=== PATIENT | male | born 1950 | race African-American/Black ===

== ENCOUNTER 2017-02-04 13:02 | Observation (INO) | payer BC, OTHER ==
[~2017-02-04] VITALS: Ht 175.3 cm; Wt 97.1 kg
[~2017-02-04 13:02] MED LIST: AMLO10TA80 PO; ATOR10TA PO; CLOP75TA2 PO; COR12 PO; DOCU-150 AD; Furosemide PO; Hydralazine Hcl PO; INSU3INS6 SUBCUT; LISI10TA5 PO; NITR0.4T3 SL; [UNRECOGNIZED DRUG - CODE] PO; eliquis PO
[2017-02-04] MEDS ORDERED: NITROGLYCERIN OINT 1GM/INCH UDPKT TD ONE (13:45)
[2017-02-04] MEDS ORDERED: ASPIRIN 81MG TABLET PO ONE (13:45)
[2017-02-04 14:14] LABS: BASOPHILS % 1.1 % (0.0-2.0); EOSINOPHILS % 3.6 % (0.0-5.0); HEMOGLOBIN. 13.1 g/dL (14.0-18.0); LYMPHOCYTES % 18.4 % (20.0-50.0); MEAN CORPUSCULAR HEMOGLOBIN 31.3 pg (28.0-32.0); MEAN CORPUSCULAR HGB CONC 32.8 g/dL (31.0-37.0); MEAN CORPUSCULAR VOLUME 95.5 fL (80.0-94.0); MEAN PLATELET VOLUME 9.6 fl (7.4-10.4); MONOCYTES % 5.9 % (2.0-8.0); PLATELET 322 x1000/uL (130-400); RED BLOOD CELL COUNT 4.19 mill/uL (4.7-6.1); RED CELL DISTRIBUTION WIDTH 15.8 % (11.6-14.6)
[2017-02-04 14:25] LABS: ALANINE AMINOTRANSFERASE 27 IU/L (13-61); ALBUMIN 3.4 g/dL (3.4-5.0); ANION GAP 12; CARBON DIOXIDE 29 mEq/L (21-32); CHLORIDE 104 mEq/L (98-107); ETHANOL BLOOD < 10 mg/dL; INDEX HEMOLYSI 3 (1-3); INDEX ICTERIC 1 (1-4); INDEX LIPEMIC 1 (1-3); NT PRO B-TYPE NATRIURETIC PEP 486 pg/mL (5-125); TROPONIN I < 0.02 ng/mL (0.00-0.04); UREA NITROGEN BLOOD 15 mg/dL (7-21); eGFR > 60 mL/min (>60)
[2017-02-04 14:31] LABS: *AMPHETAMINES SCREEN URINE NEGATIVE (NEGATIVE); *BARBITURATES SCREEN URINE NEGATIVE (NEGATIVE); *BENZODIAZEPINES SCREEN URINE NEGATIVE (NEGATIVE); *COCAINE SCREEN URINE NEGATIVE (NEGATIVE); CANNABINOID URINE SCREEN NEGATIVE (NEGATIVE); ECSTASY MDMA SCREEN URINE NEGATIVE (NEGATIVE); METHADONE URINE SCREEN NEGATIVE (NEGATIVE); OPIATES URINE SCREEN NEGATIVE (NEGATIVE); PHENCYCLIDINE URINE SCREEN NEGATIVE (NEGATIVE)
[2017-02-04] MEDS ORDERED: CLONIDINE 0.1MG TABLET PO PRN (15:45)
[2017-02-04] MEDS ORDERED: ACETAMINOPHEN 325MG TABLET PO PRN (15:45)
[2017-02-04] MEDS ORDERED: DOCUSATE SODIUM 100MG CAPSULE PO PRN (15:45)
[2017-02-04] MEDS ORDERED: ONDANSETRON HCL 4MG/2ML VIAL IV PRN (15:45)
[2017-02-04 15:53] LABS: D-DIMER 5.37 mg/L FEU (<0.50); PROTHROMBIN TIME 10.3 sec
[2017-02-04] MEDS: HYDROCODONE/ACETAMINOPHEN 5/325MG TABLET PO PRN ×2 (16:07→22:35)
[2017-02-04 16:39] LABS: CHLORIDE 105 mEq/L (98-107); INDEX HEMOLYSI 1 (1-3); INDEX ICTERIC 1 (1-4); INDEX LIPEMIC 1 (1-3)
[2017-02-04 16:45] LABS: ANION GAP 11; CALCIUM 9.2 mg/dL (8.5-10.1); CARBON DIOXIDE 28 mEq/L (21-32); UREA NITROGEN BLOOD 15 mg/dL (7-21); eGFR > 60 mL/min (>60)
[2017-02-04] MEDS ORDERED: MORPHINE SULFATE 4 MG/ML CPJ (NOT FOR IM USE) IV ONE (17:00)
[2017-02-04] MEDS ORDERED: ONDANSETRON HCL 4MG/2ML VIAL IV ONE (17:00)
[2017-02-04] MEDS ORDERED: ATORVASTATIN CALCIUM 10MG TABLET PO SCH (21:00)
[2017-02-04 22:58] LABS: CREATINE KINASE 68 IU/L (39-308); INDEX HEMOLYSI 1 (1-3); TROPONIN I < 0.02 ng/mL (0.00-0.04)
[2017-02-05] VITALS (12 sets, daily range): BP systolic 128–165; BP diastolic 72–95
[2017-02-05] MEDS: NITROGLYCERIN 0.4MG TABLET SL SL PRN ×2 (01:19→07:53)
[2017-02-05] MEDS: KETOROLAC 15MG/ML VIAL IV PRN ×4 (03:14→22:00)
[2017-02-05] MEDS: HYDROCODONE/ACETAMINOPHEN 5/325MG TABLET PO PRN ×5 (05:26→23:12)
[2017-02-05 06:26] LABS: BASOPHILS % 0.8 % (0.0-2.0); EOSINOPHILS % 3.7 % (0.0-5.0); HEMATOCRIT. 36.1 % (42.0-52.0); HEMOGLOBIN. 11.9 g/dL (14.0-18.0); LYMPHOCYTES % 19.9 % (20.0-50.0); MEAN CORPUSCULAR HEMOGLOBIN 31.1 pg (28.0-32.0); MEAN CORPUSCULAR HGB CONC 32.9 g/dL (31.0-37.0); MEAN CORPUSCULAR VOLUME 94.6 fL (80.0-94.0); MEAN PLATELET VOLUME 8.5 fl (7.4-10.4); MONOCYTES % 7.2 % (2.0-8.0); NEUTROPHILS % 68.4 % (40.0-76.0); PLATELET 290 x1000/uL (130-400); RED BLOOD CELL COUNT 3.81 mill/uL (4.7-6.1); RED CELL DISTRIBUTION WIDTH 15.3 % (11.6-14.6); WHITE BLOOD COUNT 6.3 x1000/uL (4.5-11.0)
[2017-02-05] MEDS ORDERED: DEXTROSE 50% WATER 50ML SYRINGE IV PRN (07:45)
[2017-02-05] MEDS: CLOPIDOGREL 75MG TABLET PO SCH (07:51)
[2017-02-05] MEDS: ASPIRIN 81MG EC TABLET PO SCH (07:51)
[2017-02-05] MEDS: AMLODIPINE 10MG TABLET PO SCH (07:51)
[2017-02-05] MEDS: CARVEDILOL 12.5MG TABLET PO SCH (07:51)
[2017-02-05] MEDS: LISINOPRIL 10MG TABLET PO SCH (07:52)
[2017-02-05] MEDS: ENOXAPARIN 40MG/0.4ML SYR SUBCUT SCH (07:53)
[2017-02-05] MEDS: INSULIN LISPRO 100 UNITS/ML SUBCUT SCH ×4 (08:25→21:38)
[2017-02-05 10:02] LABS: CREATINE KINASE 67 IU/L (39-308); HDL CHOLESTEROL 33 mg/dL (40-59); INDEX HEMOLYSI 1 (1-3); INDEX ICTERIC 1 (1-4); INDEX LIPEMIC 1 (1-3); LDL CHOLESTEROL 111 mg/dL (5-100); T4 FREE 0.87 ng/dL (0.76-1.46); THYROID STIMULATING HORMONE 0.98 uIU/mL (0.36-3.74); TRIGLYCERIDE 297 mg/dL (0-150); TROPONIN I < 0.02 ng/mL (0.00-0.04)
[2017-02-05] MEDS ORDERED: SODIUM CHLORIDE 0.9% 10ML VIAL ONE (11:54)
[2017-02-05] MEDS ORDERED: IOHEXOL-350 100 ML BOTTLE ONE (11:54)
[2017-02-05] MEDS: BLOOD SUGAR DIAGNOSTIC STRIP TEST SCH ×3 (13:13→21:38)
[2017-02-05] MEDS ORDERED: INFLUENZA VIRUS VACCINE 0.5ML SYR IM ONE (17:00)
[2017-02-05] MEDS ORDERED: PNEUMOCOCCAL 23-VAL P-SAC VAC 0.5 ML IM ONE (17:00)
[2017-02-05] MEDS: IPRATROPIUM/ALBUTEROL 0.5-3(2.5)MG/3ML NEB INH PRN ×2 (20:07→23:43)
[2017-02-06] VITALS (13 sets, daily range): BP systolic 119–158; BP diastolic 77–89
[2017-02-06] MEDS: HYDROCODONE/ACETAMINOPHEN 5/325MG TABLET PO PRN ×4 (03:19→17:35)
[2017-02-06] MEDS: KETOROLAC 15MG/ML VIAL IV PRN ×3 (04:12→18:36)
[2017-02-06] MEDS: IPRATROPIUM/ALBUTEROL 0.5-3(2.5)MG/3ML NEB INH PRN ×3 (04:13→16:58)
[2017-02-06] MEDS: LISINOPRIL 10MG TABLET PO SCH (08:26)
[2017-02-06] MEDS: ASPIRIN 81MG EC TABLET PO SCH (08:26)
[2017-02-06] MEDS: CARVEDILOL 12.5MG TABLET PO SCH (08:27)
[2017-02-06] MEDS: ENOXAPARIN 40MG/0.4ML SYR SUBCUT SCH (08:27)
[2017-02-06] MEDS: AMLODIPINE 10MG TABLET PO SCH (08:27)
[2017-02-06] MEDS: CLOPIDOGREL 75MG TABLET PO SCH (08:27)
[2017-02-06] MEDS: BLOOD SUGAR DIAGNOSTIC STRIP TEST SCH ×3 (08:28→17:30)
[2017-02-06] MEDS: INSULIN LISPRO 100 UNITS/ML SUBCUT SCH ×3 (08:28→18:35)
== END 2017-02-06 22:15 ==
LOC: ER 13:14 → 5EST 15:33 → INTOOBSV 15:33
PROVIDERS: ADMIT Internal Medicine; ATTEND Internal Medicine
DX: I25.119 Atherosclerotic heart disease of native coronary artery with unspecified angina pectoris (principal); I50.42 Chronic combined systolic (congestive) and diastolic (congestive) heart failure; R47.02 Dysphasia; F80.81 Childhood onset fluency disorder; R41.3 Other amnesia; E11.9 Type 2 diabetes mellitus without complications; I25.2 Old myocardial infarction; J44.9 Chronic obstructive pulmonary disease, unspecified; I11.0 Hypertensive heart disease with heart failure; I73.9 Peripheral vascular disease, unspecified; I44.7 Left bundle-branch block, unspecified; J45.909 Unspecified asthma, uncomplicated; I25.5 Ischemic cardiomyopathy; E78.5 Hyperlipidemia, unspecified; F17.200 Nicotine dependence, unspecified, uncomplicated; F41.9 Anxiety disorder, unspecified; Z89.612 Acquired absence of left leg above knee; Z86.711 Personal history of pulmonary embolism; Z86.73 Personal history of transient ischemic attack (TIA), and cerebral infarction without residual deficits; Z95.810 Presence of automatic (implantable) cardiac defibrillator; Z91.19 Patient's noncompliance with other medical treatment and regimen; Z86.718 Personal history of other venous thrombosis and embolism; Z82.49 Family history of ischemic heart disease and other diseases of the circulatory system; Z79.82 Long term (current) use of aspirin; I48.0 Paroxysmal atrial fibrillation; F11.20 Opioid dependence, uncomplicated; Z23 Encounter for immunization
CPT/HCPCS: 36415; 71010; 71275; 80048; 80053; 80061; 80305; 82550; 82962; 83880; 84439; 84443; 84484; 85025; 85379; 85610; 90471; 90472; 90686; 90732; 93005; 93970; 94640; 96372; 96374; 96375; 96376; 99285; A4216; G0378; G0482; J1650; J1815; J1885; J2270; J2405; Q9967; J7620

== ENCOUNTER 2017-05-05 22:43 | Emergency (ER) | payer BC, OTHER ==
[~2017-05-05] VITALS: Ht 170.2 cm; Wt 90.0 kg
[~2017-05-05 22:43] MED LIST changes: +CLOP75TA15 PO; -CLOP75TA2 PO
[2017-05-06] MEDS ORDERED: ONDANSETRON HCL 4MG/2ML VIAL IV STA (00:25)
[2017-05-06] MEDS ORDERED: MORPHINE SULFATE 4 MG/ML CPJ (NOT FOR IM USE) IV STA (00:25)
[2017-05-06 00:41] LABS: BASOPHILS % 1.2 % (0.0-2.0); EOSINOPHILS % 3.9 % (0.0-5.0); HEMATOCRIT. 34.2 % (42.0-52.0); HEMOGLOBIN. 11.7 g/dL (14.0-18.0); LYMPHOCYTES % 17.9 % (20.0-50.0); MEAN CORPUSCULAR HEMOGLOBIN 31.8 pg (28.0-32.0); MEAN CORPUSCULAR VOLUME 92.8 fL (80.0-94.0); MONOCYTES % 6.7 % (2.0-8.0); NEUTROPHILS % 70.3 % (40.0-76.0); PLATELET 324 x1000/uL (130-400); RED BLOOD CELL COUNT 3.69 mill/uL (4.7-6.1); RED CELL DISTRIBUTION WIDTH 14.7 % (11.6-14.6)
[2017-05-06 00:58] LABS: CARBON DIOXIDE 29 mEq/L (21-32); CHLORIDE 104 mEq/L (98-107); TROPONIN I 0.03 ng/mL (0.00-0.04)
[2017-05-06 03:41] VITALS: BP 137/72
== END 2017-05-06 03:42 | disposition home or self-care (01) ==
LOC: ER 22:58
DX: M94.0 Chondrocostal junction syndrome [Tietze] (principal); I10 Essential (primary) hypertension; J45.909 Unspecified asthma, uncomplicated; E11.9 Type 2 diabetes mellitus without complications; E78.00 Pure hypercholesterolemia, unspecified; Z79.4 Long term (current) use of insulin; Z79.02 Long term (current) use of antithrombotics/antiplatelets
CPT/HCPCS: 36415; 71010; 80053; 84484; 85025; 93005; 96374; 96375; 99285; J2270; J2405; Z7610

== ENCOUNTER 2017-05-18 19:47 | Observation (INO) | payer BC, OTHER ==
[~2017-05-18] VITALS: Ht 165.1 cm; Wt 85.8 kg
[2017-05-18] MEDS ORDERED: MORPHINE SULFATE 4 MG/ML CPJ (NOT FOR IM USE) IV STA (20:04)
[2017-05-18] MEDS ORDERED: ONDANSETRON HCL 4MG/2ML VIAL IV STA (20:04)
[2017-05-18] MEDS ORDERED: ASPIRIN 81MG TABLET PO ONE (20:15)
[2017-05-18] MEDS ORDERED: NITROGLYCERIN OINT 1GM/INCH UDPKT TD ONE (20:15)
[2017-05-18 20:20] LABS: BASOPHILS % 1.2 % (0.0-2.0); EOSINOPHILS % 2.8 % (0.0-5.0); HEMATOCRIT. 34.6 % (42.0-52.0); HEMOGLOBIN. 11.7 g/dL (14.0-18.0); LYMPHOCYTES % 16.3 % (20.0-50.0); MEAN CORPUSCULAR HEMOGLOBIN 31.4 pg (28.0-32.0); MEAN CORPUSCULAR VOLUME 92.7 fL (80.0-94.0); MEAN PLATELET VOLUME 7.9 fl (7.4-10.4); MONOCYTES % 5.7 % (2.0-8.0); PLATELET 397 x1000/uL (130-400); RED BLOOD CELL COUNT 3.73 mill/uL (4.7-6.1); RED CELL DISTRIBUTION WIDTH 14.6 % (11.6-14.6)
[2017-05-18 20:26] LABS: CARBON DIOXIDE 27 mEq/L (21-32); CHLORIDE 102 mEq/L (98-107)
[2017-05-18 20:27] LABS: D-DIMER 0.29 mg/L FEU (<0.50); PROTHROMBIN TIME 10.2 sec
[2017-05-18 20:31] LABS: ETHANOL BLOOD < 10 mg/dL
[2017-05-18 20:35] LABS: TROPONIN I < 0.02 ng/mL (0.00-0.04)
[2017-05-19 03:42] VITALS: BP 141/80
[2017-05-19 04:00] VITALS: BP 141/80
[2017-05-19] MEDS ORDERED: DOCUSATE SODIUM 100MG CAPSULE PO PRN (05:00)
[2017-05-19] MEDS ORDERED: NITROGLYCERIN 0.4MG TABLET SL SL PRN (05:00)
[2017-05-19] MEDS ORDERED: PANTOPRAZOLE 40MG DR TABLET PO ONE (05:30)
[2017-05-19] MEDS ORDERED: DEXTROSE 50% WATER 50ML SYRINGE IV PRN (05:30)
[2017-05-19 05:41] LABS: *AMPHETAMINES SCREEN URINE NEGATIVE (NEGATIVE); *BARBITURATES SCREEN URINE NEGATIVE (NEGATIVE); *BENZODIAZEPINES SCREEN URINE NEGATIVE (NEGATIVE); *COCAINE SCREEN URINE NEGATIVE (NEGATIVE); CANNABINOID URINE SCREEN NEGATIVE (NEGATIVE); METHADONE URINE SCREEN NEGATIVE (NEGATIVE); OPIATES URINE SCREEN PRESUMTIVE POSITIVE (NEGATIVE); PHENCYCLIDINE URINE SCREEN NEGATIVE (NEGATIVE)
[2017-05-19] MEDS: MORPHINE SULFATE 2 MG/ML CPJ (NOT FOR IM USE) IV PRN ×3 (06:10→20:49)
[2017-05-19] MEDS: BLOOD SUGAR DIAGNOSTIC STRIP TEST SCH ×4 (06:18→20:26)
[2017-05-19] MEDS: INSULIN LISPRO 100 UNITS/ML SUBCUT SCH ×4 (06:49→20:53)
[2017-05-19 08:00] VITALS: BP 119/73
[2017-05-19 08:14] LABS: BASOPHILS % 0.7 % (0.0-2.0); HEMATOCRIT. 33.7 % (42.0-52.0); HEMOGLOBIN. 11.2 g/dL (14.0-18.0); LYMPHOCYTES % 21.3 % (20.0-50.0); MEAN CORPUSCULAR HEMOGLOBIN 31.4 pg (28.0-32.0); MEAN CORPUSCULAR VOLUME 94.1 fL (80.0-94.0); MEAN PLATELET VOLUME 8.2 fl (7.4-10.4); MONOCYTES % 6.9 % (2.0-8.0); NEUTROPHILS % 67.1 % (40.0-76.0); PLATELET 406 x1000/uL (130-400); RED BLOOD CELL COUNT 3.58 mill/uL (4.7-6.1); RED CELL DISTRIBUTION WIDTH 14.5 % (11.6-14.6)
[2017-05-19 08:43] LABS: CARBON DIOXIDE 30 mEq/L (21-32); CHLORIDE 104 mEq/L (98-107); CREATINE KINASE 36 IU/L (39-308); CREATINE KINASE MB FRACTION 1.4 ng/mL (0.5-3.6); HDL CHOLESTEROL 31 mg/dL (40-59); LDL CHOLESTEROL 64 mg/dL (5-100); TROPONIN I < 0.02 ng/mL (0.00-0.04)
[2017-05-19] MEDS: FUROSEMIDE 40MG TABLET PO SCH ×2 (09:07→16:15)
[2017-05-19] MEDS: POTASSIUM CHLORIDE 20MEQ TABLET SR PO SCH (09:07)
[2017-05-19] MEDS: HYDRALAZINE HCL 25MG TABLET PO SCH ×3 (09:09→16:15)
[2017-05-19] MEDS: AMLODIPINE 10MG TABLET PO SCH (09:09)
[2017-05-19] MEDS: LISINOPRIL 10MG TABLET PO SCH (09:09)
[2017-05-19] MEDS: APIXABAN 5 MG TABLET PO SCH ×2 (09:09→16:05)
[2017-05-19] MEDS: CARVEDILOL 12.5MG TABLET PO SCH ×2 (09:10→20:21)
[2017-05-19 12:00] VITALS: BP 124/71
[2017-05-19] MEDS: DIPHENHYDRAMINE 25MG CAPSULE PO PRN ×2 (13:03→20:56)
[2017-05-19 15:00] LABS: CREATINE KINASE 36 IU/L (39-308); TROPONIN I < 0.02 ng/mL (0.00-0.04)
[2017-05-19 16:00] VITALS: BP 126/79
[2017-05-19 20:00] VITALS: BP 113/72
[2017-05-19] MEDS ORDERED: ATORVASTATIN CALCIUM 10MG TABLET PO SCH (21:00)
[2017-05-19 23:24] LABS: CREATINE KINASE MB FRACTION 0.7 ng/mL (0.5-3.6); TROPONIN I 0.02 ng/mL (0.00-0.04)
[2017-05-20] VITALS: BP 120/75
[2017-05-20] MEDS: MORPHINE SULFATE 2 MG/ML CPJ (NOT FOR IM USE) IV PRN ×4 (01:48→23:50)
[2017-05-20 04:00] VITALS: BP 125/75
[2017-05-20] MEDS: BLOOD SUGAR DIAGNOSTIC STRIP TEST SCH ×4 (05:51→20:42)
[2017-05-20] MEDS: INSULIN LISPRO 100 UNITS/ML SUBCUT SCH ×4 (06:27→21:10)
[2017-05-20 08:00] VITALS: BP 107/55
[2017-05-20] MEDS ORDERED: FUROSEMIDE 40MG/4ML VIAL IVP NR (08:15)
[2017-05-20] MEDS: DIPHENHYDRAMINE 25MG CAPSULE PO PRN ×2 (08:24→16:35)
[2017-05-20] MEDS: APIXABAN 5 MG TABLET PO SCH ×2 (08:26→16:35)
[2017-05-20] MEDS: POTASSIUM CHLORIDE 20MEQ TABLET SR PO SCH (08:27)
[2017-05-20] MEDS: CARVEDILOL 12.5MG TABLET PO SCH ×2 (09:00→20:42)
[2017-05-20] MEDS: FUROSEMIDE 40MG TABLET PO SCH ×2 (09:00→16:36)
[2017-05-20] MEDS: LISINOPRIL 10MG TABLET PO SCH (10:39)
[2017-05-20] MEDS: HYDRALAZINE HCL 25MG TABLET PO SCH ×3 (10:39→16:25)
[2017-05-20] MEDS: AMLODIPINE 10MG TABLET PO SCH (10:40)
[2017-05-20 12:00] VITALS: BP_SYST 104; BP_SYST 90; BP_DIAS 48; BP_DIAS 97
[2017-05-20 20:00] VITALS: BP 98/58
[2017-05-20] MEDS ORDERED: ATORVASTATIN CALCIUM 40MG TABLET PO SCH (21:00)
[2017-05-21] VITALS: BP 114/66
[2017-05-21] MEDS: DIPHENHYDRAMINE 25MG CAPSULE PO PRN ×2 (01:00→08:40)
[2017-05-21 04:00] VITALS: BP 106/62
[2017-05-21] MEDS: BLOOD SUGAR DIAGNOSTIC STRIP TEST SCH ×3 (05:49→16:38)
[2017-05-21] MEDS: INSULIN LISPRO 100 UNITS/ML SUBCUT SCH ×3 (06:35→16:51)
[2017-05-21 08:00] VITALS: BP 120/63
[2017-05-21] MEDS: LISINOPRIL 10MG TABLET PO SCH (08:32)
[2017-05-21] MEDS: POTASSIUM CHLORIDE 20MEQ TABLET SR PO SCH (08:33)
[2017-05-21] MEDS: FUROSEMIDE 40MG TABLET PO SCH ×2 (08:33→16:56)
[2017-05-21] MEDS: HYDRALAZINE HCL 25MG TABLET PO SCH ×3 (08:33→16:58)
[2017-05-21] MEDS: CARVEDILOL 12.5MG TABLET PO SCH (08:33)
[2017-05-21] MEDS: APIXABAN 5 MG TABLET PO SCH ×2 (08:33→16:55)
[2017-05-21] MEDS: AMLODIPINE 10MG TABLET PO SCH (08:33)
[2017-05-21] MEDS: MORPHINE SULFATE 2 MG/ML CPJ (NOT FOR IM USE) IV PRN ×2 (08:34→13:15)
[2017-05-21 12:10] VITALS: BP 108/80
[2017-05-21 13:19] VITALS: BP 108/80
== END 2017-05-21 18:45 | disposition home or self-care (01) ==
LOC: ER 20:01 → 5WST 05-19 02:13 → INTOOBSV 05-19 02:13 → EDBEDREQTM 05-19 02:21 → EDBEDREQ 05-19 02:21 → ENRESERV 05-19 03:06
PROVIDERS: ADMIT Internal Medicine; ATTEND Internal Medicine
DX: R07.9 Chest pain, unspecified (principal); I50.21 Acute systolic (congestive) heart failure; E11.22 Type 2 diabetes mellitus with diabetic chronic kidney disease; I13.0 Hypertensive heart and chronic kidney disease with heart failure and stage 1 through stage 4 chronic kidney disease, or unspecified chronic kidney disease; N18.9 Chronic kidney disease, unspecified; E78.5 Hyperlipidemia, unspecified; I25.10 Atherosclerotic heart disease of native coronary artery without angina pectoris; I25.5 Ischemic cardiomyopathy; Z86.718 Personal history of other venous thrombosis and embolism; Z89.612 Acquired absence of left leg above knee; Z91.14 Patient's other noncompliance with medication regimen; Z95.810 Presence of automatic (implantable) cardiac defibrillator; Z82.49 Family history of ischemic heart disease and other diseases of the circulatory system
CPT/HCPCS: 36415; 71010; 80048; 80053; 80061; 80305; 82550; 82553; 82962; 83690; 83735; 83880; 84484; 85025; 85379; 85610; 93005; 93306; 96372; 96374; 96375; 96376; 99285; G0378; G0482; J1815; J1940; J2270; J2405; Q0163

== ENCOUNTER 2017-06-05 04:36 | Emergency (ER) | payer BC, OTHER ==
[~2017-06-05] VITALS: Ht 154.9 cm; Wt 81.6 kg
[~2017-06-05 04:36] MED LIST changes: -NITR0.4T3 SL; +NITR0.4T49 SL
[2017-06-05] MEDS: NITROGLYCERIN 0.4MG TABLET SL SL PRN ×3 (05:07→09:06)
[2017-06-05] MEDS ORDERED: ASPIRIN 81MG TABLET PO ONE (05:15)
[2017-06-05 05:34] LABS: BASOPHILS % 1.4 % (0.0-2.0); EOSINOPHILS % 4.4 % (0.0-5.0); HEMATOCRIT. 35.7 % (42.0-52.0); LYMPHOCYTES % 21.8 % (20.0-50.0); MEAN CORPUSCULAR VOLUME 94.8 fL (80.0-94.0); MEAN PLATELET VOLUME 7.8 fl (7.4-10.4); NEUTROPHILS % 64.4 % (40.0-76.0); PLATELET 333 x1000/uL (130-400); RED BLOOD CELL COUNT 3.77 mill/uL (4.7-6.1); RED CELL DISTRIBUTION WIDTH 14.7 % (11.6-14.6)
[2017-06-05 05:37] LABS: INR 0.9; PROTHROMBIN TIME 9.8 sec
[2017-06-05 05:48] LABS: CARBON DIOXIDE 31 mEq/L (21-32); CHLORIDE 107 mEq/L (98-107); TROPONIN I 0.03 ng/mL (0.00-0.04)
[2017-06-05] MEDS ORDERED: MORPHINE SULFATE 2 MG/ML CPJ (NOT FOR IM USE) IV ONE (06:30)
[2017-06-05] MEDS ORDERED: ONDANSETRON 4MG ODT PO ONE (06:30)
[2017-06-05] MEDS ORDERED: HYDROCODONE/ACETAMINOPHEN 10/325MG TABLET PO ONE (08:15)
[2017-06-05 11:45] VITALS: BP 110/71
[2017-10-31] MEDS ORDERED: APIX5TAB PO (02:35)
[2017-10-31] MEDS ORDERED: FURO40TA5 PO (02:35)
[2017-10-31] MEDS ORDERED: HYDR-4135 PO (02:35)
[2017-11-01] MEDS ORDERED: CLOP75TA16 PO (15:56)
== END 2017-06-05 12:03 | disposition home or self-care (01) ==
LOC: ER 04:36
DX: R07.9 Chest pain, unspecified (principal); I10 Essential (primary) hypertension; E11.9 Type 2 diabetes mellitus without complications; Z79.4 Long term (current) use of insulin
CPT/HCPCS: 36415; 71010; 80053; 82962; 83880; 84484; 85025; 85610; 93005; 96374; 99285; J2270; Q0162; Z7610

== ENCOUNTER 2017-06-13 12:27 | Emergency (ER) | payer BC, OTHER ==
[~2017-06-13] VITALS: Ht 167.6 cm; Wt 79.0 kg
[~2017-06-13 12:27] MED LIST changes: +NITR0.4T3 SL; -NITR0.4T49 SL
[2017-06-13] MEDS ORDERED: OXYCODONE HCL/ACETAMINOPHEN 5/325MG TABLET PO ONE (14:15)
[2017-06-13 14:20] VITALS: BP 135/81
== END 2017-06-13 15:36 | disposition home or self-care (01) ==
LOC: ER 12:27
DX: S09.8XXA Other specified injuries of head, initial encounter (principal); W05.0XXA Fall from non-moving wheelchair, initial encounter; Y93.89 Activity, other specified; E11.9 Type 2 diabetes mellitus without complications; Y92.89 Other specified places as the place of occurrence of the external cause; Z95.0 Presence of cardiac pacemaker; Z79.01 Long term (current) use of anticoagulants; Z79.4 Long term (current) use of insulin; I69.398 Other sequelae of cerebral infarction; G93.89 Other specified disorders of brain; I11.0 Hypertensive heart disease with heart failure; I50.9 Heart failure, unspecified; F41.9 Anxiety disorder, unspecified; R51 Headache; Z79.899 Other long term (current) drug therapy
CPT/HCPCS: 70450; 99284; Z7610

== ENCOUNTER 2017-08-04 03:40 | Emergency (ER) | payer BC, OTHER ==
[~2017-08-04] VITALS: Ht 165.1 cm; Wt 59.0 kg
[~2017-08-04 03:40] MED LIST changes: -NITR0.4T3 SL; +NITR0.4T49 SL
[2017-08-04] MEDS ORDERED: NITROGLYCERIN OINT 1GM/INCH UDPKT TD STA (04:51)
[2017-08-04 05:49] LABS: BASOPHILS % 1.1 % (0.0-2.0); EOSINOPHILS % 5.2 % (0.0-5.0); HEMATOCRIT. 33.6 % (42.0-52.0); HEMOGLOBIN. 11.5 g/dL (14.0-18.0); LYMPHOCYTES % 16.2 % (20.0-50.0); MEAN CORPUSCULAR HEMOGLOBIN 31.5 pg (28.0-32.0); MEAN CORPUSCULAR VOLUME 92.1 fL (80.0-94.0); MONOCYTES % 6.9 % (2.0-8.0); NEUTROPHILS % 70.6 % (40.0-76.0); PLATELET 345 x1000/uL (130-400); RED BLOOD CELL COUNT 3.65 mill/uL (4.7-6.1); RED CELL DISTRIBUTION WIDTH 14.4 % (11.6-14.6)
[2017-08-04 06:05] LABS: CARBON DIOXIDE 28 mEq/L (21-32); CHLORIDE 109 mEq/L (98-107); TROPONIN I 0.03 ng/mL (0.00-0.04)
[2017-08-04] MEDS ORDERED: MORPHINE SULFATE 4 MG/ML CPJ (NOT FOR IM USE) IV ONE (06:30)
[2017-08-04 09:09] VITALS: BP 133/85
== END 2017-08-04 09:14 | disposition home or self-care (01) ==
LOC: ER 03:40
DX: R07.2 Precordial pain (principal); R06.02 Shortness of breath; I11.0 Hypertensive heart disease with heart failure; I50.9 Heart failure, unspecified; E11.9 Type 2 diabetes mellitus without complications; E78.00 Pure hypercholesterolemia, unspecified; I25.2 Old myocardial infarction; Z95.1 Presence of aortocoronary bypass graft; Z79.4 Long term (current) use of insulin; Z79.01 Long term (current) use of anticoagulants; Z95.0 Presence of cardiac pacemaker
CPT/HCPCS: 36415; 71010; 80053; 83880; 84484; 85025; 93005; 96374; 99285; J2270

== ENCOUNTER 2018-01-08 05:46 | Inpatient (IN) | payer BC, OTHER ==
[~2018-01-08] VITALS: Ht 170.2 cm; Wt 93.9 kg
[~2018-01-08 05:46] MED LIST changes: -CLOP75TA15 PO; +CLOP75TA16 PO; +FURO40TA5 PO; -Furosemide PO; +HYDR-4135 PO; -Hydralazine Hcl PO; -eliquis PO
[2018-01-08] MEDS ORDERED: ONDANSETRON HCL 4MG/2ML VIAL IV STA (06:26)
[2018-01-08] MEDS ORDERED: MORPHINE SULFATE 4 MG/ML CPJ (NOT FOR IM USE) IV STA (06:26)
[2018-01-08 06:49] LABS: BASOPHILS % 1.2 % (0.0-2.0); EOSINOPHILS % 3.4 % (0.0-5.0); HEMATOCRIT. 38.6 % (42.0-52.0); HEMOGLOBIN. 12.7 g/dL (14.0-18.0); LYMPHOCYTES % 21.2 % (20.0-50.0); MEAN CORPUSCULAR HEMOGLOBIN 30.3 pg (28.0-32.0); MEAN CORPUSCULAR VOLUME 92.4 fL (80.0-94.0); MEAN PLATELET VOLUME 7.5 fl (7.4-10.4); MONOCYTES % 6.2 % (2.0-8.0); PLATELET 361 x1000/uL (130-400); RED BLOOD CELL COUNT 4.18 mill/uL (4.7-6.1); RED CELL DISTRIBUTION WIDTH 15.4 % (11.6-14.6)
[2018-01-08 07:02] LABS: D-DIMER 0.33 mg/L FEU (<0.50); PARTIAL THROMBOPLASTIN TIME 26.2 sec (23.4-31.0); PROTHROMBIN TIME 10.4 sec (9.4-11.6)
[2018-01-08 07:24] LABS: CHLORIDE 105 mEq/L (98-107); TROPONIN I < 0.02 ng/mL (0.00-0.04)
[2018-01-08] MEDS ORDERED: HYDROCODONE/ACETAMINOPHEN 10/325MG TABLET PO PRN (11:15)
[2018-01-08] MEDS ORDERED: ONDANSETRON HCL 4MG/2ML VIAL IV PRN (11:15)
[2018-01-08] MEDS ORDERED: DOCUSATE SODIUM 100MG CAPSULE PO PRN (11:15)
[2018-01-08] MEDS ORDERED: MORPHINE SULFATE 4 MG/ML CPJ (NOT FOR IM USE) IV ONE (11:15)
[2018-01-08] MEDS ORDERED: DIPHENHYDRAMINE 50MG/ML VIAL IV PRN (11:15)
[2018-01-08] MEDS ORDERED: NA PHOS,M-B/NA PHOS,DI-BA ENEMA 118ML PR PRN (11:15)
[2018-01-08] MEDS ORDERED: ONDANSETRON HCL 4MG/2ML VIAL IV ONE (11:15)
[2018-01-08] MEDS ORDERED: LORAZEPAM 2MG/ML CPJ IV PRN (11:15)
[2018-01-08] MEDS ORDERED: MAGNESIUM/ALUMINUM HYDROXIDE/SIMETHICONE 30ML UDC PO PRN (11:15)
[2018-01-08] MEDS ORDERED: IPRATROPIUM/ALBUTEROL 0.5-3(2.5)MG/3ML NEB INH PRN (11:15)
[2018-01-08] MEDS ORDERED: GUAIFENESIN 200MG/10ML SUGAR FREE UDC PO PRN (11:15)
[2018-01-08] MEDS ORDERED: ACETAMINOPHEN 325MG TABLET PO PRN (11:15)
[2018-01-08] MEDS ORDERED: CLONIDINE 0.1MG TABLET PO PRN (11:15)
[2018-01-08 12:02] LABS: CHLORIDE 106 mEq/L (98-107)
[2018-01-08] MEDS: MORPHINE SULFATE 4 MG/ML CPJ (NOT FOR IM USE) IV PRN ×2 (17:38→21:37)
[2018-01-08 20:30] VITALS: BP 130/82
[2018-01-08] MEDS ORDERED: DEXTROSE 50% WATER 50ML SYRINGE IV PRN (21:15)
[2018-01-08] MEDS: BLOOD SUGAR DIAGNOSTIC STRIP TEST SCH (21:21)
[2018-01-08] MEDS: INSULIN LISPRO 100 UNITS/ML SUBCUT SCH (21:51)
[2018-01-09] VITALS (8 sets, daily range): BP systolic 127–146; BP diastolic 63–78
[2018-01-09] MEDS: MORPHINE SULFATE 4 MG/ML CPJ (NOT FOR IM USE) IV PRN ×3 (02:18→12:16)
[2018-01-09] MEDS: BLOOD SUGAR DIAGNOSTIC STRIP TEST SCH ×3 (06:39→16:23)
[2018-01-09] MEDS: INSULIN LISPRO 100 UNITS/ML SUBCUT SCH ×4 (06:39→21:03)
[2018-01-09 06:40] LABS: BASOPHILS % 0.9 % (0.0-2.0); EOSINOPHILS % 3.5 % (0.0-5.0); HEMOGLOBIN. 12.5 g/dL (14.0-18.0); LYMPHOCYTES % 19.4 % (20.0-50.0); MEAN CORPUSCULAR HEMOGLOBIN 30.5 pg (28.0-32.0); MEAN PLATELET VOLUME 7.8 fl (7.4-10.4); MONOCYTES % 6.8 % (2.0-8.0); NEUTROPHILS % 69.4 % (40.0-76.0); PLATELET 336 x1000/uL (130-400); RED BLOOD CELL COUNT 4.09 mill/uL (4.7-6.1); RED CELL DISTRIBUTION WIDTH 15.4 % (11.6-14.6)
[2018-01-09 07:27] LABS: CHLORIDE 104 mEq/L (98-107)
[2018-01-09 07:30] LABS: HDL CHOLESTEROL 27 mg/dL (40-59); LDL CHOLESTEROL 101 mg/dL (5-100); T4 FREE 0.97 ng/dL (0.76-1.46)
[2018-01-09] MEDS ORDERED: ASPIRIN 81MG EC TABLET PO SCH (09:00)
[2018-01-09] MEDS ORDERED: ENOXAPARIN 40MG/0.4ML SYR SUBCUT SCH (09:00)
[2018-01-09] MEDS ORDERED: CARVEDILOL 12.5MG TABLET PO SCH (14:30)
[2018-01-09] MEDS ORDERED: CLOPIDOGREL 75MG TABLET PO SCH (14:30)
[2018-01-09] MEDS ORDERED: HYDRALAZINE HCL 50MG TABLET PO SCH (17:00)
[2018-01-09] MEDS ORDERED: FUROSEMIDE 40MG TABLET PO SCH (17:15)
[2018-01-09] MEDS ORDERED: ATORVASTATIN CALCIUM 10MG TABLET PO SCH (21:00)
[2018-01-10] MEDS ORDERED: AMLODIPINE 10MG TABLET PO SCH (09:00)
[2018-01-10] MEDS ORDERED: LISINOPRIL 10MG TABLET PO SCH (09:00)
== END 2018-01-09 22:51 | disposition home or self-care (01) | DRG 206 ==
LOC: ER 05:46 → 8WST 10:57 → EDBEDREQTM 10:59 → EDBEDREQ 10:59 → ENRESERV 19:26
PROVIDERS: ADMIT Internal Medicine; ATTEND Internal Medicine
DX: M94.0 Chondrocostal junction syndrome [Tietze] (principal); E11.51 Type 2 diabetes mellitus with diabetic peripheral angiopathy without gangrene; I42.9 Cardiomyopathy, unspecified; I25.10 Atherosclerotic heart disease of native coronary artery without angina pectoris; I50.9 Heart failure, unspecified; E78.5 Hyperlipidemia, unspecified; J44.9 Chronic obstructive pulmonary disease, unspecified; I11.0 Hypertensive heart disease with heart failure; F17.200 Nicotine dependence, unspecified, uncomplicated; I25.2 Old myocardial infarction; Z79.899 Other long term (current) drug therapy; Z82.49 Family history of ischemic heart disease and other diseases of the circulatory system; Z86.73 Personal history of transient ischemic attack (TIA), and cerebral infarction without residual deficits; Z95.810 Presence of automatic (implantable) cardiac defibrillator; Z79.4 Long term (current) use of insulin; Z98.61 Coronary angioplasty status; Z89.612 Acquired absence of left leg above knee
CPT/HCPCS: 36415; 71045; 80048; 80053; 80061; 82962; 83690; 83880; 84439; 84443; 84484; 85025; 85379; 85610; 85730; 93005; 96374; 96375; 96376; 99285; J1200; J1650; J1815; J2270; J2405

== ENCOUNTER 2018-02-03 12:53 | Inpatient (IN) | payer BC, OTHER ==
[~2018-02-03] VITALS: Ht 170.2 cm; Wt 90.7 kg
[2018-02-03 15:47] LABS: BASOPHILS % 0.7 % (0.0-2.0); EOSINOPHILS % 3.1 % (0.0-5.0); HEMATOCRIT. 36.1 % (42.0-52.0); HEMOGLOBIN. 11.7 g/dL (14.0-18.0); MEAN CORPUSCULAR HEMOGLOBIN 30.4 pg (28.0-32.0); MEAN CORPUSCULAR VOLUME 94.3 fL (80.0-94.0); MEAN PLATELET VOLUME 7.9 fl (7.4-10.4); MONOCYTES % 6.8 % (2.0-8.0); NEUTROPHILS % 81.4 % (40.0-76.0); PLATELET 362 x1000/uL (130-400); RED BLOOD CELL COUNT 3.83 mill/uL (4.7-6.1); RED CELL DISTRIBUTION WIDTH 14.7 % (11.6-14.6)
[2018-02-03 15:51] LABS: CHLORIDE 108 mEq/L (98-107)
[2018-02-03] MEDS ORDERED: MORPHINE SULFATE 4 MG/ML CPJ (NOT FOR IM USE) IV ONE (16:00)
[2018-02-03] MEDS ORDERED: GUAIFENESIN 200MG/10ML SUGAR FREE UDC PO PRN (18:45)
[2018-02-03] MEDS ORDERED: HYDROCODONE/ACETAMINOPHEN 10/325MG TABLET PO PRN (18:45)
[2018-02-03] MEDS ORDERED: ONDANSETRON HCL 4MG/2ML VIAL IV PRN (18:45)
[2018-02-03] MEDS ORDERED: MAGNESIUM/ALUMINUM HYDROXIDE/SIMETHICONE 30ML UDC PO PRN (18:45)
[2018-02-03] MEDS ORDERED: NA PHOS,M-B/NA PHOS,DI-BA ENEMA 118ML PR PRN (18:45)
[2018-02-03] MEDS ORDERED: CLONIDINE 0.1MG TABLET PO PRN (18:45)
[2018-02-03] MEDS ORDERED: IPRATROPIUM/ALBUTEROL 0.5-3(2.5)MG/3ML NEB INH PRN (18:45)
[2018-02-03] MEDS ORDERED: ACETAMINOPHEN 325MG TABLET PO PRN (18:45)
[2018-02-03] MEDS ORDERED: DOCUSATE SODIUM 100MG CAPSULE PO PRN ×2 (18:45→23:30)
[2018-02-03 22:00] VITALS: BP 151/75
[2018-02-03 22:06] LABS: CHLORIDE 102 mEq/L (98-107)
[2018-02-03] MEDS ORDERED: LORAZEPAM 0.5MG TABLET PO PRN (22:18)
[2018-02-03 22:23] VITALS: BP 151/75
[2018-02-03] MEDS: ENOXAPARIN 40MG/0.4ML SYR SUBCUT SCH (22:39)
[2018-02-03] MEDS: MORPHINE SULFATE 4 MG/ML CPJ (NOT FOR IM USE) IV PRN (22:40)
[2018-02-03] MEDS: BLOOD SUGAR DIAGNOSTIC STRIP TEST SCH (22:40)
[2018-02-03] MEDS: INSULIN LISPRO 100 UNITS/ML SUBCUT SCH (22:41)
[2018-02-03] MEDS ORDERED: DEXTROSE 50% WATER 50ML SYRINGE IV PRN (22:45)
[2018-02-03] MEDS ORDERED: NITROGLYCERIN 0.4MG TABLET SL SL PRN (23:30)
[2018-02-04] VITALS: BP 144/72
[2018-02-04] MEDS: MORPHINE SULFATE 4 MG/ML CPJ (NOT FOR IM USE) IV PRN ×5 (02:56→21:13)
[2018-02-04 04:00] VITALS: BP 137/76
[2018-02-04] MEDS: DIPHENHYDRAMINE 50MG/ML VIAL IV PRN ×3 (04:24→21:01)
[2018-02-04 07:33] LABS: BASOPHILS % 0.9 % (0.0-2.0); EOSINOPHILS % 3.3 % (0.0-5.0); HEMATOCRIT. 32.6 % (42.0-52.0); HEMOGLOBIN. 10.8 g/dL (14.0-18.0); LYMPHOCYTES % 14.1 % (20.0-50.0); MEAN CORPUSCULAR HEMOGLOBIN 30.2 pg (28.0-32.0); MEAN CORPUSCULAR VOLUME 91.8 fL (80.0-94.0); MEAN PLATELET VOLUME 8.3 fl (7.4-10.4); MONOCYTES % 6.1 % (2.0-8.0); NEUTROPHILS % 75.6 % (40.0-76.0); PLATELET 391 x1000/uL (130-400); RED BLOOD CELL COUNT 3.56 mill/uL (4.7-6.1); RED CELL DISTRIBUTION WIDTH 14.9 % (11.6-14.6)
[2018-02-04] MEDS: BLOOD SUGAR DIAGNOSTIC STRIP TEST SCH ×4 (07:56→21:00)
[2018-02-04] MEDS: INSULIN LISPRO 100 UNITS/ML SUBCUT SCH ×5 (07:58→21:06)
[2018-02-04 08:00] VITALS: BP 134/72
[2018-02-04 08:46] LABS: CHLORIDE 109 mEq/L (98-107)
[2018-02-04 08:52] LABS: HDL CHOLESTEROL 29 mg/dL (40-59); LDL CHOLESTEROL 95 mg/dL (5-100)
[2018-02-04] MEDS ORDERED: MEDICATION NOT ON FORMULARY EA (Insulin Glargine,Hum.rec.anlog (Lantus Solostar) 16 UNIT SUBCUT SCH (09:00)
[2018-02-04] MEDS: ASPIRIN 81MG EC TABLET PO SCH (10:02)
[2018-02-04] MEDS: HYDRALAZINE HCL 25MG TABLET PO SCH ×2 (10:02→21:00)
[2018-02-04] MEDS: CARVEDILOL 12.5MG TABLET PO SCH ×2 (10:02→20:59)
[2018-02-04] MEDS: FUROSEMIDE 40MG TABLET PO SCH ×2 (10:02→16:56)
[2018-02-04] MEDS: LISINOPRIL 10MG TABLET PO SCH (10:03)
[2018-02-04] MEDS: CLOPIDOGREL 75MG TABLET PO SCH (10:03)
[2018-02-04] MEDS: NATEGLINIDE 60MG TABLET PO SCH (10:03)
[2018-02-04] MEDS: AMLODIPINE 10MG TABLET PO SCH (10:03)
[2018-02-04 12:00] VITALS: BP 110/71
[2018-02-04 12:25] LABS: T4 FREE 0.82 ng/dL (0.76-1.46)
[2018-02-04] MEDS: INSULIN GLARGINE UD 100 UNITS/ML SYR SUBCUT SCH (12:43)
[2018-02-04 16:00] VITALS: BP 124/58
[2018-02-04 16:40] LABS: CREATINE KINASE 67 IU/L (39-308); CREATINE KINASE MB FRACTION 1.3 ng/mL (0.5-3.6)
[2018-02-04] MEDS ORDERED: INSULIN GLARGINE HUM REC ANLOG 8 UNIT SUBCUT SCH (17:00)
[2018-02-04] MEDS ORDERED: [UNRECOGNIZED DRUG - OTHER] SUBCUT SCH (17:00)
[2018-02-04 20:00] VITALS: BP 119/72
[2018-02-04] MEDS ORDERED: ATORVASTATIN CALCIUM 10MG TABLET PO SCH (21:00)
[2018-02-04] MEDS: ENOXAPARIN 40MG/0.4ML SYR SUBCUT SCH (21:00)
[2018-02-04] MEDS ORDERED: INSULIN GLARGINE UD 100 UNITS/ML SYR SUBCUT SCH (22:00)
[2018-02-05] VITALS: BP 124/82
[2018-02-05 00:20] LABS: CREATINE KINASE 67 IU/L (39-308)
[2018-02-05] MEDS: MORPHINE SULFATE 4 MG/ML CPJ (NOT FOR IM USE) IV PRN ×3 (01:07→08:17)
[2018-02-05 04:00] VITALS: BP 139/74
[2018-02-05] MEDS: DIPHENHYDRAMINE 50MG/ML VIAL IV PRN ×2 (04:08→08:16)
[2018-02-05] MEDS: BLOOD SUGAR DIAGNOSTIC STRIP TEST SCH ×2 (05:30→12:40)
[2018-02-05 08:00] VITALS: BP 111/78
[2018-02-05 08:05] LABS: CREATINE KINASE 63 IU/L (39-308); CREATINE KINASE MB FRACTION 1.2 ng/mL (0.5-3.6)
[2018-02-05] MEDS: INSULIN LISPRO 100 UNITS/ML SUBCUT SCH (08:10)
[2018-02-05] MEDS: NATEGLINIDE 60MG TABLET PO SCH (08:15)
[2018-02-05] MEDS: CLOPIDOGREL 75MG TABLET PO SCH (08:15)
[2018-02-05] MEDS: FUROSEMIDE 40MG TABLET PO SCH (09:21)
[2018-02-05] MEDS: ASPIRIN 81MG EC TABLET PO SCH (09:21)
[2018-02-05] MEDS: HYDRALAZINE HCL 25MG TABLET PO SCH (09:22)
[2018-02-05] MEDS: AMLODIPINE 10MG TABLET PO SCH (09:23)
[2018-02-05] MEDS: LISINOPRIL 10MG TABLET PO SCH (09:23)
[2018-02-05] MEDS: INSULIN GLARGINE UD 100 UNITS/ML SYR SUBCUT SCH (09:24)
[2018-02-05] MEDS: CARVEDILOL 12.5MG TABLET PO SCH (09:24)
[2018-02-05 12:00] VITALS: BP 132/66
[2018-02-05 12:15] VITALS: BP 132/66
== END 2018-02-05 12:45 | disposition home or self-care (01) | DRG 206 ==
LOC: ER 13:38 → 7WST 16:58 → EDBEDREQ 17:00 → ENRESERV 19:43
PROVIDERS: ADMIT Internal Medicine; ATTEND Internal Medicine
DX: M94.0 Chondrocostal junction syndrome [Tietze] (principal); E11.22 Type 2 diabetes mellitus with diabetic chronic kidney disease; I42.9 Cardiomyopathy, unspecified; I25.10 Atherosclerotic heart disease of native coronary artery without angina pectoris; D64.9 Anemia, unspecified; E78.5 Hyperlipidemia, unspecified; N18.9 Chronic kidney disease, unspecified; I12.9 Hypertensive chronic kidney disease with stage 1 through stage 4 chronic kidney disease, or unspecified chronic kidney disease; Z79.899 Other long term (current) drug therapy; Z82.49 Family history of ischemic heart disease and other diseases of the circulatory system; Z86.73 Personal history of transient ischemic attack (TIA), and cerebral infarction without residual deficits; Z89.511 Acquired absence of right leg below knee; I25.2 Old myocardial infarction; Z95.1 Presence of aortocoronary bypass graft; Z95.810 Presence of automatic (implantable) cardiac defibrillator; Z79.4 Long term (current) use of insulin
CPT/HCPCS: 36415; 71045; 78582; 80048; 80053; 80061; 82550; 82553; 82962; 83036; 83880; 84439; 84443; 84484; 85025; 85379; 93005; 93306; 93970; 96374; 99285; A9558; J1200; J1650; J1815; J2270

== ENCOUNTER 2018-02-22 07:53 | Emergency (ER) | payer BC, OTHER ==
[~2018-02-22] VITALS: Ht 175.3 cm; Wt 100.0 kg
[2018-02-22] MEDS ORDERED: ACETAMINOPHEN WITH CODEINE 300/30MG TABLET PO ONE ×2 (08:30→13:15)
[2018-02-22] MEDS ORDERED: METHOCARBAMOL 500MG TABLET PO ONE (08:30)
[2018-02-22] MEDS ORDERED: KETOROLAC 60MG/2ML VIAL IM ONE (08:30)
[2018-02-22] MEDS ORDERED: SODIUM CHLORIDE 0.9% 1,000 ML IV ONE ×2 (12:00)
[2018-02-22 12:28] LABS: BASOPHILS % 1.1 % (0.0-2.0); EOSINOPHILS % 5.2 % (0.0-5.0); HEMATOCRIT. 35.1 % (42.0-52.0); HEMOGLOBIN. 11.9 g/dL (14.0-18.0); LYMPHOCYTES % 24.4 % (20.0-50.0); MEAN CORPUSCULAR HEMOGLOBIN 31.7 pg (28.0-32.0); MEAN CORPUSCULAR VOLUME 93.6 fL (80.0-94.0); MEAN PLATELET VOLUME 7.7 fl (7.4-10.4); MONOCYTES % 7.5 % (2.0-8.0); NEUTROPHILS % 61.8 % (40.0-76.0); PLATELET 455 x1000/uL (130-400); RED BLOOD CELL COUNT 3.75 mill/uL (4.7-6.1); RED CELL DISTRIBUTION WIDTH 14.7 % (11.6-14.6)
[2018-02-22 12:33] LABS: CHLORIDE 108 mEq/L (98-107)
[2018-02-22 15:00] VITALS: BP 134/76
== END 2018-02-22 15:30 | disposition home or self-care (01) ==
LOC: ER 08:13
DX: S70.02XA Contusion of left hip, initial encounter (principal); S43.402A Unspecified sprain of left shoulder joint, initial encounter; S23.3XXA Sprain of ligaments of thoracic spine, initial encounter; W18.39XA Other fall on same level, initial encounter; Y93.89 Activity, other specified; Y92.89 Other specified places as the place of occurrence of the external cause; Y99.8 Other external cause status; E11.65 Type 2 diabetes mellitus with hyperglycemia; I10 Essential (primary) hypertension; Z79.4 Long term (current) use of insulin; Z89.612 Acquired absence of left leg above knee; Z95.810 Presence of automatic (implantable) cardiac defibrillator; Z98.890 Other specified postprocedural states; Z99.3 Dependence on wheelchair
CPT/HCPCS: 36415; 72040; 72070; 73030; 73502; 80053; 82962; 85025; 96360; 96361; 96372; 99285; J1885; J7030

== ENCOUNTER 2018-04-22 06:31 | Emergency (ER) | payer BC, OTHER ==
[~2018-04-22] VITALS: Ht 165.1 cm; Wt 95.5 kg
[2018-04-22] MEDS ORDERED: IBUPROFEN 600MG TABLET PO ONE (07:15)
[2018-04-22] MEDS ORDERED: HYDROCODONE/ACETAMINOPHEN 5/325MG TABLET PO ONE (07:15)
[2018-04-22 10:00] VITALS: BP 143/86
== END 2018-04-22 10:02 | disposition home or self-care (01) ==
LOC: ER 06:31
DX: S09.90XA Unspecified injury of head, initial encounter (principal); I11.0 Hypertensive heart disease with heart failure; I50.9 Heart failure, unspecified; I25.10 Atherosclerotic heart disease of native coronary artery without angina pectoris; E11.9 Type 2 diabetes mellitus without complications; Z86.73 Personal history of transient ischemic attack (TIA), and cerebral infarction without residual deficits; Z79.4 Long term (current) use of insulin; Z79.82 Long term (current) use of aspirin; Z79.01 Long term (current) use of anticoagulants; Z95.0 Presence of cardiac pacemaker; W06.XXXA Fall from bed, initial encounter; Y93.89 Activity, other specified; Y92.89 Other specified places as the place of occurrence of the external cause; Y99.8 Other external cause status
CPT/HCPCS: 70450; 82962; 99284

== ENCOUNTER 2018-05-29 01:24 | Emergency (ER) | payer BC, OTHER ==
[~2018-05-29] VITALS: Ht 177.8 cm; Wt 81.0 kg
[~2018-05-29 01:24] MED LIST changes: +APIX5TAB PO
[2018-05-29] MEDS ORDERED: KETOROLAC 30MG/ML VIAL IV STA (02:05)
[2018-05-29 02:25] LABS: BASOPHILS % 0.7 % (0.0-2.0); EOSINOPHILS % 4.5 % (0.0-5.0); HEMOGLOBIN. 12.8 g/dL (14.0-18.0); LYMPHOCYTES % 19.2 % (20.0-50.0); MEAN CORPUSCULAR HEMOGLOBIN 30.7 pg (28.0-32.0); MEAN CORPUSCULAR VOLUME 91.2 fL (80.0-94.0); MEAN PLATELET VOLUME 7.6 fl (7.4-10.4); MONOCYTES % 8.6 % (2.0-8.0); PLATELET 392 x1000/uL (130-400); RED BLOOD CELL COUNT 4.16 mill/uL (4.7-6.1); RED CELL DISTRIBUTION WIDTH 15.3 % (11.6-14.6)
[2018-05-29 02:28] LABS: CHLORIDE 108 mEq/L (98-107)
[2018-05-29] MEDS ORDERED: HYDROCODONE/ACETAMINOPHEN 10/325MG TABLET PO ONE (05:00)
[2018-05-29 09:40] VITALS: BP 122/54
[2018-06-02] MEDS ORDERED: LORA-249 PO (22:10)
== END 2018-05-29 10:01 | disposition home or self-care (01) ==
LOC: ER 02:14
DX: R07.89 Other chest pain (principal); I10 Essential (primary) hypertension; Z89.612 Acquired absence of left leg above knee; R94.31 Abnormal electrocardiogram [ECG] [EKG]; Z79.899 Other long term (current) drug therapy
CPT/HCPCS: 36415; 71045; 80053; 83880; 84484; 85025; 93005; 96374; 99285; J1885

== ENCOUNTER 2018-10-04 17:08 | Inpatient (IN) | payer BC, OTHER ==
[~2018-10-04] VITALS: Ht 170.2 cm; Wt 92.1 kg
[~2018-10-04 17:08] MED LIST changes: +LORA-249 PO
[2018-10-04] MEDS ORDERED: ONDANSETRON HCL 4MG/2ML INJ IV STA (18:16)
[2018-10-04] MEDS ORDERED: MORPHINE SULFATE 4 MG/ML CPJ (NOT FOR IM USE) IV STA (18:16)
[2018-10-04 18:27] LABS: CLARITY URINE CLEAR (CLEAR); COLOR URINE YELLOW (YELLOW); KETONES URINE NEGATIVE (NEGATIVE); LEUKOCYTE ESTERASE URINE NEGATIVE (NEGATIVE); NITRITE URINE NEGATIVE (NEGATIVE); OCCULT BLOOD URINE NEGATIVE (NEGATIVE); PH URINE 5.5 (4.5-8.0); PROTEIN URINE NEGATIVE (NEGATIVE); SPECIFIC GRAVITY URINE 1.015 (1.005-1.030); UROBILINOGEN URINE 0.2 E.U./dL (0.2-1.0)
[2018-10-04 18:36] LABS: *AMPHETAMINES SCREEN URINE NEGATIVE (NEGATIVE); *BARBITURATES SCREEN URINE NEGATIVE (NEGATIVE); CANNABINOID URINE SCREEN NEGATIVE (NEGATIVE); PHENCYCLIDINE URINE SCREEN NEGATIVE (NEGATIVE)
[2018-10-04 18:37] LABS: *BENZODIAZEPINES SCREEN URINE NEGATIVE (NEGATIVE); *COCAINE SCREEN URINE NEGATIVE (NEGATIVE); METHADONE URINE SCREEN NEGATIVE (NEGATIVE); OPIATES URINE SCREEN NEGATIVE (NEGATIVE)
[2018-10-04 18:40] LABS: BASOPHILS % 0.7 % (0.0-2.0); EOSINOPHILS % 2.2 % (0.0-5.0); HEMATOCRIT. 37.2 % (42.0-52.0); HEMOGLOBIN. 12.4 g/dL (14.0-18.0); MEAN CORPUSCULAR HEMOGLOBIN 31.6 pg (28.0-32.0); MEAN CORPUSCULAR VOLUME 94.8 fL (80.0-94.0); MONOCYTES % 4.1 % (2.0-8.0); PLATELET 322 x1000/uL (130-400); RED BLOOD CELL COUNT 3.92 mill/uL (4.7-6.1); RED CELL DISTRIBUTION WIDTH 15.2 % (11.6-14.6)
[2018-10-04 18:44] LABS: INR 0.9; PARTIAL THROMBOPLASTIN TIME 26.1 sec (23.4-31.0); PROTHROMBIN TIME 9.3 sec (9.1-11.1)
[2018-10-04 18:45] LABS: CHLORIDE 102 mEq/L (98-107); ETHANOL BLOOD < 10 mg/dL
[2018-10-04] MEDS ORDERED: DIPHENHYDRAMINE 50MG/ML VIAL IV ONE (18:45)
[2018-10-04] MEDS ORDERED: INSULIN REGULAR (HUMULIN R) 300UNITS/3ML SUBCUT ONE (19:30)
[2018-10-04] MEDS ORDERED: ONDANSETRON HCL 4MG/2ML INJ IV ONE (20:30)
[2018-10-04] MEDS ORDERED: KETOROLAC 30MG/ML VIAL IV ONE (20:30)
[2018-10-04] MEDS ORDERED: DEXTROSE 50% WATER 50ML SYRINGE IV PRN (22:15)
[2018-10-04] MEDS ORDERED: IPRATROPIUM/ALBUTEROL 0.5-3(2.5)MG/3ML NEB INH PRN (22:15)
[2018-10-04] MEDS ORDERED: CLONIDINE 0.1MG TABLET PO PRN (22:15)
[2018-10-04] MEDS ORDERED: MAGNESIUM HYDROXIDE 400MG/5ML 30ML UDC PO PRN (22:15)
[2018-10-04] MEDS ORDERED: TEMAZEPAM 15MG CAPSULE PO PRN (22:15)
[2018-10-04] MEDS ORDERED: MAGNESIUM/ALUMINUM HYDROXIDE/SIMETHICONE 30ML UDC PO PRN (22:15)
[2018-10-04] MEDS ORDERED: ACETAMINOPHEN 325MG TABLET PO PRN (22:15)
[2018-10-04] MEDS ORDERED: GUAIFENESIN 200MG/10ML SUGAR FREE UDC PO PRN (22:15)
[2018-10-04] MEDS ORDERED: ONDANSETRON HCL 4MG/2ML INJ IV PRN (22:15)
[2018-10-04] MEDS ORDERED: LORAZEPAM 0.5MG TABLET PO PRN (22:15)
[2018-10-05 01:00] VITALS: BP 129/65
[2018-10-05] MEDS: DIPHENHYDRAMINE 25MG CAPSULE PO PRN ×3 (02:31→20:55)
[2018-10-05 04:00] VITALS: BP_SYST 119; BP_SYST 128; BP_DIAS 65; BP_DIAS 72
[2018-10-05] MEDS: SODIUM CHLORIDE 0.9% INJ 3ML FLUSH IVF SCH ×2 (05:44→22:45)
[2018-10-05] MEDS: BLOOD SUGAR DIAGNOSTIC STRIP TEST SCH ×4 (06:27→20:44)
[2018-10-05] MEDS: APIXABAN 5 MG TABLET PO SCH ×2 (09:17→16:42)
[2018-10-05] MEDS: INSULIN LISPRO 100 UNITS/ML SUBCUT SCH ×4 (09:17→20:53)
[2018-10-05] MEDS: FUROSEMIDE 40MG TABLET PO SCH (09:18)
[2018-10-05] MEDS: AMLODIPINE 10MG TABLET PO SCH (09:20)
[2018-10-05] MEDS: DOCUSATE SODIUM 100MG CAPSULE PO SCH ×2 (09:20→16:42)
[2018-10-05] MEDS: CARVEDILOL 12.5MG TABLET PO SCH ×2 (09:21→20:41)
[2018-10-05] MEDS: ACETAMINOPHEN WITH CODEINE 300/30MG TABLET PO PRN ×2 (09:21→16:42)
[2018-10-05] MEDS ORDERED: INSULIN GLARGINE UD 100 UNITS/ML SYR SUBCUT SCH ×2 (10:00→22:00)
[2018-10-05] MEDS: CLOPIDOGREL 75MG TABLET PO SCH (11:03)
[2018-10-05 12:00] VITALS: BP 119/58
[2018-10-05] MEDS: NATEGLINIDE 60MG TABLET PO SCH ×3 (12:50→18:03)
[2018-10-05 16:00] VITALS: BP 117/72
[2018-10-05 20:19] VITALS: BP 129/70
[2018-10-05] MEDS ORDERED: FAMOTIDINE 20MG TABLET PO SCH (21:00)
[2018-10-06 00:07] VITALS: BP 100/49
[2018-10-06 04:00] VITALS: BP 112/51
[2018-10-06] MEDS: ACETAMINOPHEN WITH CODEINE 300/30MG TABLET PO PRN (04:01)
[2018-10-06] MEDS: BLOOD SUGAR DIAGNOSTIC STRIP TEST SCH ×2 (06:20→12:33)
[2018-10-06] MEDS: SODIUM CHLORIDE 0.9% INJ 3ML FLUSH IVF SCH (06:20)
[2018-10-06] MEDS: DOCUSATE SODIUM 100MG CAPSULE PO SCH (08:02)
[2018-10-06] MEDS: NATEGLINIDE 60MG TABLET PO SCH ×2 (08:03→13:44)
[2018-10-06] MEDS: CARVEDILOL 12.5MG TABLET PO SCH (08:03)
[2018-10-06] MEDS: CLOPIDOGREL 75MG TABLET PO SCH (08:03)
[2018-10-06] MEDS: DIPHENHYDRAMINE 25MG CAPSULE PO PRN ×2 (08:03→13:45)
[2018-10-06] MEDS: AMLODIPINE 10MG TABLET PO SCH (08:03)
[2018-10-06] MEDS: FUROSEMIDE 40MG TABLET PO SCH (08:03)
[2018-10-06] MEDS: APIXABAN 5 MG TABLET PO SCH (08:03)
[2018-10-06] MEDS: INSULIN LISPRO 100 UNITS/ML SUBCUT SCH ×2 (08:09→13:45)
[2018-10-06 12:00] VITALS: BP 138/72
[2018-10-06 12:03] LABS: T4 FREE 0.84 ng/dL (0.76-1.46)
[2018-10-06] MEDS ORDERED: INSULIN GLARGINE UD 100 UNITS/ML SYR SUBCUT SCH (14:30)
[2018-10-06 16:26] VITALS: BP 138/72
== END 2018-10-06 17:16 | disposition home or self-care (01) | DRG 74 ==
LOC: ER 17:08 → 6WST 19:49 → EDBEDREQ 19:58 → EDBEDREQTM 19:58 → ENRESERV 22:58
PROVIDERS: ADMIT Internal Medicine; ATTEND Internal Medicine
DX: G90.8 Other disorders of autonomic nervous system (principal); I82.502 Chronic embolism and thrombosis of unspecified deep veins of left lower extremity; I50.42 Chronic combined systolic (congestive) and diastolic (congestive) heart failure; I42.8 Other cardiomyopathies; E11.65 Type 2 diabetes mellitus with hyperglycemia; E78.00 Pure hypercholesterolemia, unspecified; E78.5 Hyperlipidemia, unspecified; I11.0 Hypertensive heart disease with heart failure; I25.10 Atherosclerotic heart disease of native coronary artery without angina pectoris; J44.9 Chronic obstructive pulmonary disease, unspecified; Z86.73 Personal history of transient ischemic attack (TIA), and cerebral infarction without residual deficits; Z89.612 Acquired absence of left leg above knee; Z95.810 Presence of automatic (implantable) cardiac defibrillator; Z79.84 Long term (current) use of oral hypoglycemic drugs; Z79.4 Long term (current) use of insulin; Z79.899 Other long term (current) drug therapy
CPT/HCPCS: 36415; 71045; 78582; 80061; 80305; 82962; 83036; 83880; 84439; 84443; 84484; 85379; 93005; 93306; 96374; 96375; 99285; A9558; G0482; J1200; J1815; J1885; J2270; J2405; Q0163

== ENCOUNTER 2018-12-06 22:03 | Emergency (ER) | payer BC, OTHER ==
[~2018-12-06] VITALS: Ht 167.6 cm; Wt 68.0 kg
[2018-12-06] MEDS ORDERED: HYDROCODONE/ACETAMINOPHEN 5/325MG TABLET PO ONE (22:45)
[2018-12-07 01:19] VITALS: BP 160/74
== END 2018-12-07 03:52 | disposition home or self-care (01) ==
LOC: ER 22:03
DX: M13.852 Other specified arthritis, left hip (principal); J44.9 Chronic obstructive pulmonary disease, unspecified; F41.9 Anxiety disorder, unspecified; E78.00 Pure hypercholesterolemia, unspecified; I10 Essential (primary) hypertension; E11.9 Type 2 diabetes mellitus without complications; Z98.890 Other specified postprocedural states; Z79.899 Other long term (current) drug therapy
CPT/HCPCS: 73502; 99283

== ENCOUNTER 2018-12-13 15:58 | Emergency (ER) | payer BC, OTHER ==
[~2018-12-13] VITALS: Ht 170.2 cm; Wt 73.0 kg
[2018-12-13] MEDS ORDERED: ONDANSETRON HCL 4MG/2ML INJ IV STA (19:22)
[2018-12-13] MEDS ORDERED: MORPHINE SULFATE 10 MG/ML CPJ IV ONE (19:30)
[2018-12-13 20:25] LABS: CHLORIDE 106 mEq/L (98-107)
[2018-12-13 20:27] LABS: BASOPHILS % 1.3 % (0.0-2.0); EOSINOPHILS % 3.8 % (0.0-5.0); HEMATOCRIT. 40.2 % (42.0-52.0); LYMPHOCYTES % 24.3 % (20.0-50.0); MEAN CORPUSCULAR HEMOGLOBIN 31.4 pg (28.0-32.0); MEAN PLATELET VOLUME 7.7 fl (7.4-10.4); MONOCYTES % 7.4 % (2.0-8.0); NEUTROPHILS % 63.2 % (40.0-76.0); PLATELET 380 x1000/uL (130-400); RED BLOOD CELL COUNT 4.14 mill/uL (4.7-6.1); RED CELL DISTRIBUTION WIDTH 13.8 % (11.6-14.6)
[2018-12-14 01:17] VITALS: BP 142/85
== END 2018-12-14 01:21 | disposition home or self-care (01) ==
LOC: ER 15:58
DX: M79.662 Pain in left lower leg (principal); Z89.512 Acquired absence of left leg below knee; E11.65 Type 2 diabetes mellitus with hyperglycemia; E86.0 Dehydration; I10 Essential (primary) hypertension; Z79.899 Other long term (current) drug therapy
CPT/HCPCS: 36415; 72170; 73552; 80048; 85025; 96374; 96375; 99284; J2270; J2405

== ENCOUNTER 2019-02-05 14:46 | Inpatient (IN) | payer BC, OTHER ==
[~2019-02-05] VITALS: Ht 170.2 cm; Wt 93.4 kg
[2019-02-05] MEDS ORDERED: ASPIRIN 81MG TABLET PO ONE (16:30)
[2019-02-05] MEDS ORDERED: NITROGLYCERIN 0.4MG TABLET SL SL ONE (16:45)
[2019-02-05] MEDS ORDERED: MORPHINE SULFATE 2 MG/ML CPJ (NOT FOR IM USE) IV ONE (16:45)
[2019-02-05 17:01] LABS: BASOPHILS % 1.2 % (0.0-2.0); EOSINOPHILS % 4.7 % (0.0-5.0); HEMATOCRIT. 36.8 % (42.0-52.0); HEMOGLOBIN. 11.9 g/dL (14.0-18.0); LYMPHOCYTES % 24.5 % (20.0-50.0); MEAN CORPUSCULAR HEMOGLOBIN 31.4 pg (28.0-32.0); MEAN CORPUSCULAR VOLUME 96.6 fL (80.0-94.0); MEAN PLATELET VOLUME 7.9 fl (7.4-10.4); NEUTROPHILS % 61.6 % (40.0-76.0); PLATELET 327 x1000/uL (130-400); RED BLOOD CELL COUNT 3.81 mill/uL (4.7-6.1); RED CELL DISTRIBUTION WIDTH 14.4 % (11.6-14.6)
[2019-02-05 17:07] LABS: CHLORIDE 111 mEq/L (98-107)
[2019-02-05] MEDS ORDERED: MORPHINE SULFATE 4 MG/ML CPJ (NOT FOR IM USE) IV NR (17:10)
[2019-02-05 17:14] LABS: LDL CHOLESTEROL 79 mg/dL (5-100)
[2019-02-05 17:15] LABS: CREATINE KINASE 78 IU/L (39-308); HDL CHOLESTEROL 28 mg/dL (40-59)
[2019-02-05 17:18] LABS: CREATINE KINASE MB FRACTION 1.9 ng/mL (0.5-3.6)
[2019-02-05 17:20] LABS: D-DIMER 0.33 mg/L FEU (<0.50); PARTIAL THROMBOPLASTIN TIME 27.3 sec (23.4-31.0); PROTHROMBIN TIME 9.6 sec (9.1-11.1)
[2019-02-05] MEDS ORDERED: GUAIFENESIN 200MG/10ML SUGAR FREE UDC PO PRN (18:30)
[2019-02-05] MEDS ORDERED: ONDANSETRON HCL 4MG/2ML INJ IV PRN (18:30)
[2019-02-05] MEDS ORDERED: IPRATROPIUM/ALBUTEROL 0.5-3(2.5)MG/3ML NEB INH PRN (18:30)
[2019-02-05] MEDS ORDERED: DOCUSATE SODIUM 100MG CAPSULE PO PRN (18:30)
[2019-02-05 19:29] LABS: PHOSPHORUS 2.3 mg/dL (2.5-4.9)
[2019-02-05] MEDS: HYDROCODONE/ACETAMINOPHEN 5/325MG TABLET PO PRN (20:17)
[2019-02-05] MEDS ORDERED: ATORVASTATIN CALCIUM 40MG TABLET PO SCH (21:00)
[2019-02-05 22:23] VITALS: BP 142/74
[2019-02-06] MEDS: DIPHENHYDRAMINE 50MG/ML VIAL IV PRN ×3 (01:22→16:25)
[2019-02-06] MEDS ORDERED: DEXTROSE 50% WATER 50ML SYRINGE IV PRN (05:30)
[2019-02-06] MEDS: HYDROCODONE/ACETAMINOPHEN 5/325MG TABLET PO PRN ×3 (05:39→21:35)
[2019-02-06 06:04] LABS: BASOPHILS % 0.8 % (0.0-2.0); EOSINOPHILS % 4.4 % (0.0-5.0); HEMATOCRIT. 36.9 % (42.0-52.0); HEMOGLOBIN. 12.2 g/dL (14.0-18.0); LYMPHOCYTES % 22.2 % (20.0-50.0); MEAN CORPUSCULAR HEMOGLOBIN 31.6 pg (28.0-32.0); MEAN CORPUSCULAR VOLUME 95.8 fL (80.0-94.0); MONOCYTES % 6.3 % (2.0-8.0); NEUTROPHILS % 66.3 % (40.0-76.0); PLATELET 335 x1000/uL (130-400); RED BLOOD CELL COUNT 3.85 mill/uL (4.7-6.1); RED CELL DISTRIBUTION WIDTH 14.7 % (11.6-14.6)
[2019-02-06 06:27] LABS: CHLORIDE 111 mEq/L (98-107)
[2019-02-06 06:36] LABS: LDL CHOLESTEROL 92 mg/dL (5-100)
[2019-02-06] MEDS: BLOOD SUGAR DIAGNOSTIC STRIP TEST SCH ×4 (06:37→21:36)
[2019-02-06 06:38] LABS: HDL CHOLESTEROL 30 mg/dL (40-59)
[2019-02-06 08:31] VITALS: BP 122/59
[2019-02-06] MEDS ORDERED: ENOXAPARIN 40MG/0.4ML SYR SUBCUT SCH (09:00)
[2019-02-06] MEDS: INSULIN LISPRO 100 UNITS/ML SUBCUT SCH ×4 (09:14→21:46)
[2019-02-06 12:42] VITALS: BP 128/66
[2019-02-06] MEDS: CLOPIDOGREL 75MG TABLET PO SCH (13:41)
[2019-02-06 13:59] LABS: CLARITY URINE CLEAR (CLEAR); COLOR URINE YELLOW (YELLOW); KETONES URINE NEGATIVE (NEGATIVE); LEUKOCYTE ESTERASE URINE NEGATIVE (NEGATIVE); NITRITE URINE NEGATIVE (NEGATIVE); OCCULT BLOOD URINE NEGATIVE (NEGATIVE); PROTEIN URINE NEGATIVE (NEGATIVE); SPECIFIC GRAVITY URINE 1.019 (1.005-1.030); UROBILINOGEN URINE 0.2 E.U./dL (0.2-1.0)
[2019-02-06] MEDS ORDERED: AMLODIPINE 10MG TABLET PO SCH (14:00)
[2019-02-06] MEDS ORDERED: CARVEDILOL 12.5MG TABLET PO SCH ×2 (14:00→17:00)
[2019-02-06 16:00] VITALS: BP 150/63
[2019-02-06] MEDS ORDERED: LISINOPRIL 10MG TABLET PO SCH (17:00)
[2019-02-06] MEDS: NATEGLINIDE 60MG TABLET PO SCH (18:05)
[2019-02-06] MEDS: FUROSEMIDE 40MG TABLET PO SCH (18:05)
[2019-02-06 20:00] VITALS: BP 132/60
[2019-02-06] MEDS ORDERED: ATORVASTATIN CALCIUM 10MG TABLET PO SCH (21:00)
[2019-02-06] MEDS: CARVEDILOL 25MG TABLET PO SCH (21:33)
[2019-02-06] MEDS: HYDRALAZINE HCL 25MG TABLET PO SCH (21:34)
[2019-02-06] MEDS: LISINOPRIL 10MG TABLET PO SCH (21:35)
[2019-02-06] MEDS: APIXABAN 5 MG TABLET PO SCH (21:36)
[2019-02-06] MEDS ORDERED: INSULIN GLARGINE UD 100 UNITS/ML SYR SUBCUT SCH (22:00)
[2019-02-07] VITALS: BP 122/70
[2019-02-07] MEDS: DIPHENHYDRAMINE 50MG/ML VIAL IV PRN ×3 (01:55→14:20)
[2019-02-07 04:00] VITALS: BP 117/62
[2019-02-07] MEDS: HYDROCODONE/ACETAMINOPHEN 5/325MG TABLET PO PRN ×2 (04:32→08:25)
[2019-02-07] MEDS: FUROSEMIDE 40MG TABLET PO SCH ×2 (05:26→17:21)
[2019-02-07] MEDS: NATEGLINIDE 60MG TABLET PO SCH ×3 (06:35→17:21)
[2019-02-07] MEDS: BLOOD SUGAR DIAGNOSTIC STRIP TEST SCH ×3 (06:35→17:16)
[2019-02-07 08:18] VITALS: BP 130/64
[2019-02-07] MEDS: CLOPIDOGREL 75MG TABLET PO SCH (08:24)
[2019-02-07] MEDS: APIXABAN 5 MG TABLET PO SCH (08:24)
[2019-02-07] MEDS: LISINOPRIL 10MG TABLET PO SCH (08:24)
[2019-02-07] MEDS: CARVEDILOL 25MG TABLET PO SCH (08:24)
[2019-02-07] MEDS: HYDRALAZINE HCL 25MG TABLET PO SCH (08:26)
[2019-02-07] MEDS: INSULIN LISPRO 100 UNITS/ML SUBCUT SCH ×3 (08:27→17:51)
[2019-02-07] MEDS ORDERED: LISINOPRIL 10MG TABLET PO SCH ×2 (09:00→21:00)
[2019-02-07] MEDS ORDERED: INSULIN GLARGINE UD 100 UNITS/ML SYR SUBCUT SCH (10:00)
[2019-02-07 12:30] VITALS: BP 112/54
[2019-02-07] MEDS ORDERED: HYDR-4134 PO (15:38)
[2019-02-07] MEDS ORDERED: COR25 PO (15:38)
[2019-02-07] MEDS ORDERED: LISI10TA5 PO (15:38)
[2019-02-07 15:41] VITALS: BP 111/61
[2019-02-07 18:12] VITALS: BP 110/62
[2019-02-07] MEDS ORDERED: HYDRALAZINE HCL 25MG TABLET PO SCH (21:00)
== END 2019-02-07 18:45 | disposition home or self-care (01) | DRG 205 ==
LOC: ER 14:53 → 6WST 17:59 → EDBEDREQ 18:23 → ENRESERV 20:53
PROVIDERS: ADMIT Internal Medicine; ATTEND Internal Medicine
DX: M94.0 Chondrocostal junction syndrome [Tietze] (principal); N17.0 Acute kidney failure with tubular necrosis; I24.9 Acute ischemic heart disease, unspecified; I47.2 Ventricular tachycardia; I42.9 Cardiomyopathy, unspecified; D64.9 Anemia, unspecified; E78.5 Hyperlipidemia, unspecified; I11.0 Hypertensive heart disease with heart failure; I25.10 Atherosclerotic heart disease of native coronary artery without angina pectoris; I50.9 Heart failure, unspecified; E11.51 Type 2 diabetes mellitus with diabetic peripheral angiopathy without gangrene; E78.00 Pure hypercholesterolemia, unspecified; J44.9 Chronic obstructive pulmonary disease, unspecified; Z74.01 Bed confinement status; Z79.4 Long term (current) use of insulin; Z86.73 Personal history of transient ischemic attack (TIA), and cerebral infarction without residual deficits; Z89.519 Acquired absence of unspecified leg below knee; Z89.612 Acquired absence of left leg above knee; Z95.810 Presence of automatic (implantable) cardiac defibrillator
CPT/HCPCS: 36415; 71045; 80061; 82550; 82553; 82962; 83036; 83735; 83880; 84100; 84443; 84484; 85379; 93005; 93306; 93970; 96361; 96374; 97162; 97166; 99285; C1893; J1200; J1650; J1815; J2270

== ENCOUNTER 2019-02-13 13:31 | Inpatient (IN) | payer BC, OTHER ==
[~2019-02-13] VITALS: Ht 170.2 cm; Wt 90.3 kg
[~2019-02-13 13:31] MED LIST changes: -AMLO10TA80 PO; -COR12 PO; +COR25 PO; +HYDR-4134 PO
[2019-02-13] MEDS ORDERED: MORPHINE SULFATE 4 MG/ML CPJ (NOT FOR IM USE) IV STA (15:32)
[2019-02-13] MEDS ORDERED: ONDANSETRON HCL 4MG/2ML INJ IV STA (15:32)
[2019-02-13] MEDS ORDERED: ASPIRIN 81MG TABLET PO ONE (15:45)
[2019-02-13 15:59] LABS: BASOPHILS % 1.1 % (0.0-2.0); EOSINOPHILS % 3.5 % (0.0-5.0); HEMATOCRIT. 34.3 % (42.0-52.0); HEMOGLOBIN. 11.5 g/dL (14.0-18.0); LYMPHOCYTES % 19.8 % (20.0-50.0); MEAN CORPUSCULAR HEMOGLOBIN 32.1 pg (28.0-32.0); MEAN CORPUSCULAR VOLUME 95.5 fL (80.0-94.0); MEAN PLATELET VOLUME 7.9 fl (7.4-10.4); MONOCYTES % 6.9 % (2.0-8.0); NEUTROPHILS % 68.7 % (40.0-76.0); PLATELET 293 x1000/uL (130-400); RED BLOOD CELL COUNT 3.59 mill/uL (4.7-6.1); RED CELL DISTRIBUTION WIDTH 14.7 % (11.6-14.6)
[2019-02-13 16:03] LABS: CHLORIDE 104 mEq/L (98-107)
[2019-02-13 16:06] LABS: ETHANOL BLOOD < 10 mg/dL; INR 0.9; PARTIAL THROMBOPLASTIN TIME 20.1 sec (23.4-31.0); PROTHROMBIN TIME 9.4 sec (9.1-11.1)
[2019-02-13] MEDS ORDERED: SODIUM CHLORIDE 0.9% 500 ML IV ONE (17:28)
[2019-02-13] MEDS ORDERED: CLONIDINE 0.1MG TABLET PO PRN (19:15)
[2019-02-13] MEDS ORDERED: MAGNESIUM/ALUMINUM HYDROXIDE/SIMETHICONE 30ML UDC PO PRN (19:15)
[2019-02-13] MEDS ORDERED: IPRATROPIUM/ALBUTEROL 0.5-3(2.5)MG/3ML NEB INH PRN (19:15)
[2019-02-13] MEDS ORDERED: HYDROCODONE/ACETAMINOPHEN 5/325MG TABLET PO PRN (19:15)
[2019-02-13] MEDS ORDERED: DEXTROSE 50% WATER 50ML SYRINGE IV PRN ×2 (19:15)
[2019-02-13] MEDS ORDERED: DOCUSATE SODIUM 100MG CAPSULE PO PRN (19:15)
[2019-02-13 22:18] LABS: CLARITY URINE CLEAR (CLEAR); COLOR URINE YELLOW (YELLOW); KETONES URINE NEGATIVE (NEGATIVE); LEUKOCYTE ESTERASE URINE NEGATIVE (NEGATIVE); NITRITE URINE NEGATIVE (NEGATIVE); OCCULT BLOOD URINE NEGATIVE (NEGATIVE); PH URINE 5.5 (4.5-8.0); PROTEIN URINE NEGATIVE (NEGATIVE); SPECIFIC GRAVITY URINE 1.012 (1.005-1.030)
[2019-02-13 22:32] LABS: *AMPHETAMINES SCREEN URINE NEGATIVE (NEGATIVE); *BARBITURATES SCREEN URINE NEGATIVE (NEGATIVE); *BENZODIAZEPINES SCREEN URINE NEGATIVE (NEGATIVE); *COCAINE SCREEN URINE NEGATIVE (NEGATIVE); METHADONE URINE SCREEN NEGATIVE (NEGATIVE); OPIATES URINE SCREEN PRESUMTIVE POSITIVE (NEGATIVE)
[2019-02-13 22:33] LABS: CANNABINOID URINE SCREEN NEGATIVE (NEGATIVE); PHENCYCLIDINE URINE SCREEN NEGATIVE (NEGATIVE)
[2019-02-14] MEDS ORDERED: DIPHENHYDRAMINE 25MG CAPSULE PO SCH (01:30)
[2019-02-14] MEDS ORDERED: ONDANSETRON HCL 4MG/2ML INJ IV PRN (01:30)
[2019-02-14] MEDS: MORPHINE SULFATE 4 MG/ML CPJ (NOT FOR IM USE) IV PRN ×3 (03:10→21:53)
[2019-02-14 06:24] LABS: BASOPHILS % 1.2 % (0.0-2.0); EOSINOPHILS % 4.2 % (0.0-5.0); HEMATOCRIT. 36.5 % (42.0-52.0); HEMOGLOBIN. 12.1 g/dL (14.0-18.0); LYMPHOCYTES % 20.2 % (20.0-50.0); MEAN CORPUSCULAR VOLUME 96.5 fL (80.0-94.0); MEAN PLATELET VOLUME 8.2 fl (7.4-10.4); MONOCYTES % 8.8 % (2.0-8.0); NEUTROPHILS % 65.6 % (40.0-76.0); PLATELET 306 x1000/uL (130-400); RED BLOOD CELL COUNT 3.78 mill/uL (4.7-6.1)
[2019-02-14 06:29] LABS: CHLORIDE 102 mEq/L (98-107)
[2019-02-14 06:35] LABS: LDL CHOLESTEROL 81 mg/dL (5-100); PHOSPHORUS 3.4 mg/dL (2.5-4.9)
[2019-02-14 06:37] LABS: HDL CHOLESTEROL 31 mg/dL (40-59)
[2019-02-14 06:38] LABS: T4 FREE 0.95 ng/dL (0.76-1.46)
[2019-02-14] MEDS: ENOXAPARIN 100MG/ML SYR SUBCUT SCH (06:45)
[2019-02-14] MEDS: INSULIN LISPRO 100 UNITS/ML SUBCUT SCH ×4 (08:34→21:10)
[2019-02-14 08:55] VITALS: BP 132/73
[2019-02-14] MEDS: BLOOD SUGAR DIAGNOSTIC STRIP TEST SCH ×4 (09:00→20:54)
[2019-02-14] MEDS: CLOPIDOGREL 75MG TABLET PO SCH (11:55)
[2019-02-14] MEDS: DIPHENHYDRAMINE 25MG CAPSULE PO PRN ×2 (11:55→19:23)
[2019-02-14 12:00] VITALS: BP 130/68
[2019-02-14 12:35] VITALS: BP 130/68
[2019-02-14 16:00] VITALS: BP 139/76
[2019-02-14] MEDS: HYDRALAZINE HCL 25MG TABLET PO SCH ×2 (16:06→20:43)
[2019-02-14] MEDS: CARVEDILOL 25MG TABLET PO SCH (17:08)
[2019-02-14 20:00] VITALS: BP 110/64
[2019-02-14] MEDS: LISINOPRIL 10MG TABLET PO SCH (20:43)
[2019-02-14] MEDS ORDERED: ATORVASTATIN CALCIUM 40MG TABLET PO SCH (21:00)
[2019-02-14] MEDS ORDERED: INSULIN GLARGINE UD 100 UNITS/ML SYR SUBCUT SCH (22:00)
[2019-02-15] VITALS: BP_SYST 115; BP_SYST 125; BP_DIAS 53; BP_DIAS 70
[2019-02-15] MEDS: DIPHENHYDRAMINE 25MG CAPSULE PO PRN ×2 (02:59→14:50)
[2019-02-15] MEDS: MORPHINE SULFATE 4 MG/ML CPJ (NOT FOR IM USE) IV PRN ×2 (02:59→10:38)
[2019-02-15 04:00] VITALS: BP 144/77
[2019-02-15] MEDS: BLOOD SUGAR DIAGNOSTIC STRIP TEST SCH ×3 (04:52→17:40)
[2019-02-15] MEDS: HYDRALAZINE HCL 25MG TABLET PO SCH ×2 (05:25→14:51)
[2019-02-15] MEDS: ENOXAPARIN 100MG/ML SYR SUBCUT SCH (05:26)
[2019-02-15 07:39] LABS: BASOPHILS % 0.9 % (0.0-2.0); EOSINOPHILS % 3.3 % (0.0-5.0); HEMATOCRIT. 35.5 % (42.0-52.0); HEMOGLOBIN. 11.8 g/dL (14.0-18.0); LYMPHOCYTES % 21.1 % (20.0-50.0); MEAN CORPUSCULAR HEMOGLOBIN 31.7 pg (28.0-32.0); MEAN CORPUSCULAR VOLUME 95.5 fL (80.0-94.0); MEAN PLATELET VOLUME 7.9 fl (7.4-10.4); MONOCYTES % 7.9 % (2.0-8.0); NEUTROPHILS % 66.8 % (40.0-76.0); PLATELET 322 x1000/uL (130-400); RED BLOOD CELL COUNT 3.72 mill/uL (4.7-6.1); RED CELL DISTRIBUTION WIDTH 14.5 % (11.6-14.6)
[2019-02-15 08:00] VITALS: BP 136/74
[2019-02-15 08:00] LABS: CHLORIDE 104 mEq/L (98-107)
[2019-02-15] MEDS: CLOPIDOGREL 75MG TABLET PO SCH (08:52)
[2019-02-15] MEDS: LISINOPRIL 10MG TABLET PO SCH (08:52)
[2019-02-15] MEDS: CARVEDILOL 25MG TABLET PO SCH ×2 (08:53→18:03)
[2019-02-15] MEDS: INSULIN LISPRO 100 UNITS/ML SUBCUT SCH ×3 (08:54→18:00)
[2019-02-15 12:00] VITALS: BP 122/70
[2019-02-15 13:41] VITALS: BP_SYST 121; BP_SYST 129; BP_DIAS 63; BP_DIAS 65
[2019-02-15 16:00] VITALS: BP 121/65
[2019-02-15] MEDS ORDERED: APIXABAN 5 MG TABLET PO SCH (17:00)
== END 2019-02-15 19:52 | disposition home or self-care (01) | DRG 74 ==
LOC: ER 13:31 → 7WST 17:33 → EDBEDREQTM 17:44 → EDBEDREQ 17:44 → ENRESERV 02-14 07:40
PROVIDERS: ADMIT Family Medicine Adult Medicine; ATTEND Family Medicine Adult Medicine
DX: G90.8 Other disorders of autonomic nervous system (principal); N17.9 Acute kidney failure, unspecified; I13.0 Hypertensive heart and chronic kidney disease with heart failure and stage 1 through stage 4 chronic kidney disease, or unspecified chronic kidney disease; I31.3 Pericardial effusion (noninflammatory); I69.354 Hemiplegia and hemiparesis following cerebral infarction affecting left non-dominant side; I82.502 Chronic embolism and thrombosis of unspecified deep veins of left lower extremity; D64.9 Anemia, unspecified; E11.22 Type 2 diabetes mellitus with diabetic chronic kidney disease; E11.40 Type 2 diabetes mellitus with diabetic neuropathy, unspecified; I50.9 Heart failure, unspecified; J44.9 Chronic obstructive pulmonary disease, unspecified; E11.51 Type 2 diabetes mellitus with diabetic peripheral angiopathy without gangrene; E11.65 Type 2 diabetes mellitus with hyperglycemia; E78.1 Pure hyperglyceridemia; E78.5 Hyperlipidemia, unspecified; I25.10 Atherosclerotic heart disease of native coronary artery without angina pectoris; I25.5 Ischemic cardiomyopathy; N18.9 Chronic kidney disease, unspecified; R29.6 Repeated falls; I25.2 Old myocardial infarction; Z79.01 Long term (current) use of anticoagulants; Z79.4 Long term (current) use of insulin; Z82.49 Family history of ischemic heart disease and other diseases of the circulatory system; Z86.718 Personal history of other venous thrombosis and embolism; Z89.612 Acquired absence of left leg above knee; Z95.810 Presence of automatic (implantable) cardiac defibrillator; Z83.3 Family history of diabetes mellitus; R26.9 Unspecified abnormalities of gait and mobility
CPT/HCPCS: 36415; 71045; 80048; 80061; 80305; 80320; 82962; 83735; 83880; 84100; 84439; 84443; 84481; 84484; 93005; 93880; 93970; 96374; 96375; 97162; 99285; J1650; J1815; J2270; J2405; J7040; Q0163; G0480

== ENCOUNTER 2019-03-21 23:09 | Inpatient (IN) | payer BC, OTHER ==
[~2019-03-21] VITALS: Ht 170.2 cm; Wt 65.8 kg
[2019-03-21] MEDS ORDERED: ONDANSETRON HCL 4MG/2ML INJ IV STA (23:22)
[2019-03-21] MEDS ORDERED: MORPHINE SULFATE 4 MG/ML CPJ (NOT FOR IM USE) IV STA (23:22)
[2019-03-21 23:56] LABS: BASOPHILS % 0.9 % (0.0-2.0); EOSINOPHILS % 2.3 % (0.0-5.0); HEMATOCRIT. 34.7 % (42.0-52.0); HEMOGLOBIN. 11.7 g/dL (14.0-18.0); LYMPHOCYTES % 17.1 % (20.0-50.0); MEAN CORPUSCULAR HEMOGLOBIN 32.3 pg (28.0-32.0); MEAN PLATELET VOLUME 7.2 fl (7.4-10.4); MONOCYTES % 6.4 % (2.0-8.0); NEUTROPHILS % 73.3 % (40.0-76.0); PLATELET 412 x1000/uL (130-400); RED BLOOD CELL COUNT 3.61 mill/uL (4.7-6.1); RED CELL DISTRIBUTION WIDTH 14.6 % (11.6-14.6)
[2019-03-22 00:02] LABS: CHLORIDE 112 mEq/L (98-107)
[2019-03-22 00:10] LABS: PARTIAL THROMBOPLASTIN TIME 27.1 sec (23.4-31.0); PROTHROMBIN TIME 9.8 sec (9.6-11.0)
[2019-03-22 02:55] LABS: CLARITY URINE CLEAR (CLEAR); COLOR URINE YELLOW (YELLOW); KETONES URINE TRACE (NEGATIVE); LEUKOCYTE ESTERASE URINE NEGATIVE (NEGATIVE); NITRITE URINE NEGATIVE (NEGATIVE); OCCULT BLOOD URINE NEGATIVE (NEGATIVE); PH URINE 5.5 (4.5-8.0); PROTEIN URINE TRACE (NEGATIVE)
[2019-03-22] MEDS: NITROGLYCERIN 0.4MG TABLET SL SL PRN ×2 (02:57→03:05)
[2019-03-22] MEDS ORDERED: ENOXAPARIN 80MG/0.8ML SYR SUBCUT SCH (03:00)
[2019-03-22 03:50] VITALS: BP 121/61
[2019-03-22 04:00] VITALS: BP 121/61
[2019-03-22] MEDS ORDERED: IPRATROPIUM/ALBUTEROL 0.5-3(2.5)MG/3ML NEB HHN PRN (04:45)
[2019-03-22] MEDS ORDERED: DEXTROSE 50% WATER 50ML SYRINGE IV PRN (04:45)
[2019-03-22] MEDS: MORPHINE SULFATE 4 MG/ML CPJ (NOT FOR IM USE) IV PRN ×2 (05:41→13:15)
[2019-03-22 06:54] LABS: BASOPHILS % 0.6 % (0.0-2.0); EOSINOPHILS % 2.3 % (0.0-5.0); HEMATOCRIT. 32.3 % (42.0-52.0); HEMOGLOBIN. 10.7 g/dL (14.0-18.0); MEAN CORPUSCULAR HEMOGLOBIN 31.9 pg (28.0-32.0); MEAN CORPUSCULAR VOLUME 96.5 fL (80.0-94.0); MEAN PLATELET VOLUME 7.6 fl (7.4-10.4); MONOCYTES % 6.5 % (2.0-8.0); NEUTROPHILS % 72.6 % (40.0-76.0); PLATELET 385 x1000/uL (130-400); RED BLOOD CELL COUNT 3.35 mill/uL (4.7-6.1); RED CELL DISTRIBUTION WIDTH 14.9 % (11.6-14.6)
[2019-03-22 07:11] LABS: CHLORIDE 109 mEq/L (98-107)
[2019-03-22 07:22] LABS: CREATINE KINASE 57 IU/L (39-308)
[2019-03-22 07:25] LABS: CREATINE KINASE MB FRACTION 1.3 ng/mL (0.5-3.6)
[2019-03-22] MEDS: INSULIN LISPRO 100 UNITS/ML SUBCUT SCH ×4 (07:40→20:27)
[2019-03-22] MEDS: BLOOD SUGAR DIAGNOSTIC STRIP TEST SCH ×4 (07:40→20:19)
[2019-03-22 08:00] VITALS: BP 134/71
[2019-03-22] MEDS ORDERED: PNEUMOCOCCAL 23-VAL P-SAC VAC 0.5 ML IM ONE (09:30)
[2019-03-22 10:21] LABS: *BARBITURATES SCREEN URINE NEGATIVE (NEGATIVE)
[2019-03-22 10:22] LABS: *AMPHETAMINES SCREEN URINE NEGATIVE (NEGATIVE); *BENZODIAZEPINES SCREEN URINE NEGATIVE (NEGATIVE); *COCAINE SCREEN URINE NEGATIVE (NEGATIVE)
[2019-03-22 10:23] LABS: CANNABINOID URINE SCREEN NEGATIVE (NEGATIVE); METHADONE URINE SCREEN NEGATIVE (NEGATIVE); OPIATES URINE SCREEN PRESUMTIVE POSITIVE (NEGATIVE); PHENCYCLIDINE URINE SCREEN NEGATIVE (NEGATIVE)
[2019-03-22] MEDS: DIPHENHYDRAMINE 50MG/ML VIAL IV PRN ×2 (10:31→20:18)
[2019-03-22] MEDS: APIXABAN 5 MG TABLET PO SCH ×2 (10:31→17:18)
[2019-03-22 12:00] VITALS: BP 129/71
[2019-03-22] MEDS ORDERED: HYDR-4134 MT (15:40)
[2019-03-22] MEDS ORDERED: COR25 MT (15:47)
[2019-03-22 16:00] VITALS: BP 142/79
[2019-03-22 16:06] LABS: CREATINE KINASE 58 IU/L (39-308)
[2019-03-22 16:07] LABS: CREATINE KINASE MB FRACTION 1.2 ng/mL (0.5-3.6)
[2019-03-22] MEDS ORDERED: ONDANSETRON HCL 4MG/2ML INJ IV PRN (16:45)
[2019-03-22] MEDS ORDERED: ACETAMINOPHEN 325MG TABLET PO PRN (16:45)
[2019-03-22] MEDS ORDERED: HYDROCODONE/ACETAMINOPHEN 5/325MG TABLET PO PRN (16:45)
[2019-03-22] MEDS: LISINOPRIL 10MG TABLET PO SCH (17:18)
[2019-03-22] MEDS: FUROSEMIDE 100MG/10ML VIAL IVP SCH (17:47)
[2019-03-22 20:00] VITALS: BP 141/80
[2019-03-22] MEDS: CARVEDILOL 25MG TABLET PO SCH (20:18)
[2019-03-22] MEDS: ATORVASTATIN CALCIUM 10MG TABLET PO SCH (20:18)
[2019-03-22] MEDS ORDERED: ENOXAPARIN 40MG/0.4ML SYR SUBCUT SCH (21:00)
[2019-03-23] VITALS: BP 144/81
[2019-03-23] MEDS: MORPHINE SULFATE 4 MG/ML CPJ (NOT FOR IM USE) IV PRN ×4 (00:20→22:32)
[2019-03-23 02:46] LABS: CREATINE KINASE 51 IU/L (39-308)
[2019-03-23 02:47] LABS: CREATINE KINASE MB FRACTION 1.2 ng/mL (0.5-3.6)
[2019-03-23 04:00] VITALS: BP 128/56
[2019-03-23] MEDS: DIPHENHYDRAMINE 50MG/ML VIAL IV PRN ×2 (06:24→13:50)
[2019-03-23 07:01] LABS: BASOPHILS % 0.6 % (0.0-2.0); EOSINOPHILS % 2.7 % (0.0-5.0); HEMATOCRIT. 35.1 % (42.0-52.0); HEMOGLOBIN. 11.5 g/dL (14.0-18.0); LYMPHOCYTES % 17.8 % (20.0-50.0); MEAN CORPUSCULAR HEMOGLOBIN 31.6 pg (28.0-32.0); MEAN CORPUSCULAR VOLUME 96.1 fL (80.0-94.0); MEAN PLATELET VOLUME 7.6 fl (7.4-10.4); MONOCYTES % 6.9 % (2.0-8.0); PLATELET 386 x1000/uL (130-400); RED BLOOD CELL COUNT 3.65 mill/uL (4.7-6.1)
[2019-03-23 07:29] LABS: CHLORIDE 107 mEq/L (98-107)
[2019-03-23] MEDS: BLOOD SUGAR DIAGNOSTIC STRIP TEST SCH ×4 (07:40→21:00)
[2019-03-23] MEDS: INSULIN LISPRO 100 UNITS/ML SUBCUT SCH ×4 (08:47→21:45)
[2019-03-23] MEDS: FUROSEMIDE 100MG/10ML VIAL IVP SCH (08:57)
[2019-03-23] MEDS: APIXABAN 5 MG TABLET PO SCH ×2 (08:57→18:34)
[2019-03-23] MEDS: CARVEDILOL 25MG TABLET PO SCH ×2 (09:03→21:46)
[2019-03-23] MEDS: LISINOPRIL 10MG TABLET PO SCH (09:04)
[2019-03-23 20:00] VITALS: BP 117/69
[2019-03-23] MEDS: ATORVASTATIN CALCIUM 10MG TABLET PO SCH (21:49)
[2019-03-23] MEDS ORDERED: INSULIN GLARGINE UD 100 UNITS/ML SYR SUBCUT SCH (22:00)
[2019-03-24] VITALS: BP 111/60
[2019-03-24] MEDS: DIPHENHYDRAMINE 50MG/ML VIAL IV PRN ×2 (03:24→10:47)
[2019-03-24 04:00] VITALS: BP 113/61
[2019-03-24] MEDS: BLOOD SUGAR DIAGNOSTIC STRIP TEST SCH ×2 (06:44→12:48)
[2019-03-24 08:00] VITALS: BP 114/69
[2019-03-24 08:17] LABS: BASOPHILS % 0.6 % (0.0-2.0); HEMATOCRIT. 35.2 % (42.0-52.0); HEMOGLOBIN. 11.9 g/dL (14.0-18.0); LYMPHOCYTES % 18.6 % (20.0-50.0); MEAN CORPUSCULAR HEMOGLOBIN 32.7 pg (28.0-32.0); MEAN CORPUSCULAR VOLUME 96.4 fL (80.0-94.0); MEAN PLATELET VOLUME 7.4 fl (7.4-10.4); MONOCYTES % 7.1 % (2.0-8.0); NEUTROPHILS % 70.7 % (40.0-76.0); PLATELET 392 x1000/uL (130-400); RED BLOOD CELL COUNT 3.65 mill/uL (4.7-6.1); RED CELL DISTRIBUTION WIDTH 14.8 % (11.6-14.6)
[2019-03-24] MEDS: FUROSEMIDE 100MG/10ML VIAL IVP SCH (09:43)
[2019-03-24] MEDS: CARVEDILOL 25MG TABLET PO SCH (09:43)
[2019-03-24] MEDS: LISINOPRIL 10MG TABLET PO SCH (09:44)
[2019-03-24] MEDS: INSULIN LISPRO 100 UNITS/ML SUBCUT SCH ×2 (09:45→13:10)
[2019-03-24] MEDS: MORPHINE SULFATE 4 MG/ML CPJ (NOT FOR IM USE) IV PRN (09:53)
[2019-03-24] MEDS: APIXABAN 5 MG TABLET PO SCH (09:55)
[2019-03-24 12:00] VITALS: BP 107/65
[2019-03-24 16:00] VITALS: BP 121/65
[2019-03-24 17:30] VITALS: BP 121/65
== END 2019-03-24 19:30 | disposition home or self-care (01) | DRG 205 ==
LOC: ER 23:09 → ENRESERV 03-22 03:05 → 7WST 03-22 03:52 → UNDODISIN 03-24 18:10
PROVIDERS: ADMIT Internal Medicine; ATTEND Internal Medicine
DX: M94.0 Chondrocostal junction syndrome [Tietze] (principal); I50.23 Acute on chronic systolic (congestive) heart failure; I42.9 Cardiomyopathy, unspecified; D64.9 Anemia, unspecified; E11.51 Type 2 diabetes mellitus with diabetic peripheral angiopathy without gangrene; I11.0 Hypertensive heart disease with heart failure; E78.00 Pure hypercholesterolemia, unspecified; E78.5 Hyperlipidemia, unspecified; E87.8 Other disorders of electrolyte and fluid balance, not elsewhere classified; I07.1 Rheumatic tricuspid insufficiency; I27.20 Pulmonary hypertension, unspecified; J44.9 Chronic obstructive pulmonary disease, unspecified; I25.10 Atherosclerotic heart disease of native coronary artery without angina pectoris; I25.2 Old myocardial infarction; Z82.49 Family history of ischemic heart disease and other diseases of the circulatory system; Z86.718 Personal history of other venous thrombosis and embolism; Z89.512 Acquired absence of left leg below knee; Z89.612 Acquired absence of left leg above knee; Z79.01 Long term (current) use of anticoagulants; Z79.4 Long term (current) use of insulin; Z79.899 Other long term (current) drug therapy; I69.30 Unspecified sequelae of cerebral infarction
CPT/HCPCS: 36415; 71045; 80048; 80305; 82550; 82553; 82962; 83880; 84484; 93005; 99285; J1200; J1650; J1815; J1940; J2270; J2405

== ENCOUNTER 2019-04-05 19:14 | Inpatient (IN) | payer BC, OTHER ==
[~2019-04-05] VITALS: Ht 170.2 cm; Wt 86.0 kg
[~2019-04-05 19:14] MED LIST changes: +COR25 MT; -COR25 PO; +HYDR-4134 MT; -HYDR-4134 PO; -HYDR-4135 PO
[2019-04-05 20:27] LABS: BASOPHILS % 1.3 % (0.0-2.0); EOSINOPHILS % 2.5 % (0.0-5.0); HEMATOCRIT. 38.3 % (42.0-52.0); HEMOGLOBIN. 12.6 g/dL (14.0-18.0); LYMPHOCYTES % 15.3 % (20.0-50.0); MEAN PLATELET VOLUME 8.6 fl (7.4-10.4); MONOCYTES % 5.5 % (2.0-8.0); NEUTROPHILS % 75.4 % (40.0-76.0); PLATELET 378 x1000/uL (130-400); RED BLOOD CELL COUNT 3.95 mill/uL (4.7-6.1); RED CELL DISTRIBUTION WIDTH 14.4 % (11.6-14.6)
[2019-04-05 20:33] LABS: CHLORIDE 108 mEq/L (98-107)
[2019-04-05] MEDS ORDERED: NITROGLYCERIN OINT 1GM/INCH UDPKT TD ONE (20:45)
[2019-04-05] MEDS ORDERED: MORPHINE SULFATE 2 MG/ML CPJ (NOT FOR IM USE) IV ONE (20:45)
[2019-04-05] MEDS ORDERED: MORPHINE SULFATE 4 MG/ML CPJ (NOT FOR IM USE) IV NR (21:00)
[2019-04-05] MEDS ORDERED: MAGNESIUM/ALUMINUM HYDROXIDE/SIMETHICONE 30ML UDC PO PRN (22:00)
[2019-04-05] MEDS ORDERED: CLONIDINE 0.1MG TABLET PO PRN (22:00)
[2019-04-05] MEDS ORDERED: DEXTROSE 50% WATER 50ML SYRINGE IV PRN (22:00)
[2019-04-05] MEDS ORDERED: IPRATROPIUM/ALBUTEROL 0.5-3(2.5)MG/3ML NEB INH PRN (22:00)
[2019-04-05] MEDS ORDERED: ACETAMINOPHEN 325MG TABLET PO PRN (22:00)
[2019-04-05] MEDS ORDERED: ONDANSETRON HCL 4MG/2ML INJ IV PRN (22:00)
[2019-04-05] MEDS ORDERED: LORAZEPAM 0.5MG TABLET PO PRN (22:00)
[2019-04-05] MEDS ORDERED: GUAIFENESIN 200MG/10ML SUGAR FREE UDC PO PRN (22:00)
[2019-04-05] MEDS ORDERED: NITROGLYCERIN 0.4MG TABLET SL SL PRN (22:00)
[2019-04-05] MEDS ORDERED: DOCUSATE SODIUM 100MG CAPSULE PO PRN (22:00)
[2019-04-05] MEDS ORDERED: TRAMADOL 50MG TABLET PO PRN (22:00)
[2019-04-05 22:15] VITALS: BP 133/63
[2019-04-05 22:39] VITALS: BP 133/63
[2019-04-05] MEDS ORDERED: ZOLPIDEM TARTRATE 5MG TABLET PO PRN (23:00)
[2019-04-05] MEDS: INSULIN LISPRO 100 UNITS/ML SUBCUT SCH (23:00)
[2019-04-05] MEDS: FUROSEMIDE 40MG TABLET PO SCH (23:20)
[2019-04-05] MEDS: LISINOPRIL 10MG TABLET PO SCH (23:21)
[2019-04-05] MEDS: MORPHINE SULFATE 4 MG/ML CPJ (NOT FOR IM USE) IV PRN (23:22)
[2019-04-05] MEDS: BLOOD SUGAR DIAGNOSTIC STRIP TEST SCH (23:26)
[2019-04-05 23:46] LABS: LDL CHOLESTEROL 127 mg/dL (5-100)
[2019-04-05 23:48] LABS: CREATINE KINASE 54 IU/L (39-308); HDL CHOLESTEROL 30 mg/dL (40-59)
[2019-04-05 23:50] LABS: CREATINE KINASE MB FRACTION 1.1 ng/mL (0.5-3.6)
[2019-04-06] VITALS: BP 120/73
[2019-04-06] MEDS ORDERED: INSULIN GLARGINE UD 100 UNITS/ML SYR SUBCUT NR (01:00)
[2019-04-06 03:43] LABS: *COCAINE SCREEN URINE NEGATIVE (NEGATIVE); METHADONE URINE SCREEN NEGATIVE (NEGATIVE)
[2019-04-06 03:44] LABS: *AMPHETAMINES SCREEN URINE NEGATIVE (NEGATIVE); *BARBITURATES SCREEN URINE NEGATIVE (NEGATIVE); CANNABINOID URINE SCREEN NEGATIVE (NEGATIVE); OPIATES URINE SCREEN PRESUMTIVE POSITIVE (NEGATIVE); PHENCYCLIDINE URINE SCREEN NEGATIVE (NEGATIVE)
[2019-04-06 03:45] LABS: *BENZODIAZEPINES SCREEN URINE NEGATIVE (NEGATIVE)
[2019-04-06 04:00] VITALS: BP 114/72
[2019-04-06] MEDS: MORPHINE SULFATE 4 MG/ML CPJ (NOT FOR IM USE) IV PRN (05:31)
[2019-04-06] MEDS ORDERED: CARVEDILOL 25MG TABLET PO SCH (06:00)
[2019-04-06] MEDS: BLOOD SUGAR DIAGNOSTIC STRIP TEST SCH ×2 (06:32→12:42)
[2019-04-06] MEDS: INSULIN LISPRO 100 UNITS/ML SUBCUT SCH ×2 (06:33→12:55)
[2019-04-06 06:59] LABS: CREATINE KINASE 53 IU/L (39-308)
[2019-04-06 08:00] VITALS: BP 108/76
[2019-04-06] MEDS ORDERED: CLOPIDOGREL 75MG TABLET PO SCH (09:00)
[2019-04-06] MEDS ORDERED: FAMOTIDINE 20MG TABLET PO SCH (09:00)
[2019-04-06] MEDS: LISINOPRIL 10MG TABLET PO SCH (09:00)
[2019-04-06] MEDS ORDERED: ASPIRIN 81MG EC TABLET PO SCH (09:00)
[2019-04-06] MEDS ORDERED: APIXABAN 5 MG TABLET PO SCH (09:00)
[2019-04-06] MEDS: FUROSEMIDE 40MG TABLET PO SCH (09:39)
[2019-04-06] MEDS: DIPHENHYDRAMINE 25MG CAPSULE PO PRN ×2 (09:39→15:39)
[2019-04-06 12:09] VITALS: BP 110/62
[2019-04-06 13:18] VITALS: BP 110/62
[2019-04-06 16:00] VITALS: BP 126/80
[2019-04-06] MEDS ORDERED: ATORVASTATIN CALCIUM 10MG TABLET PO SCH (21:00)
[2019-04-06] MEDS ORDERED: INSULIN GLARGINE UD 100 UNITS/ML SYR SUBCUT SCH (22:00)
== END 2019-04-06 17:04 | disposition home or self-care (01) | DRG 313 ==
LOC: ER 20:03 → 5WST 21:22 → ENRESERV 21:39
PROVIDERS: ADMIT Internal Medicine; ATTEND Internal Medicine
DX: R07.89 Other chest pain (principal); I42.9 Cardiomyopathy, unspecified; D63.8 Anemia in other chronic diseases classified elsewhere; E11.9 Type 2 diabetes mellitus without complications; E78.00 Pure hypercholesterolemia, unspecified; I11.0 Hypertensive heart disease with heart failure; I25.10 Atherosclerotic heart disease of native coronary artery without angina pectoris; I50.9 Heart failure, unspecified; J44.9 Chronic obstructive pulmonary disease, unspecified; Z82.49 Family history of ischemic heart disease and other diseases of the circulatory system; Z86.73 Personal history of transient ischemic attack (TIA), and cerebral infarction without residual deficits; I25.2 Old myocardial infarction; Z89.519 Acquired absence of unspecified leg below knee; Z99.3 Dependence on wheelchair; Z79.4 Long term (current) use of insulin; Z79.899 Other long term (current) drug therapy
CPT/HCPCS: 36415; 71045; 80061; 80305; 82550; 82553; 82962; 83036; 83880; 84484; 93005; 93970; 96374; 99285; J1815; J2270; Q0163

== ENCOUNTER 2019-08-02 01:44 | Emergency (ER) | payer BC, OTHER ==
[~2019-08-02] VITALS: Ht 182.9 cm; Wt 95.0 kg
[~2019-08-02 01:44] MED LIST changes: -CLOP75TA16 PO; +CLOP75TA4 PO; -DOCU-150 AD
[2019-08-02] MEDS ORDERED: KETOROLAC 30MG/ML VIAL IV ONE (03:00)
[2019-08-02 03:17] LABS: CHLORIDE 111 mEq/L (98-107)
[2019-08-02 03:24] LABS: HEMATOCRIT 38.1 % (42.0-52.0); HEMOGLOBIN 12.6 g/dL (14.0-18.0); MEAN CORPUSCULAR HEMOGLOBIN 31.9 pg (28.0-32.0); MEAN CORPUSCULAR VOLUME 96.6 fL (80.0-94.0); PLATELET 373 x1000/uL (130-400); RED BLOOD CELL COUNT 3.94 mill/uL (4.7-6.1); RED CELL DISTRIBUTION WIDTH 15.1 % (11.6-14.6)
[2019-08-02 10:00] VITALS: BP 139/84
== END 2019-08-02 10:20 | disposition home or self-care (01) ==
LOC: ER 01:44
DX: E11.649 Type 2 diabetes mellitus with hypoglycemia without coma (principal); D72.829 Elevated white blood cell count, unspecified; R07.89 Other chest pain; I50.9 Heart failure, unspecified; I11.0 Hypertensive heart disease with heart failure; Z79.4 Long term (current) use of insulin; Z79.899 Other long term (current) drug therapy
CPT/HCPCS: 36415; 70450; 71045; 80053; 82962; 84484; 85027; 93005; 96374; 99284; J1885

== ENCOUNTER 2019-09-20 22:40 | Emergency (ER) | payer BC, OTHER ==
[~2019-09-20] VITALS: Ht 170.2 cm; Wt 88.0 kg
[2019-09-20] MEDS: MORPHINE SULFATE 4 MG/ML CPJ (NOT FOR IM USE) IV STA (23:34)
[2019-09-20 23:47] LABS: CHLORIDE 111 mEq/L (98-107)
[2019-09-20 23:48] LABS: BASOPHILS % 1.3 % (0.0-2.0); EOSINOPHILS % 1.9 % (0.0-5.0); HEMATOCRIT. 38.6 % (42.0-52.0); HEMOGLOBIN. 12.8 g/dL (14.0-18.0); LYMPHOCYTES % 15.8 % (20.0-50.0); MEAN CORPUSCULAR HEMOGLOBIN 32.5 pg (28.0-32.0); MEAN CORPUSCULAR VOLUME 97.9 fL (80.0-94.0); MEAN PLATELET VOLUME 7.9 fl (7.4-10.4); MONOCYTES % 5.7 % (2.0-8.0); NEUTROPHILS % 75.3 % (40.0-76.0); PLATELET 385 x1000/uL (130-400); RED BLOOD CELL COUNT 3.94 mill/uL (4.7-6.1); RED CELL DISTRIBUTION WIDTH 13.7 % (11.6-14.6)
[2019-09-21] MEDS: HYDROCODONE/ACETAMINOPHEN 10/325MG TABLET PO ONE (01:45)
[2019-09-21] MEDS: LEVOFLOXACIN 750MG PREMIX 150 ML IV SCH (05:38)
[2019-09-21 07:58] VITALS: BP 15/73
== END 2019-09-21 08:10 | disposition home or self-care (01) ==
LOC: ER 22:40
DX: J18.9 Pneumonia, unspecified organism (principal); R07.89 Other chest pain; I13.2 Hypertensive heart and chronic kidney disease with heart failure and with stage 5 chronic kidney disease, or end stage renal disease; E11.22 Type 2 diabetes mellitus with diabetic chronic kidney disease; N18.6 End stage renal disease; Z99.2 Dependence on renal dialysis; I25.2 Old myocardial infarction; Z86.73 Personal history of transient ischemic attack (TIA), and cerebral infarction without residual deficits; Z79.4 Long term (current) use of insulin; Z79.899 Other long term (current) drug therapy
CPT/HCPCS: 36415; 71045; 80053; 82962; 83880; 84484; 85025; 93005; 96365; 96375; 99284; J1956; J2270

== ENCOUNTER 2019-09-26 04:20 | Emergency (ER) | payer BC, OTHER ==
[~2019-09-26] VITALS: Ht 167.6 cm; Wt 82.0 kg
[2019-09-26] MEDS ORDERED: HYDROCODONE/ACETAMINOPHEN 5/325MG TABLET PO ONE (05:15)
[2019-09-26 10:19] VITALS: BP 121/65
== END 2019-09-26 10:31 | disposition home or self-care (01) ==
LOC: ER 04:20
DX: G89.29 Other chronic pain (principal); M25.552 Pain in left hip; Z89.612 Acquired absence of left leg above knee
CPT/HCPCS: 73502; 99283

== ENCOUNTER 2019-10-05 13:57 | Inpatient (IN) | payer BC, OTHER ==
[~2019-10-05] VITALS: Ht 170.2 cm; Wt 90.9 kg
[~2019-10-05 13:57] MED LIST changes: +WARF1TAB46 PO
[2019-10-05] MEDS ORDERED: SODIUM CHLORIDE 0.9% 500 ML IV ONE ×2 (15:05→17:15)
[2019-10-05 15:26] LABS: CHLORIDE 107 mEq/L (98-107)
[2019-10-05 15:28] LABS: PROTHROMBIN TIME 10.6 sec (9.6-11.0)
[2019-10-05 15:29] LABS: BASOPHILS % 0.6 % (0.0-2.0); EOSINOPHILS % 1.2 % (0.0-5.0); HEMATOCRIT. 34.3 % (42.0-52.0); HEMOGLOBIN. 11.5 g/dL (14.0-18.0); LYMPHOCYTES % 12.4 % (20.0-50.0); MEAN CORPUSCULAR HEMOGLOBIN 32.6 pg (28.0-32.0); MEAN PLATELET VOLUME 8.5 fl (7.4-10.4); MONOCYTES % 7.8 % (2.0-8.0); PLATELET 312 x1000/uL (130-400); RED BLOOD CELL COUNT 3.54 mill/uL (4.7-6.1)
[2019-10-05 15:36] LABS: CREATINE KINASE 93 IU/L (39-308)
[2019-10-05] MEDS ORDERED: HYDROCODONE/ACETAMINOPHEN 10/325MG TABLET PO ONE (16:15)
[2019-10-05] MEDS ORDERED: INSULIN REGULAR (HUMULIN R) 300UNITS/3ML IV ONE (17:00)
[2019-10-05] MEDS ORDERED: SODIUM BICARBONATE 8.4% 1 MEQ/ML 50ML SYR IV ONE (17:00)
[2019-10-05] MEDS ORDERED: DEXTROSE 50% WATER 50ML SYRINGE IV ONE (17:00)
[2019-10-05] MEDS ORDERED: ONDANSETRON HCL 4MG/2ML INJ IV PRN (20:45)
[2019-10-05] MEDS ORDERED: MAGNESIUM/ALUMINUM HYDROXIDE/SIMETHICONE 30ML UDC PO PRN (20:45)
[2019-10-05] MEDS ORDERED: HYDROCODONE/ACETAMINOPHEN 10/325MG TABLET PO PRN (20:45)
[2019-10-05] MEDS ORDERED: DIPHENHYDRAMINE 50MG/ML VIAL IV PRN (20:45)
[2019-10-05] MEDS ORDERED: GUAIFENESIN 200MG/10ML SUGAR FREE UDC PO PRN (20:45)
[2019-10-05] MEDS ORDERED: IPRATROPIUM/ALBUTEROL 0.5-3(2.5)MG/3ML NEB HHN PRN (20:45)
[2019-10-05] MEDS ORDERED: CLONIDINE 0.1MG TABLET PO PRN (20:45)
[2019-10-05] MEDS ORDERED: ACETAMINOPHEN 325MG TABLET PO PRN (20:45)
[2019-10-05] MEDS ORDERED: DOCUSATE SODIUM 100MG CAPSULE PO PRN (20:45)
[2019-10-05] MEDS ORDERED: HYDRALAZINE 20MG/ML VIAL IV PRN (20:45)
[2019-10-05] MEDS ORDERED: LORAZEPAM 2MG/ML CPJ IV PRN (20:45)
[2019-10-05 22:00] LABS: CREATINE KINASE 83 IU/L (39-308)
[2019-10-05 22:50] LABS: CLARITY URINE CLEAR (CLEAR); COLOR URINE YELLOW (YELLOW); KETONES URINE NEGATIVE (NEGATIVE); LEUKOCYTE ESTERASE URINE TRACE (NEGATIVE); NITRITE URINE NEGATIVE (NEGATIVE); OCCULT BLOOD URINE NEGATIVE (NEGATIVE); PROTEIN URINE NEGATIVE (NEGATIVE); SPECIFIC GRAVITY URINE 1.015 (1.005-1.030); UROBILINOGEN URINE 0.2 E.U./dL (0.2-1.0)
[2019-10-05 23:00] VITALS: BP 130/60
[2019-10-06] VITALS: BP 119/67
[2019-10-06] MEDS: MORPHINE SULFATE 2 MG/ML CPJ (NOT FOR IM USE) IV PRN ×4 (01:37→18:55)
[2019-10-06 04:00] VITALS: BP 115/65
[2019-10-06] MEDS: SODIUM CHLORIDE 0.9% INJ 3ML FLUSH IVF SCH ×3 (05:21→21:04)
[2019-10-06 06:55] LABS: BASOPHILS % 0.6 % (0.0-2.0); EOSINOPHILS % 2.6 % (0.0-5.0); HEMOGLOBIN. 11.3 g/dL (14.0-18.0); MEAN CORPUSCULAR HEMOGLOBIN 32.4 pg (28.0-32.0); MEAN CORPUSCULAR VOLUME 97.2 fL (80.0-94.0); MEAN PLATELET VOLUME 8.1 fl (7.4-10.4); MONOCYTES % 8.4 % (2.0-8.0); NEUTROPHILS % 62.4 % (40.0-76.0); PLATELET 338 x1000/uL (130-400); RED CELL DISTRIBUTION WIDTH 13.8 % (11.6-14.6)
[2019-10-06 06:58] LABS: CHLORIDE 104 mEq/L (98-107)
[2019-10-06 07:07] LABS: CREATINE KINASE 78 IU/L (39-308)
[2019-10-06 07:08] LABS: CREATINE KINASE MB FRACTION < 1.0 ng/mL (0.5-3.6)
[2019-10-06 08:00] VITALS: BP 112/68
[2019-10-06] MEDS ORDERED: DEXTROSE 50% WATER 50ML SYRINGE IV PRN (10:00)
[2019-10-06 12:00] VITALS: BP 115/59
[2019-10-06] MEDS: BLOOD SUGAR DIAGNOSTIC STRIP TEST SCH ×3 (12:31→21:04)
[2019-10-06] MEDS: INSULIN LISPRO 100 UNITS/ML SUBCUT SCH ×3 (13:00→21:04)
[2019-10-06 16:00] VITALS: BP 109/61
[2019-10-06] MEDS ORDERED: ENOXAPARIN 40MG/0.4ML SYR SUBCUT SCH (17:00)
[2019-10-06 20:23] VITALS: BP 112/60
[2019-10-07] VITALS: BP 130/67
[2019-10-07] MEDS: MORPHINE SULFATE 2 MG/ML CPJ (NOT FOR IM USE) IV PRN ×2 (01:47→07:16)
[2019-10-07 04:00] VITALS: BP 117/60
[2019-10-07] MEDS: SODIUM CHLORIDE 0.9% INJ 3ML FLUSH IVF SCH (05:33)
[2019-10-07 06:53] LABS: BASOPHILS % 0.6 % (0.0-2.0); EOSINOPHILS % 2.5 % (0.0-5.0); HEMOGLOBIN. 11.8 g/dL (14.0-18.0); LYMPHOCYTES % 15.2 % (20.0-50.0); MEAN CORPUSCULAR HEMOGLOBIN 32.9 pg (28.0-32.0); MEAN PLATELET VOLUME 8.3 fl (7.4-10.4); MONOCYTES % 5.3 % (2.0-8.0); NEUTROPHILS % 76.4 % (40.0-76.0); PLATELET 339 x1000/uL (130-400); RED BLOOD CELL COUNT 3.58 mill/uL (4.7-6.1); RED CELL DISTRIBUTION WIDTH 13.7 % (11.6-14.6)
[2019-10-07] MEDS: BLOOD SUGAR DIAGNOSTIC STRIP TEST SCH (07:07)
[2019-10-07 07:19] LABS: CHLORIDE 107 mEq/L (98-107)
[2019-10-07 08:46] VITALS: BP 121/61
[2019-10-07] MEDS: INSULIN LISPRO 100 UNITS/ML SUBCUT SCH (09:37)
[2019-10-07 12:06] VITALS: BP 106/48
[2019-12-18] MEDS ORDERED: LANTUSUD SUBCUT (16:17)
== END 2019-10-07 14:43 | disposition home or self-care (01) | DRG 640 ==
LOC: ER 14:17 → 6WST 17:05 → EDBEDREQ 18:19 → ENRESERV 20:53
PROVIDERS: ADMIT Internal Medicine; ATTEND Internal Medicine
DX: E87.5 Hyperkalemia (principal); N17.0 Acute kidney failure with tubular necrosis; I13.0 Hypertensive heart and chronic kidney disease with heart failure and stage 1 through stage 4 chronic kidney disease, or unspecified chronic kidney disease; E44.0 Moderate protein-calorie malnutrition; E86.9 Volume depletion, unspecified; E11.22 Type 2 diabetes mellitus with diabetic chronic kidney disease; I50.9 Heart failure, unspecified; N18.9 Chronic kidney disease, unspecified; J44.9 Chronic obstructive pulmonary disease, unspecified; E11.51 Type 2 diabetes mellitus with diabetic peripheral angiopathy without gangrene; Z89.612 Acquired absence of left leg above knee; Z86.73 Personal history of transient ischemic attack (TIA), and cerebral infarction without residual deficits; I25.2 Old myocardial infarction; Z95.810 Presence of automatic (implantable) cardiac defibrillator; Z82.49 Family history of ischemic heart disease and other diseases of the circulatory system; Z68.31 Body mass index [BMI] 31.0-31.9, adult; Z79.899 Other long term (current) drug therapy; Z79.02 Long term (current) use of antithrombotics/antiplatelets
CPT/HCPCS: 36415; 71045; 80048; 80053; 81003; 82010; 82550; 82553; 82962; 83605; 83880; 84132; 84484; 85025; 93005; 93970; 96374; 96375; 99285; A6261; J1650; J1815; J2060; J2270; J3490; J7030; J7040

== ENCOUNTER 2019-10-21 22:10 | Inpatient (IN) | payer BC, OTHER ==
[~2019-10-21] VITALS: Ht 170.2 cm; Wt 87.3 kg
[~2019-10-21 22:10] MED LIST changes: -LISI10TA5 PO; -WARF1TAB46 PO
[2019-10-21] MEDS ORDERED: MORPHINE SULFATE 4 MG/ML CPJ (NOT FOR IM USE) IV STA (23:10)
[2019-10-21] MEDS ORDERED: SODIUM CHLORIDE 0.9% 1,000 ML IV ONE (23:10)
[2019-10-21] MEDS ORDERED: ONDANSETRON HCL 4MG/2ML INJ IV STA (23:10)
[2019-10-21] MEDS ORDERED: DIPHENHYDRAMINE 50MG/ML VIAL IV ONE (23:15)
[2019-10-21] MEDS ORDERED: NITROGLYCERIN 0.4MG TABLET SL SL PRN (23:15)
[2019-10-21] MEDS ORDERED: ASPIRIN 81MG TABLET PO ONE (23:15)
[2019-10-21 23:26] LABS: BASOPHILS % 1.2 % (0.0-2.0); HEMATOCRIT. 37.5 % (42.0-52.0); HEMOGLOBIN. 12.6 g/dL (14.0-18.0); LYMPHOCYTES % 16.6 % (20.0-50.0); MEAN CORPUSCULAR HEMOGLOBIN 32.7 pg (28.0-32.0); MEAN CORPUSCULAR VOLUME 97.2 fL (80.0-94.0); MEAN PLATELET VOLUME 8.3 fl (7.4-10.4); MONOCYTES % 6.8 % (2.0-8.0); NEUTROPHILS % 73.4 % (40.0-76.0); PLATELET 357 x1000/uL (130-400); RED BLOOD CELL COUNT 3.86 mill/uL (4.7-6.1); RED CELL DISTRIBUTION WIDTH 14.2 % (11.6-14.6)
[2019-10-21 23:31] LABS: CHLORIDE 108 mEq/L (98-107)
[2019-10-21 23:33] LABS: D-DIMER 0.53 mg/L FEU (<0.50); PARTIAL THROMBOPLASTIN TIME 27.5 sec (23.4-31.0); PROTHROMBIN TIME 9.8 sec (9.6-11.0)
[2019-10-22] MEDS ORDERED: IOHEXOL-350 100 ML BOTTLE ONE (02:47)
[2019-10-22 03:00] VITALS: BP 145/75
[2019-10-22] MEDS ORDERED: CLONIDINE 0.1MG TABLET PO PRN (05:00)
[2019-10-22] MEDS ORDERED: LORAZEPAM 2MG/ML CPJ IV PRN (05:00)
[2019-10-22] MEDS ORDERED: NA PHOS,M-B/NA PHOS,DI-BA ENEMA 118ML PR PRN (05:00)
[2019-10-22] MEDS ORDERED: GUAIFENESIN 200MG/10ML SUGAR FREE UDC PO PRN (05:00)
[2019-10-22] MEDS ORDERED: HYDROCODONE/ACETAMINOPHEN 10/325MG TABLET PO PRN (05:00)
[2019-10-22] MEDS ORDERED: DOCUSATE SODIUM 100MG CAPSULE PO PRN (05:00)
[2019-10-22] MEDS ORDERED: ONDANSETRON HCL 4MG/2ML INJ IV PRN (05:00)
[2019-10-22] MEDS ORDERED: MAGNESIUM/ALUMINUM HYDROXIDE/SIMETHICONE 30ML UDC PO PRN (05:00)
[2019-10-22] MEDS ORDERED: IPRATROPIUM/ALBUTEROL 0.5-3(2.5)MG/3ML NEB NEB PRN (05:00)
[2019-10-22] MEDS ORDERED: ACETAMINOPHEN 325MG TABLET PO PRN (05:00)
[2019-10-22] MEDS ORDERED: DEXTROSE 50% WATER 50ML SYRINGE IV PRN (05:15)
[2019-10-22] MEDS: DIPHENHYDRAMINE 50MG/ML VIAL IV PRN ×4 (05:33→23:52)
[2019-10-22] MEDS: BLOOD SUGAR DIAGNOSTIC STRIP TEST SCH ×4 (06:11→20:56)
[2019-10-22] MEDS: MORPHINE SULFATE 2 MG/ML CPJ (NOT FOR IM USE) IV PRN ×3 (06:48→20:57)
[2019-10-22 08:00] VITALS: BP 144/76
[2019-10-22] MEDS: INSULIN LISPRO 100 UNITS/ML SUBCUT SCH ×4 (09:07→20:56)
[2019-10-22 11:17] LABS: CHLORIDE 111 mEq/L (98-107)
[2019-10-22 12:00] VITALS: BP 126/73
[2019-10-22] MEDS ORDERED: NITROGLYCERIN 0.4MG TABLET SL SL PRN (13:00)
[2019-10-22] MEDS ORDERED: LORAZEPAM 0.5MG TABLET PO PRN (13:00)
[2019-10-22] MEDS ORDERED: REGADENOSON 0.4 MG/5 ML IV NR (13:30)
[2019-10-22] MEDS: CLOPIDOGREL 75MG TABLET PO SCH (13:59)
[2019-10-22 16:00] VITALS: BP 136/71
[2019-10-22] MEDS: APIXABAN 5 MG TABLET PO SCH (17:13)
[2019-10-22] MEDS: FUROSEMIDE 40MG TABLET PO SCH (17:15)
[2019-10-22] MEDS: HYDRALAZINE HCL 25MG TABLET PO SCH (17:15)
[2019-10-22 20:00] VITALS: BP 128/77
[2019-10-22] MEDS ORDERED: ATORVASTATIN CALCIUM 10MG TABLET PO SCH (21:00)
[2019-10-23] VITALS (7 sets, daily range): BP systolic 132–146; BP diastolic 65–77
[2019-10-23] MEDS: APIXABAN 5 MG TABLET PO SCH ×2 (04:54→15:14)
[2019-10-23] MEDS: MORPHINE SULFATE 2 MG/ML CPJ (NOT FOR IM USE) IV PRN ×3 (04:55→15:16)
[2019-10-23] MEDS: BLOOD SUGAR DIAGNOSTIC STRIP TEST SCH ×3 (07:03→18:01)
[2019-10-23 07:08] LABS: CHLORIDE 110 mEq/L (98-107)
[2019-10-23 07:13] LABS: BASOPHILS % 0.7 % (0.0-2.0); HEMATOCRIT. 36.6 % (42.0-52.0); HEMOGLOBIN. 12.3 g/dL (14.0-18.0); LYMPHOCYTES % 22.2 % (20.0-50.0); MEAN CORPUSCULAR HEMOGLOBIN 32.6 pg (28.0-32.0); MEAN CORPUSCULAR VOLUME 97.2 fL (80.0-94.0); MEAN PLATELET VOLUME 7.9 fl (7.4-10.4); MONOCYTES % 8.1 % (2.0-8.0); PLATELET 340 x1000/uL (130-400); RED BLOOD CELL COUNT 3.77 mill/uL (4.7-6.1); RED CELL DISTRIBUTION WIDTH 14.4 % (11.6-14.6)
[2019-10-23 07:28] LABS: LDL CHOLESTEROL 93 mg/dL (5-100)
[2019-10-23 07:40] LABS: HDL CHOLESTEROL 30 mg/dL (40-59)
[2019-10-23] MEDS: INSULIN LISPRO 100 UNITS/ML SUBCUT SCH ×4 (07:50→20:24)
[2019-10-23] MEDS: DIPHENHYDRAMINE 50MG/ML VIAL IV PRN ×3 (08:35→18:53)
[2019-10-23] MEDS ORDERED: NATEGLINIDE 60MG TABLET PO SCH (09:00)
[2019-10-23] MEDS ORDERED: REGADENOSON 0.4 MG/5 ML IV ONE (10:55)
[2019-10-23] MEDS: CLOPIDOGREL 75MG TABLET PO SCH (11:57)
[2019-10-23] MEDS: HYDRALAZINE HCL 25MG TABLET PO SCH ×2 (11:58→17:53)
[2019-10-23] MEDS: FUROSEMIDE 40MG TABLET PO SCH ×2 (11:58→17:53)
== END 2019-10-23 20:50 | disposition home or self-care (01) | DRG 311 ==
LOC: ER 22:28 → 6WST 10-22 01:05 → ENRESERV 10-22 01:21
PROVIDERS: ADMIT Internal Medicine; ATTEND Internal Medicine
DX: I24.9 Acute ischemic heart disease, unspecified (principal); I13.0 Hypertensive heart and chronic kidney disease with heart failure and stage 1 through stage 4 chronic kidney disease, or unspecified chronic kidney disease; I69.354 Hemiplegia and hemiparesis following cerebral infarction affecting left non-dominant side; I82.512 Chronic embolism and thrombosis of left femoral vein; D64.9 Anemia, unspecified; E11.22 Type 2 diabetes mellitus with diabetic chronic kidney disease; E11.51 Type 2 diabetes mellitus with diabetic peripheral angiopathy without gangrene; E78.00 Pure hypercholesterolemia, unspecified; E78.5 Hyperlipidemia, unspecified; I50.9 Heart failure, unspecified; R26.9 Unspecified abnormalities of gait and mobility; I25.10 Atherosclerotic heart disease of native coronary artery without angina pectoris; I25.5 Ischemic cardiomyopathy; J44.9 Chronic obstructive pulmonary disease, unspecified; N18.9 Chronic kidney disease, unspecified; R29.6 Repeated falls; Z79.4 Long term (current) use of insulin; Z82.49 Family history of ischemic heart disease and other diseases of the circulatory system; Z89.612 Acquired absence of left leg above knee; Z95.0 Presence of cardiac pacemaker; I25.2 Old myocardial infarction; Z79.01 Long term (current) use of anticoagulants; Z79.899 Other long term (current) drug therapy
CPT/HCPCS: 36415; 71045; 71275; 78452; 80048; 80061; 82962; 83036; 83880; 84439; 84443; 84484; 85379; 93005; 93017; 93306; 93971; 99285; A9500; J1200; J1815; J2270; J2405; J2785; J7030; Q9967

== ENCOUNTER 2019-11-28 17:16 | Emergency (ER) | payer BC, OTHER ==
[~2019-11-28] VITALS: Ht 170.2 cm; Wt 90.0 kg
[~2019-11-28 17:16] MED LIST changes: +WARF1TAB46 PO
[2019-11-28 18:43] LABS: EOSINOPHILS % 2.5 % (0.0-5.0); HEMATOCRIT. 37.2 % (42.0-52.0); HEMOGLOBIN. 12.6 g/dL (14.0-18.0); LYMPHOCYTES % 18.9 % (20.0-50.0); MEAN CORPUSCULAR HEMOGLOBIN 32.9 pg (28.0-32.0); MEAN CORPUSCULAR VOLUME 96.7 fL (80.0-94.0); MEAN PLATELET VOLUME 8.3 fl (7.4-10.4); MONOCYTES % 6.3 % (2.0-8.0); NEUTROPHILS % 71.3 % (40.0-76.0); PLATELET 339 x1000/uL (130-400); RED BLOOD CELL COUNT 3.84 mill/uL (4.7-6.1); RED CELL DISTRIBUTION WIDTH 14.1 % (11.6-14.6)
[2019-11-28 18:50] LABS: PARTIAL THROMBOPLASTIN TIME 28.7 sec (23.4-31.0); PROTHROMBIN TIME 9.9 sec (9.6-11.0)
[2019-11-28 18:52] LABS: CHLORIDE 105 mEq/L (98-107)
[2019-11-28 18:57] LABS: BETA HYDROXYBUTYRATE 0.4 mMol/L (0.0-0.3)
[2019-11-28 19:56] LABS: CLARITY URINE CLEAR (CLEAR); COLOR URINE YELLOW (YELLOW); KETONES URINE NEGATIVE (NEGATIVE); LEUKOCYTE ESTERASE URINE NEGATIVE (NEGATIVE); NITRITE URINE NEGATIVE (NEGATIVE); OCCULT BLOOD URINE NEGATIVE (NEGATIVE); PROTEIN URINE NEGATIVE (NEGATIVE); SPECIFIC GRAVITY URINE 1.025 (1.005-1.030)
[2019-11-28] MEDS ORDERED: ACETAMINOPHEN 325MG TABLET PO PRN (20:45)
[2019-11-28] MEDS ORDERED: IPRATROPIUM/ALBUTEROL 0.5-3(2.5)MG/3ML NEB NEB PRN (20:45)
[2019-11-28] MEDS ORDERED: ENOXAPARIN 40MG/0.4ML SYR SUBCUT SCH (20:45)
[2019-11-28] MEDS ORDERED: DOCUSATE SODIUM 100MG CAPSULE PO PRN (20:45)
[2019-11-28] MEDS ORDERED: ONDANSETRON HCL 4MG/2ML INJ IV PRN (20:45)
[2019-11-28] MEDS ORDERED: MAGNESIUM/ALUMINUM HYDROXIDE/SIMETHICONE 30ML UDC PO PRN (20:45)
[2019-11-28] MEDS ORDERED: CLONIDINE 0.1MG TABLET PO PRN (20:45)
[2019-11-28] MEDS: SODIUM CHLORIDE 0.9% 1,000 ML IV SCH (20:45)
[2019-11-28 23:21] LABS: CHLORIDE 105 mEq/L (98-107)
[2019-11-28 23:29] LABS: CREATINE KINASE 50 IU/L (39-308)
[2019-11-28 23:31] LABS: CREATINE KINASE MB FRACTION 1.2 ng/mL (0.5-3.6)
[2019-11-29] MEDS ORDERED: DEXTROSE 50% WATER 50ML SYRINGE IV PRN (01:00)
[2019-11-29] MEDS: INSULIN LISPRO (HIGH DOSE) 100 UNITS/ML SUBCUT SCH ×3 (01:23→13:14)
[2019-11-29] MEDS ORDERED: HYDROCODONE/ACETAMINOPHEN 5/325MG TABLET PO PRN (08:00)
[2019-11-29] MEDS: BLOOD SUGAR DIAGNOSTIC STRIP TEST SCH ×2 (08:14→13:09)
[2019-11-29 08:35] LABS: EOSINOPHILS % 3.2 % (0.0-5.0); HEMATOCRIT. 38.7 % (42.0-52.0); HEMOGLOBIN. 12.7 g/dL (14.0-18.0); LYMPHOCYTES % 21.2 % (20.0-50.0); MEAN CORPUSCULAR VOLUME 97.6 fL (80.0-94.0); MEAN PLATELET VOLUME 8.2 fl (7.4-10.4); MONOCYTES % 6.4 % (2.0-8.0); NEUTROPHILS % 68.2 % (40.0-76.0); PLATELET 330 x1000/uL (130-400); RED BLOOD CELL COUNT 3.97 mill/uL (4.7-6.1); RED CELL DISTRIBUTION WIDTH 13.6 % (11.6-14.6)
[2019-11-29] MEDS ORDERED: DIPHENHYDRAMINE 25MG CAPSULE PO NR (09:00)
[2019-11-29 09:07] LABS: CREATINE KINASE 49 IU/L (39-308); CREATINE KINASE MB FRACTION 1.3 ng/mL (0.5-3.6)
[2019-11-29] MEDS: SODIUM CHLORIDE 0.9% 1,000 ML IV SCH (13:20)
[2019-11-29 16:10] VITALS: BP 126/74
[2019-12-18] MEDS ORDERED: LANTUSUD SUBCUT (16:17)
== END 2019-11-29 17:30 | disposition short-term general hospital (02) ==
LOC: ER 17:29 → EDBEDREQTM 19:43 → EDBEDREQ 19:43 → ER 11-29 17:30 → CANBEDREQ 11-29 19:06
DX: R55 Syncope and collapse (principal); E11.65 Type 2 diabetes mellitus with hyperglycemia; D64.9 Anemia, unspecified; Z91.81 History of falling; Z79.4 Long term (current) use of insulin
CPT/HCPCS: 36415; 70450; 71045; 80048; 80053; 80061; 81003; 82010; 82550; 82553; 82962; 83036; 83880; 84443; 84484; 85025; 85610; 85730; 93005; 93880; 93970; 96372; 99285; J1815; Q0163

== ENCOUNTER 2020-01-12 14:43 | Emergency (ER) | payer BC, OTHER ==
[~2020-01-12] VITALS: Ht 170.2 cm; Wt 78.0 kg
[~2020-01-12 14:43] MED LIST changes: -CLOP75TA4 PO; -INSU3INS6 SUBCUT; +LANTUSUD SUBCUT; -WARF1TAB46 PO
[2020-01-12] MEDS ORDERED: HYDROCODONE/APAP 7.5/325MG 1 TAB TABLET PO ONE (23:30)
[2020-01-12 23:50] VITALS: BP 130/67
== END 2020-01-13 00:49 | disposition home or self-care (01) ==
LOC: ER 15:10
DX: R10.9 Unspecified abdominal pain (principal); M79.662 Pain in left lower leg; I11.0 Hypertensive heart disease with heart failure; I50.9 Heart failure, unspecified; E11.9 Type 2 diabetes mellitus without complications; Z98.890 Other specified postprocedural states; Z79.4 Long term (current) use of insulin; Z79.899 Other long term (current) drug therapy
CPT/HCPCS: 99285

== ENCOUNTER 2020-01-14 11:13 | Inpatient (IN) | payer BC, OTHER ==
[~2020-01-14] VITALS: Ht 170.2 cm; Wt 85.3 kg
[2020-01-14] MEDS ORDERED: HYDROCODONE/ACETAMINOPHEN 10/325MG TABLET PO ONE (11:45)
[2020-01-14 12:16] LABS: HEMOGLOBIN. 13.9 g/dL (14.0-18.0); MEAN CORPUSCULAR HEMOGLOBIN 31.5 pg (28.0-32.0); MEAN PLATELET VOLUME 8.3 fl (7.4-10.4); PLATELET 319 x1000/uL (130-400); RED BLOOD CELL COUNT 4.42 mill/uL (4.7-6.1); RED CELL DISTRIBUTION WIDTH 14.2 % (11.6-14.6)
[2020-01-14 12:21] LABS: CHLORIDE 101 mEq/L (98-107)
[2020-01-14 12:53] LABS: PLATELET ESTIMATE NORMAL
[2020-01-14] MEDS ORDERED: INSULIN REGULAR (HUMULIN R) 300UNITS/3ML SUBCUT NR (13:30)
[2020-01-14] MEDS ORDERED: NITROGLYCERIN 0.4MG TABLET SL SL ONE (14:15)
[2020-01-14] MEDS ORDERED: LORAZEPAM 0.5MG TABLET PO PRN (16:30)
[2020-01-14] MEDS ORDERED: IPRATROPIUM/ALBUTEROL 0.5-3(2.5)MG/3ML NEB NEB PRN (16:30)
[2020-01-14] MEDS ORDERED: DEXTROSE 50% WATER 50ML SYRINGE IV PRN (16:30)
[2020-01-14] MEDS ORDERED: ACETAMINOPHEN 325MG TABLET PO PRN (16:30)
[2020-01-14] MEDS ORDERED: ONDANSETRON HCL 4MG/2ML INJ IV PRN (16:30)
[2020-01-14] MEDS ORDERED: NITROGLYCERIN 0.4MG TABLET SL SL PRN (16:30)
[2020-01-14] MEDS ORDERED: DOCUSATE SODIUM 100MG CAPSULE PO PRN (16:30)
[2020-01-14] MEDS ORDERED: ZOLPIDEM TARTRATE 5MG TABLET PO PRN (16:30)
[2020-01-14] MEDS ORDERED: TRAMADOL 50MG TABLET PO PRN (16:30)
[2020-01-14] MEDS ORDERED: MAGNESIUM/ALUMINUM HYDROXIDE/SIMETHICONE 30ML UDC PO PRN (16:30)
[2020-01-14] MEDS ORDERED: GUAIFENESIN 200MG/10ML SUGAR FREE UDC PO PRN (16:30)
[2020-01-14] MEDS: BLOOD SUGAR DIAGNOSTIC STRIP TEST SCH ×2 (17:58→21:00)
[2020-01-14] MEDS: KETOROLAC 15MG/ML VIAL IV PRN (17:58)
[2020-01-14] MEDS ORDERED: APIXABAN 5 MG TABLET PO NR (18:15)
[2020-01-14] MEDS: INSULIN LISPRO 100 UNITS/ML SUBCUT SCH ×2 (18:58→21:00)
[2020-01-15 00:43] VITALS: BP 126/60
[2020-01-15] MEDS: KETOROLAC 15MG/ML VIAL IV PRN ×3 (01:29→17:37)
[2020-01-15 04:00] VITALS: BP 130/68
[2020-01-15] MEDS: BLOOD SUGAR DIAGNOSTIC STRIP TEST SCH ×4 (06:47→21:35)
[2020-01-15] MEDS: APIXABAN 5 MG TABLET PO SCH ×2 (06:47→17:36)
[2020-01-15] MEDS: INSULIN LISPRO 100 UNITS/ML SUBCUT SCH ×3 (06:48→17:39)
[2020-01-15 07:47] LABS: CREATINE KINASE 34 IU/L (39-308)
[2020-01-15 07:48] LABS: CREATINE KINASE MB FRACTION < 1.0 ng/mL (0.5-3.6)
[2020-01-15 08:00] VITALS: BP 134/68
[2020-01-15] MEDS ORDERED: FAMOTIDINE 20MG TABLET PO SCH (09:00)
[2020-01-15] MEDS ORDERED: ASPIRIN 325MG EC TABLET PO SCH (09:00)
[2020-01-15 09:02] LABS: *AMPHETAMINES SCREEN URINE NEGATIVE (NEGATIVE); *BARBITURATES SCREEN URINE NEGATIVE (NEGATIVE); *BENZODIAZEPINES SCREEN URINE NEGATIVE (NEGATIVE); *COCAINE SCREEN URINE NEGATIVE (NEGATIVE); CANNABINOID URINE SCREEN NEGATIVE (NEGATIVE); METHADONE URINE SCREEN NEGATIVE (NEGATIVE)
[2020-01-15 09:03] LABS: OPIATES URINE SCREEN PRESUMTIVE POSITIVE (NEGATIVE); PHENCYCLIDINE URINE SCREEN NEGATIVE (NEGATIVE)
[2020-01-15 12:00] VITALS: BP 126/84
[2020-01-15] MEDS ORDERED: INSULIN GLARGINE UD 100 UNITS/ML SYR SUBCUT NR (12:30)
[2020-01-15] MEDS ORDERED: HYDR-4005 PO (14:49)
[2020-01-15] MEDS ORDERED: AMLO10TA4 PO (14:49)
[2020-01-15] MEDS ORDERED: IPRA4AER INH (14:49)
[2020-01-15] MEDS ORDERED: GABA-533 PO (14:49)
[2020-01-15] MEDS ORDERED: RANO10003 PO (14:49)
[2020-01-15] MEDS ORDERED: LISI10TA5 PO (14:49)
[2020-01-15 16:00] VITALS: BP 124/63
[2020-01-15 20:48] VITALS: BP 130/69
[2020-01-15] MEDS ORDERED: INSULIN GLARGINE UD 100 UNITS/ML SYR SUBCUT SCH (22:00)
[2020-01-16] MEDS ORDERED: INSULIN GLARGINE UD 100 UNITS/ML SYR SUBCUT SCH (10:00)
== END 2020-01-15 21:30 | disposition home or self-care (01) | DRG 313 ==
LOC: ER 11:13 → 6WST 16:11 → EDBEDREQ 16:15 → ENRESERV 22:55
PROVIDERS: ADMIT Internal Medicine; ATTEND Internal Medicine
DX: R07.89 Other chest pain (principal); E87.1 Hypo-osmolality and hyponatremia; I42.9 Cardiomyopathy, unspecified; J44.9 Chronic obstructive pulmonary disease, unspecified; I50.9 Heart failure, unspecified; I11.0 Hypertensive heart disease with heart failure; E11.65 Type 2 diabetes mellitus with hyperglycemia; D63.8 Anemia in other chronic diseases classified elsewhere; I25.10 Atherosclerotic heart disease of native coronary artery without angina pectoris; Z86.73 Personal history of transient ischemic attack (TIA), and cerebral infarction without residual deficits; Z86.718 Personal history of other venous thrombosis and embolism; Z82.49 Family history of ischemic heart disease and other diseases of the circulatory system; Z87.891 Personal history of nicotine dependence; Z79.899 Other long term (current) drug therapy
CPT/HCPCS: 36415; 71045; 80053; 80061; 80305; 82550; 82553; 82962; 83036; 83880; 84484; 85025; 93005; 96372; 99285; J1815; J1885

== ENCOUNTER 2020-03-10 19:29 | Inpatient (IN) | payer BC, OTHER ==
[~2020-03-10] VITALS: Ht 170.2 cm; Wt 83.9 kg
[~2020-03-10 19:29] MED LIST changes: +AMLO10TA4 PO; +GABA-533 PO; +HYDR-4005 PO; +IPRA4AER INH; +LISI10TA5 PO; -NITR0.4T49 SL; +RANO10003 PO; -[UNRECOGNIZED DRUG - CODE] PO
[2020-03-10] MEDS ORDERED: ONDANSETRON HCL 4MG/2ML INJ IV STA (20:11)
[2020-03-10] MEDS ORDERED: MORPHINE SULFATE 4 MG/ML CPJ (NOT FOR IM USE) IV STA (20:11)
[2020-03-10] MEDS ORDERED: LIDOCAINE 1%/EPI 1:100,000 10 ML VIAL IJ ONE (20:15)
[2020-03-10] MEDS ORDERED: NITROGLYCERIN 0.4MG TABLET SL SL PRN ×2 (20:15→22:15)
[2020-03-10] MEDS ORDERED: ASPIRIN 81MG TABLET PO ONE (20:15)
[2020-03-10 20:25] LABS: HEMATOCRIT. 40.3 % (42.0-52.0); HEMOGLOBIN. 13.8 g/dL (14.0-18.0); MEAN CORPUSCULAR HEMOGLOBIN 32.6 pg (28.0-32.0); MEAN CORPUSCULAR VOLUME 95.2 fL (80.0-94.0); RED BLOOD CELL COUNT 4.24 mill/uL (4.7-6.1)
[2020-03-10 20:27] LABS: CHLORIDE 109 mEq/L (98-107)
[2020-03-10 20:30] LABS: INR 0.9; PARTIAL THROMBOPLASTIN TIME 20.9 sec (23.4-31.0); PROTHROMBIN TIME 9.5 sec (9.6-11.0)
[2020-03-10] MEDS ORDERED: SULFAMETHOXAZOLE/TRIMETHOPRIM 800/160MG TABLET PO ONE (20:30)
[2020-03-10] MEDS ORDERED: CEFTRIAXONE 1 G PREMIX 50 ML IV ONE (20:30)
[2020-03-10] MEDS ORDERED: LIDOCAINE HCL/EPINEPHRINE 1%-EPI 1:100,000 20 ML VIAL INFIL NR (20:30)
[2020-03-10 20:47] LABS: MEAN PLATELET VOLUME 9.5 fl (7.4-10.4); PLATELET 308 x1000/uL (130-400)
[2020-03-10 20:49] LABS: PLATELET ESTIMATE NORMAL
[2020-03-10] MEDS ORDERED: FUROSEMIDE 40MG/4ML VIAL IVP ONE (21:15)
[2020-03-10] MEDS ORDERED: LORAZEPAM 0.5MG TABLET PO PRN (22:15)
[2020-03-10] MEDS ORDERED: TRAMADOL 50MG TABLET PO PRN (22:15)
[2020-03-10] MEDS ORDERED: ZOLPIDEM TARTRATE 5MG TABLET PO PRN ×2 (22:15)
[2020-03-10] MEDS ORDERED: DEXTROSE 50% WATER 50ML SYRINGE IV PRN (22:15)
[2020-03-10] MEDS ORDERED: ONDANSETRON HCL 4MG/2ML INJ IV PRN (22:15)
[2020-03-10] MEDS ORDERED: MAGNESIUM/ALUMINUM HYDROXIDE/SIMETHICONE 30ML UDC PO PRN (22:15)
[2020-03-10] MEDS ORDERED: DOCUSATE SODIUM 100MG CAPSULE PO PRN (22:15)
[2020-03-10] MEDS ORDERED: ACETAMINOPHEN 325MG TABLET PO PRN ×2 (22:15)
[2020-03-10] MEDS ORDERED: GUAIFENESIN 200MG/10ML SUGAR FREE UDC PO PRN (22:15)
[2020-03-10] MEDS ORDERED: IPRATROPIUM/ALBUTEROL 0.5-3(2.5)MG/3ML NEB NEB PRN (22:15)
[2020-03-10] MEDS ORDERED: CLONIDINE 0.1MG TABLET PO PRN (22:15)
[2020-03-10] MEDS ORDERED: IOHEXOL-350 100 ML BOTTLE ONE (22:26)
[2020-03-11] MEDS ORDERED: SODIUM POLYSTYRENE SULFONATE 15 G/60 ML BOT PO SCH
[2020-03-11] MEDS: KETOROLAC 15MG/ML VIAL IV PRN ×4 (00:09→21:35)
[2020-03-11] MEDS ORDERED: LORAZEPAM 0.5MG TABLET PO PRN (00:45)
[2020-03-11 00:54] LABS: *BARBITURATES SCREEN URINE NEGATIVE (NEGATIVE)
[2020-03-11 00:55] LABS: *AMPHETAMINES SCREEN URINE NEGATIVE (NEGATIVE); *BENZODIAZEPINES SCREEN URINE NEGATIVE (NEGATIVE); *COCAINE SCREEN URINE NEGATIVE (NEGATIVE); METHADONE URINE SCREEN NEGATIVE (NEGATIVE); OPIATES URINE SCREEN PRESUMTIVE POSITIVE (NEGATIVE); PHENCYCLIDINE URINE SCREEN NEGATIVE (NEGATIVE)
[2020-03-11 00:56] LABS: CANNABINOID URINE SCREEN NEGATIVE (NEGATIVE)
[2020-03-11 05:42] LABS: BASOPHILS % 1.2 % (0.0-2.0); EOSINOPHILS % 2.7 % (0.0-5.0); HEMATOCRIT. 39.1 % (42.0-52.0); HEMOGLOBIN. 13.1 g/dL (14.0-18.0); LYMPHOCYTES % 17.1 % (20.0-50.0); MEAN CORPUSCULAR HEMOGLOBIN 32.1 pg (28.0-32.0); MEAN CORPUSCULAR VOLUME 95.9 fL (80.0-94.0); MEAN PLATELET VOLUME 8.1 fl (7.4-10.4); MONOCYTES % 7.9 % (2.0-8.0); NEUTROPHILS % 71.1 % (40.0-76.0); PLATELET 327 x1000/uL (130-400); RED BLOOD CELL COUNT 4.08 mill/uL (4.7-6.1); RED CELL DISTRIBUTION WIDTH 14.7 % (11.6-14.6)
[2020-03-11 05:53] LABS: CHLORIDE 107 mEq/L (98-107)
[2020-03-11 05:59] LABS: PHOSPHORUS 3.3 mg/dL (2.5-4.9)
[2020-03-11] MEDS ORDERED: CLINDAMYCIN 600MG PREMIX 50 ML IV SCH (06:00)
[2020-03-11 06:03] LABS: CREATINE KINASE 66 IU/L (39-308)
[2020-03-11] MEDS: APIXABAN 5 MG TABLET PO SCH ×2 (06:04→17:41)
[2020-03-11] MEDS: CARVEDILOL 12.5MG TABLET PO SCH ×2 (06:04→17:41)
[2020-03-11] MEDS: GABAPENTIN 400MG CAPSULE PO SCH ×3 (06:05→21:33)
[2020-03-11 06:06] LABS: CREATINE KINASE MB FRACTION 2.7 ng/mL (0.5-3.6)
[2020-03-11] MEDS: INSULIN LISPRO 100 UNITS/ML SUBCUT SCH ×4 (08:01→21:48)
[2020-03-11 08:40] VITALS: BP 126/70
[2020-03-11] MEDS: BLOOD SUGAR DIAGNOSTIC STRIP TEST SCH ×4 (09:00→21:34)
[2020-03-11] MEDS: FAMOTIDINE 20MG TABLET PO SCH ×2 (10:01→21:35)
[2020-03-11] MEDS: AMLODIPINE 10MG TABLET PO SCH (10:01)
[2020-03-11] MEDS: ASPIRIN 81MG EC TABLET PO SCH (10:01)
[2020-03-11] MEDS: FUROSEMIDE 40MG/4ML VIAL IVP SCH ×2 (10:02→21:33)
[2020-03-11] MEDS: ASCORBIC ACID 500 MG TABLET PO SCH ×2 (10:02→21:33)
[2020-03-11] MEDS: DIPHENHYDRAMINE 25MG CAPSULE PO PRN ×2 (10:02→21:34)
[2020-03-11] MEDS: ZINC SULFATE 220 MG ( 50 ) CAPSULE PO SCH (10:02)
[2020-03-11] MEDS ORDERED: INSULIN GLARGINE UD 100 UNITS/ML SYR SUBCUT SCH (11:00)
[2020-03-11 12:00] VITALS: BP 124/72
[2020-03-11] MEDS ORDERED: POTA-9 MT (12:53)
[2020-03-11] MEDS ORDERED: ASPI-1497 MT (12:53)
[2020-03-11] MEDS ORDERED: CARV12.545 MT (12:53)
[2020-03-11] MEDS ORDERED: B50 MT (12:53)
[2020-03-11] MEDS: CLINDAMYCIN 600 MG in DEXTROSE 5% WATER 50 ML IV SCH ×2 (13:14→21:34)
[2020-03-11 16:00] VITALS: BP 133/74
[2020-03-11 20:00] VITALS: BP 127/67
[2020-03-11] MEDS: ATORVASTATIN CALCIUM 10MG TABLET PO SCH (21:33)
[2020-03-12] VITALS: BP 125/67
[2020-03-12 04:00] VITALS: BP 127/74
[2020-03-12] MEDS: GABAPENTIN 400MG CAPSULE PO SCH ×3 (06:20→22:25)
[2020-03-12] MEDS: APIXABAN 5 MG TABLET PO SCH ×2 (06:22→17:25)
[2020-03-12] MEDS: CARVEDILOL 12.5MG TABLET PO SCH ×2 (06:22→17:24)
[2020-03-12] MEDS: CLINDAMYCIN 600 MG in DEXTROSE 5% WATER 50 ML IV SCH ×3 (06:22→23:12)
[2020-03-12] MEDS: BLOOD SUGAR DIAGNOSTIC STRIP TEST SCH ×4 (06:22→21:00)
[2020-03-12] MEDS: DIPHENHYDRAMINE 25MG CAPSULE PO PRN ×2 (07:00→17:25)
[2020-03-12] MEDS: KETOROLAC 15MG/ML VIAL IV PRN ×3 (07:01→23:13)
[2020-03-12 08:00] VITALS: BP 114/61
[2020-03-12] MEDS: AMLODIPINE 10MG TABLET PO SCH (08:42)
[2020-03-12] MEDS: ASPIRIN 81MG EC TABLET PO SCH (08:42)
[2020-03-12] MEDS: FUROSEMIDE 40MG/4ML VIAL IVP SCH ×2 (08:42→21:00)
[2020-03-12] MEDS: ZINC SULFATE 220 MG ( 50 ) CAPSULE PO SCH (08:43)
[2020-03-12] MEDS: ASCORBIC ACID 500 MG TABLET PO SCH ×2 (08:43→21:00)
[2020-03-12] MEDS: FAMOTIDINE 20MG TABLET PO SCH ×2 (08:43→21:00)
[2020-03-12] MEDS: INSULIN LISPRO 100 UNITS/ML SUBCUT SCH ×4 (08:55→22:28)
[2020-03-12 12:00] VITALS: BP 135/75
[2020-03-12] MEDS: INSULIN GLARGINE UD 100 UNITS/ML SYR SUBCUT SCH (13:43)
[2020-03-12 16:00] VITALS: BP 139/81
[2020-03-12 20:00] VITALS: BP 110/59
[2020-03-12] MEDS: ATORVASTATIN CALCIUM 10MG TABLET PO SCH (21:00)
[2020-03-13] VITALS: BP 136/77
[2020-03-13 04:00] VITALS: BP 126/73
[2020-03-13] MEDS: GABAPENTIN 400MG CAPSULE PO SCH ×2 (06:32→13:59)
[2020-03-13] MEDS: APIXABAN 5 MG TABLET PO SCH (06:32)
[2020-03-13] MEDS: CARVEDILOL 12.5MG TABLET PO SCH (06:40)
[2020-03-13] MEDS: BLOOD SUGAR DIAGNOSTIC STRIP TEST SCH ×2 (06:41→12:03)
[2020-03-13] MEDS: KETOROLAC 15MG/ML VIAL IV PRN (06:41)
[2020-03-13 08:00] VITALS: BP 117/82
[2020-03-13] MEDS: INSULIN LISPRO 100 UNITS/ML SUBCUT SCH ×2 (08:37→12:36)
[2020-03-13] MEDS: ASCORBIC ACID 500 MG TABLET PO SCH (08:38)
[2020-03-13] MEDS: FUROSEMIDE 40MG/4ML VIAL IVP SCH (08:38)
[2020-03-13] MEDS: ZINC SULFATE 220 MG ( 50 ) CAPSULE PO SCH (08:39)
[2020-03-13] MEDS: DIPHENHYDRAMINE 25MG CAPSULE PO PRN (08:39)
[2020-03-13] MEDS: AMLODIPINE 10MG TABLET PO SCH (08:39)
[2020-03-13] MEDS: ASPIRIN 81MG EC TABLET PO SCH (08:39)
[2020-03-13] MEDS: CLINDAMYCIN 600 MG in DEXTROSE 5% WATER 50 ML IV SCH (08:39)
[2020-03-13] MEDS: FAMOTIDINE 20MG TABLET PO SCH (09:33)
[2020-03-13] MEDS: INSULIN GLARGINE UD 100 UNITS/ML SYR SUBCUT SCH (10:05)
[2020-03-13 11:11] VITALS: BP 113/66
[2020-03-13 12:00] VITALS: BP 125/80
[2020-03-13] MEDS ORDERED: CLINDAMYCIN 600MG PREMIX 50 ML IV SCH (16:00)
== END 2020-03-13 15:00 | disposition home or self-care (01) | DRG 292 ==
LOC: ER 19:29 → 6WST 21:58 → ENRESERV 03-11 07:39
PROVIDERS: ADMIT Internal Medicine; ATTEND Internal Medicine
PROC: 0J993ZZ Drainage of Buttock Subcutaneous Tissue and Fascia, Percutaneous Approach (ICD-10-PCS; principal; 2020-03-10)
DX: I11.0 Hypertensive heart disease with heart failure (principal); E44.1 Mild protein-calorie malnutrition; L02.31 Cutaneous abscess of buttock; I82.503 Chronic embolism and thrombosis of unspecified deep veins of lower extremity, bilateral; Z68.1 Body mass index [BMI] 19.9 or less, adult; I50.43 Acute on chronic combined systolic (congestive) and diastolic (congestive) heart failure; R07.89 Other chest pain; E11.9 Type 2 diabetes mellitus without complications; E78.00 Pure hypercholesterolemia, unspecified; D63.8 Anemia in other chronic diseases classified elsewhere; I25.10 Atherosclerotic heart disease of native coronary artery without angina pectoris; E87.5 Hyperkalemia; Z79.4 Long term (current) use of insulin; Z79.899 Other long term (current) drug therapy; Z79.01 Long term (current) use of anticoagulants; Z82.49 Family history of ischemic heart disease and other diseases of the circulatory system; Z86.711 Personal history of pulmonary embolism; Z89.519 Acquired absence of unspecified leg below knee; Z89.612 Acquired absence of left leg above knee; Z95.5 Presence of coronary angioplasty implant and graft; Z95.810 Presence of automatic (implantable) cardiac defibrillator
CPT/HCPCS: 36415; 71045; 71275; 80053; 80305; 82550; 82553; 82962; 83036; 83735; 83880; 84100; 84484; 85025; 93005; 93970; 99285; J0696; J1815; J1885; J1940; J2270; J2405; J3490; J7060; Q0163; Q9967

== ENCOUNTER 2020-04-27 15:23 | Emergency (ER) | payer BC, OTHER ==
[~2020-04-27] VITALS: Ht 170.2 cm; Wt 85.0 kg
[~2020-04-27 15:23] MED LIST changes: +ASPI-1497 MT; +B50 MT; +CARV12.545 MT; -COR25 MT; -LISI10TA5 PO; +POTA-9 MT
[2020-04-27] MEDS ORDERED: GABAPENTIN 400MG CAPSULE PO ONE (17:00)
[2020-04-27] MEDS ORDERED: KETOROLAC 60MG/2ML VIAL IM ONE (17:00)
[2020-04-27 20:07] VITALS: BP 136/91
== END 2020-04-27 22:28 | disposition home or self-care (01) ==
LOC: ER 15:23
DX: M25.562 Pain in left knee (principal); G89.29 Other chronic pain; E11.9 Type 2 diabetes mellitus without complications; E78.00 Pure hypercholesterolemia, unspecified; I10 Essential (primary) hypertension; I25.2 Old myocardial infarction; Z79.82 Long term (current) use of aspirin; Z79.899 Other long term (current) drug therapy; Z79.4 Long term (current) use of insulin
CPT/HCPCS: 82962; 96372; 99283; J1885

== ENCOUNTER 2020-05-14 00:15 | Inpatient (IN) | payer BC, OTHER ==
[~2020-05-14] VITALS: Ht 170.2 cm; Wt 88.5 kg
[2020-05-14] MEDS ORDERED: ONDANSETRON HCL 4MG/2ML INJ IV STA (00:51)
[2020-05-14] MEDS ORDERED: MORPHINE SULFATE 4 MG/ML CPJ (NOT FOR IM USE) IV STA (00:51)
[2020-05-14] MEDS ORDERED: SODIUM CHLORIDE 0.9% 1,000 ML IV ONE (00:51)
[2020-05-14 01:20] LABS: BASOPHILS % 1.1 % (0.0-2.0); EOSINOPHILS % 2.2 % (0.0-5.0); HEMATOCRIT. 41.1 % (42.0-52.0); HEMOGLOBIN. 13.9 g/dL (14.0-18.0); LYMPHOCYTES % 17.1 % (20.0-50.0); MEAN CORPUSCULAR HEMOGLOBIN 33.7 pg (28.0-32.0); MEAN CORPUSCULAR VOLUME 99.6 fL (80.0-94.0); MEAN PLATELET VOLUME 9.3 fl (7.4-10.4); MONOCYTES % 5.4 % (2.0-8.0); NEUTROPHILS % 74.2 % (40.0-76.0); PLATELET 295 x1000/uL (130-400); RED BLOOD CELL COUNT 4.12 mill/uL (4.7-6.1); RED CELL DISTRIBUTION WIDTH 14.5 % (11.6-14.6)
[2020-05-14 01:25] LABS: CHLORIDE 107 mEq/L (98-107)
[2020-05-14 01:34] LABS: INR 0.9; PROTHROMBIN TIME 9.7 sec (9.6-11.0)
[2020-05-14 03:28] LABS: CLARITY URINE CLEAR (CLEAR); COLOR URINE YELLOW (YELLOW); KETONES URINE NEGATIVE (NEGATIVE); LEUKOCYTE ESTERASE URINE NEGATIVE (NEGATIVE); NITRITE URINE NEGATIVE (NEGATIVE); OCCULT BLOOD URINE NEGATIVE (NEGATIVE); PH URINE 7.5 (4.5-8.0); PROTEIN URINE 1+ (NEGATIVE); SPECIFIC GRAVITY URINE 1.031 (1.005-1.030)
[2020-05-14] MEDS ORDERED: MORPHINE SULFATE 4 MG/ML CPJ (NOT FOR IM USE) IV NR (05:00)
[2020-05-14 08:30] VITALS: BP 132/71
[2020-05-14 08:40] VITALS: BP 132/71
[2020-05-14] MEDS ORDERED: PIPERACILLIN/TAZ 3.375G PREMIX 50 ML IV SCH (09:00)
[2020-05-14 09:44] LABS: BASOPHILS % 0.7 % (0.0-2.0); EOSINOPHILS % 3.4 % (0.0-5.0); HEMATOCRIT. 38.8 % (42.0-52.0); HEMOGLOBIN. 13.1 g/dL (14.0-18.0); LYMPHOCYTES % 19.3 % (20.0-50.0); MEAN CORPUSCULAR HEMOGLOBIN 33.3 pg (28.0-32.0); MEAN CORPUSCULAR VOLUME 98.3 fL (80.0-94.0); MEAN PLATELET VOLUME 8.3 fl (7.4-10.4); MONOCYTES % 8.1 % (2.0-8.0); NEUTROPHILS % 68.5 % (40.0-76.0); PLATELET 301 x1000/uL (130-400); RED BLOOD CELL COUNT 3.94 mill/uL (4.7-6.1); RED CELL DISTRIBUTION WIDTH 14.4 % (11.6-14.6)
[2020-05-14 09:48] LABS: CHLORIDE 110 mEq/L (98-107)
[2020-05-14] MEDS: ENOXAPARIN 40MG/0.4ML SYR SUBCUT SCH ×2 (09:52→09:53)
[2020-05-14] MEDS ORDERED: SODIUM CHLORIDE 0.9% 1,000 ML IV SCH (10:00)
[2020-05-14] MEDS ORDERED: SORBITOL 70% SOLN 30ML PO NR ×2 (10:30→16:00)
[2020-05-14] MEDS: PIPERACILLIN/TAZOBACTAM 3.375 G in DEXT 5% WATER 100 ML IV SCH ×4 (10:53→20:51)
[2020-05-14 12:00] VITALS: BP 149/78
[2020-05-14 16:00] VITALS: BP 167/87
[2020-05-14 20:00] VITALS: BP 155/76
[2020-05-14] MEDS ORDERED: DEXTROSE 50% WATER 50ML SYRINGE IV PRN (20:30)
[2020-05-14] MEDS: DEXT 5%/0.45% NACL 1000ML 1,000 ML IV SCH (20:52)
[2020-05-14] MEDS: BLOOD SUGAR DIAGNOSTIC STRIP TEST SCH (21:59)
[2020-05-14] MEDS: INSULIN LISPRO 100 UNITS/ML SUBCUT SCH (22:12)
[2020-05-14] MEDS: DIPHENHYDRAMINE 25MG CAPSULE PO PRN (22:19)
[2020-05-15] VITALS: BP 162/76
[2020-05-15] MEDS: MORPHINE SULFATE 2 MG/ML CPJ (NOT FOR IM USE) IV PRN ×5 (01:37→21:20)
[2020-05-15 04:00] VITALS: BP 157/72
[2020-05-15] MEDS: PIPERACILLIN/TAZOBACTAM 3.375 G in DEXT 5% WATER 100 ML IV SCH ×2 (05:27→10:00)
[2020-05-15 06:48] LABS: CHLORIDE 109 mEq/L (98-107)
[2020-05-15 06:58] LABS: EOSINOPHILS % 3.6 % (0.0-5.0); HEMATOCRIT. 38.8 % (42.0-52.0); HEMOGLOBIN. 13.3 g/dL (14.0-18.0); LYMPHOCYTES % 16.3 % (20.0-50.0); MEAN CORPUSCULAR HEMOGLOBIN 33.6 pg (28.0-32.0); MEAN CORPUSCULAR VOLUME 97.8 fL (80.0-94.0); MEAN PLATELET VOLUME 8.3 fl (7.4-10.4); MONOCYTES % 7.3 % (2.0-8.0); NEUTROPHILS % 71.8 % (40.0-76.0); PLATELET 300 x1000/uL (130-400); RED BLOOD CELL COUNT 3.97 mill/uL (4.7-6.1); RED CELL DISTRIBUTION WIDTH 14.2 % (11.6-14.6)
[2020-05-15] MEDS: BLOOD SUGAR DIAGNOSTIC STRIP TEST SCH ×4 (07:43→21:14)
[2020-05-15] MEDS: ENOXAPARIN 40MG/0.4ML SYR SUBCUT SCH (09:00)
[2020-05-15] MEDS: INSULIN LISPRO 100 UNITS/ML SUBCUT SCH ×4 (09:30→21:21)
[2020-05-15] MEDS: DIPHENHYDRAMINE 25MG CAPSULE PO PRN ×2 (09:31→23:10)
[2020-05-15] MEDS: DEXT 5%/0.45% NACL 1000ML 1,000 ML IV SCH (09:50)
[2020-05-15] MEDS ORDERED: HYDROCODONE/APAP 7.5/325MG 1 TAB TABLET PO PRN (10:30)
[2020-05-15] MEDS ORDERED: LORAZEPAM 0.5MG TABLET PO PRN (10:30)
[2020-05-15] MEDS: INSULIN GLARGINE UD 100 UNITS/ML SYR SUBCUT SCH ×2 (12:00→21:35)
[2020-05-15] MEDS: ASPIRIN 81MG EC TABLET PO SCH (12:19)
[2020-05-15] MEDS: APIXABAN 5 MG TABLET PO SCH ×2 (12:19→21:14)
[2020-05-15] MEDS: HYDRALAZINE HCL 25MG TABLET PO SCH ×2 (12:19→21:11)
[2020-05-15] MEDS: AMLODIPINE 10MG TABLET PO SCH (12:20)
[2020-05-15] MEDS: POTASSIUM CHLORIDE 10MEQ TABLET SR PO SCH (12:20)
[2020-05-15] MEDS: GABAPENTIN 400MG CAPSULE PO SCH ×2 (14:00→21:12)
[2020-05-15 16:00] VITALS: BP 145/73
[2020-05-15] MEDS: FUROSEMIDE 40MG TABLET PO SCH (16:57)
[2020-05-15 20:00] VITALS: BP 149/77
[2020-05-15] MEDS: CARVEDILOL 12.5MG TABLET PO SCH (21:10)
[2020-05-15] MEDS: ATORVASTATIN CALCIUM 10MG TABLET PO SCH (21:11)
[2020-05-15] MEDS: METRONIDAZOLE 500MG TABLET PO SCH (21:12)
[2020-05-16] VITALS: BP 149/67
[2020-05-16] MEDS: MORPHINE SULFATE 2 MG/ML CPJ (NOT FOR IM USE) IV PRN ×5 (02:46→21:35)
[2020-05-16 04:00] VITALS: BP 149/66
[2020-05-16] MEDS: DIPHENHYDRAMINE 25MG CAPSULE PO PRN ×2 (04:28→15:07)
[2020-05-16] MEDS: GABAPENTIN 400MG CAPSULE PO SCH ×3 (05:53→21:18)
[2020-05-16] MEDS: BLOOD SUGAR DIAGNOSTIC STRIP TEST SCH ×4 (05:53→21:32)
[2020-05-16] MEDS: DEXT 5%/0.45% NACL 1000ML 1,000 ML IV SCH ×2 (05:53→12:30)
[2020-05-16] MEDS: METRONIDAZOLE 500MG TABLET PO SCH ×3 (05:53→21:18)
[2020-05-16] MEDS ORDERED: DIATR MEGLU/DIATRIZOATE SOLN 30ML PO SCH (08:15)
[2020-05-16] MEDS: INSULIN LISPRO 100 UNITS/ML SUBCUT SCH ×4 (08:24→21:33)
[2020-05-16] MEDS: CARVEDILOL 12.5MG TABLET PO SCH ×2 (08:31→21:18)
[2020-05-16] MEDS: POTASSIUM CHLORIDE 10MEQ TABLET SR PO SCH (08:32)
[2020-05-16] MEDS: HYDRALAZINE HCL 25MG TABLET PO SCH ×2 (08:32→21:17)
[2020-05-16] MEDS: AMLODIPINE 10MG TABLET PO SCH (08:32)
[2020-05-16] MEDS: FUROSEMIDE 40MG TABLET PO SCH ×2 (08:32→17:54)
[2020-05-16] MEDS: ASPIRIN 81MG EC TABLET PO SCH (08:32)
[2020-05-16] MEDS: APIXABAN 5 MG TABLET PO SCH ×2 (08:32→17:54)
[2020-05-16] MEDS: LEVOFLOXACIN 500MG TABLET PO SCH (10:51)
[2020-05-16] MEDS: INSULIN GLARGINE UD 100 UNITS/ML SYR SUBCUT SCH ×2 (10:53→21:34)
[2020-05-16] MEDS ORDERED: IOHEXOL-300 100 ML BOTTLE ONE (13:48)
[2020-05-16 20:00] VITALS: BP 161/77
[2020-05-16] MEDS ORDERED: PANTOPRAZOLE SODIUM 40 MG/VIAL IV SCH (21:00)
[2020-05-16] MEDS: ATORVASTATIN CALCIUM 10MG TABLET PO SCH (21:17)
[2020-05-17] VITALS: BP 147/64
[2020-05-17] MEDS: DIPHENHYDRAMINE 25MG CAPSULE PO PRN (00:01)
[2020-05-17 04:00] VITALS: BP 125/70
[2020-05-17] MEDS: MORPHINE SULFATE 2 MG/ML CPJ (NOT FOR IM USE) IV PRN ×2 (04:18→11:15)
[2020-05-17] MEDS: METRONIDAZOLE 500MG TABLET PO SCH ×2 (06:09→13:00)
[2020-05-17] MEDS: GABAPENTIN 400MG CAPSULE PO SCH ×2 (06:09→13:00)
[2020-05-17] MEDS: BLOOD SUGAR DIAGNOSTIC STRIP TEST SCH ×2 (06:38→12:40)
[2020-05-17 08:00] VITALS: BP 128/71
[2020-05-17] MEDS: AMLODIPINE 10MG TABLET PO SCH (09:17)
[2020-05-17] MEDS: CARVEDILOL 12.5MG TABLET PO SCH (09:17)
[2020-05-17] MEDS: FUROSEMIDE 40MG TABLET PO SCH (09:17)
[2020-05-17] MEDS: APIXABAN 5 MG TABLET PO SCH (09:17)
[2020-05-17] MEDS: POTASSIUM CHLORIDE 10MEQ TABLET SR PO SCH (09:17)
[2020-05-17] MEDS: ASPIRIN 81MG EC TABLET PO SCH (09:18)
[2020-05-17] MEDS: HYDRALAZINE HCL 25MG TABLET PO SCH (09:18)
[2020-05-17] MEDS: INSULIN LISPRO 100 UNITS/ML SUBCUT SCH (09:33)
[2020-05-17] MEDS: INSULIN GLARGINE UD 100 UNITS/ML SYR SUBCUT SCH (09:33)
[2020-05-17] MEDS: LEVOFLOXACIN 500MG TABLET PO SCH (11:28)
[2020-05-17 12:00] VITALS: BP 140/75
[2020-05-17 13:55] VITALS: BP 128/71
== END 2020-05-17 16:00 | disposition home or self-care (01) | DRG 392 ==
LOC: ER 00:29 → 6EST 05:07 → EDBEDREQTM 05:12 → EDBEDREQ 05:12 → EDBEDREQSVC 05:12 → ENRESERV 07:29
PROVIDERS: ADMIT Internal Medicine; ATTEND Internal Medicine
DX: K21.9 Gastro-esophageal reflux disease without esophagitis (principal); I69.354 Hemiplegia and hemiparesis following cerebral infarction affecting left non-dominant side; I82.512 Chronic embolism and thrombosis of left femoral vein; K81.0 Acute cholecystitis; T18.4XXA Foreign body in colon, initial encounter; R10.13 Epigastric pain; E11.22 Type 2 diabetes mellitus with diabetic chronic kidney disease; E11.51 Type 2 diabetes mellitus with diabetic peripheral angiopathy without gangrene; E11.65 Type 2 diabetes mellitus with hyperglycemia; E78.5 Hyperlipidemia, unspecified; I25.10 Atherosclerotic heart disease of native coronary artery without angina pectoris; I12.9 Hypertensive chronic kidney disease with stage 1 through stage 4 chronic kidney disease, or unspecified chronic kidney disease; N18.9 Chronic kidney disease, unspecified; I25.5 Ischemic cardiomyopathy; R29.6 Repeated falls; I25.2 Old myocardial infarction; Z95.810 Presence of automatic (implantable) cardiac defibrillator; Z79.4 Long term (current) use of insulin; I69.320 Aphasia following cerebral infarction; Z89.611 Acquired absence of right leg above knee; Z79.899 Other long term (current) drug therapy; Z79.01 Long term (current) use of anticoagulants; X58.XXXA Exposure to other specified factors, initial encounter; Y93.89 Activity, other specified; Y92.89 Other specified places as the place of occurrence of the external cause; Y99.8 Other external cause status
CPT/HCPCS: 36415; 71045; 74018; 74176; 74177; 76700; 78227; 80053; 81003; 82962; 83036; 83605; 85025; 93005; 99285; A9537; C9113; J1650; J1815; J2270; J2405; J2543; J7030; J7060; Q0163; Q9967

== ENCOUNTER 2020-07-11 00:54 | Emergency (ER) | payer BC, OTHER ==
[~2020-07-11] VITALS: Ht 167.6 cm; Wt 89.1 kg
[2020-07-11] MEDS ORDERED: NITROGLYCERIN 0.4MG TABLET SL SL ONE (02:15)
[2020-07-11 02:31] LABS: BASOPHILS % 1.4 % (0.0-2.0); EOSINOPHILS % 2.6 % (0.0-5.0); HEMATOCRIT. 40.3 % (42.0-52.0); HEMOGLOBIN. 13.8 g/dL (14.0-18.0); LYMPHOCYTES % 24.2 % (20.0-50.0); MEAN CORPUSCULAR HEMOGLOBIN 33.4 pg (28.0-32.0); MEAN CORPUSCULAR VOLUME 97.3 fL (80.0-94.0); MEAN PLATELET VOLUME 9.2 fl (7.4-10.4); MONOCYTES % 5.3 % (2.0-8.0); NEUTROPHILS % 66.5 % (40.0-76.0); PLATELET 306 x1000/uL (130-400); RED BLOOD CELL COUNT 4.14 mill/uL (4.7-6.1)
[2020-07-11 02:34] LABS: CHLORIDE 105 mEq/L (98-107)
[2020-07-11 02:36] LABS: CLARITY URINE CLEAR (CLEAR); COLOR URINE YELLOW (YELLOW); KETONES URINE NEGATIVE (NEGATIVE); LEUKOCYTE ESTERASE URINE NEGATIVE (NEGATIVE); NITRITE URINE NEGATIVE (NEGATIVE); OCCULT BLOOD URINE NEGATIVE (NEGATIVE); PH URINE 6.5 (4.5-8.0); PROTEIN URINE 1+ (NEGATIVE); SPECIFIC GRAVITY URINE 1.026 (1.005-1.030)
[2020-07-11 02:38] LABS: INR 0.9; PARTIAL THROMBOPLASTIN TIME 28.9 sec (23.4-31.0); PROTHROMBIN TIME 9.9 sec (9.6-11.0)
[2020-07-11] MEDS ORDERED: ACETAMINOPHEN 325MG TABLET PO ONE (03:00)
[2020-07-11 07:03] VITALS: BP 160/92
== END 2020-07-11 07:12 | disposition short-term general hospital (02) ==
LOC: ER 01:09 → CANBEDREQ 07:24
DX: I11.0 Hypertensive heart disease with heart failure (principal); I50.9 Heart failure, unspecified; I25.10 Atherosclerotic heart disease of native coronary artery without angina pectoris; E11.9 Type 2 diabetes mellitus without complications; E78.00 Pure hypercholesterolemia, unspecified; Z79.899 Other long term (current) drug therapy; Z79.82 Long term (current) use of aspirin; Z79.4 Long term (current) use of insulin; Z86.73 Personal history of transient ischemic attack (TIA), and cerebral infarction without residual deficits
CPT/HCPCS: 36415; 71045; 80053; 81003; 82962; 83880; 84484; 85025; 93005; 99285

== ENCOUNTER 2020-07-27 16:02 | Inpatient (IN) | payer BC, OTHER ==
[~2020-07-27] VITALS: Ht 172.7 cm; Wt 89.8 kg
[2020-07-27 17:36] LABS: BASOPHILS % 0.9 % (0.0-2.0); EOSINOPHILS % 1.5 % (0.0-5.0); HEMATOCRIT. 40.2 % (42.0-52.0); HEMOGLOBIN. 13.7 g/dL (14.0-18.0); LYMPHOCYTES % 20.2 % (20.0-50.0); MEAN CORPUSCULAR HEMOGLOBIN 33.4 pg (28.0-32.0); MEAN PLATELET VOLUME 7.9 fl (7.4-10.4); MONOCYTES % 6.6 % (2.0-8.0); NEUTROPHILS % 70.8 % (40.0-76.0); PLATELET 359 x1000/uL (130-400); RED CELL DISTRIBUTION WIDTH 13.5 % (11.6-14.6)
[2020-07-27 17:45] LABS: CHLORIDE 105 mEq/L (98-107); PROTHROMBIN TIME 10.2 sec (9.6-11.0)
[2020-07-27 17:49] LABS: ETHANOL BLOOD < 10 mg/dL
[2020-07-27] MEDS ORDERED: MORPHINE SULFATE 4 MG/ML CPJ (NOT FOR IM USE) IV ONE (22:15)
[2020-07-27] MEDS ORDERED: SORBITOL 70% SOLN 30ML PO ONE (22:15)
[2020-07-27] MEDS ORDERED: DEXT 5% WATER 500 ML IV ONE (22:15)
[2020-07-27] MEDS ORDERED: SORBITOL 70% SOLN 30ML PO NR (23:15)
[2020-07-28 00:15] VITALS: BP 140/74
[2020-07-28] MEDS ORDERED: DEXTROSE 50% WATER 50ML SYRINGE IV PRN (01:30)
[2020-07-28] MEDS: MORPHINE SULFATE 2 MG/ML CPJ (NOT FOR IM USE) IV PRN ×5 (02:28→21:23)
[2020-07-28 04:00] VITALS: BP 138/68
[2020-07-28] MEDS ORDERED: SORBITOL 70% SOLN 30ML PO NR ×2 (04:45→07:00)
[2020-07-28] MEDS: INSULIN LISPRO 100 UNITS/ML SUBCUT SCH ×3 (05:52→18:42)
[2020-07-28] MEDS: BLOOD SUGAR DIAGNOSTIC STRIP TEST SCH ×3 (05:54→18:32)
[2020-07-28 07:05] LABS: BASOPHILS % 0.9 % (0.0-2.0); EOSINOPHILS % 2.6 % (0.0-5.0); HEMATOCRIT. 40.2 % (42.0-52.0); HEMOGLOBIN. 13.4 g/dL (14.0-18.0); LYMPHOCYTES % 23.5 % (20.0-50.0); MEAN CORPUSCULAR HEMOGLOBIN 33.1 pg (28.0-32.0); MEAN CORPUSCULAR VOLUME 98.8 fL (80.0-94.0); MEAN PLATELET VOLUME 8.8 fl (7.4-10.4); MONOCYTES % 9.2 % (2.0-8.0); NEUTROPHILS % 63.8 % (40.0-76.0); PLATELET 326 x1000/uL (130-400); RED BLOOD CELL COUNT 4.07 mill/uL (4.7-6.1); RED CELL DISTRIBUTION WIDTH 13.7 % (11.6-14.6)
[2020-07-28] MEDS ORDERED: BLOOD SUGAR DIAGNOSTIC STRIP TEST SCH (07:20)
[2020-07-28 08:00] VITALS: BP 148/72
[2020-07-28 08:00] LABS: CHLORIDE 106 mEq/L (98-107)
[2020-07-28] MEDS: METRONIDAZOLE 500 MG PREMIX 100 ML IV SCH ×2 (08:30→17:57)
[2020-07-28] MEDS ORDERED: LEVOFLOXACIN 500MG PREMIX 100 ML IV SCH (09:00)
[2020-07-28 12:00] VITALS: BP 134/70
[2020-07-28] MEDS ORDERED: PROPOFOL 200MG/20ML VIAL IV ONE ×3 (13:59→15:30)
[2020-07-28] MEDS ORDERED: ONDANSETRON HCL 4MG/2ML INJ IV PRN (16:00)
[2020-07-28] MEDS ORDERED: METOCLOPRAMIDE HCL 10MG/2ML VIAL IV PRN (16:00)
[2020-07-28 17:30] VITALS: BP 136/66
[2020-07-28] MEDS: SODIUM CHLORIDE 0.45% 1,000 ML IV SCH (18:12)
[2020-07-28 20:00] VITALS: BP 126/66
[2020-07-29] VITALS: BP 136/79
[2020-07-29] MEDS: BLOOD SUGAR DIAGNOSTIC STRIP TEST SCH ×4 (00:55→17:37)
[2020-07-29] MEDS: METRONIDAZOLE 500 MG PREMIX 100 ML IV SCH ×3 (01:03→17:26)
[2020-07-29] MEDS: MORPHINE SULFATE 2 MG/ML CPJ (NOT FOR IM USE) IV PRN ×5 (01:33→20:34)
[2020-07-29 04:00] VITALS: BP 150/75
[2020-07-29 08:00] VITALS: BP 162/70
[2020-07-29] MEDS: INSULIN LISPRO 100 UNITS/ML SUBCUT SCH ×4 (09:49→17:59)
[2020-07-29 10:46] LABS: BASOPHILS % 0.7 % (0.0-2.0); EOSINOPHILS % 1.4 % (0.0-5.0); HEMATOCRIT. 39.2 % (42.0-52.0); HEMOGLOBIN. 13.2 g/dL (14.0-18.0); LYMPHOCYTES % 12.1 % (20.0-50.0); MEAN CORPUSCULAR VOLUME 98.1 fL (80.0-94.0); MEAN PLATELET VOLUME 8.2 fl (7.4-10.4); MONOCYTES % 8.8 % (2.0-8.0); PLATELET 381 x1000/uL (130-400); RED BLOOD CELL COUNT 3.99 mill/uL (4.7-6.1); RED CELL DISTRIBUTION WIDTH 13.2 % (11.6-14.6)
[2020-07-29 11:22] VITALS: BP 143/74
[2020-07-29 11:43] LABS: CHLORIDE 110 mEq/L (98-107)
[2020-07-29] MEDS ORDERED: PROPOFOL 200MG/20ML VIAL IV ONE ×3 (12:07→12:36)
[2020-07-29] MEDS ORDERED: FENTANYL CITRATE/PF 50MCG/ML 2ML VIAL ONE (12:07)
[2020-07-29] MEDS ORDERED: GLYCOPYRROLATE 0.2 MG/ML 2ML VIAL ONE (12:09)
[2020-07-29] MEDS: SODIUM CHLORIDE 0.45% 1,000 ML IV SCH (15:15)
[2020-07-29 16:00] VITALS: BP 154/74
[2020-07-29] MEDS: LOSARTAN POTASSIUM 50 MG TABLET PO SCH (17:31)
[2020-07-29] MEDS ORDERED: POTASSIUM CHLORIDE 20MEQ TABLET SR PO SCH (18:00)
[2020-07-29 19:17] LABS: CLARITY URINE CLEAR (CLEAR); COLOR URINE DARK YELLOW (YELLOW); KETONES URINE 2+ (NEGATIVE); LEUKOCYTE ESTERASE URINE TRACE (NEGATIVE); NITRITE URINE POSITIVE (NEGATIVE); OCCULT BLOOD URINE NEGATIVE (NEGATIVE); PH URINE 5.5 (4.5-8.0); PROTEIN URINE 2+ (NEGATIVE); SPECIFIC GRAVITY URINE 1.028 (1.005-1.030)
[2020-07-29 20:00] VITALS: BP 145/74
[2020-07-29] MEDS: CARVEDILOL 6.25 MG TABLET PO SCH (20:34)
[2020-07-29] MEDS ORDERED: ATORVASTATIN CALCIUM 10MG TABLET PO SCH (21:00)
[2020-07-30] VITALS: BP 133/70
[2020-07-30] MEDS: BLOOD SUGAR DIAGNOSTIC STRIP TEST SCH ×3 (00:18→12:42)
[2020-07-30] MEDS: INSULIN LISPRO 100 UNITS/ML SUBCUT SCH ×3 (00:22→12:41)
[2020-07-30] MEDS: METRONIDAZOLE 500 MG PREMIX 100 ML IV SCH ×2 (00:24→10:06)
[2020-07-30] MEDS: MORPHINE SULFATE 2 MG/ML CPJ (NOT FOR IM USE) IV PRN ×4 (00:35→14:32)
[2020-07-30 04:00] VITALS: BP 134/65
[2020-07-30] MEDS ORDERED: CEFTRIAXONE 1,000 MG in DEXTROSE 5% WATER 50 ML IV SCH (10:00)
[2020-07-30] MEDS: LOSARTAN POTASSIUM 50 MG TABLET PO SCH (10:05)
[2020-07-30] MEDS: CARVEDILOL 6.25 MG TABLET PO SCH (10:06)
[2020-07-30] MEDS: SODIUM CHLORIDE 0.45% 1,000 ML IV SCH (10:15)
[2020-07-30 12:00] VITALS: BP 147/69
[2020-07-30] MEDS ORDERED: LEVO500T2 MT (12:17)
[2020-07-30] MEDS ORDERED: DIPHENHYDRAMINE 25MG CAPSULE PO SCH (12:30)
[2020-07-30 13:22] VITALS: BP 148/74
[2020-07-30 14:32] VITALS: BP 148/74
== END 2020-07-30 15:13 | disposition home or self-care (01) | DRG 393 ==
LOC: ER 16:25 → MICUSO 22:03 → 6EST 23:07
PROVIDERS: ADMIT Internal Medicine; ATTEND Internal Medicine
PROC: 0DJD8ZZ Inspection of Lower Intestinal Tract, Via Natural or Artificial Opening Endoscopic (ICD-10-PCS; principal; 2020-07-28)
PROC: 0DJD8ZZ Inspection of Lower Intestinal Tract, Via Natural or Artificial Opening Endoscopic (ICD-10-PCS; 2020-07-29)
PROC: 0DCN8ZZ Extirpation of Matter from Sigmoid Colon, Via Natural or Artificial Opening Endoscopic (ICD-10-PCS; 2020-07-30)
PROC: 0DBN8ZZ Excision of Sigmoid Colon, Via Natural or Artificial Opening Endoscopic (ICD-10-PCS; 2020-07-30)
PROC: 0DBL8ZZ Excision of Transverse Colon, Via Natural or Artificial Opening Endoscopic (ICD-10-PCS; 2020-07-30)
PROC: 0DBN8ZX Excision of Sigmoid Colon, Via Natural or Artificial Opening Endoscopic, Diagnostic (ICD-10-PCS; 2020-07-30)
PROC: 0DBL8ZX Excision of Transverse Colon, Via Natural or Artificial Opening Endoscopic, Diagnostic (ICD-10-PCS; 2020-07-30)
DX: T18.4XXA Foreign body in colon, initial encounter (principal); K57.31 Diverticulosis of large intestine without perforation or abscess with bleeding; I50.22 Chronic systolic (congestive) heart failure; I69.354 Hemiplegia and hemiparesis following cerebral infarction affecting left non-dominant side; I13.0 Hypertensive heart and chronic kidney disease with heart failure and stage 1 through stage 4 chronic kidney disease, or unspecified chronic kidney disease; I82.512 Chronic embolism and thrombosis of left femoral vein; E78.5 Hyperlipidemia, unspecified; E11.22 Type 2 diabetes mellitus with diabetic chronic kidney disease; E66.9 Obesity, unspecified; I70.202 Unspecified atherosclerosis of native arteries of extremities, left leg; I25.10 Atherosclerotic heart disease of native coronary artery without angina pectoris; E11.51 Type 2 diabetes mellitus with diabetic peripheral angiopathy without gangrene; I25.5 Ischemic cardiomyopathy; N18.9 Chronic kidney disease, unspecified; R29.6 Repeated falls; D63.8 Anemia in other chronic diseases classified elsewhere; R26.89 Other abnormalities of gait and mobility; K58.9 Irritable bowel syndrome, unspecified; K63.5 Polyp of colon; Z89.612 Acquired absence of left leg above knee; E78.00 Pure hypercholesterolemia, unspecified; I69.320 Aphasia following cerebral infarction; I25.2 Old myocardial infarction; Z95.810 Presence of automatic (implantable) cardiac defibrillator; Z79.4 Long term (current) use of insulin; Z89.519 Acquired absence of unspecified leg below knee; Z79.899 Other long term (current) drug therapy; Z79.1 Long term (current) use of non-steroidal anti-inflammatories (NSAID); Z68.30 Body mass index [BMI] 30.0-30.9, adult; Z79.01 Long term (current) use of anticoagulants
CPT/HCPCS: 36415; 71045; 74177; 80048; 80053; 80320; 81003; 82962; 83036; 83605; 84484; 85025; 86850; 86900; 87635; 88305; 96374; 99285; J0696; J1815; J1956; J2270; J2704; J3010; J3490; J7060; Q0163; G0480

== ENCOUNTER 2020-07-31 15:03 | Emergency (ER) | payer BC, OTHER ==
[~2020-07-31] VITALS: Ht 172.7 cm; Wt 73.0 kg
[~2020-07-31 15:03] MED LIST changes: +LEVO500T2 MT
[2020-07-31] MEDS ORDERED: ONDANSETRON HCL 4MG/2ML INJ IV STA (16:59)
[2020-07-31] MEDS ORDERED: MORPHINE SULFATE 4 MG/ML CPJ (NOT FOR IM USE) IV STA (16:59)
[2020-07-31 17:18] LABS: BASOPHILS % 0.8 % (0.0-2.0); EOSINOPHILS % 0.9 % (0.0-5.0); HEMATOCRIT. 41.2 % (42.0-52.0); HEMOGLOBIN. 13.8 g/dL (14.0-18.0); LYMPHOCYTES % 14.3 % (20.0-50.0); MEAN CORPUSCULAR HEMOGLOBIN 32.8 pg (28.0-32.0); MEAN CORPUSCULAR VOLUME 98.3 fL (80.0-94.0); MEAN PLATELET VOLUME 8.7 fl (7.4-10.4); MONOCYTES % 7.2 % (2.0-8.0); NEUTROPHILS % 76.8 % (40.0-76.0); PLATELET 356 x1000/uL (130-400); RED BLOOD CELL COUNT 4.19 mill/uL (4.7-6.1); RED CELL DISTRIBUTION WIDTH 13.6 % (11.6-14.6)
[2020-07-31 17:25] LABS: CHLORIDE 110 mEq/L (98-107)
[2020-07-31] MEDS ORDERED: OXYCODONE HCL 5MG TABLET PO ONE (21:00)
[2020-08-01] MEDS ORDERED: DIPHENHYDRAMINE 50MG/ML VIAL IV ONE
[2020-08-01] MEDS ORDERED: HYDROCODONE/ACETAMINOPHEN 5/325MG TABLET PO STA (08:59)
[2020-08-01 09:23] VITALS: BP 136/71
== END 2020-08-01 09:28 | disposition home or self-care (01) ==
LOC: ER 15:03
DX: K57.92 Diverticulitis of intestine, part unspecified, without perforation or abscess without bleeding (principal); E11.9 Type 2 diabetes mellitus without complications; E78.00 Pure hypercholesterolemia, unspecified; I10 Essential (primary) hypertension; Z86.73 Personal history of transient ischemic attack (TIA), and cerebral infarction without residual deficits; Z95.0 Presence of cardiac pacemaker; Z79.899 Other long term (current) drug therapy
CPT/HCPCS: 36415; 74176; 80053; 85025; 93005; 96374; 96375; 99285; J1200; J2270; J2405

== ENCOUNTER 2020-10-01 12:46 | Emergency (ER) | payer BC, OTHER ==
[~2020-10-01] VITALS: Ht 172.7 cm; Wt 90.0 kg
[~2020-10-01 12:46] MED LIST changes: -LEVO500T2 MT
[2020-10-01] MEDS ORDERED: KETOROLAC 60MG/2ML VIAL IM STA (15:31)
[2020-10-01 19:30] VITALS: BP 124/72
== END 2020-10-01 19:30 | disposition home or self-care (01) ==
LOC: ER 12:46
DX: M94.0 Chondrocostal junction syndrome [Tietze] (principal); I11.0 Hypertensive heart disease with heart failure; I50.9 Heart failure, unspecified; E11.9 Type 2 diabetes mellitus without complications; J45.909 Unspecified asthma, uncomplicated; E78.00 Pure hypercholesterolemia, unspecified; F13.20 Sedative, hypnotic or anxiolytic dependence, uncomplicated; F11.20 Opioid dependence, uncomplicated; Z95.0 Presence of cardiac pacemaker; Z79.82 Long term (current) use of aspirin; Z79.4 Long term (current) use of insulin; Z79.899 Other long term (current) drug therapy; Z89.512 Acquired absence of left leg below knee
CPT/HCPCS: 71045; 93005; 96372; 99283; J1885

== ENCOUNTER 2020-10-03 02:13 | Emergency (ER) | payer BC, OTHER ==
[~2020-10-03] VITALS: Ht 170.2 cm; Wt 86.0 kg
[2020-10-03 02:28] VITALS: BP 127/70
[2020-10-03] MEDS ORDERED: ASPIRIN 325MG EC TABLET PO ONE (03:15)
== END 2020-10-03 04:15 | disposition home or self-care (01) ==
LOC: ER 02:13
DX: R07.89 Other chest pain (principal); I10 Essential (primary) hypertension; I25.2 Old myocardial infarction; Z87.19 Personal history of other diseases of the digestive system; Z79.899 Other long term (current) drug therapy; Z79.82 Long term (current) use of aspirin; Z79.4 Long term (current) use of insulin
CPT/HCPCS: 93005; 99283

== ENCOUNTER 2020-10-06 11:46 | Emergency (ER) | payer BC, OTHER ==
[~2020-10-06] VITALS: Ht 172.7 cm; Wt 82.0 kg
[2020-10-06] MEDS ORDERED: SODIUM CHLORIDE 0.9% 500 ML IV ONE (12:15)
[2020-10-06 13:13] LABS: CHLORIDE 109 mEq/L (98-107)
[2020-10-06 13:24] LABS: PROTHROMBIN TIME 10.3 sec (9.6-11.0)
[2020-10-06] MEDS ORDERED: ONDANSETRON HCL 4MG/2ML INJ IV STA (14:12)
[2020-10-06] MEDS ORDERED: MORPHINE SULFATE 4 MG/ML CPJ (NOT FOR IM USE) IV STA (14:12)
[2020-10-06 14:23] LABS: BASOPHILS % 0.4 % (0.0-2.0); EOSINOPHILS % 1.2 % (0.0-5.0); HEMATOCRIT. 38.4 % (42.0-52.0); HEMOGLOBIN. 12.9 g/dL (14.0-18.0); LYMPHOCYTES % 18.4 % (20.0-50.0); MEAN CORPUSCULAR HEMOGLOBIN 33.1 pg (28.0-32.0); MEAN CORPUSCULAR VOLUME 98.4 fL (80.0-94.0); MEAN PLATELET VOLUME 7.8 fl (7.4-10.4); MONOCYTES % 11.4 % (2.0-8.0); NEUTROPHILS % 68.6 % (40.0-76.0); PLATELET 241 x1000/uL (130-400); RED CELL DISTRIBUTION WIDTH 13.8 % (11.6-14.6)
[2020-10-06 19:28] VITALS: BP 138/73
== END 2020-10-06 20:19 | disposition short-term general hospital (02) ==
LOC: ER 11:46 → CANBEDREQ 18:14 → ER 20:19
DX: K80.20 Calculus of gallbladder without cholecystitis without obstruction (principal); K57.90 Diverticulosis of intestine, part unspecified, without perforation or abscess without bleeding; E86.0 Dehydration; L02.31 Cutaneous abscess of buttock; I11.0 Hypertensive heart disease with heart failure; I50.9 Heart failure, unspecified; E11.65 Type 2 diabetes mellitus with hyperglycemia; I69.354 Hemiplegia and hemiparesis following cerebral infarction affecting left non-dominant side; I25.2 Old myocardial infarction; Z95.810 Presence of automatic (implantable) cardiac defibrillator; Z79.84 Long term (current) use of oral hypoglycemic drugs; Z79.82 Long term (current) use of aspirin; Z79.899 Other long term (current) drug therapy
CPT/HCPCS: 36415; 74176; 80053; 83605; 83690; 85025; 85610; 93005; 96361; 96374; 96375; 99285; J2270; J2405; J7030

== ENCOUNTER 2020-10-13 11:30 | Emergency (ER) | payer BC, MEDICAID ==
[~2020-10-13] VITALS: Ht 182.9 cm; Wt 91.0 kg
[2020-10-13 11:31] VITALS: BP 128/82
[2020-10-13] MEDS ORDERED: ACETAMINOPHEN 325MG TABLET PO ONE (12:15)
[2020-10-13] MEDS ORDERED: KETOROLAC 30MG/ML VIAL IM ONE (13:30)
== END 2020-10-13 16:34 | disposition home or self-care (01) ==
LOC: ER 12:39
DX: T87.89 Other complications of amputation stump (principal); Y84.9 Medical procedure, unspecified as the cause of abnormal reaction of the patient, or of later complication, without mention of misadventure at the time of the procedure; Y92.89 Other specified places as the place of occurrence of the external cause; I82.512 Chronic embolism and thrombosis of left femoral vein; Z79.01 Long term (current) use of anticoagulants
CPT/HCPCS: 93971; 96372; 99284; J1885

== ENCOUNTER 2020-10-18 22:36 | Inpatient (IN) | payer BC, OTHER ==
[~2020-10-18] VITALS: Ht 170.2 cm; Wt 85.3 kg
[2020-10-18 23:41] LABS: BASOPHILS % 1.2 % (0.0-2.0); EOSINOPHILS % 2.3 % (0.0-5.0); HEMATOCRIT. 41.3 % (42.0-52.0); HEMOGLOBIN. 13.9 g/dL (14.0-18.0); LYMPHOCYTES % 23.1 % (20.0-50.0); MEAN CORPUSCULAR HEMOGLOBIN 32.3 pg (28.0-32.0); MEAN CORPUSCULAR VOLUME 95.7 fL (80.0-94.0); MONOCYTES % 8.7 % (2.0-8.0); NEUTROPHILS % 64.7 % (40.0-76.0); PLATELET 368 x1000/uL (130-400); RED BLOOD CELL COUNT 4.31 mill/uL (4.7-6.1); RED CELL DISTRIBUTION WIDTH 14.4 % (11.6-14.6)
[2020-10-18 23:43] LABS: CHLORIDE 106 mEq/L (98-107)
[2020-10-19 00:30] LABS: CLARITY URINE CLEAR (CLEAR); COLOR URINE DARK YELLOW (YELLOW); KETONES URINE NEGATIVE (NEGATIVE); LEUKOCYTE ESTERASE URINE TRACE (NEGATIVE); NITRITE URINE NEGATIVE (NEGATIVE); OCCULT BLOOD URINE NEGATIVE (NEGATIVE); PH URINE 5.5 (4.5-8.0); PROTEIN URINE TRACE (NEGATIVE); SPECIFIC GRAVITY URINE 1.021 (1.005-1.030)
[2020-10-19] MEDS ORDERED: HYDROCODONE/ACETAMINOPHEN 5/325MG TABLET PO ONE (00:45)
[2020-10-19] MEDS ORDERED: MORPHINE SULFATE 2 MG/ML CPJ (NOT FOR IM USE) IV ONE (02:15)
[2020-10-19] MEDS ORDERED: DIPHENHYDRAMINE 50MG/ML VIAL IV SCH (05:45)
[2020-10-19] MEDS ORDERED: DOCUSATE SODIUM 100MG CAPSULE PO PRN (06:45)
[2020-10-19] MEDS ORDERED: GUAIFENESIN 200MG/10ML SUGAR FREE UDC PO PRN (06:45)
[2020-10-19] MEDS ORDERED: ACETAMINOPHEN 325MG TABLET PO PRN (06:45)
[2020-10-19] MEDS ORDERED: CLONIDINE 0.1MG TABLET PO PRN (06:45)
[2020-10-19] MEDS ORDERED: ONDANSETRON HCL 4MG/2ML INJ IV PRN (06:45)
[2020-10-19 08:00] VITALS: BP 135/78
[2020-10-19 08:10] VITALS: BP 135/78
[2020-10-19] MEDS ORDERED: ENOXAPARIN 40MG/0.4ML SYR SUBCUT SCH (09:00)
[2020-10-19] MEDS ORDERED: NA PHOS,M-B/NA PHOS,DI-BA ENEMA 118ML PR PRN (09:00)
[2020-10-19] MEDS: HYDROCODONE/APAP 7.5/325MG 1 TAB TABLET PO PRN ×3 (10:13→20:51)
[2020-10-19 12:00] VITALS: BP 126/60
[2020-10-19] MEDS: AMLODIPINE 10MG TABLET PO SCH (13:45)
[2020-10-19] MEDS ORDERED: DEXTROSE 50% WATER 50ML SYRINGE IV PRN (13:45)
[2020-10-19] MEDS ORDERED: HYDROCODONE/APAP 7.5/325MG 1 TAB TABLET PO PRN (13:45)
[2020-10-19] MEDS: CARVEDILOL 12.5MG TABLET PO SCH ×2 (14:11→21:00)
[2020-10-19] MEDS: GABAPENTIN 400MG CAPSULE PO SCH ×2 (14:12→17:54)
[2020-10-19] MEDS: ASPIRIN 81MG EC TABLET PO SCH (14:12)
[2020-10-19] MEDS: HYDRALAZINE HCL 25MG TABLET PO SCH ×2 (14:12→21:00)
[2020-10-19] MEDS: INSULIN LISPRO 100 UNITS/ML SUBCUT SCH ×3 (14:21→21:12)
[2020-10-19 15:57] LABS: BASOPHILS % 1.1 % (0.0-2.0); EOSINOPHILS % 2.6 % (0.0-5.0); HEMATOCRIT. 38.1 % (42.0-52.0); HEMOGLOBIN. 12.8 g/dL (14.0-18.0); LYMPHOCYTES % 25.2 % (20.0-50.0); MEAN CORPUSCULAR HEMOGLOBIN 32.3 pg (28.0-32.0); MEAN CORPUSCULAR VOLUME 95.9 fL (80.0-94.0); MEAN PLATELET VOLUME 8.3 fl (7.4-10.4); MONOCYTES % 6.9 % (2.0-8.0); NEUTROPHILS % 64.2 % (40.0-76.0); PLATELET 334 x1000/uL (130-400); RED BLOOD CELL COUNT 3.97 mill/uL (4.7-6.1); RED CELL DISTRIBUTION WIDTH 14.1 % (11.6-14.6)
[2020-10-19 16:00] VITALS: BP 124/63
[2020-10-19] MEDS: INSULIN GLARGINE UD 100 UNITS/ML SYR SUBCUT SCH ×2 (16:05→22:13)
[2020-10-19 16:22] LABS: CHLORIDE 103 mEq/L (98-107)
[2020-10-19 16:28] LABS: PHOSPHORUS 2.4 mg/dL (2.5-4.9)
[2020-10-19 16:36] LABS: CREATINE KINASE 34 IU/L (39-308)
[2020-10-19 16:39] LABS: CREATINE KINASE MB FRACTION < 1.0 ng/mL (0.5-3.6)
[2020-10-19] MEDS ORDERED: MEDICATION NOT ON FORMULARY EA (Ranolazine (Ranexa) 1,000 MG) PO SCH (17:00)
[2020-10-19] MEDS: BLOOD SUGAR DIAGNOSTIC STRIP TEST SCH ×2 (17:46→20:51)
[2020-10-19] MEDS ORDERED: INSULIN LISPRO 100 UNITS/ML SUBCUT SCH (17:50)
[2020-10-19] MEDS: FUROSEMIDE 40MG TABLET PO SCH (17:54)
[2020-10-19] MEDS: APIXABAN 5 MG TABLET PO SCH (17:54)
[2020-10-19] MEDS: DIPHENHYDRAMINE 50MG/ML VIAL IV PRN ×2 (18:11→23:43)
[2020-10-19] MEDS ORDERED: LACTULOSE 20G/30ML UDC PO NR (19:30)
[2020-10-19] MEDS ORDERED: MAGNESIUM/ALUMINUM HYDROXIDE/SIMETHICONE 30ML UDC PO NR (19:30)
[2020-10-19 20:00] VITALS: BP 109/60
[2020-10-19] MEDS ORDERED: POTASSIUM PHOS,M-BASIC-D-BASIC 15 MMOL in DEXT 5% WATER 245 ML IV NR (20:30)
[2020-10-19] MEDS: DIPHENHYDRAMINE 50MG CAPSULE PO SCH (20:49)
[2020-10-19] MEDS: ATORVASTATIN CALCIUM 10MG TABLET PO SCH (20:50)
[2020-10-19] MEDS: RANOLAZINE 500 MG TAB.SR.12H PO SCH (20:50)
[2020-10-20] VITALS: BP 109/60
[2020-10-20 00:18] LABS: CREATINE KINASE 32 IU/L (39-308)
[2020-10-20 00:19] LABS: CREATINE KINASE MB FRACTION < 1.0 ng/mL (0.5-3.6)
[2020-10-20 04:00] VITALS: BP 108/54
[2020-10-20 06:12] LABS: BASOPHILS % 0.7 % (0.0-2.0); EOSINOPHILS % 3.5 % (0.0-5.0); HEMATOCRIT. 39.9 % (42.0-52.0); HEMOGLOBIN. 13.3 g/dL (14.0-18.0); LYMPHOCYTES % 36.3 % (20.0-50.0); MEAN CORPUSCULAR VOLUME 96.3 fL (80.0-94.0); MEAN PLATELET VOLUME 8.3 fl (7.4-10.4); MONOCYTES % 8.8 % (2.0-8.0); NEUTROPHILS % 50.7 % (40.0-76.0); PLATELET 334 x1000/uL (130-400); RED BLOOD CELL COUNT 4.15 mill/uL (4.7-6.1); RED CELL DISTRIBUTION WIDTH 14.2 % (11.6-14.6)
[2020-10-20] MEDS: FUROSEMIDE 40MG TABLET PO SCH ×2 (06:19→17:41)
[2020-10-20] MEDS: BLOOD SUGAR DIAGNOSTIC STRIP TEST SCH ×4 (06:21→20:56)
[2020-10-20] MEDS: INSULIN LISPRO 100 UNITS/ML SUBCUT SCH ×4 (07:36→21:13)
[2020-10-20 08:00] VITALS: BP 136/68
[2020-10-20 08:06] LABS: CHLORIDE 105 mEq/L (98-107)
[2020-10-20 08:22] LABS: LDL CHOLESTEROL 84 mg/dL (5-100)
[2020-10-20 08:24] LABS: HDL CHOLESTEROL 40 mg/dL (40-59)
[2020-10-20] MEDS: ASPIRIN 81MG EC TABLET PO SCH (09:16)
[2020-10-20] MEDS: GABAPENTIN 400MG CAPSULE PO SCH ×3 (09:17→17:41)
[2020-10-20] MEDS: APIXABAN 5 MG TABLET PO SCH ×2 (09:17→17:41)
[2020-10-20] MEDS: RANOLAZINE 500 MG TAB.SR.12H PO SCH ×2 (09:17→20:55)
[2020-10-20] MEDS: CARVEDILOL 12.5MG TABLET PO SCH ×2 (09:17→20:55)
[2020-10-20] MEDS: AMLODIPINE 10MG TABLET PO SCH (09:18)
[2020-10-20] MEDS: HYDRALAZINE HCL 25MG TABLET PO SCH ×2 (09:18→20:55)
[2020-10-20] MEDS: DIPHENHYDRAMINE 50MG/ML VIAL IV PRN ×3 (09:18→20:56)
[2020-10-20] MEDS: PANTOPRAZOLE SODIUM 40 MG/VIAL IV SCH (09:18)
[2020-10-20] MEDS: INSULIN GLARGINE UD 100 UNITS/ML SYR SUBCUT SCH ×2 (09:35→22:20)
[2020-10-20 12:00] VITALS: BP 120/68
[2020-10-20 16:00] VITALS: BP 116/74
[2020-10-20] MEDS: ATORVASTATIN CALCIUM 10MG TABLET PO SCH (20:55)
[2020-10-20] MEDS: DIPHENHYDRAMINE 50MG CAPSULE PO SCH (20:55)
[2020-10-20 21:05] VITALS: BP 120/69
[2020-10-21] VITALS: BP 124/69
[2020-10-21] MEDS: DIPHENHYDRAMINE 50MG/ML VIAL IV PRN ×4 (01:23→16:30)
[2020-10-21 04:00] VITALS: BP 132/70
[2020-10-21] MEDS: FUROSEMIDE 40MG TABLET PO SCH ×2 (06:28→17:55)
[2020-10-21] MEDS: BLOOD SUGAR DIAGNOSTIC STRIP TEST SCH ×4 (06:32→20:43)
[2020-10-21 08:00] VITALS: BP 130/66
[2020-10-21] MEDS: GABAPENTIN 400MG CAPSULE PO SCH ×3 (08:28→17:55)
[2020-10-21] MEDS: PANTOPRAZOLE SODIUM 40 MG/VIAL IV SCH (08:28)
[2020-10-21] MEDS: RANOLAZINE 500 MG TAB.SR.12H PO SCH ×2 (08:28→20:33)
[2020-10-21] MEDS: CARVEDILOL 12.5MG TABLET PO SCH ×2 (08:29→20:35)
[2020-10-21] MEDS: AMLODIPINE 10MG TABLET PO SCH (08:29)
[2020-10-21] MEDS: APIXABAN 5 MG TABLET PO SCH ×2 (08:29→18:05)
[2020-10-21] MEDS: HYDRALAZINE HCL 25MG TABLET PO SCH ×2 (08:29→20:34)
[2020-10-21] MEDS: ASPIRIN 81MG EC TABLET PO SCH (08:29)
[2020-10-21] MEDS: INSULIN LISPRO 100 UNITS/ML SUBCUT SCH ×4 (08:47→21:10)
[2020-10-21] MEDS: INSULIN GLARGINE UD 100 UNITS/ML SYR SUBCUT SCH ×2 (09:59→21:09)
[2020-10-21 12:00] VITALS: BP 137/69
[2020-10-21 16:00] VITALS: BP 111/60
[2020-10-21 20:00] VITALS: BP 121/68
[2020-10-21] MEDS: DIPHENHYDRAMINE 50MG CAPSULE PO SCH (20:33)
[2020-10-21] MEDS: FAMOTIDINE 20MG/2ML VIAL IV SCH (20:33)
[2020-10-21] MEDS: ATORVASTATIN CALCIUM 10MG TABLET PO SCH (20:33)
[2020-10-21] MEDS: HYDROCODONE/APAP 7.5/325MG 1 TAB TABLET PO PRN (20:34)
[2020-10-22] VITALS: BP 114/65
[2020-10-22] MEDS: DIPHENHYDRAMINE 50MG/ML VIAL IV PRN ×4 (02:45→21:35)
[2020-10-22] MEDS: HYDROCODONE/APAP 7.5/325MG 1 TAB TABLET PO PRN ×2 (02:45→20:55)
[2020-10-22 04:00] VITALS: BP 123/66
[2020-10-22] MEDS: BLOOD SUGAR DIAGNOSTIC STRIP TEST SCH ×4 (06:23→21:27)
[2020-10-22 08:00] VITALS: BP 123/73
[2020-10-22] MEDS: GABAPENTIN 400MG CAPSULE PO SCH ×3 (09:23→18:02)
[2020-10-22] MEDS: RANOLAZINE 500 MG TAB.SR.12H PO SCH ×2 (09:23→20:54)
[2020-10-22] MEDS: FUROSEMIDE 40MG TABLET PO SCH ×2 (09:24→18:02)
[2020-10-22] MEDS: AMLODIPINE 10MG TABLET PO SCH (09:24)
[2020-10-22] MEDS: FAMOTIDINE 20MG/2ML VIAL IV SCH ×2 (09:24→20:54)
[2020-10-22] MEDS: ASPIRIN 81MG EC TABLET PO SCH (09:24)
[2020-10-22] MEDS: HYDRALAZINE HCL 25MG TABLET PO SCH ×2 (09:24→20:54)
[2020-10-22] MEDS: CARVEDILOL 12.5MG TABLET PO SCH ×2 (09:24→20:54)
[2020-10-22] MEDS: APIXABAN 5 MG TABLET PO SCH ×2 (09:30→18:02)
[2020-10-22] MEDS: INSULIN LISPRO 100 UNITS/ML SUBCUT SCH ×4 (09:37→21:24)
[2020-10-22] MEDS: INSULIN GLARGINE UD 100 UNITS/ML SYR SUBCUT SCH ×2 (09:38→21:26)
[2020-10-22 12:00] VITALS: BP 120/73
[2020-10-22 16:00] VITALS: BP 117/65
[2020-10-22 20:00] VITALS: BP 117/65
[2020-10-22] MEDS: DIPHENHYDRAMINE 50MG CAPSULE PO SCH (20:54)
[2020-10-22] MEDS: ATORVASTATIN CALCIUM 10MG TABLET PO SCH (20:54)
[2020-10-23] VITALS: BP 133/73
[2020-10-23] MEDS: DIPHENHYDRAMINE 50MG/ML VIAL IV PRN ×4 (02:00→20:28)
[2020-10-23 04:00] VITALS: BP 122/69
[2020-10-23] MEDS: BLOOD SUGAR DIAGNOSTIC STRIP TEST SCH ×4 (06:50→20:29)
[2020-10-23] MEDS: INSULIN LISPRO 100 UNITS/ML SUBCUT SCH ×4 (07:00→21:32)
[2020-10-23] MEDS: FUROSEMIDE 40MG TABLET PO SCH ×2 (07:00→17:36)
[2020-10-23 08:00] VITALS: BP 131/69
[2020-10-23] MEDS: GABAPENTIN 400MG CAPSULE PO SCH ×3 (09:20→17:36)
[2020-10-23] MEDS: APIXABAN 5 MG TABLET PO SCH ×2 (09:21→17:36)
[2020-10-23] MEDS: RANOLAZINE 500 MG TAB.SR.12H PO SCH ×2 (09:21→20:28)
[2020-10-23] MEDS: AMLODIPINE 10MG TABLET PO SCH (09:22)
[2020-10-23] MEDS: CARVEDILOL 12.5MG TABLET PO SCH ×2 (09:22→20:29)
[2020-10-23] MEDS: FAMOTIDINE 20MG/2ML VIAL IV SCH ×2 (09:22→20:29)
[2020-10-23] MEDS: ASPIRIN 81MG EC TABLET PO SCH (09:22)
[2020-10-23] MEDS: HYDRALAZINE HCL 25MG TABLET PO SCH ×2 (09:22→20:29)
[2020-10-23] MEDS: INSULIN GLARGINE UD 100 UNITS/ML SYR SUBCUT SCH ×2 (10:47→21:32)
[2020-10-23 12:00] VITALS: BP 118/64
[2020-10-23 16:00] VITALS: BP 130/50
[2020-10-23 20:00] VITALS: BP 128/72
[2020-10-23] MEDS: ATORVASTATIN CALCIUM 10MG TABLET PO SCH (20:28)
[2020-10-23] MEDS: DIPHENHYDRAMINE 50MG CAPSULE PO SCH (20:29)
[2020-10-24] VITALS: BP 131/76
[2020-10-24] MEDS: HYDROCODONE/APAP 7.5/325MG 1 TAB TABLET PO PRN (00:32)
[2020-10-24 04:00] VITALS: BP 125/69
[2020-10-24] MEDS: DIPHENHYDRAMINE 50MG/ML VIAL IV PRN (05:27)
[2020-10-24] MEDS: BLOOD SUGAR DIAGNOSTIC STRIP TEST SCH (06:26)
[2020-10-24] MEDS: FUROSEMIDE 40MG TABLET PO SCH (06:33)
[2020-10-24 08:00] VITALS: BP 102/59
[2020-10-24] MEDS: INSULIN LISPRO 100 UNITS/ML SUBCUT SCH ×2 (08:41→13:15)
[2020-10-24] MEDS: GABAPENTIN 400MG CAPSULE PO SCH ×2 (08:56→13:13)
[2020-10-24] MEDS: AMLODIPINE 10MG TABLET PO SCH (08:56)
[2020-10-24] MEDS: RANOLAZINE 500 MG TAB.SR.12H PO SCH (08:56)
[2020-10-24] MEDS: FAMOTIDINE 20MG/2ML VIAL IV SCH (08:56)
[2020-10-24] MEDS: HYDRALAZINE HCL 25MG TABLET PO SCH (08:57)
[2020-10-24] MEDS: ASPIRIN 81MG EC TABLET PO SCH (08:57)
[2020-10-24] MEDS: CARVEDILOL 12.5MG TABLET PO SCH (08:57)
[2020-10-24] MEDS: APIXABAN 5 MG TABLET PO SCH (08:58)
[2020-10-24] MEDS: INSULIN GLARGINE UD 100 UNITS/ML SYR SUBCUT SCH (10:46)
[2020-10-24 12:00] VITALS: BP 121/51
[2020-10-24 14:04] VITALS: BP 121/59
== END 2020-10-24 15:48 | DRG 896 ==
LOC: ER 22:36 → 6EST 10-19 02:08 → ENRESERV 10-19 06:17 → CANBEDREQ 10-20 20:04
PROVIDERS: ADMIT Family Medicine; ATTEND Family Medicine
DX: F11.20 Opioid dependence, uncomplicated (principal); I50.43 Acute on chronic combined systolic (congestive) and diastolic (congestive) heart failure; F13.20 Sedative, hypnotic or anxiolytic dependence, uncomplicated; I25.10 Atherosclerotic heart disease of native coronary artery without angina pectoris; I11.0 Hypertensive heart disease with heart failure; E78.5 Hyperlipidemia, unspecified; J44.9 Chronic obstructive pulmonary disease, unspecified; I48.91 Unspecified atrial fibrillation; K21.9 Gastro-esophageal reflux disease without esophagitis; E11.51 Type 2 diabetes mellitus with diabetic peripheral angiopathy without gangrene; Z20.828 Contact with and (suspected) exposure to other viral communicable diseases; I25.2 Old myocardial infarction; I69.398 Other sequelae of cerebral infarction; Z86.718 Personal history of other venous thrombosis and embolism; Z91.81 History of falling; Z99.3 Dependence on wheelchair; Z79.899 Other long term (current) drug therapy; Z79.4 Long term (current) use of insulin; Z79.82 Long term (current) use of aspirin; Z95.810 Presence of automatic (implantable) cardiac defibrillator; Z89.611 Acquired absence of right leg above knee
CPT/HCPCS: 36415; 71045; 80053; 80061; 81003; 82550; 82553; 82962; 83036; 83735; 84100; 84484; 85025; 87426; 93005; 96374; 97110; 97162; 97166; 97530; 99285; C9113; J1200; J1650; J1815; J2270; J3490; J7040; J7060; Q0163

== ENCOUNTER 2020-12-05 01:51 | Inpatient (IN) | payer BC, OTHER ==
[~2020-12-05] VITALS: Ht 165.1 cm; Wt 99.8 kg
[2020-12-05] MEDS ORDERED: ASPIRIN 81MG TABLET PO ONE (02:00)
[2020-12-05 02:25] LABS: BASOPHILS % 1.2 % (0.0-2.0); EOSINOPHILS % 2.4 % (0.0-5.0); HEMATOCRIT. 35.1 % (42.0-52.0); HEMOGLOBIN. 11.9 g/dL (14.0-18.0); LYMPHOCYTES % 18.6 % (20.0-50.0); MEAN CORPUSCULAR HEMOGLOBIN 32.7 pg (28.0-32.0); MEAN CORPUSCULAR VOLUME 96.3 fL (80.0-94.0); MEAN PLATELET VOLUME 7.5 fl (7.4-10.4); MONOCYTES % 8.1 % (2.0-8.0); NEUTROPHILS % 69.7 % (40.0-76.0); PLATELET 281 x1000/uL (130-400); RED BLOOD CELL COUNT 3.64 mill/uL (4.7-6.1); RED CELL DISTRIBUTION WIDTH 14.4 % (11.6-14.6)
[2020-12-05 02:32] LABS: CHLORIDE 112 mEq/L (98-107)
[2020-12-05 02:33] LABS: PARTIAL THROMBOPLASTIN TIME 29.9 sec (23.4-31.0); PROTHROMBIN TIME 10.5 sec (9.6-11.0)
[2020-12-05] MEDS ORDERED: KETOROLAC 15MG/ML VIAL IV NR (03:15)
[2020-12-05] MEDS ORDERED: NITROGLYCERIN 0.4MG TABLET SL SL SCH (03:15)
[2020-12-05] MEDS ORDERED: NITROGLYCERIN 0.4MG TABLET SL SL PRN (07:00)
[2020-12-05] MEDS ORDERED: DOCUSATE SODIUM 100MG CAPSULE PO PRN (07:00)
[2020-12-05] MEDS ORDERED: ZOLPIDEM TARTRATE 5MG TABLET PO PRN (07:00)
[2020-12-05] MEDS ORDERED: ONDANSETRON HCL 4MG/2ML INJ IV PRN (07:00)
[2020-12-05] MEDS ORDERED: MAGNESIUM/ALUMINUM HYDROXIDE/SIMETHICONE 30ML UDC PO PRN (07:00)
[2020-12-05] MEDS ORDERED: DEXTROSE 50% WATER 50ML SYRINGE IV PRN (07:00)
[2020-12-05] MEDS ORDERED: IPRATROPIUM/ALBUTEROL 0.5-3(2.5)MG/3ML NEB NEB PRN (07:00)
[2020-12-05] MEDS ORDERED: GUAIFENESIN 200MG/10ML SUGAR FREE UDC PO PRN (07:00)
[2020-12-05] MEDS ORDERED: CLONIDINE 0.1MG TABLET PO PRN (07:00)
[2020-12-05] MEDS ORDERED: ACETAMINOPHEN 325MG TABLET PO PRN ×2 (07:00)
[2020-12-05] MEDS ORDERED: ENOXAPARIN 40MG/0.4ML SYR SUBCUT SCH (07:00)
[2020-12-05] MEDS: INSULIN LISPRO 100 UNITS/ML SUBCUT SCH ×4 (08:20→21:43)
[2020-12-05] MEDS: ASPIRIN 81MG EC TABLET PO SCH (09:46)
[2020-12-05] MEDS: FAMOTIDINE 20MG TABLET PO SCH ×2 (09:46→21:43)
[2020-12-05] MEDS: LISINOPRIL 20MG TABLET PO SCH ×2 (09:47→21:43)
[2020-12-05] MEDS: BLOOD SUGAR DIAGNOSTIC STRIP TEST SCH ×4 (09:49→21:14)
[2020-12-05] MEDS: ASCORBIC ACID 500 MG TABLET PO SCH ×2 (09:54→21:43)
[2020-12-05] MEDS: ZINC SULFATE 220 MG ( 50 ) CAPSULE PO SCH (09:54)
[2020-12-05] MEDS: INSULIN GLARGINE UD 100 UNITS/ML SYR SUBCUT SCH (10:17)
[2020-12-05] MEDS: TRAMADOL 50MG TABLET PO PRN (10:17)
[2020-12-05] MEDS: APIXABAN 5 MG TABLET PO SCH (18:00)
[2020-12-05] MEDS: CARVEDILOL 3.125 MG TABLET PO SCH (18:00)
[2020-12-05] MEDS: KETOROLAC 15MG/ML VIAL IV PRN (21:43)
[2020-12-06 01:23] LABS: CREATINE KINASE 42 IU/L (39-308)
[2020-12-06 01:24] LABS: CREATINE KINASE MB FRACTION 1.4 ng/mL (0.5-3.6)
[2020-12-06] MEDS: KETOROLAC 15MG/ML VIAL IV PRN (04:13)
[2020-12-06 06:27] LABS: CHLORIDE 113 mEq/L (98-107)
[2020-12-06 06:29] LABS: BASOPHILS % 1.1 % (0.0-2.0); EOSINOPHILS % 4.4 % (0.0-5.0); HEMATOCRIT. 36.2 % (42.0-52.0); HEMOGLOBIN. 12.1 g/dL (14.0-18.0); MEAN CORPUSCULAR HEMOGLOBIN 31.8 pg (28.0-32.0); MEAN CORPUSCULAR VOLUME 95.3 fL (80.0-94.0); MONOCYTES % 7.8 % (2.0-8.0); NEUTROPHILS % 64.7 % (40.0-76.0); PLATELET 290 x1000/uL (130-400); RED CELL DISTRIBUTION WIDTH 14.9 % (11.6-14.6)
[2020-12-06 06:34] LABS: PHOSPHORUS 2.6 mg/dL (2.5-4.9)
[2020-12-06] MEDS: APIXABAN 5 MG TABLET PO SCH (06:55)
[2020-12-06] MEDS: BLOOD SUGAR DIAGNOSTIC STRIP TEST SCH ×3 (06:55→19:01)
[2020-12-06] MEDS: CARVEDILOL 3.125 MG TABLET PO SCH (06:55)
[2020-12-06] MEDS: INSULIN LISPRO 100 UNITS/ML SUBCUT SCH ×3 (06:56→19:02)
[2020-12-06] MEDS: ASCORBIC ACID 500 MG TABLET PO SCH (09:00)
[2020-12-06] MEDS: FAMOTIDINE 20MG TABLET PO SCH (09:00)
[2020-12-06] MEDS: ZINC SULFATE 220 MG ( 50 ) CAPSULE PO SCH (09:00)
[2020-12-06] MEDS: ASPIRIN 81MG EC TABLET PO SCH (09:00)
[2020-12-06] MEDS: LISINOPRIL 20MG TABLET PO SCH (09:00)
[2020-12-06] MEDS: INSULIN GLARGINE UD 100 UNITS/ML SYR SUBCUT SCH (10:00)
[2020-12-07] MEDS: KETOROLAC 15MG/ML VIAL IV PRN (02:24)
[2020-12-07] MEDS: ASCORBIC ACID 500 MG TABLET PO SCH ×2 (08:43→21:57)
[2020-12-07] MEDS: LISINOPRIL 20MG TABLET PO SCH ×2 (08:43→21:58)
[2020-12-07] MEDS: FAMOTIDINE 20MG TABLET PO SCH ×2 (08:43→21:57)
[2020-12-07] MEDS: APIXABAN 5 MG TABLET PO SCH ×2 (08:43→17:55)
[2020-12-07] MEDS: INSULIN LISPRO 100 UNITS/ML SUBCUT SCH ×4 (08:43→21:55)
[2020-12-07] MEDS: CARVEDILOL 3.125 MG TABLET PO SCH ×2 (08:43→17:55)
[2020-12-07] MEDS: BLOOD SUGAR DIAGNOSTIC STRIP TEST SCH ×4 (08:44→21:57)
[2020-12-07] MEDS: INSULIN GLARGINE UD 100 UNITS/ML SYR SUBCUT SCH (10:00)
[2020-12-07 12:50] VITALS: BP 150/69
[2020-12-07 15:44] VITALS: BP 148/81
[2020-12-07 16:00] VITALS: BP 138/80
[2020-12-07 20:00] VITALS: BP 160/78
[2020-12-07] MEDS: TRAMADOL 50MG TABLET PO PRN (21:56)
[2020-12-08] VITALS: BP 144/67
[2020-12-08 04:00] VITALS: BP 154/75
[2020-12-08] MEDS: APIXABAN 5 MG TABLET PO SCH (05:01)
[2020-12-08] MEDS: CARVEDILOL 3.125 MG TABLET PO SCH (05:01)
[2020-12-08 05:55] LABS: CHLORIDE 112 mEq/L (98-107)
[2020-12-08] MEDS: BLOOD SUGAR DIAGNOSTIC STRIP TEST SCH ×2 (06:42→11:51)
[2020-12-08] MEDS: INSULIN LISPRO 100 UNITS/ML SUBCUT SCH ×2 (06:43→12:15)
[2020-12-08 06:56] LABS: EOSINOPHILS % 3.1 % (0.0-5.0); HEMATOCRIT. 37.5 % (42.0-52.0); HEMOGLOBIN. 12.4 g/dL (14.0-18.0); LYMPHOCYTES % 30.2 % (20.0-50.0); MEAN CORPUSCULAR HEMOGLOBIN 31.6 pg (28.0-32.0); MEAN CORPUSCULAR VOLUME 95.2 fL (80.0-94.0); MEAN PLATELET VOLUME 8.3 fl (7.4-10.4); MONOCYTES % 9.1 % (2.0-8.0); NEUTROPHILS % 56.6 % (40.0-76.0); PLATELET 318 x1000/uL (130-400); RED BLOOD CELL COUNT 3.94 mill/uL (4.7-6.1); RED CELL DISTRIBUTION WIDTH 14.7 % (11.6-14.6)
[2020-12-08 08:00] VITALS: BP 146/54
[2020-12-08] MEDS: ASPIRIN 81MG EC TABLET PO SCH ×2 (09:00→09:52)
[2020-12-08] MEDS: ZINC SULFATE 220 MG ( 50 ) CAPSULE PO SCH ×2 (09:00→09:52)
[2020-12-08] MEDS: LISINOPRIL 20MG TABLET PO SCH (09:52)
[2020-12-08] MEDS: ASCORBIC ACID 500 MG TABLET PO SCH (09:52)
[2020-12-08] MEDS: FAMOTIDINE 20MG TABLET PO SCH (09:53)
[2020-12-08] MEDS: KETOROLAC 15MG/ML VIAL IV PRN (10:05)
[2020-12-08 12:00] VITALS: BP 153/70
[2020-12-08 14:26] VITALS: BP 153/70
== END 2020-12-08 18:05 | disposition home or self-care (01) | DRG 206 ==
LOC: ER 02:12 → MICUSO 03:50 → SUPCPDRO 06:49 → 5WST 12-07 10:26
PROVIDERS: ADMIT Internal Medicine; ATTEND Internal Medicine
PROC: 4B02XTZ Measurement of Cardiac Defibrillator, External Approach (ICD-10-PCS; principal; 2020-12-05)
DX: M94.0 Chondrocostal junction syndrome [Tietze] (principal); E44.0 Moderate protein-calorie malnutrition; I13.0 Hypertensive heart and chronic kidney disease with heart failure and stage 1 through stage 4 chronic kidney disease, or unspecified chronic kidney disease; I42.9 Cardiomyopathy, unspecified; I50.40 Unspecified combined systolic (congestive) and diastolic (congestive) heart failure; I82.512 Chronic embolism and thrombosis of left femoral vein; I69.354 Hemiplegia and hemiparesis following cerebral infarction affecting left non-dominant side; D63.8 Anemia in other chronic diseases classified elsewhere; E11.22 Type 2 diabetes mellitus with diabetic chronic kidney disease; E11.51 Type 2 diabetes mellitus with diabetic peripheral angiopathy without gangrene; E11.65 Type 2 diabetes mellitus with hyperglycemia; E78.00 Pure hypercholesterolemia, unspecified; E78.5 Hyperlipidemia, unspecified; I25.10 Atherosclerotic heart disease of native coronary artery without angina pectoris; I48.0 Paroxysmal atrial fibrillation; J44.9 Chronic obstructive pulmonary disease, unspecified; N18.9 Chronic kidney disease, unspecified; Z79.01 Long term (current) use of anticoagulants; Z79.82 Long term (current) use of aspirin; Z79.899 Other long term (current) drug therapy; I69.322 Dysarthria following cerebral infarction; I25.2 Old myocardial infarction; Z89.612 Acquired absence of left leg above knee; Z76.5 Malingerer [conscious simulation]; Z95.810 Presence of automatic (implantable) cardiac defibrillator; Z68.36 Body mass index [BMI] 36.0-36.9, adult; Z79.51 Long term (current) use of inhaled steroids; Z79.1 Long term (current) use of non-steroidal anti-inflammatories (NSAID); Z79.4 Long term (current) use of insulin
CPT/HCPCS: 36415; 71045; 80048; 80053; 82550; 82553; 82607; 82746; 82962; 83036; 83540; 83550; 83735; 83880; 84100; 84484; 85025; 93005; 93970; 99291; J1815; J1885; J2405

== ENCOUNTER 2020-12-26 12:10 | Emergency (ER) | payer BC, OTHER ==
[~2020-12-26] VITALS: Ht 177.8 cm; Wt 73.0 kg
[2020-12-26] MEDS ORDERED: NITROGLYCERIN 0.4MG TABLET SL SL PRN (12:45)
[2020-12-26 13:11] LABS: BASOPHILS % 1.1 % (0.0-2.0); EOSINOPHILS % 4.4 % (0.0-5.0); HEMATOCRIT. 35.6 % (42.0-52.0); HEMOGLOBIN. 11.7 g/dL (14.0-18.0); LYMPHOCYTES % 23.4 % (20.0-50.0); MEAN CORPUSCULAR HEMOGLOBIN 30.7 pg (28.0-32.0); MEAN CORPUSCULAR VOLUME 93.3 fL (80.0-94.0); MEAN PLATELET VOLUME 8.3 fl (7.4-10.4); MONOCYTES % 6.7 % (2.0-8.0); NEUTROPHILS % 64.4 % (40.0-76.0); PLATELET 276 x1000/uL (130-400); RED BLOOD CELL COUNT 3.81 mill/uL (4.7-6.1)
[2020-12-26 13:19] LABS: CHLORIDE 109 mEq/L (98-107)
[2020-12-26] MEDS ORDERED: FUROSEMIDE 20MG/2ML VIAL IVP NR (14:00)
[2020-12-26] MEDS ORDERED: ACETAMINOPHEN 325MG TABLET PO NR (14:00)
[2020-12-26] MEDS ORDERED: MORPHINE SULFATE 4 MG/ML CPJ (NOT FOR IM USE) IV ONE (14:15)
[2020-12-26] MEDS ORDERED: DIPHENHYDRAMINE 50MG/ML VIAL IV ONE (17:30)
[2020-12-26] MEDS: DIPHENHYDRAMINE 12.5MG/5ML UDC PO NR ×2 (17:33→17:35)
[2020-12-26] MEDS ORDERED: MORPHINE SULFATE 2 MG/ML CPJ (NOT FOR IM USE) IV ONE (19:00)
[2020-12-26 19:30] VITALS: BP 138/88
[2021-02-16] MEDS ORDERED: HYDR-4135 PO (15:19)
[2021-02-16] MEDS ORDERED: HYDR-4134 MT (15:22)
[2021-02-16] MEDS ORDERED: INSU100I28 SQ (15:35)
[2021-02-16] MEDS ORDERED: LANTUSUD SUBCUT (15:35)
[2021-02-16] MEDS ORDERED: INSLIS SUBCUT (15:37)
[2021-02-16] MEDS ORDERED: NITR0.4T49 SL (15:40)
[2021-02-16] MEDS ORDERED: ALBU2.5V13 NEB (15:41)
[2021-02-16] MEDS ORDERED: LISI10TA26 PO (15:42)
[2021-02-16] MEDS ORDERED: ALBU90AE INH (15:43)
[2021-02-19] MEDS ORDERED: ISOS30TA91 PO ×2 (11:45→11:46)
[2021-02-19] MEDS ORDERED: NITR0.4T SL (11:46)
== END 2020-12-26 20:08 | disposition home or self-care (01) ==
LOC: ER 12:15
DX: R07.89 Other chest pain (principal); I25.2 Old myocardial infarction; I10 Essential (primary) hypertension; E78.00 Pure hypercholesterolemia, unspecified; E11.9 Type 2 diabetes mellitus without complications; J44.1 Chronic obstructive pulmonary disease with (acute) exacerbation; Z86.73 Personal history of transient ischemic attack (TIA), and cerebral infarction without residual deficits; Z79.899 Other long term (current) drug therapy
CPT/HCPCS: 36415; 71045; 80053; 83880; 84484; 85025; 93005; 96374; 96375; 96376; 99285; J1200; J1940; J2270; Q0163

== ENCOUNTER 2021-01-29 13:49 | Inpatient (IN) | payer BC, OTHER ==
[~2021-01-29] VITALS: Ht 170.2 cm; Wt 77.1 kg
[2021-01-29] MEDS ORDERED: FUROSEMIDE 40MG/4ML VIAL IV ONE (14:30)
[2021-01-29] MEDS ORDERED: NITROGLYCERIN 0.4MG TABLET SL SL PRN (14:30)
[2021-01-29] MEDS ORDERED: NITROGLYCERIN 50MG PREMIX 250 ML IV ONE (14:30)
[2021-01-29 14:45] LABS: BASOPHILS % 1.1 % (0.0-2.0); EOSINOPHILS % 6.1 % (0.0-5.0); HEMATOCRIT. 43.9 % (42.0-52.0); LYMPHOCYTES % 33.7 % (20.0-50.0); MEAN CORPUSCULAR HEMOGLOBIN 30.3 pg (28.0-32.0); MEAN CORPUSCULAR VOLUME 94.6 fL (80.0-94.0); MEAN PLATELET VOLUME 9.1 fl (7.4-10.4); MONOCYTES % 9.8 % (2.0-8.0); NEUTROPHILS % 49.3 % (40.0-76.0); PLATELET 307 x1000/uL (130-400); RED BLOOD CELL COUNT 4.64 mill/uL (4.7-6.1); RED CELL DISTRIBUTION WIDTH 15.4 % (11.6-14.6)
[2021-01-29 14:52] LABS: CHLORIDE 106 mEq/L (98-107)
[2021-01-29] MEDS ORDERED: MORPHINE SULFATE 2 MG/ML CPJ (NOT FOR IM USE) IV NR (15:30)
[2021-01-29] MEDS ORDERED: ASPIRIN 325MG TABLET PO NR (15:30)
[2021-01-29] MEDS ORDERED: MORPHINE SULFATE 4 MG/ML CPJ (NOT FOR IM USE) IV ONE (20:15)
[2021-01-29 22:00] VITALS: BP_SYST 129; BP_DIAS 70; BP_DIAS 80
[2021-01-30] VITALS (11 sets, daily range): BP systolic 120–160; BP diastolic 48–92
[2021-01-30] MEDS: HYDROCODONE/ACETAMINOPHEN 5/325MG TABLET PO PRN ×2 (04:00→09:20)
[2021-01-30] MEDS ORDERED: AMLODIPINE 10MG TABLET PO SCH (09:00)
[2021-01-30] MEDS ORDERED: ENOXAPARIN 40MG/0.4ML SYR SUBCUT SCH (09:00)
[2021-01-30] MEDS ORDERED: CARVEDILOL 3.125 MG TABLET PO SCH (09:00)
[2021-01-30] MEDS ORDERED: LISINOPRIL 20MG TABLET PO SCH (09:00)
[2021-01-30] MEDS: APIXABAN 5 MG TABLET PO SCH ×2 (09:18→16:36)
[2021-01-30] MEDS: FUROSEMIDE 40MG/4ML VIAL IVP SCH ×2 (09:18→20:22)
[2021-01-30] MEDS: MORPHINE SULFATE 2 MG/ML CPJ (NOT FOR IM USE) IV PRN ×2 (11:38→20:24)
[2021-01-30] MEDS ORDERED: DEXTROSE 50% WATER 50ML SYRINGE IV PRN (13:00)
[2021-01-30] MEDS: DIPHENHYDRAMINE 50MG/ML VIAL IV PRN ×2 (13:14→20:22)
[2021-01-30] MEDS: LISINOPRIL 20MG TABLET PO SCH ×2 (13:39→20:23)
[2021-01-30] MEDS: BLOOD SUGAR DIAGNOSTIC STRIP TEST SCH ×2 (16:34→20:23)
[2021-01-30] MEDS: INSULIN LISPRO 100 UNITS/ML SUBCUT SCH ×2 (16:38→20:24)
[2021-01-30] MEDS: CARVEDILOL 12.5MG TABLET PO SCH (20:23)
[2021-01-31] VITALS (12 sets, daily range): BP systolic 108–160; BP diastolic 58–89
[2021-01-31] MEDS: MORPHINE SULFATE 2 MG/ML CPJ (NOT FOR IM USE) IV PRN (00:58)
[2021-01-31] MEDS: DIPHENHYDRAMINE 50MG/ML VIAL IV PRN ×2 (00:59→08:52)
[2021-01-31] MEDS: BLOOD SUGAR DIAGNOSTIC STRIP TEST SCH ×4 (06:06→20:57)
[2021-01-31] MEDS: APIXABAN 5 MG TABLET PO SCH (08:52)
[2021-01-31] MEDS: FUROSEMIDE 40MG/4ML VIAL IVP SCH ×2 (08:52→20:55)
[2021-01-31] MEDS ORDERED: AMLODIPINE 5MG TABLET PO SCH (09:00)
[2021-01-31] MEDS: LISINOPRIL 20MG TABLET PO SCH ×2 (09:01→21:00)
[2021-01-31] MEDS: INSULIN LISPRO 100 UNITS/ML SUBCUT SCH ×4 (09:24→21:08)
[2021-01-31] MEDS: CARVEDILOL 12.5MG TABLET PO SCH ×2 (09:24→20:56)
[2021-01-31] MEDS: ASPIRIN 81MG EC TABLET PO SCH (12:28)
[2021-01-31] MEDS: DIPHENHYDRAMINE 25MG CAPSULE PO PRN (17:32)
[2021-01-31 20:34] LABS: BASOPHILS % 0.6 % (0.0-2.0); EOSINOPHILS % 3.2 % (0.0-5.0); HEMOGLOBIN. 13.7 g/dL (14.0-18.0); LYMPHOCYTES % 22.7 % (20.0-50.0); MEAN CORPUSCULAR HEMOGLOBIN 29.9 pg (28.0-32.0); MEAN CORPUSCULAR VOLUME 91.5 fL (80.0-94.0); MEAN PLATELET VOLUME 8.2 fl (7.4-10.4); MONOCYTES % 9.1 % (2.0-8.0); NEUTROPHILS % 64.4 % (40.0-76.0); PLATELET 364 x1000/uL (130-400); RED CELL DISTRIBUTION WIDTH 15.2 % (11.6-14.6)
[2021-01-31 20:40] LABS: CHLORIDE 105 mEq/L (98-107)
[2021-01-31] MEDS: AMLODIPINE 5MG TABLET PO SCH (21:00)
[2021-01-31] MEDS: INSULIN GLARGINE UD 100 UNITS/ML SYR SUBCUT SCH (21:07)
[2021-02-01] VITALS (14 sets, daily range): BP systolic 107–146; BP diastolic 64–79
[2021-02-01] MEDS: DIPHENHYDRAMINE 25MG CAPSULE PO PRN ×2 (00:46→07:57)
[2021-02-01] MEDS: BLOOD SUGAR DIAGNOSTIC STRIP TEST SCH ×4 (06:06→20:21)
[2021-02-01] MEDS: INSULIN LISPRO 100 UNITS/ML SUBCUT SCH ×4 (07:46→21:00)
[2021-02-01] MEDS: ASPIRIN 81MG EC TABLET PO SCH (07:57)
[2021-02-01] MEDS: LISINOPRIL 20MG TABLET PO SCH (07:57)
[2021-02-01] MEDS: CARVEDILOL 12.5MG TABLET PO SCH ×2 (07:58→20:20)
[2021-02-01] MEDS: FUROSEMIDE 40MG/4ML VIAL IVP SCH ×2 (07:58→20:20)
[2021-02-01] MEDS: AMLODIPINE 5MG TABLET PO SCH ×2 (07:58→22:33)
[2021-02-01] MEDS: HYDROCODONE/ACETAMINOPHEN 5/325MG TABLET PO PRN ×2 (09:28→20:21)
[2021-02-01 10:42] LABS: *AMPHETAMINES SCREEN URINE NEGATIVE (NEGATIVE); *BARBITURATES SCREEN URINE NEGATIVE (NEGATIVE); *BENZODIAZEPINES SCREEN URINE NEGATIVE (NEGATIVE); *COCAINE SCREEN URINE NEGATIVE (NEGATIVE)
[2021-02-01 10:43] LABS: CANNABINOID URINE SCREEN NEGATIVE (NEGATIVE); METHADONE URINE SCREEN NEGATIVE (NEGATIVE); OPIATES URINE SCREEN PRESUMTIVE POSITIVE (NEGATIVE); PHENCYCLIDINE URINE SCREEN NEGATIVE (NEGATIVE)
[2021-02-01] MEDS: INSULIN GLARGINE UD 100 UNITS/ML SYR SUBCUT SCH ×2 (11:25→22:35)
[2021-02-01] MEDS ORDERED: POTASSIUM CHLORIDE 20MEQ TABLET SR PO SCH (12:00)
[2021-02-01] MEDS: NITROGLYCERIN 0.4MG TABLET SL SL PRN ×4 (15:14→17:06)
[2021-02-01] MEDS ORDERED: POTA20TA82 MT ×2 (16:21)
[2021-02-01] MEDS ORDERED: FURO40TA5 PO (16:21)
[2021-02-01] MEDS ORDERED: CARV12.545 MT (16:21)
[2021-02-02] VITALS (8 sets, daily range): BP systolic 109–134; BP diastolic 62–87
[2021-02-02] MEDS: LISINOPRIL 20MG TABLET PO SCH ×2 (00:10→08:41)
[2021-02-02] MEDS: HYDROCODONE/ACETAMINOPHEN 5/325MG TABLET PO PRN (03:11)
[2021-02-02] MEDS: BLOOD SUGAR DIAGNOSTIC STRIP TEST SCH ×2 (05:51→12:22)
[2021-02-02] MEDS: ASPIRIN 81MG EC TABLET PO SCH (08:40)
[2021-02-02] MEDS: NITROGLYCERIN 0.4MG TABLET SL SL PRN (08:40)
[2021-02-02] MEDS: AMLODIPINE 5MG TABLET PO SCH (08:40)
[2021-02-02] MEDS: INSULIN LISPRO 100 UNITS/ML SUBCUT SCH (08:41)
[2021-02-02] MEDS: CARVEDILOL 12.5MG TABLET PO SCH (08:41)
[2021-02-02] MEDS: FUROSEMIDE 40MG/4ML VIAL IVP SCH (08:41)
[2021-02-02] MEDS: INSULIN GLARGINE UD 100 UNITS/ML SYR SUBCUT SCH (11:32)
[2021-02-16] MEDS ORDERED: HYDR-4135 PO (15:19)
[2021-02-16] MEDS ORDERED: HYDR-4134 MT (15:22)
[2021-02-16] MEDS ORDERED: LANTUSUD SUBCUT (15:35)
[2021-02-16] MEDS ORDERED: INSU100I28 SQ (15:35)
[2021-02-16] MEDS ORDERED: INSLIS SUBCUT (15:37)
[2021-02-16] MEDS ORDERED: NITR0.4T49 SL (15:40)
[2021-02-16] MEDS ORDERED: ALBU2.5V13 NEB (15:41)
[2021-02-16] MEDS ORDERED: LISI10TA26 PO (15:42)
[2021-02-16] MEDS ORDERED: ALBU90AE INH (15:43)
== END 2021-02-02 12:46 | disposition home or self-care (01) | DRG 291 ==
LOC: ER 14:12 → 3WST 17:07 → ENRESERV 20:14 → 3WST 01-31 14:26
PROVIDERS: ADMIT Internal Medicine; ATTEND Internal Medicine
PROC: 5A09357 Assistance with Respiratory Ventilation, Less than 24 Consecutive Hours, Continuous Positive Airway Pressure (ICD-10-PCS; principal; 2021-01-29)
DX: I11.0 Hypertensive heart disease with heart failure (principal); J96.01 Acute respiratory failure with hypoxia; I50.23 Acute on chronic systolic (congestive) heart failure; I42.0 Dilated cardiomyopathy; E11.9 Type 2 diabetes mellitus without complications; I27.20 Pulmonary hypertension, unspecified; I50.84 End stage heart failure; E78.00 Pure hypercholesterolemia, unspecified; J44.9 Chronic obstructive pulmonary disease, unspecified; I25.10 Atherosclerotic heart disease of native coronary artery without angina pectoris; R07.89 Other chest pain; Z86.73 Personal history of transient ischemic attack (TIA), and cerebral infarction without residual deficits; Z89.611 Acquired absence of right leg above knee; Z95.810 Presence of automatic (implantable) cardiac defibrillator; Z76.5 Malingerer [conscious simulation]; Z79.01 Long term (current) use of anticoagulants; Z79.82 Long term (current) use of aspirin; Z79.4 Long term (current) use of insulin; Z79.899 Other long term (current) drug therapy; I25.2 Old myocardial infarction
CPT/HCPCS: 36415; 71045; 80048; 80053; 80305; 82962; 83880; 84484; 85025; 93005; 93306; 94660; 99291; A6261; J1200; J1815; J1940; J2270; J3490; Q0163

== ENCOUNTER 2021-03-15 02:11 | Inpatient (IN) | payer BC, OTHER ==
[~2021-03-15] VITALS: Ht 170.2 cm; Wt 82.6 kg
[~2021-03-15 02:11] MED LIST changes: +ALBU90AE INH; -B50 MT; -HYDR-4005 PO; +INSLIS SUBCUT; +INSU100I28 SQ; +ISOS30TA91 PO; +LISI10TA26 PO; +NITR0.4T49 SL
[2021-03-15] MEDS ORDERED: MORPHINE SULFATE 4 MG/ML CPJ (NOT FOR IM USE) IV ONE ×2 (02:30→06:45)
[2021-03-15 03:12] LABS: BASOPHILS % 1.1 % (0.0-2.0); EOSINOPHILS % 3.2 % (0.0-5.0); HEMOGLOBIN. 13.8 g/dL (14.0-18.0); LYMPHOCYTES % 21.4 % (20.0-50.0); MEAN CORPUSCULAR HEMOGLOBIN 30.1 pg (28.0-32.0); MEAN CORPUSCULAR VOLUME 91.4 fL (80.0-94.0); MEAN PLATELET VOLUME 8.3 fl (7.4-10.4); MONOCYTES % 7.4 % (2.0-8.0); NEUTROPHILS % 66.9 % (40.0-76.0); PLATELET 325 x1000/uL (130-400); RED CELL DISTRIBUTION WIDTH 16.6 % (11.6-14.6)
[2021-03-15 03:16] LABS: CHLORIDE 108 mEq/L (98-107)
[2021-03-15] MEDS ORDERED: DIPHENHYDRAMINE 25MG CAPSULE PO ONE ×2 (03:30→06:45)
[2021-03-15] MEDS ORDERED: ASPIRIN 81MG TABLET PO NR (05:30)
[2021-03-15] MEDS ORDERED: FUROSEMIDE 40MG/4ML VIAL IVP NR (05:30)
[2021-03-15] MEDS ORDERED: INSULIN REGULAR (HUMULIN R) 300UNITS/3ML VIAL SUBCUT ONE (06:45)
[2021-03-15 09:10] VITALS: BP 141/80
[2021-03-15] MEDS ORDERED: DEXTROSE 50% WATER 50ML SYRINGE IV PRN (10:30)
[2021-03-15] MEDS ORDERED: ENOXAPARIN 40MG/0.4ML SYR SUBCUT PRN (10:45)
[2021-03-15] MEDS ORDERED: HYDROCODONE/ACETAMINOPHEN 5/325MG TABLET PO PRN (10:45)
[2021-03-15] MEDS ORDERED: ASPIRIN 81MG TABLET PO SCH (11:00)
[2021-03-15] MEDS ORDERED: ENOXAPARIN 40MG/0.4ML SYR SUBCUT SCH ×2 (11:00→21:00)
[2021-03-15] MEDS: MORPHINE SULFATE 2 MG/ML CPJ (NOT FOR IM USE) IV PRN ×2 (11:29→18:56)
[2021-03-15 12:00] VITALS: BP 135/68
[2021-03-15] MEDS: BLOOD SUGAR DIAGNOSTIC STRIP TEST SCH ×3 (12:28→21:00)
[2021-03-15] MEDS: INSULIN LISPRO 100 UNITS/ML SUBCUT SCH ×3 (12:33→21:17)
[2021-03-15 14:29] LABS: *AMPHETAMINES SCREEN URINE NEGATIVE (NEGATIVE); *BARBITURATES SCREEN URINE NEGATIVE (NEGATIVE); CANNABINOID URINE SCREEN NEGATIVE (NEGATIVE); PHENCYCLIDINE URINE SCREEN NEGATIVE (NEGATIVE)
[2021-03-15 14:30] LABS: *BENZODIAZEPINES SCREEN URINE NEGATIVE (NEGATIVE); *COCAINE SCREEN URINE NEGATIVE (NEGATIVE); METHADONE URINE SCREEN NEGATIVE (NEGATIVE); OPIATES URINE SCREEN PRESUMTIVE POSITIVE (NEGATIVE)
[2021-03-15 16:00] VITALS: BP 126/75
[2021-03-15] MEDS: APIXABAN 5 MG TABLET PO SCH (17:25)
[2021-03-15] MEDS ORDERED: CARVEDILOL 12.5MG TABLET PO SCH ×2 (19:15→21:00)
[2021-03-15 20:00] VITALS: BP 123/78
[2021-03-15] MEDS ORDERED: CARVEDILOL 6.25 MG TABLET PO SCH (21:00)
[2021-03-15] MEDS: CARVEDILOL 6.25 MG TABLET PO SCH (21:14)
[2021-03-15] MEDS: ATORVASTATIN CALCIUM 10MG TABLET PO SCH (21:15)
[2021-03-15] MEDS: GABAPENTIN 400MG CAPSULE PO SCH (21:15)
[2021-03-15] MEDS: HYDRALAZINE HCL 25MG TABLET PO SCH (21:15)
[2021-03-16] VITALS: BP 125/78
[2021-03-16] MEDS: MORPHINE SULFATE 2 MG/ML CPJ (NOT FOR IM USE) IV PRN ×4 (00:51→21:05)
[2021-03-16] MEDS: LORAZEPAM 0.5MG TABLET PO PRN ×2 (03:20→22:17)
[2021-03-16 04:00] VITALS: BP 138/73
[2021-03-16 06:24] LABS: BASOPHILS % 1.2 % (0.0-2.0); EOSINOPHILS % 5.4 % (0.0-5.0); LYMPHOCYTES % 28.7 % (20.0-50.0); MEAN CORPUSCULAR HEMOGLOBIN 29.8 pg (28.0-32.0); MEAN CORPUSCULAR VOLUME 91.5 fL (80.0-94.0); MEAN PLATELET VOLUME 8.6 fl (7.4-10.4); MONOCYTES % 8.4 % (2.0-8.0); NEUTROPHILS % 56.3 % (40.0-76.0); PLATELET 337 x1000/uL (130-400); RED CELL DISTRIBUTION WIDTH 16.8 % (11.6-14.6)
[2021-03-16] MEDS: BLOOD SUGAR DIAGNOSTIC STRIP TEST SCH ×4 (06:45→21:05)
[2021-03-16] MEDS: HYDRALAZINE HCL 25MG TABLET PO SCH ×3 (06:59→21:03)
[2021-03-16] MEDS: INSULIN LISPRO 100 UNITS/ML SUBCUT SCH ×4 (07:01→21:04)
[2021-03-16] MEDS ORDERED: INSULIN LISPRO 100 UNITS/ML SUBCUT SCH (07:15)
[2021-03-16 08:00] VITALS: BP 128/75
[2021-03-16 08:04] LABS: CHLORIDE 107 mEq/L (98-107)
[2021-03-16 08:19] LABS: LDL CHOLESTEROL 103 mg/dL (5-100)
[2021-03-16 08:20] LABS: HDL CHOLESTEROL 37 mg/dL (40-59)
[2021-03-16] MEDS: CARVEDILOL 6.25 MG TABLET PO SCH ×3 (09:00→21:02)
[2021-03-16] MEDS: ISOSORBIDE MONONITRATE 30MG TABLET SR 24HR PO SCH ×2 (09:00→09:49)
[2021-03-16] MEDS: LOSARTAN POTASSIUM 25 MG TABLET PO SCH ×2 (09:00→09:48)
[2021-03-16] MEDS ORDERED: LISINOPRIL 10MG TABLET PO SCH (09:00)
[2021-03-16] MEDS: GABAPENTIN 400MG CAPSULE PO SCH ×4 (09:48→21:02)
[2021-03-16] MEDS: FUROSEMIDE 40MG TABLET PO SCH ×3 (09:49→17:15)
[2021-03-16] MEDS: POTASSIUM CHLORIDE 10MEQ TABLET SR PO SCH (09:49)
[2021-03-16] MEDS: ASPIRIN 81MG EC TABLET PO SCH (09:49)
[2021-03-16] MEDS: APIXABAN 5 MG TABLET PO SCH ×2 (09:49→17:15)
[2021-03-16] MEDS: INSULIN GLARGINE UD 100 UNITS/ML SYR SUBCUT SCH (10:23)
[2021-03-16 12:00] VITALS: BP 123/68
[2021-03-16] MEDS ORDERED: REGADENOSON 0.4 MG/5 ML IV ONE (13:48)
[2021-03-16 16:00] VITALS: BP 134/77
[2021-03-16 20:00] VITALS: BP 126/78
[2021-03-16] MEDS: ATORVASTATIN CALCIUM 10MG TABLET PO SCH (21:03)
[2021-03-17] VITALS (8 sets, daily range): BP systolic 99–147; BP diastolic 57–74
[2021-03-17] MEDS: MORPHINE SULFATE 2 MG/ML CPJ (NOT FOR IM USE) IV PRN ×2 (03:15→10:28)
[2021-03-17] MEDS: BLOOD SUGAR DIAGNOSTIC STRIP TEST SCH ×4 (06:06→21:23)
[2021-03-17] MEDS: HYDRALAZINE HCL 25MG TABLET PO SCH ×3 (06:07→21:18)
[2021-03-17] MEDS: INSULIN LISPRO 100 UNITS/ML SUBCUT SCH ×4 (06:24→21:26)
[2021-03-17] MEDS: ASPIRIN 81MG EC TABLET PO SCH (08:43)
[2021-03-17] MEDS: APIXABAN 5 MG TABLET PO SCH ×2 (08:43→17:39)
[2021-03-17] MEDS: FUROSEMIDE 40MG TABLET PO SCH ×2 (08:43→17:39)
[2021-03-17] MEDS: POTASSIUM CHLORIDE 10MEQ TABLET SR PO SCH (08:43)
[2021-03-17] MEDS: ISOSORBIDE MONONITRATE 30MG TABLET SR 24HR PO SCH (08:43)
[2021-03-17] MEDS: CARVEDILOL 6.25 MG TABLET PO SCH ×2 (08:43→21:00)
[2021-03-17] MEDS: LOSARTAN POTASSIUM 25 MG TABLET PO SCH (08:43)
[2021-03-17] MEDS: GABAPENTIN 400MG CAPSULE PO SCH ×4 (08:43→21:16)
[2021-03-17] MEDS: INSULIN GLARGINE UD 100 UNITS/ML SYR SUBCUT SCH (10:46)
[2021-03-17] MEDS: LORAZEPAM 0.5MG TABLET PO PRN (21:16)
[2021-03-17] MEDS: ATORVASTATIN CALCIUM 10MG TABLET PO SCH (21:16)
[2021-03-17] MEDS: HYDROCODONE/ACETAMINOPHEN 5/325MG TABLET PO PRN (22:07)
[2021-03-18] MEDS: HYDROCODONE/ACETAMINOPHEN 5/325MG TABLET PO PRN (00:03)
[2021-03-18 00:15] VITALS: BP 141/77
[2021-03-18] MEDS: KETOROLAC 30MG/ML VIAL IV PRN ×3 (02:49→20:41)
[2021-03-18] MEDS: HYDRALAZINE HCL 25MG TABLET PO SCH ×3 (06:42→21:58)
[2021-03-18] MEDS: BLOOD SUGAR DIAGNOSTIC STRIP TEST SCH ×4 (06:49→20:50)
[2021-03-18] MEDS: INSULIN LISPRO 100 UNITS/ML SUBCUT SCH ×4 (06:55→20:50)
[2021-03-18 08:00] VITALS: BP 131/67
[2021-03-18] MEDS: POTASSIUM CHLORIDE 10MEQ TABLET SR PO SCH (08:50)
[2021-03-18] MEDS: ASPIRIN 81MG EC TABLET PO SCH (08:50)
[2021-03-18] MEDS: FUROSEMIDE 40MG TABLET PO SCH ×2 (08:50→17:27)
[2021-03-18] MEDS: LOSARTAN POTASSIUM 25 MG TABLET PO SCH (08:50)
[2021-03-18] MEDS: ISOSORBIDE MONONITRATE 30MG TABLET SR 24HR PO SCH (08:51)
[2021-03-18] MEDS: CARVEDILOL 6.25 MG TABLET PO SCH ×2 (08:51→20:41)
[2021-03-18] MEDS: APIXABAN 5 MG TABLET PO SCH ×2 (08:51→17:27)
[2021-03-18] MEDS: GABAPENTIN 400MG CAPSULE PO SCH ×4 (08:51→20:41)
[2021-03-18] MEDS: INSULIN GLARGINE UD 100 UNITS/ML SYR SUBCUT SCH (11:32)
[2021-03-18 12:00] VITALS: BP 118/64
[2021-03-18] MEDS ORDERED: ALBU05 NEB (13:33)
[2021-03-18] MEDS ORDERED: INSULIN GLARGINE UD 100 UNITS/ML SYR SUBCUT SCH (14:00)
[2021-03-18 16:00] VITALS: BP 129/62
[2021-03-18 20:00] VITALS: BP 117/52
[2021-03-18] MEDS: ATORVASTATIN CALCIUM 10MG TABLET PO SCH (20:41)
[2021-03-19] VITALS: BP 131/63
[2021-03-19] MEDS: HYDROCODONE/ACETAMINOPHEN 5/325MG TABLET PO PRN ×2 (00:16→13:08)
[2021-03-19] MEDS ORDERED: IOHEXOL-350 100 ML BOTTLE ONE (00:31)
[2021-03-19] MEDS: KETOROLAC 30MG/ML VIAL IV PRN ×3 (03:17→21:17)
[2021-03-19 04:00] VITALS: BP 112/58
[2021-03-19] MEDS: HYDRALAZINE HCL 25MG TABLET PO SCH ×3 (06:12→21:17)
[2021-03-19] MEDS: BLOOD SUGAR DIAGNOSTIC STRIP TEST SCH ×4 (07:56→21:16)
[2021-03-19 08:00] VITALS: BP 159/78
[2021-03-19] MEDS: INSULIN LISPRO 100 UNITS/ML SUBCUT SCH ×4 (08:39→21:18)
[2021-03-19] MEDS: ISOSORBIDE MONONITRATE 30MG TABLET SR 24HR PO SCH (08:40)
[2021-03-19] MEDS: LOSARTAN POTASSIUM 25 MG TABLET PO SCH (08:40)
[2021-03-19] MEDS: FUROSEMIDE 40MG TABLET PO SCH ×2 (08:40→17:33)
[2021-03-19] MEDS: ASPIRIN 81MG EC TABLET PO SCH (08:40)
[2021-03-19] MEDS: GABAPENTIN 400MG CAPSULE PO SCH ×4 (08:41→21:17)
[2021-03-19] MEDS: CARVEDILOL 6.25 MG TABLET PO SCH ×2 (08:41→21:17)
[2021-03-19] MEDS: POTASSIUM CHLORIDE 10MEQ TABLET SR PO SCH (08:41)
[2021-03-19] MEDS: APIXABAN 5 MG TABLET PO SCH ×2 (09:41→17:33)
[2021-03-19] MEDS: INSULIN GLARGINE UD 100 UNITS/ML SYR SUBCUT SCH (09:42)
[2021-03-19 20:00] VITALS: BP 127/57
[2021-03-19] MEDS: ATORVASTATIN CALCIUM 10MG TABLET PO SCH (21:17)
[2021-03-19] MEDS: LORAZEPAM 0.5MG TABLET PO PRN (23:21)
[2021-03-20] VITALS (7 sets, daily range): BP systolic 122–157; BP diastolic 60–86
[2021-03-20] MEDS: KETOROLAC 30MG/ML VIAL IV PRN ×2 (04:15→10:22)
[2021-03-20] MEDS: HYDRALAZINE HCL 25MG TABLET PO SCH ×2 (06:24→13:20)
[2021-03-20] MEDS: BLOOD SUGAR DIAGNOSTIC STRIP TEST SCH ×3 (06:25→16:39)
[2021-03-20] MEDS: HYDROCODONE/ACETAMINOPHEN 5/325MG TABLET PO PRN ×2 (07:24→12:27)
[2021-03-20] MEDS: POTASSIUM CHLORIDE 10MEQ TABLET SR PO SCH (08:11)
[2021-03-20] MEDS: FUROSEMIDE 40MG TABLET PO SCH ×2 (08:11→16:37)
[2021-03-20] MEDS: ASPIRIN 81MG EC TABLET PO SCH (08:11)
[2021-03-20] MEDS: APIXABAN 5 MG TABLET PO SCH ×2 (08:11→16:37)
[2021-03-20] MEDS: GABAPENTIN 400MG CAPSULE PO SCH ×3 (08:11→16:37)
[2021-03-20] MEDS: LOSARTAN POTASSIUM 25 MG TABLET PO SCH (08:12)
[2021-03-20] MEDS: ISOSORBIDE MONONITRATE 30MG TABLET SR 24HR PO SCH (08:12)
[2021-03-20] MEDS: CARVEDILOL 6.25 MG TABLET PO SCH (08:12)
[2021-03-20] MEDS: INSULIN LISPRO 100 UNITS/ML SUBCUT SCH ×3 (08:14→16:55)
[2021-03-20] MEDS: INSULIN GLARGINE UD 100 UNITS/ML SYR SUBCUT SCH (10:30)
== END 2021-03-20 18:35 | disposition home or self-care (01) | DRG 206 ==
LOC: ER 02:11 → 5WST 06:36 → ENRESERV 08:03 → 6EST 03-18 00:12
PROVIDERS: ADMIT Internal Medicine; ATTEND Internal Medicine
DX: M94.0 Chondrocostal junction syndrome [Tietze] (principal); I43 Cardiomyopathy in diseases classified elsewhere; I50.42 Chronic combined systolic (congestive) and diastolic (congestive) heart failure; I11.0 Hypertensive heart disease with heart failure; E78.5 Hyperlipidemia, unspecified; J44.9 Chronic obstructive pulmonary disease, unspecified; E11.65 Type 2 diabetes mellitus with hyperglycemia; E11.51 Type 2 diabetes mellitus with diabetic peripheral angiopathy without gangrene; I25.2 Old myocardial infarction; Z76.5 Malingerer [conscious simulation]; Z86.73 Personal history of transient ischemic attack (TIA), and cerebral infarction without residual deficits; Z87.891 Personal history of nicotine dependence; Z20.822 Contact with and (suspected) exposure to COVID-19; Z89.512 Acquired absence of left leg below knee; Z95.810 Presence of automatic (implantable) cardiac defibrillator; Z82.49 Family history of ischemic heart disease and other diseases of the circulatory system; Z83.3 Family history of diabetes mellitus; Z79.899 Other long term (current) drug therapy; Z79.51 Long term (current) use of inhaled steroids; Z79.82 Long term (current) use of aspirin; Z95.5 Presence of coronary angioplasty implant and graft
CPT/HCPCS: 36415; 71045; 71275; 78452; 80053; 80061; 80305; 82962; 83036; 83880; 84484; 85025; 87426; 93005; 93017; 99285; A9500; J1815; J1885; J1940; J2270; J2785; J7040; Q0163; Q9967

== ENCOUNTER 2021-06-21 22:02 | Inpatient (IN) | payer BC, OTHER ==
[~2021-06-21] VITALS: Ht 167.6 cm; Wt 73.5 kg
[~2021-06-21 22:02] MED LIST changes: +ALBU05 NEB; -CARV12.545 MT; -FURO40TA5 PO; -HYDR-4134 MT; -INSLIS SUBCUT; -LORA-249 PO
[2021-06-22 01:01] LABS: CLARITY URINE CLEAR (CLEAR); COLOR URINE YELLOW (YELLOW); KETONES URINE 2+ (NEGATIVE); LEUKOCYTE ESTERASE URINE NEGATIVE (NEGATIVE); NITRITE URINE NEGATIVE (NEGATIVE); OCCULT BLOOD URINE 1+ (NEGATIVE); PH URINE 5.5 (4.5-8.0); PROTEIN URINE 3+ (NEGATIVE); SPECIFIC GRAVITY URINE 1.027 (1.005-1.030)
[2021-06-22 01:10] LABS: *AMPHETAMINES SCREEN URINE NEGATIVE (NEGATIVE); METHADONE URINE SCREEN NEGATIVE (NEGATIVE)
[2021-06-22 01:11] LABS: *BARBITURATES SCREEN URINE NEGATIVE (NEGATIVE); *BENZODIAZEPINES SCREEN URINE NEGATIVE (NEGATIVE); *COCAINE SCREEN URINE NEGATIVE (NEGATIVE); CANNABINOID URINE SCREEN NEGATIVE (NEGATIVE); OPIATES URINE SCREEN NEGATIVE (NEGATIVE); PHENCYCLIDINE URINE SCREEN NEGATIVE (NEGATIVE)
[2021-06-22 01:48] LABS: BASOPHILS % 0.5 % (0.0-2.0); HEMATOCRIT. 44.8 % (42.0-52.0); HEMOGLOBIN. 15.1 g/dL (14.0-18.0); LYMPHOCYTES % 8.4 % (20.0-50.0); MEAN CORPUSCULAR HEMOGLOBIN 31.8 pg (28.0-32.0); MEAN CORPUSCULAR VOLUME 94.3 fL (80.0-94.0); MONOCYTES % 9.3 % (2.0-8.0); NEUTROPHILS % 81.8 % (40.0-76.0); PLATELET 265 x1000/uL (130-400); RED BLOOD CELL COUNT 4.75 mill/uL (4.7-6.1); RED CELL DISTRIBUTION WIDTH 16.6 % (11.6-14.6)
[2021-06-22 01:51] LABS: CHLORIDE 107 mEq/L (98-107)
[2021-06-22 01:55] LABS: ETHANOL BLOOD < 10 mg/dL
[2021-06-22 01:59] LABS: CREATINE KINASE 157 IU/L (39-308)
[2021-06-22] MEDS ORDERED: CEFTRIAXONE 1 G PREMIX 50 ML IV ONE (02:00)
[2021-06-22 04:43] VITALS: BP 159/82
[2021-06-22 05:00] VITALS: BP 159/82
[2021-06-22] MEDS ORDERED: IPRATROPIUM/ALBUTEROL 0.5-3(2.5)MG/3ML NEB HHN PRN (05:45)
[2021-06-22] MEDS ORDERED: DEXTROSE 50% WATER 50ML SYRINGE IV PRN (05:45)
[2021-06-22] MEDS: ACETAMINOPHEN 325MG TABLET PO PRN (06:22)
[2021-06-22] MEDS: INSULIN LISPRO 100 UNITS/ML SUBCUT SCH ×4 (06:31→21:31)
[2021-06-22] MEDS: BLOOD SUGAR DIAGNOSTIC STRIP TEST SCH ×4 (06:32→21:15)
[2021-06-22 08:00] VITALS: BP 136/75
[2021-06-22 09:59] LABS: CHLORIDE 110 mEq/L (98-107)
[2021-06-22 10:39] LABS: BASOPHILS % 0.8 % (0.0-2.0); EOSINOPHILS % 0.1 % (0.0-5.0); HEMATOCRIT. 42.5 % (42.0-52.0); HEMOGLOBIN. 14.2 g/dL (14.0-18.0); LYMPHOCYTES % 17.4 % (20.0-50.0); MEAN CORPUSCULAR VOLUME 95.5 fL (80.0-94.0); MEAN PLATELET VOLUME 7.8 fl (7.4-10.4); MONOCYTES % 10.7 % (2.0-8.0); PLATELET 262 x1000/uL (130-400); RED BLOOD CELL COUNT 4.45 mill/uL (4.7-6.1); RED CELL DISTRIBUTION WIDTH 16.2 % (11.6-14.6)
[2021-06-22] MEDS: APIXABAN 5 MG TABLET PO SCH ×2 (11:02→17:43)
[2021-06-22 11:20] LABS: T4 FREE 0.77 ng/dL (0.76-1.46)
[2021-06-22] MEDS ORDERED: NALOXONE HCL 0.4MG/ML VIAL IV PRN (11:30)
[2021-06-22 12:00] VITALS: BP 138/73
[2021-06-22] MEDS: HYDROCODONE/ACETAMINOPHEN 5/325MG TABLET PO PRN ×2 (12:05→21:41)
[2021-06-22 16:00] VITALS: BP 132/72
[2021-06-22 16:42] LABS: CREATINE KINASE 174 IU/L (39-308)
[2021-06-22 16:43] LABS: CREATINE KINASE MB FRACTION < 1.0 ng/mL (0.5-3.6)
[2021-06-22 20:00] VITALS: BP 129/77
[2021-06-23 00:10] LABS: CREATINE KINASE 166 IU/L (39-308); CREATINE KINASE MB FRACTION < 1.0 ng/mL (0.5-3.6)
[2021-06-23 00:55] VITALS: BP 123/72
[2021-06-23 04:00] VITALS: BP 157/89
[2021-06-23] MEDS: INSULIN LISPRO 100 UNITS/ML SUBCUT SCH ×4 (06:45→21:00)
[2021-06-23] MEDS: BLOOD SUGAR DIAGNOSTIC STRIP TEST SCH ×4 (06:46→21:05)
[2021-06-23] MEDS: HYDROCODONE/ACETAMINOPHEN 5/325MG TABLET PO PRN ×3 (06:47→21:53)
[2021-06-23 07:25] LABS: CREATINE KINASE 158 IU/L (39-308); CREATINE KINASE MB FRACTION < 1.0 ng/mL (0.5-3.6)
[2021-06-23 08:00] VITALS: BP 132/62
[2021-06-23] MEDS: APIXABAN 5 MG TABLET PO SCH ×2 (09:36→17:41)
[2021-06-23 09:52] LABS: CHLORIDE 107 mEq/L (98-107)
[2021-06-23 09:53] LABS: HEMATOCRIT. 45.5 % (42.0-52.0); HEMOGLOBIN. 14.9 g/dL (14.0-18.0); MEAN CORPUSCULAR HEMOGLOBIN 31.3 pg (28.0-32.0); MEAN PLATELET VOLUME 8.5 fl (7.4-10.4); PLATELET 229 x1000/uL (130-400); RED BLOOD CELL COUNT 4.74 mill/uL (4.7-6.1); RED CELL DISTRIBUTION WIDTH 16.3 % (11.6-14.6)
[2021-06-23 12:00] VITALS: BP 123/72
[2021-06-23] MEDS: LOSARTAN POTASSIUM 25 MG TABLET PO SCH (13:23)
[2021-06-23 16:00] VITALS: BP 114/65
[2021-06-23 20:00] VITALS: BP 125/71
[2021-06-23] MEDS: CARVEDILOL 3.125 MG TABLET PO SCH (20:24)
[2021-06-24] VITALS: BP 119/70
[2021-06-24 04:00] VITALS: BP 129/70
[2021-06-24] MEDS: BLOOD SUGAR DIAGNOSTIC STRIP TEST SCH ×4 (05:51→20:40)
[2021-06-24] MEDS: INSULIN LISPRO 100 UNITS/ML SUBCUT SCH ×4 (05:57→20:40)
[2021-06-24 08:00] VITALS: BP 128/70
[2021-06-24] MEDS: LOSARTAN POTASSIUM 25 MG TABLET PO SCH (08:39)
[2021-06-24] MEDS: APIXABAN 5 MG TABLET PO SCH ×2 (08:39→16:50)
[2021-06-24] MEDS: CARVEDILOL 3.125 MG TABLET PO SCH ×2 (08:39→20:39)
[2021-06-24] MEDS: HYDROCODONE/ACETAMINOPHEN 5/325MG TABLET PO PRN ×3 (08:43→23:09)
[2021-06-24 09:15] LABS: CHLORIDE 108 mEq/L (98-107)
[2021-06-24 09:16] LABS: HEMATOCRIT 45.3 % (42.0-52.0); HEMOGLOBIN 15.1 g/dL (14.0-18.0); MEAN CORPUSCULAR HEMOGLOBIN 31.4 pg (28.0-32.0); MEAN CORPUSCULAR VOLUME 94.3 fL (80.0-94.0); PLATELET 216 x1000/uL (130-400); RED CELL DISTRIBUTION WIDTH 16.3 % (11.6-14.6)
[2021-06-24 12:00] VITALS: BP 118/67
[2021-06-24 16:00] VITALS: BP 105/62
[2021-06-24 18:32] LABS: PLATELET ESTIMATE NORMAL
[2021-06-24 20:00] VITALS: BP 129/63
[2021-06-25] VITALS: BP 118/60
[2021-06-25] MEDS: ACETAMINOPHEN 325MG TABLET PO PRN (00:17)
[2021-06-25 04:00] VITALS: BP 109/63
[2021-06-25] MEDS: HYDROCODONE/ACETAMINOPHEN 5/325MG TABLET PO PRN ×3 (04:55→20:55)
[2021-06-25] MEDS: INSULIN LISPRO 100 UNITS/ML SUBCUT SCH ×4 (06:15→21:12)
[2021-06-25] MEDS: BLOOD SUGAR DIAGNOSTIC STRIP TEST SCH ×4 (06:15→21:10)
[2021-06-25] MEDS: APIXABAN 5 MG TABLET PO SCH ×2 (09:40→16:28)
[2021-06-25] MEDS: CARVEDILOL 3.125 MG TABLET PO SCH ×2 (09:40→21:09)
[2021-06-25] MEDS: LOSARTAN POTASSIUM 25 MG TABLET PO SCH (09:40)
[2021-06-25 12:00] VITALS: BP 145/66
[2021-06-25 16:00] VITALS: BP 144/67
[2021-06-25] MEDS ORDERED: COR3 PO (17:56)
[2021-06-25] MEDS ORDERED: LOSA25TA3 PO (17:56)
[2021-06-25] MEDS ORDERED: METF-414 MT (17:57)
[2021-06-25 20:00] VITALS: BP 137/69
[2021-06-26] VITALS (7 sets, daily range): BP systolic 126–139; BP diastolic 58–83
[2021-06-26] MEDS: HYDROCODONE/ACETAMINOPHEN 5/325MG TABLET PO PRN ×3 (00:58→17:37)
[2021-06-26] MEDS: ACETAMINOPHEN 325MG TABLET PO PRN (03:16)
[2021-06-26] MEDS: INSULIN LISPRO 100 UNITS/ML SUBCUT SCH ×3 (06:10→17:38)
[2021-06-26] MEDS: BLOOD SUGAR DIAGNOSTIC STRIP TEST SCH ×3 (07:49→17:38)
[2021-06-26] MEDS: METFORMIN HCL 500MG TABLET PO SCH ×2 (08:27→17:36)
[2021-06-26] MEDS: APIXABAN 5 MG TABLET PO SCH ×2 (08:28→17:36)
[2021-06-26] MEDS: CARVEDILOL 3.125 MG TABLET PO SCH (08:28)
[2021-06-26] MEDS: LOSARTAN POTASSIUM 25 MG TABLET PO SCH (08:28)
== END 2021-06-26 21:20 | disposition home or self-care (01) | DRG 74 ==
LOC: ER 22:02 → 8WST 06-22 01:15 → ENRESERV 06-22 03:44
PROVIDERS: ADMIT Family Medicine; ATTEND Family Medicine
PROC: 4B02XTZ Measurement of Cardiac Defibrillator, External Approach (ICD-10-PCS; principal; 2021-06-23)
DX: G90.8 Other disorders of autonomic nervous system (principal); I82.512 Chronic embolism and thrombosis of left femoral vein; I43 Cardiomyopathy in diseases classified elsewhere; M25.551 Pain in right hip; E11.40 Type 2 diabetes mellitus with diabetic neuropathy, unspecified; E11.51 Type 2 diabetes mellitus with diabetic peripheral angiopathy without gangrene; J44.9 Chronic obstructive pulmonary disease, unspecified; E78.5 Hyperlipidemia, unspecified; I11.0 Hypertensive heart disease with heart failure; S09.90XA Unspecified injury of head, initial encounter; I25.10 Atherosclerotic heart disease of native coronary artery without angina pectoris; I27.20 Pulmonary hypertension, unspecified; W06.XXXA Fall from bed, initial encounter; I50.9 Heart failure, unspecified; Z86.73 Personal history of transient ischemic attack (TIA), and cerebral infarction without residual deficits; Z89.612 Acquired absence of left leg above knee; Z95.810 Presence of automatic (implantable) cardiac defibrillator; I25.2 Old myocardial infarction; Z79.01 Long term (current) use of anticoagulants; Z79.51 Long term (current) use of inhaled steroids; Z79.899 Other long term (current) drug therapy; Z79.82 Long term (current) use of aspirin; Y92.003 Bedroom of unspecified non-institutional (private) residence as the place of occurrence of the external cause; Z82.49 Family history of ischemic heart disease and other diseases of the circulatory system; Z83.3 Family history of diabetes mellitus; Y93.89 Activity, other specified; Y99.8 Other external cause status; F80.81 Childhood onset fluency disorder
CPT/HCPCS: 36415; 71045; 72170; 80048; 80053; 80061; 80305; 80320; 81003; 82140; 82550; 82553; 82962; 83036; 83605; 83735; 83880; 84439; 84443; 84484; 85025; 85027; 85379; 86850; 86900; 93005; 93970; 97162; 97166; 97530; 99285; J0696; J1815; G0480

== ENCOUNTER 2021-07-30 20:37 | Inpatient (IN) | payer BC, MEDICAID ==
[~2021-07-30] VITALS: Ht 170.2 cm; Wt 59.0 kg
[~2021-07-30 20:37] MED LIST changes: -ALBU05 NEB; -AMLO10TA4 PO; +COR3 PO; -GABA-533 PO; -INSU100I28 SQ; -IPRA4AER INH; -ISOS30TA91 PO; -LANTUSUD SUBCUT; -LISI10TA26 PO; +LOSA25TA3 PO; +METF-414 MT; -NITR0.4T49 SL; -POTA-9 MT; -RANO10003 PO
[2021-07-30] MEDS ORDERED: ASPIRIN 81MG TABLET PO ONE (21:15)
[2021-07-30] MEDS ORDERED: NITROGLYCERIN 0.4MG TABLET SL SL PRN (21:15)
[2021-07-30 22:05] LABS: CHLORIDE 107 mEq/L (98-107)
[2021-07-30 22:06] LABS: BASOPHILS % 0.8 % (0.0-2.0); EOSINOPHILS % 0.1 % (0.0-5.0); HEMATOCRIT. 38.4 % (42.0-52.0); HEMOGLOBIN. 12.7 g/dL (14.0-18.0); MEAN CORPUSCULAR HEMOGLOBIN 31.4 pg (28.0-32.0); MEAN CORPUSCULAR VOLUME 95.2 fL (80.0-94.0); MEAN PLATELET VOLUME 8.1 fl (7.4-10.4); MONOCYTES % 6.6 % (2.0-8.0); NEUTROPHILS % 77.5 % (40.0-76.0); PLATELET 344 x1000/uL (130-400); RED BLOOD CELL COUNT 4.03 mill/uL (4.7-6.1); RED CELL DISTRIBUTION WIDTH 15.9 % (11.6-14.6)
[2021-07-30 22:08] LABS: INR 0.9; PARTIAL THROMBOPLASTIN TIME 24.7 sec (23.4-31.0); PROTHROMBIN TIME 10.2 sec (9.6-11.0)
[2021-07-30] MEDS ORDERED: ENOXAPARIN 80MG/0.8ML SYR SUBCUT ONE (22:45)
[2021-07-30] MEDS ORDERED: FUROSEMIDE 40MG/4ML VIAL IVP ONE (23:45)
[2021-07-31] MEDS ORDERED: ONDANSETRON HCL 4MG/2ML INJ IV STA ×2 (00:22→01:49)
[2021-07-31] MEDS ORDERED: MORPHINE SULFATE 4 MG/ML CPJ (NOT FOR IM USE) IV STA ×2 (00:22→01:49)
[2021-07-31] MEDS ORDERED: CEFTRIAXONE 1 G PREMIX 50 ML IV ONE (00:45)
[2021-07-31] MEDS ORDERED: AZITHROMYCIN 500 MG in DEXT 5% WATER 250 ML IV ONE (00:45)
[2021-07-31] MEDS ORDERED: MAGNESIUM/ALUMINUM HYDROXIDE/SIMETHICONE 30ML UDC PO PRN (04:00)
[2021-07-31] MEDS ORDERED: CLONIDINE 0.1MG TABLET PO PRN (04:00)
[2021-07-31] MEDS ORDERED: ZOLPIDEM TARTRATE 5MG TABLET PO PRN (04:00)
[2021-07-31] MEDS ORDERED: IPRATROPIUM/ALBUTEROL 0.5-3(2.5)MG/3ML NEB HHN PRN (04:00)
[2021-07-31] MEDS ORDERED: ONDANSETRON HCL 4MG/2ML INJ IV PRN (04:00)
[2021-07-31] MEDS ORDERED: ACETAMINOPHEN 325MG TABLET PO PRN (04:00)
[2021-07-31] MEDS ORDERED: DEXTROSE 50% WATER 50ML SYRINGE IV PRN (04:00)
[2021-07-31] MEDS: DIPHENHYDRAMINE 50MG/ML VIAL IV PRN ×4 (05:34→23:30)
[2021-07-31] MEDS: KETOROLAC 30MG/ML VIAL IV PRN (05:34)
[2021-07-31] MEDS: SODIUM CHLORIDE 0.9% INJ 3ML FLUSH IVF SCH ×3 (05:35→20:39)
[2021-07-31] MEDS: BLOOD SUGAR DIAGNOSTIC STRIP TEST SCH ×5 (06:30→20:39)
[2021-07-31] MEDS: INSULIN LISPRO 100 UNITS/ML SUBCUT SCH ×4 (06:30→20:49)
[2021-07-31] MEDS ORDERED: IOHEXOL-350 100 ML BOTTLE ONE (07:00)
[2021-07-31 08:30] VITALS: BP 131/70
[2021-07-31] MEDS: SPIRONOLACTONE 25MG TABLET PO SCH (09:12)
[2021-07-31] MEDS: FUROSEMIDE 40MG TABLET PO SCH (09:13)
[2021-07-31] MEDS: ASPIRIN 81MG EC TABLET PO SCH (09:13)
[2021-07-31] MEDS: LISINOPRIL 5MG TABLET PO SCH (09:13)
[2021-07-31] MEDS: CARVEDILOL 6.25 MG TABLET PO SCH ×2 (09:13→20:38)
[2021-07-31] MEDS: AMLODIPINE 5MG TABLET PO SCH (09:13)
[2021-07-31] MEDS: ACETAMINOPHEN 325MG TABLET PO PRN (09:14)
[2021-07-31 12:00] VITALS: BP 100/46
[2021-07-31 16:00] VITALS: BP 115/60
[2021-07-31] MEDS: APIXABAN 5 MG TABLET PO SCH (17:02)
[2021-07-31 20:00] VITALS: BP 121/70
[2021-07-31] MEDS: ATORVASTATIN CALCIUM 40MG TABLET PO SCH (20:38)
[2021-08-01 00:02] VITALS: BP 125/69
[2021-08-01] MEDS: DIPHENHYDRAMINE 50MG/ML VIAL IV PRN ×4 (03:30→20:18)
[2021-08-01 04:00] VITALS: BP 119/68
[2021-08-01] MEDS: KETOROLAC 30MG/ML VIAL IV PRN ×3 (04:17→18:33)
[2021-08-01] MEDS: SODIUM CHLORIDE 0.9% INJ 3ML FLUSH IVF SCH ×3 (05:18→20:19)
[2021-08-01] MEDS: BLOOD SUGAR DIAGNOSTIC STRIP TEST SCH ×4 (05:21→20:18)
[2021-08-01] MEDS: INSULIN LISPRO 100 UNITS/ML SUBCUT SCH ×4 (05:29→20:27)
[2021-08-01 08:00] VITALS: BP 105/65
[2021-08-01] MEDS: CARVEDILOL 6.25 MG TABLET PO SCH ×2 (08:18→20:18)
[2021-08-01] MEDS: LISINOPRIL 5MG TABLET PO SCH (08:19)
[2021-08-01] MEDS: AMLODIPINE 5MG TABLET PO SCH (08:19)
[2021-08-01] MEDS: FUROSEMIDE 40MG TABLET PO SCH (08:25)
[2021-08-01] MEDS: ASPIRIN 81MG EC TABLET PO SCH (08:25)
[2021-08-01] MEDS: APIXABAN 5 MG TABLET PO SCH ×2 (08:25→16:43)
[2021-08-01] MEDS: SPIRONOLACTONE 25MG TABLET PO SCH (08:25)
[2021-08-01 12:00] VITALS: BP 134/68
[2021-08-01 16:00] VITALS: BP 107/55
[2021-08-01 20:00] VITALS: BP 111/62
[2021-08-01] MEDS: ATORVASTATIN CALCIUM 40MG TABLET PO SCH (20:18)
[2021-08-01] MEDS ORDERED: INSULIN GLARGINE UD 100 UNITS/ML SYR SUBCUT SCH (23:00)
[2021-08-02] VITALS: BP 111/59
[2021-08-02] MEDS: KETOROLAC 30MG/ML VIAL IV PRN ×4 (00:02→20:29)
[2021-08-02] MEDS: DIPHENHYDRAMINE 50MG/ML VIAL IV PRN ×4 (02:35→21:17)
[2021-08-02 04:00] VITALS: BP 125/64
[2021-08-02] MEDS: SODIUM CHLORIDE 0.9% INJ 3ML FLUSH IVF SCH ×3 (06:04→20:36)
[2021-08-02] MEDS: BLOOD SUGAR DIAGNOSTIC STRIP TEST SCH ×4 (06:04→20:28)
[2021-08-02 08:00] VITALS: BP 109/62
[2021-08-02] MEDS: LISINOPRIL 5MG TABLET PO SCH (09:16)
[2021-08-02] MEDS: FUROSEMIDE 40MG TABLET PO SCH (09:16)
[2021-08-02] MEDS: CARVEDILOL 6.25 MG TABLET PO SCH ×2 (09:16→20:29)
[2021-08-02] MEDS: AMLODIPINE 5MG TABLET PO SCH (09:16)
[2021-08-02] MEDS: ASPIRIN 81MG EC TABLET PO SCH (09:16)
[2021-08-02] MEDS: APIXABAN 5 MG TABLET PO SCH ×2 (09:16→16:09)
[2021-08-02] MEDS: SPIRONOLACTONE 25MG TABLET PO SCH (09:17)
[2021-08-02] MEDS: INSULIN LISPRO 100 UNITS/ML SUBCUT SCH ×4 (09:25→20:37)
[2021-08-02 12:00] VITALS: BP 112/63
[2021-08-02 16:00] VITALS: BP 106/62
[2021-08-02 20:00] VITALS: BP 116/54
[2021-08-02] MEDS: ATORVASTATIN CALCIUM 40MG TABLET PO SCH (20:29)
[2021-08-02] MEDS: INSULIN GLARGINE UD 100 UNITS/ML SYR SUBCUT SCH (20:40)
[2021-08-03] VITALS: BP 110/56
[2021-08-03] MEDS: KETOROLAC 30MG/ML VIAL IV PRN ×3 (02:43→21:36)
[2021-08-03 04:00] VITALS: BP 98/50
[2021-08-03] MEDS: DIPHENHYDRAMINE 50MG/ML VIAL IV PRN ×3 (06:14→17:03)
[2021-08-03] MEDS: SODIUM CHLORIDE 0.9% INJ 3ML FLUSH IVF SCH ×3 (06:14→21:37)
[2021-08-03] MEDS: BLOOD SUGAR DIAGNOSTIC STRIP TEST SCH ×4 (06:15→21:12)
[2021-08-03 08:00] VITALS: BP 112/41
[2021-08-03] MEDS: APIXABAN 5 MG TABLET PO SCH ×2 (08:33→17:03)
[2021-08-03] MEDS: LISINOPRIL 5MG TABLET PO SCH (08:34)
[2021-08-03] MEDS: AMLODIPINE 5MG TABLET PO SCH (08:34)
[2021-08-03] MEDS: SPIRONOLACTONE 25MG TABLET PO SCH (08:34)
[2021-08-03] MEDS: ASPIRIN 81MG EC TABLET PO SCH (08:34)
[2021-08-03] MEDS: FUROSEMIDE 40MG TABLET PO SCH (08:35)
[2021-08-03] MEDS: CARVEDILOL 6.25 MG TABLET PO SCH ×2 (08:35→21:00)
[2021-08-03] MEDS: INSULIN LISPRO 100 UNITS/ML SUBCUT SCH ×4 (08:44→21:00)
[2021-08-03 12:00] VITALS: BP 108/50
[2021-08-03 16:00] VITALS: BP 110/56
[2021-08-03 20:00] VITALS: BP 102/66
[2021-08-03] MEDS: ATORVASTATIN CALCIUM 40MG TABLET PO SCH (21:35)
[2021-08-03] MEDS: INSULIN GLARGINE UD 100 UNITS/ML SYR SUBCUT SCH (21:38)
[2021-08-04] VITALS: BP 119/62
[2021-08-04] MEDS: ACETAMINOPHEN 325MG TABLET PO PRN (01:04)
[2021-08-04 04:00] VITALS: BP 125/88
[2021-08-04] MEDS: KETOROLAC 30MG/ML VIAL IV PRN ×3 (05:04→20:58)
[2021-08-04] MEDS: SODIUM CHLORIDE 0.9% INJ 3ML FLUSH IVF SCH ×3 (05:04→20:58)
[2021-08-04] MEDS: BLOOD SUGAR DIAGNOSTIC STRIP TEST SCH ×4 (06:23→20:54)
[2021-08-04 07:17] LABS: CHLORIDE 107 mEq/L (98-107)
[2021-08-04] MEDS: INSULIN LISPRO 100 UNITS/ML SUBCUT SCH ×4 (07:21→20:58)
[2021-08-04 07:25] LABS: PHOSPHORUS 2.4 mg/dL (2.5-4.9)
[2021-08-04 08:00] VITALS: BP 123/58
[2021-08-04] MEDS: DIPHENHYDRAMINE 50MG/ML VIAL IV PRN ×2 (08:05→16:26)
[2021-08-04] MEDS: CARVEDILOL 6.25 MG TABLET PO SCH ×2 (08:05→20:35)
[2021-08-04] MEDS: APIXABAN 5 MG TABLET PO SCH ×2 (08:05→16:18)
[2021-08-04] MEDS: AMLODIPINE 5MG TABLET PO SCH (08:06)
[2021-08-04] MEDS: ASPIRIN 81MG EC TABLET PO SCH (08:06)
[2021-08-04] MEDS: LISINOPRIL 5MG TABLET PO SCH (08:06)
[2021-08-04] MEDS: SPIRONOLACTONE 25MG TABLET PO SCH (08:06)
[2021-08-04] MEDS: FUROSEMIDE 40MG TABLET PO SCH (08:06)
[2021-08-04 12:00] VITALS: BP 110/64
[2021-08-04] MEDS ORDERED: POTASSIUM PHOS,M-BASIC-D-BASIC 15 MMOL in DEXT 5% WATER 245 ML IV SCH (13:00)
[2021-08-04] MEDS ORDERED: MAGNESIUM 1 G PREMIX 100 ML IV SCH (13:00)
[2021-08-04 16:00] VITALS: BP 130/70
[2021-08-04 20:38] VITALS: BP 98/50
[2021-08-04] MEDS: ATORVASTATIN CALCIUM 40MG TABLET PO SCH (20:57)
[2021-08-04] MEDS: INSULIN GLARGINE UD 100 UNITS/ML SYR SUBCUT SCH (22:04)
[2021-08-05] MEDS: DIPHENHYDRAMINE 50MG/ML VIAL IV PRN (00:02)
[2021-08-05 00:42] VITALS: BP 95/53
[2021-08-05 04:00] VITALS: BP 144/74
[2021-08-05] MEDS: SODIUM CHLORIDE 0.9% INJ 3ML FLUSH IVF SCH ×4 (05:25→21:29)
[2021-08-05] MEDS: BLOOD SUGAR DIAGNOSTIC STRIP TEST SCH ×4 (07:40→20:35)
[2021-08-05 08:00] VITALS: BP 114/58
[2021-08-05] MEDS: INSULIN LISPRO 100 UNITS/ML SUBCUT SCH ×4 (08:10→20:35)
[2021-08-05] MEDS: DIPHENHYDRAMINE 25MG CAPSULE PO PRN (08:56)
[2021-08-05] MEDS: ASPIRIN 81MG EC TABLET PO SCH (08:57)
[2021-08-05] MEDS: CARVEDILOL 6.25 MG TABLET PO SCH ×2 (08:57→20:07)
[2021-08-05] MEDS: APIXABAN 5 MG TABLET PO SCH ×2 (08:57→17:54)
[2021-08-05] MEDS: SPIRONOLACTONE 25MG TABLET PO SCH (08:57)
[2021-08-05] MEDS: FUROSEMIDE 40MG TABLET PO SCH (08:57)
[2021-08-05] MEDS: AMLODIPINE 5MG TABLET PO SCH (08:57)
[2021-08-05] MEDS: LISINOPRIL 5MG TABLET PO SCH (08:57)
[2021-08-05 12:00] VITALS: BP 88/55
[2021-08-05] MEDS: ACETAMINOPHEN 325MG TABLET PO PRN (14:59)
[2021-08-05 16:00] VITALS: BP 101/51
[2021-08-05 20:00] VITALS: BP 104/47
[2021-08-05] MEDS: ATORVASTATIN CALCIUM 40MG TABLET PO SCH (20:35)
[2021-08-05] MEDS: KETOROLAC 30MG/ML VIAL IV PRN (21:00)
[2021-08-05] MEDS: INSULIN GLARGINE UD 100 UNITS/ML SYR SUBCUT SCH (21:01)
[2021-08-06] VITALS: BP 102/51
[2021-08-06] MEDS: DIPHENHYDRAMINE 50MG/ML VIAL IV PRN (04:44)
[2021-08-06] MEDS: BLOOD SUGAR DIAGNOSTIC STRIP TEST SCH ×4 (07:40→21:19)
[2021-08-06 08:00] VITALS: BP 122/54
[2021-08-06] MEDS: KETOROLAC 30MG/ML VIAL IV PRN ×2 (09:20→21:18)
[2021-08-06] MEDS: APIXABAN 5 MG TABLET PO SCH ×2 (09:20→17:01)
[2021-08-06] MEDS: LISINOPRIL 5MG TABLET PO SCH (09:21)
[2021-08-06] MEDS: FUROSEMIDE 40MG TABLET PO SCH (09:22)
[2021-08-06] MEDS: DIPHENHYDRAMINE 25MG CAPSULE PO PRN (09:22)
[2021-08-06] MEDS: AMLODIPINE 5MG TABLET PO SCH (09:22)
[2021-08-06] MEDS: SPIRONOLACTONE 25MG TABLET PO SCH (09:22)
[2021-08-06] MEDS: CARVEDILOL 6.25 MG TABLET PO SCH ×2 (09:22→21:18)
[2021-08-06] MEDS: ASPIRIN 81MG EC TABLET PO SCH (09:23)
[2021-08-06] MEDS: INSULIN LISPRO 100 UNITS/ML SUBCUT SCH ×4 (09:25→21:18)
[2021-08-06 12:00] VITALS: BP 113/56
[2021-08-06] MEDS: SODIUM CHLORIDE 0.9% INJ 3ML FLUSH IVF SCH ×2 (13:20→21:19)
[2021-08-06 16:00] VITALS: BP 101/49
[2021-08-06 20:00] VITALS: BP 113/70
[2021-08-06] MEDS: ATORVASTATIN CALCIUM 40MG TABLET PO SCH (21:18)
[2021-08-06] MEDS: INSULIN GLARGINE UD 100 UNITS/ML SYR SUBCUT SCH (21:19)
[2021-08-07 00:05] VITALS: BP 113/65
[2021-08-07] MEDS: DIPHENHYDRAMINE 50MG/ML VIAL IV PRN ×2 (00:39→05:18)
[2021-08-07 04:00] VITALS: BP 125/66
[2021-08-07] MEDS: SODIUM CHLORIDE 0.9% INJ 3ML FLUSH IVF SCH ×3 (05:18→20:48)
[2021-08-07] MEDS: BLOOD SUGAR DIAGNOSTIC STRIP TEST SCH ×4 (05:24→20:50)
[2021-08-07] MEDS: INSULIN LISPRO 100 UNITS/ML SUBCUT SCH ×4 (05:29→20:48)
[2021-08-07 08:00] VITALS: BP 126/70
[2021-08-07] MEDS: APIXABAN 5 MG TABLET PO SCH ×2 (09:35→16:31)
[2021-08-07] MEDS: KETOROLAC 30MG/ML VIAL IV PRN ×2 (09:35→20:46)
[2021-08-07] MEDS: AMLODIPINE 5MG TABLET PO SCH (09:35)
[2021-08-07] MEDS: DIPHENHYDRAMINE 25MG CAPSULE PO PRN ×2 (09:36→20:46)
[2021-08-07] MEDS: FUROSEMIDE 40MG TABLET PO SCH (09:36)
[2021-08-07] MEDS: ASPIRIN 81MG EC TABLET PO SCH (09:36)
[2021-08-07] MEDS: CARVEDILOL 6.25 MG TABLET PO SCH ×3 (09:36→20:50)
[2021-08-07] MEDS: LISINOPRIL 5MG TABLET PO SCH (09:36)
[2021-08-07] MEDS: SPIRONOLACTONE 25MG TABLET PO SCH (09:38)
[2021-08-07 12:01] VITALS: BP 102/60
[2021-08-07 16:00] VITALS: BP 100/45
[2021-08-07 20:00] VITALS: BP 105/52
[2021-08-07] MEDS: ATORVASTATIN CALCIUM 40MG TABLET PO SCH (20:46)
[2021-08-07] MEDS: INSULIN GLARGINE UD 100 UNITS/ML SYR SUBCUT SCH (20:49)
[2021-08-08] VITALS: BP 126/61
[2021-08-08] MEDS: DIPHENHYDRAMINE 50MG/ML VIAL IV PRN ×3 (01:05→21:32)
[2021-08-08 04:00] VITALS: BP 131/54
[2021-08-08] MEDS: SODIUM CHLORIDE 0.9% INJ 3ML FLUSH IVF SCH ×3 (06:00→21:31)
[2021-08-08] MEDS: BLOOD SUGAR DIAGNOSTIC STRIP TEST SCH ×4 (07:43→21:31)
[2021-08-08 08:00] VITALS: BP 135/76
[2021-08-08] MEDS: SPIRONOLACTONE 25MG TABLET PO SCH (08:18)
[2021-08-08] MEDS: CARVEDILOL 6.25 MG TABLET PO SCH ×2 (08:18→21:31)
[2021-08-08] MEDS: APIXABAN 5 MG TABLET PO SCH ×2 (08:18→17:21)
[2021-08-08] MEDS: ASPIRIN 81MG EC TABLET PO SCH (08:18)
[2021-08-08] MEDS: LISINOPRIL 5MG TABLET PO SCH (08:18)
[2021-08-08] MEDS: FUROSEMIDE 40MG TABLET PO SCH (08:18)
[2021-08-08] MEDS: AMLODIPINE 5MG TABLET PO SCH (08:19)
[2021-08-08] MEDS: KETOROLAC 30MG/ML VIAL IV PRN ×3 (08:19→21:32)
[2021-08-08] MEDS: INSULIN LISPRO 100 UNITS/ML SUBCUT SCH ×4 (08:28→21:33)
[2021-08-08 12:00] VITALS: BP 108/49
[2021-08-08] MEDS: DIPHENHYDRAMINE 25MG CAPSULE PO PRN (15:05)
[2021-08-08 16:00] VITALS: BP 111/60
[2021-08-08] MEDS: ATORVASTATIN CALCIUM 40MG TABLET PO SCH (21:30)
[2021-08-08] MEDS: INSULIN GLARGINE UD 100 UNITS/ML SYR SUBCUT SCH (21:32)
[2021-08-08 23:45] VITALS: BP 139/53
[2021-08-09] MEDS: KETOROLAC 30MG/ML VIAL IV PRN (01:43)
[2021-08-09] MEDS: DIPHENHYDRAMINE 25MG CAPSULE PO PRN ×2 (01:44→22:05)
[2021-08-09 04:00] VITALS: BP 111/53
[2021-08-09] MEDS: SODIUM CHLORIDE 0.9% INJ 3ML FLUSH IVF SCH ×3 (05:54→22:06)
[2021-08-09] MEDS: BLOOD SUGAR DIAGNOSTIC STRIP TEST SCH ×4 (07:06→21:00)
[2021-08-09 08:00] VITALS: BP 109/62
[2021-08-09] MEDS: INSULIN LISPRO 100 UNITS/ML SUBCUT SCH ×4 (08:10→21:00)
[2021-08-09] MEDS: AMLODIPINE 5MG TABLET PO SCH (09:00)
[2021-08-09] MEDS: CARVEDILOL 6.25 MG TABLET PO SCH ×2 (09:00→22:06)
[2021-08-09] MEDS: LISINOPRIL 5MG TABLET PO SCH (09:00)
[2021-08-09] MEDS: SPIRONOLACTONE 25MG TABLET PO SCH (09:23)
[2021-08-09] MEDS: APIXABAN 5 MG TABLET PO SCH ×2 (09:23→18:11)
[2021-08-09] MEDS: FUROSEMIDE 40MG TABLET PO SCH (09:23)
[2021-08-09] MEDS: ASPIRIN 81MG EC TABLET PO SCH (09:23)
[2021-08-09] MEDS: ACETAMINOPHEN 325MG TABLET PO PRN ×2 (09:24→14:39)
[2021-08-09 12:00] VITALS: BP 112/74
[2021-08-09 16:00] VITALS: BP 117/64
[2021-08-09 20:00] VITALS: BP 110/54
[2021-08-09] MEDS: ATORVASTATIN CALCIUM 40MG TABLET PO SCH (22:05)
[2021-08-09] MEDS: INSULIN GLARGINE UD 100 UNITS/ML SYR SUBCUT SCH (22:05)
[2021-08-10] VITALS: BP 105/61
[2021-08-10 04:00] VITALS: BP 114/59
[2021-08-10] MEDS: SODIUM CHLORIDE 0.9% INJ 3ML FLUSH IVF SCH ×3 (06:00→22:04)
[2021-08-10] MEDS: BLOOD SUGAR DIAGNOSTIC STRIP TEST SCH ×4 (07:44→21:25)
[2021-08-10] MEDS: INSULIN LISPRO 100 UNITS/ML SUBCUT SCH ×4 (07:45→22:07)
[2021-08-10] MEDS: ASPIRIN 81MG EC TABLET PO SCH (08:28)
[2021-08-10] MEDS: APIXABAN 5 MG TABLET PO SCH ×2 (08:28→16:49)
[2021-08-10] MEDS: DIPHENHYDRAMINE 50MG/ML VIAL IV PRN ×2 (08:36→22:05)
[2021-08-10] MEDS: AMLODIPINE 5MG TABLET PO SCH (08:51)
[2021-08-10] MEDS: CARVEDILOL 6.25 MG TABLET PO SCH ×2 (08:52→22:03)
[2021-08-10] MEDS: LISINOPRIL 5MG TABLET PO SCH (08:52)
[2021-08-10] MEDS: FUROSEMIDE 40MG TABLET PO SCH (08:53)
[2021-08-10] MEDS: SPIRONOLACTONE 25MG TABLET PO SCH (08:53)
[2021-08-10 12:00] VITALS: BP 127/58
[2021-08-10] MEDS: KETOROLAC 30MG/ML VIAL IV PRN (14:02)
[2021-08-10 16:00] VITALS: BP 135/74
[2021-08-10 20:00] VITALS: BP 152/83
[2021-08-10] MEDS: ATORVASTATIN CALCIUM 40MG TABLET PO SCH (22:03)
[2021-08-10] MEDS: INSULIN GLARGINE UD 100 UNITS/ML SYR SUBCUT SCH (22:09)
[2021-08-11] VITALS: BP 113/69
[2021-08-11 04:00] VITALS: BP 122/69
[2021-08-11] MEDS: BLOOD SUGAR DIAGNOSTIC STRIP TEST SCH ×4 (06:37→20:25)
[2021-08-11] MEDS: SODIUM CHLORIDE 0.9% INJ 3ML FLUSH IVF SCH ×3 (06:40→21:27)
[2021-08-11] MEDS: INSULIN LISPRO 100 UNITS/ML SUBCUT SCH ×4 (06:46→21:26)
[2021-08-11 08:00] VITALS: BP 103/53
[2021-08-11] MEDS: AMLODIPINE 5MG TABLET PO SCH (09:00)
[2021-08-11] MEDS: CARVEDILOL 6.25 MG TABLET PO SCH ×2 (09:00→21:25)
[2021-08-11] MEDS: LISINOPRIL 5MG TABLET PO SCH (09:00)
[2021-08-11] MEDS: DIPHENHYDRAMINE 50MG/ML VIAL IV PRN (09:21)
[2021-08-11] MEDS: APIXABAN 5 MG TABLET PO SCH ×2 (09:52→16:46)
[2021-08-11] MEDS: ASPIRIN 81MG EC TABLET PO SCH (09:52)
[2021-08-11] MEDS: FUROSEMIDE 40MG TABLET PO SCH (09:53)
[2021-08-11] MEDS: SPIRONOLACTONE 25MG TABLET PO SCH (09:55)
[2021-08-11 12:00] VITALS: BP 118/64
[2021-08-11 16:00] VITALS: BP 124/62
[2021-08-11] MEDS ORDERED: ISOS30TA91 PO (16:34)
[2021-08-11] MEDS ORDERED: POTA20TA82 MT (16:36)
[2021-08-11] MEDS ORDERED: GABA-533 PO (16:36)
[2021-08-11] MEDS: KETOROLAC 30MG/ML VIAL IV PRN ×2 (16:46→21:37)
[2021-08-11 20:00] VITALS: BP 144/81
[2021-08-11] MEDS: ATORVASTATIN CALCIUM 40MG TABLET PO SCH (21:25)
[2021-08-11] MEDS: INSULIN GLARGINE UD 100 UNITS/ML SYR SUBCUT SCH (21:27)
[2021-08-12] VITALS: BP 118/54
[2021-08-12] MEDS: DIPHENHYDRAMINE 50MG/ML VIAL IV PRN ×3 (01:58→17:59)
[2021-08-12 04:00] VITALS: BP 124/68
[2021-08-12] MEDS: BLOOD SUGAR DIAGNOSTIC STRIP TEST SCH ×4 (04:56→21:00)
[2021-08-12] MEDS: SODIUM CHLORIDE 0.9% INJ 3ML FLUSH IVF SCH ×3 (05:03→22:20)
[2021-08-12] MEDS: INSULIN LISPRO 100 UNITS/ML SUBCUT SCH ×4 (05:07→22:22)
[2021-08-12 08:00] VITALS: BP 127/70
[2021-08-12] MEDS: ASPIRIN 81MG EC TABLET PO SCH (09:36)
[2021-08-12] MEDS: APIXABAN 5 MG TABLET PO SCH ×3 (09:37→17:49)
[2021-08-12] MEDS: CARVEDILOL 6.25 MG TABLET PO SCH ×2 (09:37→21:00)
[2021-08-12] MEDS: AMLODIPINE 5MG TABLET PO SCH (09:37)
[2021-08-12] MEDS: SPIRONOLACTONE 25MG TABLET PO SCH (09:37)
[2021-08-12] MEDS: LISINOPRIL 5MG TABLET PO SCH (09:37)
[2021-08-12] MEDS: FUROSEMIDE 40MG TABLET PO SCH (09:37)
[2021-08-12 12:00] VITALS: BP 123/68
[2021-08-12] MEDS: KETOROLAC 30MG/ML VIAL IV PRN (14:13)
[2021-08-12 16:00] VITALS: BP 112/62
[2021-08-12 20:00] VITALS: BP 106/47
[2021-08-12] MEDS: ATORVASTATIN CALCIUM 40MG TABLET PO SCH (21:37)
[2021-08-12] MEDS: INSULIN GLARGINE UD 100 UNITS/ML SYR SUBCUT SCH (22:23)
[2021-08-13] VITALS: BP 141/75
[2021-08-13] MEDS: DIPHENHYDRAMINE 50MG/ML VIAL IV PRN ×2 (00:25→09:40)
[2021-08-13 04:00] VITALS: BP 128/77
[2021-08-13] MEDS: SODIUM CHLORIDE 0.9% INJ 3ML FLUSH IVF SCH ×3 (06:00→21:19)
[2021-08-13] MEDS: BLOOD SUGAR DIAGNOSTIC STRIP TEST SCH ×4 (06:54→21:11)
[2021-08-13] MEDS: INSULIN LISPRO 100 UNITS/ML SUBCUT SCH ×4 (07:40→21:59)
[2021-08-13 08:00] VITALS: BP 127/70
[2021-08-13] MEDS: FUROSEMIDE 40MG TABLET PO SCH (08:47)
[2021-08-13] MEDS: AMLODIPINE 5MG TABLET PO SCH (08:48)
[2021-08-13] MEDS: ASPIRIN 81MG EC TABLET PO SCH (08:48)
[2021-08-13] MEDS: CARVEDILOL 6.25 MG TABLET PO SCH ×2 (08:48→21:54)
[2021-08-13] MEDS: LISINOPRIL 5MG TABLET PO SCH ×2 (08:49→09:47)
[2021-08-13] MEDS: SPIRONOLACTONE 25MG TABLET PO SCH (08:50)
[2021-08-13 12:00] VITALS: BP 119/65
[2021-08-13] MEDS: KETOROLAC 30MG/ML VIAL IV PRN (15:47)
[2021-08-13 16:00] VITALS: BP 131/68
[2021-08-13] MEDS: APIXABAN 5 MG TABLET PO SCH (17:30)
[2021-08-13 20:00] VITALS: BP 124/64
[2021-08-13] MEDS: ATORVASTATIN CALCIUM 40MG TABLET PO SCH (21:19)
[2021-08-13] MEDS: DIPHENHYDRAMINE 25MG CAPSULE PO PRN (21:19)
[2021-08-13] MEDS: INSULIN GLARGINE UD 100 UNITS/ML SYR SUBCUT SCH (21:59)
[2021-08-14] VITALS: BP 126/72
[2021-08-14] MEDS: DIPHENHYDRAMINE 50MG/ML VIAL IV PRN ×4 (01:28→23:55)
[2021-08-14 04:00] VITALS: BP 126/71
[2021-08-14] MEDS: BLOOD SUGAR DIAGNOSTIC STRIP TEST SCH ×4 (05:59→20:37)
[2021-08-14] MEDS: INSULIN LISPRO 100 UNITS/ML SUBCUT SCH ×4 (06:06→21:13)
[2021-08-14] MEDS: SODIUM CHLORIDE 0.9% INJ 3ML FLUSH IVF SCH ×3 (06:07→21:12)
[2021-08-14 08:00] VITALS: BP 103/69
[2021-08-14] MEDS: CARVEDILOL 6.25 MG TABLET PO SCH ×2 (08:04→20:33)
[2021-08-14] MEDS: AMLODIPINE 5MG TABLET PO SCH (08:04)
[2021-08-14] MEDS: LISINOPRIL 5MG TABLET PO SCH (08:05)
[2021-08-14] MEDS: APIXABAN 5 MG TABLET PO SCH ×2 (08:15→17:56)
[2021-08-14] MEDS: SPIRONOLACTONE 25MG TABLET PO SCH (08:15)
[2021-08-14] MEDS: FUROSEMIDE 40MG TABLET PO SCH (08:15)
[2021-08-14] MEDS: ASPIRIN 81MG EC TABLET PO SCH (08:15)
[2021-08-14 08:19] LABS: HEMATOCRIT 29.2 % (42.0-52.0); MEAN CORPUSCULAR HEMOGLOBIN 32.8 pg (28.0-32.0); MEAN CORPUSCULAR VOLUME 96.1 fL (80.0-94.0); PLATELET 414 x1000/uL (130-400); RED BLOOD CELL COUNT 3.03 mill/uL (4.7-6.1); RED CELL DISTRIBUTION WIDTH 16.4 % (11.6-14.6)
[2021-08-14 08:31] LABS: CHLORIDE 107 mEq/L (98-107)
[2021-08-14 12:00] VITALS: BP 115/49
[2021-08-14] MEDS: KETOROLAC 30MG/ML VIAL IV PRN (14:02)
[2021-08-14 16:00] VITALS: BP 121/52
[2021-08-14 20:00] VITALS: BP 137/68
[2021-08-14] MEDS: ATORVASTATIN CALCIUM 40MG TABLET PO SCH (20:33)
[2021-08-14] MEDS: INSULIN GLARGINE UD 100 UNITS/ML SYR SUBCUT SCH (21:14)
[2021-08-15] VITALS: BP 146/72
[2021-08-15] MEDS: KETOROLAC 30MG/ML VIAL IV PRN ×2 (03:49→14:26)
[2021-08-15 04:00] VITALS: BP 144/76
[2021-08-15] MEDS: SODIUM CHLORIDE 0.9% INJ 3ML FLUSH IVF SCH ×3 (05:13→21:49)
[2021-08-15] MEDS: BLOOD SUGAR DIAGNOSTIC STRIP TEST SCH ×4 (06:32→21:26)
[2021-08-15] MEDS: INSULIN LISPRO 100 UNITS/ML SUBCUT SCH ×4 (06:33→21:50)
[2021-08-15 08:00] VITALS: BP 127/59
[2021-08-15] MEDS: FUROSEMIDE 40MG TABLET PO SCH (08:19)
[2021-08-15] MEDS: APIXABAN 5 MG TABLET PO SCH ×2 (08:19→18:05)
[2021-08-15] MEDS: ASPIRIN 81MG EC TABLET PO SCH (08:19)
[2021-08-15] MEDS: AMLODIPINE 5MG TABLET PO SCH (08:19)
[2021-08-15] MEDS: LISINOPRIL 5MG TABLET PO SCH (08:19)
[2021-08-15] MEDS: CARVEDILOL 6.25 MG TABLET PO SCH ×3 (08:19→21:26)
[2021-08-15] MEDS: SPIRONOLACTONE 25MG TABLET PO SCH (08:19)
[2021-08-15] MEDS: DIPHENHYDRAMINE 50MG/ML VIAL IV PRN ×3 (08:52→23:57)
[2021-08-15 12:00] VITALS: BP 111/49
[2021-08-15 16:00] VITALS: BP 121/52
[2021-08-15 20:00] VITALS: BP 136/45
[2021-08-15] MEDS: ATORVASTATIN CALCIUM 40MG TABLET PO SCH (21:25)
[2021-08-15] MEDS: INSULIN GLARGINE UD 100 UNITS/ML SYR SUBCUT SCH (21:49)
[2021-08-16] VITALS (7 sets, daily range): BP systolic 106–141; BP diastolic 55–93
[2021-08-16] MEDS: DIPHENHYDRAMINE 25MG CAPSULE PO PRN (03:03)
[2021-08-16] MEDS: BLOOD SUGAR DIAGNOSTIC STRIP TEST SCH ×4 (06:08→20:36)
[2021-08-16] MEDS: SODIUM CHLORIDE 0.9% INJ 3ML FLUSH IVF SCH ×3 (06:08→21:08)
[2021-08-16] MEDS: INSULIN LISPRO 100 UNITS/ML SUBCUT SCH ×4 (06:10→20:36)
[2021-08-16] MEDS: AMLODIPINE 5MG TABLET PO SCH (09:00)
[2021-08-16] MEDS: APIXABAN 5 MG TABLET PO SCH ×2 (09:06→17:51)
[2021-08-16] MEDS: LISINOPRIL 5MG TABLET PO SCH (09:06)
[2021-08-16] MEDS: ASPIRIN 81MG EC TABLET PO SCH (09:06)
[2021-08-16] MEDS: FUROSEMIDE 40MG TABLET PO SCH (09:06)
[2021-08-16] MEDS: CARVEDILOL 6.25 MG TABLET PO SCH ×2 (09:07→20:34)
[2021-08-16] MEDS: DIPHENHYDRAMINE 50MG/ML VIAL IV PRN ×3 (09:07→21:07)
[2021-08-16] MEDS: SPIRONOLACTONE 25MG TABLET PO SCH (09:08)
[2021-08-16] MEDS: ATORVASTATIN CALCIUM 40MG TABLET PO SCH (20:34)
[2021-08-16] MEDS: INSULIN GLARGINE UD 100 UNITS/ML SYR SUBCUT SCH (21:08)
[2021-08-17] MEDS: DIPHENHYDRAMINE 50MG/ML VIAL IV PRN (00:03)
[2021-08-17] MEDS: ACETAMINOPHEN 325MG TABLET PO PRN (01:53)
[2021-08-17] MEDS ORDERED: KETOROLAC 30MG/ML VIAL IV PRN ×2 (02:15→20:15)
[2021-08-17 04:00] VITALS: BP 110/44
[2021-08-17] MEDS: BLOOD SUGAR DIAGNOSTIC STRIP TEST SCH ×4 (06:00→20:04)
[2021-08-17] MEDS: SODIUM CHLORIDE 0.9% INJ 3ML FLUSH IVF SCH ×3 (06:01→21:04)
[2021-08-17] MEDS: INSULIN LISPRO 100 UNITS/ML SUBCUT SCH ×4 (06:08→20:04)
[2021-08-17 08:00] VITALS: BP 126/69
[2021-08-17] MEDS: SPIRONOLACTONE 25MG TABLET PO SCH (08:51)
[2021-08-17] MEDS: AMLODIPINE 5MG TABLET PO SCH (08:51)
[2021-08-17] MEDS: LISINOPRIL 5MG TABLET PO SCH (08:52)
[2021-08-17] MEDS: APIXABAN 5 MG TABLET PO SCH ×2 (08:52→18:36)
[2021-08-17] MEDS: ASPIRIN 81MG EC TABLET PO SCH (08:52)
[2021-08-17] MEDS: FUROSEMIDE 40MG TABLET PO SCH (08:52)
[2021-08-17] MEDS: CARVEDILOL 6.25 MG TABLET PO SCH ×2 (08:53→21:04)
[2021-08-17] MEDS: DIPHENHYDRAMINE 25MG CAPSULE PO PRN ×2 (09:14→23:01)
[2021-08-17 20:00] VITALS: BP 122/58
[2021-08-17] MEDS: ATORVASTATIN CALCIUM 40MG TABLET PO SCH (21:04)
[2021-08-17] MEDS: IBUPROFEN 600MG TABLET PO PRN (21:04)
[2021-08-17] MEDS ORDERED: INSULIN GLARGINE UD 100 UNITS/ML SYR SUBCUT SCH (22:00)
[2021-08-18] VITALS: BP 138/66
[2021-08-18 04:00] VITALS: BP 121/45
[2021-08-18] MEDS: DIPHENHYDRAMINE 50MG/ML VIAL IV PRN ×3 (04:01→16:10)
[2021-08-18] MEDS: BLOOD SUGAR DIAGNOSTIC STRIP TEST SCH ×3 (05:50→16:49)
[2021-08-18] MEDS: SODIUM CHLORIDE 0.9% INJ 3ML FLUSH IVF SCH ×2 (06:15→14:00)
[2021-08-18] MEDS: INSULIN LISPRO 100 UNITS/ML SUBCUT SCH ×3 (06:16→16:50)
[2021-08-18 08:00] VITALS: BP 132/59
[2021-08-18] MEDS: SPIRONOLACTONE 25MG TABLET PO SCH (08:50)
[2021-08-18] MEDS: LISINOPRIL 5MG TABLET PO SCH (08:50)
[2021-08-18] MEDS: AMLODIPINE 5MG TABLET PO SCH (08:50)
[2021-08-18] MEDS: ASPIRIN 81MG EC TABLET PO SCH (08:51)
[2021-08-18] MEDS: APIXABAN 5 MG TABLET PO SCH ×2 (08:51→16:49)
[2021-08-18] MEDS: CARVEDILOL 6.25 MG TABLET PO SCH (08:51)
[2021-08-18] MEDS: FUROSEMIDE 40MG TABLET PO SCH (08:51)
[2021-08-18 12:00] VITALS: BP 118/56
[2021-08-18] MEDS: IBUPROFEN 600MG TABLET PO PRN (13:35)
[2021-08-18 14:00] VITALS: BP 118/56
[2021-08-18 16:00] VITALS: BP 126/60
== END 2021-08-18 18:25 | DRG 177 ==
LOC: ER 20:37 → MICUSO 07-31 02:10 → 7WST 07-31 07:23 → 8WST 08-10 14:33
PROVIDERS: ADMIT Internal Medicine; ATTEND Internal Medicine
DX: U07.1 COVID-19 (principal); J12.82 Pneumonia due to coronavirus disease 2019; J44.0 Chronic obstructive pulmonary disease with (acute) lower respiratory infection; I50.22 Chronic systolic (congestive) heart failure; I82.512 Chronic embolism and thrombosis of left femoral vein; E11.9 Type 2 diabetes mellitus without complications; E78.00 Pure hypercholesterolemia, unspecified; I11.0 Hypertensive heart disease with heart failure; Z89.612 Acquired absence of left leg above knee; I48.91 Unspecified atrial fibrillation; Z89.512 Acquired absence of left leg below knee; Z95.5 Presence of coronary angioplasty implant and graft; Z95.810 Presence of automatic (implantable) cardiac defibrillator; I69.328 Other speech and language deficits following cerebral infarction; Z79.01 Long term (current) use of anticoagulants; Z79.82 Long term (current) use of aspirin; Z79.899 Other long term (current) drug therapy; Z79.84 Long term (current) use of oral hypoglycemic drugs; Z87.891 Personal history of nicotine dependence
CPT/HCPCS: 36415; 71045; 71275; 80048; 80053; 82962; 83605; 83735; 83880; 84100; 84145; 84484; 85025; 85027; 86140; 87426; 93005; 93970; 97161; 97165; 99285; C1893; J0456; J0696; J1200; J1650; J1815; J1885; J1940; J2270; J2405; J3475; J3490; J7060; Q0163; Q9967; U0003; U0005

== ENCOUNTER 2022-03-26 08:26 | Emergency (ER) | payer BC, MEDICAID ==
[~2022-03-26] VITALS: Ht 167.6 cm; Wt 91.0 kg
[~2022-03-26 08:26] MED LIST changes: -ALBU90AE INH; +AMLO5TAB88 MT; -ATOR10TA PO; +ATOR40TA70 MT; +BISA10SU62 RC; +CLON-457 PO; +EMPA10TA MT; +FURO40TA5 MT; +INSU100I28 SQ; +INSU100V37 SQ; +LISI-186 MT; +MOM PO; +MULT-188 PO; +REPA0.5T5 MT; +SPIR25TA MT; +VIT500TA8 PO
[2022-03-26] MEDS ORDERED: MORPHINE SULFATE 4 MG/ML CPJ (NOT FOR IM USE) IV ONE (09:45)
[2022-03-26 09:47] LABS: BASOPHILS % 0.9 % (0.0-2.0); EOSINOPHILS % 4.3 % (0.0-5.0); HEMOGLOBIN. 13.8 g/dL (14.0-18.0); LYMPHOCYTES % 29.2 % (20.0-50.0); MEAN CORPUSCULAR HEMOGLOBIN 30.3 pg (28.0-32.0); MEAN CORPUSCULAR VOLUME 94.2 fL (80.0-94.0); MONOCYTES % 6.6 % (2.0-8.0); PLATELET 334 x1000/uL (130-400); RED BLOOD CELL COUNT 4.56 mill/uL (4.7-6.1); RED CELL DISTRIBUTION WIDTH 15.9 % (11.6-14.6)
[2022-03-26 09:56] LABS: CHLORIDE 114 mEq/L (98-107)
[2022-03-26] MEDS ORDERED: DIPHENHYDRAMINE 50MG/ML VIAL IV ONE (10:30)
[2022-03-26 13:32] VITALS: BP 128/76
== END 2022-03-26 13:34 | disposition short-term general hospital (02) ==
LOC: ER 08:26
DX: R07.89 Other chest pain (principal); Z79.899 Other long term (current) drug therapy; I25.2 Old myocardial infarction; I10 Essential (primary) hypertension; J45.909 Unspecified asthma, uncomplicated; Z20.822 Contact with and (suspected) exposure to COVID-19; Z86.73 Personal history of transient ischemic attack (TIA), and cerebral infarction without residual deficits
CPT/HCPCS: 36415; 71045; 80053; 83690; 83880; 84484; 85025; 87426; 93005; 96374; 96375; 99285; J1200; J2270

== ENCOUNTER 2022-04-01 23:19 | Emergency (ER) | payer BC, MEDICAID ==
[~2022-04-01] VITALS: Ht 172.7 cm; Wt 80.0 kg
[2022-04-02] MEDS ORDERED: ACETAMINOPHEN 325MG TABLET PO ONE (01:45)
[2022-04-02 05:45] VITALS: BP 152/87
== END 2022-04-02 05:51 | disposition home or self-care (01) ==
LOC: ER 23:19
DX: R07.89 Other chest pain (principal); E11.9 Type 2 diabetes mellitus without complications; J45.909 Unspecified asthma, uncomplicated; I11.0 Hypertensive heart disease with heart failure; I50.9 Heart failure, unspecified; Z79.899 Other long term (current) drug therapy; Z86.73 Personal history of transient ischemic attack (TIA), and cerebral infarction without residual deficits
CPT/HCPCS: 71045; 93005; 99283

== ENCOUNTER 2022-04-18 21:27 | Emergency (ER) | payer BC, MEDICAID ==
[~2022-04-18] VITALS: Ht 162.6 cm; Wt 80.0 kg
[2022-04-18] MEDS ORDERED: ASPIRIN 81MG TABLET PO ONE (22:45)
[2022-04-18 23:29] LABS: BASOPHILS % 1.2 % (0.0-2.0); EOSINOPHILS % 4.7 % (0.0-5.0); HEMATOCRIT. 44.2 % (42.0-52.0); HEMOGLOBIN. 14.5 g/dL (14.0-18.0); LYMPHOCYTES % 26.3 % (20.0-50.0); MEAN CORPUSCULAR VOLUME 94.4 fL (80.0-94.0); MEAN PLATELET VOLUME 8.3 fl (7.4-10.4); MONOCYTES % 7.5 % (2.0-8.0); NEUTROPHILS % 60.3 % (40.0-76.0); PLATELET 273 x1000/uL (130-400); RED BLOOD CELL COUNT 4.68 mill/uL (4.7-6.1); RED CELL DISTRIBUTION WIDTH 15.4 % (11.6-14.6)
[2022-04-18 23:37] LABS: CHLORIDE 111 mEq/L (98-107)
[2022-04-19] MEDS ORDERED: ASPIRIN 81MG TABLET PO SCH (03:45)
[2022-04-19] MEDS ORDERED: KETOROLAC 15MG/ML VIAL IM ONE (03:45)
[2022-04-19 10:37] VITALS: BP 142/81
== END 2022-04-19 11:05 | disposition home or self-care (01) ==
LOC: ER 21:27
DX: R07.89 Other chest pain (principal); Z95.0 Presence of cardiac pacemaker; Z95.5 Presence of coronary angioplasty implant and graft; Z79.82 Long term (current) use of aspirin; Z79.899 Other long term (current) drug therapy
CPT/HCPCS: 36415; 71045; 80053; 82962; 83880; 84484; 85025; 93005; 96372; 99285; J1885

== ENCOUNTER 2022-05-16 00:15 | Inpatient (IN) | payer BC, MEDICAID ==
[~2022-05-16] VITALS: Ht 170.2 cm; Wt 81.6 kg
[2022-05-16 01:26] LABS: EOSINOPHILS % 2.7 % (0.0-5.0); HEMOGLOBIN. 13.7 g/dL (14.0-18.0); LYMPHOCYTES % 23.6 % (20.0-50.0); MEAN CORPUSCULAR HEMOGLOBIN 29.9 pg (28.0-32.0); MEAN CORPUSCULAR VOLUME 91.7 fL (80.0-94.0); MEAN PLATELET VOLUME 7.5 fl (7.4-10.4); MONOCYTES % 8.2 % (2.0-8.0); NEUTROPHILS % 64.5 % (40.0-76.0); PLATELET 295 x1000/uL (130-400); RED BLOOD CELL COUNT 4.59 mill/uL (4.7-6.1); RED CELL DISTRIBUTION WIDTH 15.2 % (11.6-14.6)
[2022-05-16 01:32] LABS: CHLORIDE 110 mEq/L (98-107)
[2022-05-16] MEDS ORDERED: ACETAMINOPHEN 325MG TABLET PO ONE (06:45)
[2022-05-16] MEDS ORDERED: DIPHENHYDRAMINE 25MG CAPSULE PO PRN ×2 (09:45→11:30)
[2022-05-16] MEDS ORDERED: HYDROCODONE/ACETAMINOPHEN 5/325MG TABLET PO PRN ×2 (09:45→11:30)
[2022-05-16] MEDS ORDERED: NALOXONE HCL 0.4MG/ML VIAL IV PRN ×2 (10:00→11:45)
[2022-05-16] MEDS ORDERED: CLONIDINE 0.1MG TABLET PO PRN (11:30)
[2022-05-16] MEDS ORDERED: IPRATROPIUM/ALBUTEROL 0.5-3(2.5)MG/3ML NEB HHN PRN (11:30)
[2022-05-16] MEDS ORDERED: ONDANSETRON HCL 4MG/2ML INJ IV PRN (11:30)
[2022-05-16] MEDS ORDERED: DOCUSATE SODIUM 100MG CAPSULE PO PRN (11:30)
[2022-05-16] MEDS ORDERED: ACETAMINOPHEN 325MG TABLET PO PRN (11:30)
[2022-05-16 12:06] VITALS: BP 141/66
[2022-05-16] MEDS ORDERED: PNEUMOCOCCAL 23-VAL P-SAC VAC 0.5 ML IM ONE (17:00)
[2022-05-16 20:00] VITALS: BP 139/80
[2022-05-16] MEDS ORDERED: DEXTROSE 50% WATER 50ML SYRINGE IV PRN ×2 (20:00)
[2022-05-16] MEDS: BLOOD SUGAR DIAGNOSTIC STRIP TEST SCH (21:21)
[2022-05-16] MEDS: ACETAMINOPHEN 325MG TABLET PO PRN (21:23)
[2022-05-16] MEDS: INSULIN LISPRO 100 UNITS/ML SUBCUT SCH (21:29)
[2022-05-16] MEDS: LORAZEPAM 0.5MG TABLET PO PRN (22:39)
[2022-05-16] MEDS: NITROGLYCERIN 0.4MG TABLET SL SL PRN ×3 (22:40→22:51)
[2022-05-17] VITALS: BP 124/63
[2022-05-17 04:00] VITALS: BP 137/68
[2022-05-17] MEDS: LORAZEPAM 0.5MG TABLET PO PRN (04:19)
[2022-05-17] MEDS: BLOOD SUGAR DIAGNOSTIC STRIP TEST SCH ×2 (06:20→12:20)
[2022-05-17 07:02] LABS: EOSINOPHILS % 3.9 % (0.0-5.0); HEMATOCRIT. 43.4 % (42.0-52.0); LYMPHOCYTES % 33.6 % (20.0-50.0); MEAN CORPUSCULAR HEMOGLOBIN 29.8 pg (28.0-32.0); MEAN CORPUSCULAR VOLUME 92.3 fL (80.0-94.0); MEAN PLATELET VOLUME 9.2 fl (7.4-10.4); MONOCYTES % 8.7 % (2.0-8.0); NEUTROPHILS % 52.8 % (40.0-76.0); PLATELET 265 x1000/uL (130-400); RED CELL DISTRIBUTION WIDTH 15.2 % (11.6-14.6)
[2022-05-17 07:15] LABS: CHLORIDE 108 mEq/L (98-107)
[2022-05-17 08:00] VITALS: BP 146/81
[2022-05-17 08:16] LABS: *AMPHETAMINES SCREEN URINE NEGATIVE (NEGATIVE); *BARBITURATES SCREEN URINE NEGATIVE (NEGATIVE); *BENZODIAZEPINES SCREEN URINE NEGATIVE (NEGATIVE); *COCAINE SCREEN URINE NEGATIVE (NEGATIVE); CANNABINOID URINE SCREEN NEGATIVE (NEGATIVE); METHADONE URINE SCREEN NEGATIVE (NEGATIVE); OPIATES URINE SCREEN NEGATIVE (NEGATIVE); PHENCYCLIDINE URINE SCREEN NEGATIVE (NEGATIVE)
[2022-05-17] MEDS: INSULIN LISPRO 100 UNITS/ML SUBCUT SCH ×2 (09:16→14:01)
[2022-05-17] MEDS: ACETAMINOPHEN 325MG TABLET PO PRN (11:35)
[2022-05-17 12:00] VITALS: BP 139/71
[2022-05-17 14:39] VITALS: BP 139/71
[2022-05-17 16:00] VITALS: BP 144/83
== END 2022-05-17 18:11 | DRG 205 ==
LOC: ER 00:15 → ENRESERV 07:32 → 6WST 08:43
PROVIDERS: ADMIT Internal Medicine; ATTEND Internal Medicine
DX: M94.0 Chondrocostal junction syndrome [Tietze] (principal); I50.23 Acute on chronic systolic (congestive) heart failure; I11.0 Hypertensive heart disease with heart failure; I25.10 Atherosclerotic heart disease of native coronary artery without angina pectoris; E78.5 Hyperlipidemia, unspecified; E11.51 Type 2 diabetes mellitus with diabetic peripheral angiopathy without gangrene; I48.91 Unspecified atrial fibrillation; Z76.5 Malingerer [conscious simulation]; Z82.49 Family history of ischemic heart disease and other diseases of the circulatory system; Z83.3 Family history of diabetes mellitus; Z86.73 Personal history of transient ischemic attack (TIA), and cerebral infarction without residual deficits; Z79.01 Long term (current) use of anticoagulants; Z79.84 Long term (current) use of oral hypoglycemic drugs; Z79.4 Long term (current) use of insulin; Z79.899 Other long term (current) drug therapy; Z79.82 Long term (current) use of aspirin; Z89.612 Acquired absence of left leg above knee; Z95.0 Presence of cardiac pacemaker
CPT/HCPCS: 36415; 71045; 80048; 80053; 80305; 82962; 83036; 83880; 84484; 85025; 93005; 99285; J1815; Q0163

== ENCOUNTER 2022-05-30 23:30 | Emergency (ER) | payer OTHER, MEDICAID ==
[~2022-05-30] VITALS: Ht 177.8 cm; Wt 100.0 kg
[~2022-05-30 23:30] MED LIST changes: -LISI-186 MT
[2022-05-31 01:16] LABS: EOSINOPHILS % 4.7 % (0.0-5.0); HEMATOCRIT. 43.3 % (42.0-52.0); HEMOGLOBIN. 13.9 g/dL (14.0-18.0); LYMPHOCYTES % 28.2 % (20.0-50.0); MEAN CORPUSCULAR HEMOGLOBIN 29.8 pg (28.0-32.0); MEAN CORPUSCULAR VOLUME 93.2 fL (80.0-94.0); MEAN PLATELET VOLUME 8.2 fl (7.4-10.4); MONOCYTES % 7.7 % (2.0-8.0); NEUTROPHILS % 58.4 % (40.0-76.0); PLATELET 286 x1000/uL (130-400); RED BLOOD CELL COUNT 4.65 mill/uL (4.7-6.1); RED CELL DISTRIBUTION WIDTH 15.8 % (11.6-14.6)
[2022-05-31 01:27] LABS: CHLORIDE 109 mEq/L (98-107)
[2022-05-31 08:22] VITALS: BP 130/80
== END 2022-05-31 08:23 ==
LOC: ER 23:30
DX: R07.89 Other chest pain (principal); I11.0 Hypertensive heart disease with heart failure; I50.9 Heart failure, unspecified; I49.3 Ventricular premature depolarization; E11.9 Type 2 diabetes mellitus without complications; Z86.73 Personal history of transient ischemic attack (TIA), and cerebral infarction without residual deficits; J44.9 Chronic obstructive pulmonary disease, unspecified
CPT/HCPCS: 36415; 71045; 80053; 84484; 85025; 93005; 99285

== ENCOUNTER 2022-07-15 20:20 | Inpatient (IN) | payer MEDICARE, MEDICAID ==
[~2022-07-15] VITALS: Ht 170.2 cm; Wt 78.0 kg
[2022-07-15] MEDS ORDERED: MORPHINE SULFATE 4 MG/ML CPJ (NOT FOR IM USE) IV ONE (21:30)
[2022-07-15 21:41] LABS: BASOPHILS % 0.9 % (0.0-2.0); EOSINOPHILS % 4.4 % (0.0-5.0); HEMATOCRIT. 42.3 % (42.0-52.0); HEMOGLOBIN. 13.8 g/dL (14.0-18.0); LYMPHOCYTES % 25.9 % (20.0-50.0); MEAN CORPUSCULAR HEMOGLOBIN 29.8 pg (28.0-32.0); MEAN CORPUSCULAR VOLUME 91.6 fL (80.0-94.0); MEAN PLATELET VOLUME 8.1 fl (7.4-10.4); MONOCYTES % 8.4 % (2.0-8.0); NEUTROPHILS % 60.4 % (40.0-76.0); PLATELET 261 x1000/uL (130-400); RED BLOOD CELL COUNT 4.62 mill/uL (4.7-6.1); RED CELL DISTRIBUTION WIDTH 16.9 % (11.6-14.6)
[2022-07-15 21:47] LABS: CHLORIDE 107 mEq/L (98-107)
[2022-07-15] MEDS ORDERED: ASPIRIN 325MG TABLET PO ONE (22:15)
[2022-07-15] MEDS ORDERED: DIPHENHYDRAMINE 50MG/ML VIAL IV ONE (22:45)
[2022-07-16] MEDS ORDERED: HYDR26CR2 TP (00:38)
[2022-07-16] MEDS ORDERED: MORPHINE SULFATE 2 MG/ML CPJ (NOT FOR IM USE) IV ONE (01:45)
[2022-07-16] MEDS ORDERED: HYDROCODONE/ACETAMINOPHEN 5/325MG TABLET PO ONE (11:30)
[2022-07-16 17:43] VITALS: BP 116/94
[2022-07-16 20:00] VITALS: BP 143/87
[2022-07-16] MEDS ORDERED: DEXTROSE 50% WATER 50ML SYRINGE IV PRN (23:15)
[2022-07-16] MEDS: ATORVASTATIN CALCIUM 40MG TABLET PO SCH (23:34)
[2022-07-16] MEDS: MORPHINE SULFATE 2 MG/ML CPJ (NOT FOR IM USE) IV PRN (23:37)
[2022-07-17] VITALS: BP 138/63
[2022-07-17] MEDS: DIPHENHYDRAMINE 25MG CAPSULE PO PRN ×3 (00:44→23:38)
[2022-07-17 04:00] VITALS: BP 129/61
[2022-07-17] MEDS: BLOOD SUGAR DIAGNOSTIC STRIP TEST SCH ×4 (06:12→20:16)
[2022-07-17] MEDS: PANTOPRAZOLE 40MG DR TABLET PO SCH (06:16)
[2022-07-17] MEDS: INSULIN LISPRO 100 UNITS/ML SUBCUT SCH ×4 (06:53→20:59)
[2022-07-17 08:00] VITALS: BP 112/48
[2022-07-17] MEDS: ASPIRIN 81MG TABLET PO SCH (08:52)
[2022-07-17] MEDS: APIXABAN 5 MG TABLET PO SCH ×2 (08:52→17:41)
[2022-07-17] MEDS: MORPHINE SULFATE 2 MG/ML CPJ (NOT FOR IM USE) IV PRN (09:58)
[2022-07-17 12:00] VITALS: BP 137/69
[2022-07-17 12:27] LABS: CHLORIDE 108 mEq/L (98-107)
[2022-07-17 16:00] VITALS: BP 140/62
[2022-07-17] MEDS: HYDROCODONE/ACETAMINOPHEN 5/325MG TABLET PO PRN (17:42)
[2022-07-17] MEDS ORDERED: NALOXONE HCL 0.4MG/ML VIAL IV PRN (18:30)
[2022-07-17 20:00] VITALS: BP 149/81
[2022-07-17] MEDS: CARVEDILOL 3.125 MG TABLET PO SCH (20:58)
[2022-07-17] MEDS: ATORVASTATIN CALCIUM 40MG TABLET PO SCH (20:58)
[2022-07-18] VITALS: BP 138/74
[2022-07-18] MEDS: HYDROCODONE/ACETAMINOPHEN 5/325MG TABLET PO PRN (01:13)
[2022-07-18] MEDS: BLOOD SUGAR DIAGNOSTIC STRIP TEST SCH (06:49)
[2022-07-18] MEDS: PANTOPRAZOLE 40MG DR TABLET PO SCH (06:52)
[2022-07-18] MEDS: INSULIN LISPRO 100 UNITS/ML SUBCUT SCH (06:53)
[2022-07-18 07:43] VITALS: BP 120/69
[2022-07-18] MEDS: CARVEDILOL 3.125 MG TABLET PO SCH (08:09)
[2022-07-18] MEDS: DIPHENHYDRAMINE 25MG CAPSULE PO PRN (08:09)
[2022-07-18] MEDS: APIXABAN 5 MG TABLET PO SCH (08:09)
[2022-07-18] MEDS: ASPIRIN 81MG TABLET PO SCH (08:09)
[2022-07-18] MEDS ORDERED: FUROSEMIDE 40MG TABLET PO SCH (09:00)
== END 2022-07-18 09:02 | DRG 291 ==
LOC: ER 20:20 → EDBEDREQ 07-16 13:52 → EDBEDREQTM 07-16 13:52 → EDBEDREQ 07-16 15:15 → ENRESERV 07-16 15:15 → 8WST 07-16 16:42
PROVIDERS: ADMIT Internal Medicine; ATTEND Internal Medicine
DX: I11.0 Hypertensive heart disease with heart failure (principal); I50.23 Acute on chronic systolic (congestive) heart failure; E11.9 Type 2 diabetes mellitus without complications; J44.9 Chronic obstructive pulmonary disease, unspecified; L02.32 Furuncle of buttock; Z76.5 Malingerer [conscious simulation]; Z86.73 Personal history of transient ischemic attack (TIA), and cerebral infarction without residual deficits; Z89.612 Acquired absence of left leg above knee; Z95.0 Presence of cardiac pacemaker; Z83.3 Family history of diabetes mellitus; Z82.49 Family history of ischemic heart disease and other diseases of the circulatory system
CPT/HCPCS: 36415; 71045; 80048; 80053; 82962; 83036; 83735; 83880; 84484; 85025; 85379; 93005; 93306; 99285; J1200; J1815; J2270; Q0163

== ENCOUNTER 2022-07-28 21:28 | Emergency (ER) | payer MEDICARE, MEDICAID ==
[~2022-07-28] VITALS: Ht 172.7 cm; Wt 82.0 kg
[~2022-07-28 21:28] MED LIST changes: +HYDR26CR2 TP
[2022-07-28] MEDS ORDERED: LIDOCAINE HCL 4% CREAM 76GM TUBE TP STA (23:58)
[2022-07-29] MEDS ORDERED: PHEN51CR24 TP (00:05)
[2022-07-29] MEDS ORDERED: LIDO35.421 TP (00:05)
[2022-07-29 01:36] LABS: BASOPHILS % 0.8 % (0.0-2.0); EOSINOPHILS % 6.1 % (0.0-5.0); HEMATOCRIT. 43.5 % (42.0-52.0); HEMOGLOBIN. 14.4 g/dL (14.0-18.0); LYMPHOCYTES % 28.3 % (20.0-50.0); MEAN CORPUSCULAR HEMOGLOBIN 30.4 pg (28.0-32.0); MEAN CORPUSCULAR VOLUME 91.9 fL (80.0-94.0); MEAN PLATELET VOLUME 8.1 fl (7.4-10.4); MONOCYTES % 7.1 % (2.0-8.0); NEUTROPHILS % 57.7 % (40.0-76.0); PLATELET 279 x1000/uL (130-400); RED BLOOD CELL COUNT 4.73 mill/uL (4.7-6.1); RED CELL DISTRIBUTION WIDTH 16.7 % (11.6-14.6)
[2022-07-29 01:46] LABS: CHLORIDE 108 mEq/L (98-107)
[2022-07-29] MEDS ORDERED: MORPHINE SULFATE 2 MG/ML CPJ (NOT FOR IM USE) IV ONE (02:45)
[2022-07-29] MEDS ORDERED: DIPHENHYDRAMINE 25MG CAPSULE PO ONE (04:00)
[2022-07-29] MEDS ORDERED: ACETAMINOPHEN 325MG TABLET PO ONE (10:45)
[2022-07-29 12:00] VITALS: BP 141/72
== END 2022-07-29 14:19 | disposition home or self-care (01) ==
LOC: ER 21:28
DX: K64.4 Residual hemorrhoidal skin tags (principal); I11.0 Hypertensive heart disease with heart failure; I50.9 Heart failure, unspecified; J44.9 Chronic obstructive pulmonary disease, unspecified; E11.9 Type 2 diabetes mellitus without complications; I10 Essential (primary) hypertension; Z87.01 Personal history of pneumonia (recurrent); Z86.73 Personal history of transient ischemic attack (TIA), and cerebral infarction without residual deficits; Z95.0 Presence of cardiac pacemaker; Z79.899 Other long term (current) drug therapy
CPT/HCPCS: 36415; 71045; 80053; 83880; 84484; 85025; 93005; 96374; 99285; J2270; Q0163

== ENCOUNTER 2022-08-19 00:02 | Emergency (ER) | payer MEDICARE, MEDICAID ==
[~2022-08-19] VITALS: Ht 167.6 cm; Wt 69.0 kg
[~2022-08-19 00:02] MED LIST changes: +LIDO35.421 TP; +PHEN51CR24 TP
[2022-08-19 00:46] LABS: EOSINOPHILS % 4.9 % (0.0-5.0); HEMATOCRIT. 42.3 % (42.0-52.0); LYMPHOCYTES % 27.2 % (20.0-50.0); MEAN CORPUSCULAR HEMOGLOBIN 30.5 pg (28.0-32.0); MEAN CORPUSCULAR VOLUME 91.9 fL (80.0-94.0); MEAN PLATELET VOLUME 7.6 fl (7.4-10.4); MONOCYTES % 8.1 % (2.0-8.0); NEUTROPHILS % 58.8 % (40.0-76.0); PLATELET 252 x1000/uL (130-400); RED CELL DISTRIBUTION WIDTH 16.5 % (11.6-14.6)
[2022-08-19 00:52] LABS: CHLORIDE 108 mEq/L (98-107)
[2022-08-19] MEDS ORDERED: HYDROCODONE/ACETAMINOPHEN 5/325MG TABLET ONE (03:58)
[2022-08-19] MEDS ORDERED: HYDROCODONE/ACETAMINOPHEN 5/325MG TABLET PO NR (04:15)
[2022-08-19 10:30] VITALS: BP 147/93
== END 2022-08-19 10:15 | disposition home or self-care (01) ==
LOC: ER 00:23
DX: R07.89 Other chest pain (principal); R51.9 Headache, unspecified; I11.0 Hypertensive heart disease with heart failure; I50.9 Heart failure, unspecified; J44.9 Chronic obstructive pulmonary disease, unspecified; Z95.810 Presence of automatic (implantable) cardiac defibrillator
CPT/HCPCS: 36415; 71045; 80053; 82962; 84484; 85025; 93005; 99285

== ENCOUNTER 2022-08-20 19:36 | Emergency (ER) | payer MEDICARE, MEDICAID ==
[~2022-08-20] VITALS: Ht 172.7 cm; Wt 87.0 kg
[2022-08-20] MEDS ORDERED: ACETAMINOPHEN 325MG TABLET PO ONE (22:30)
[2022-08-20 23:24] LABS: CHLORIDE 108 mEq/L (98-107)
[2022-08-20 23:33] LABS: BASOPHILS % 0.8 % (0.0-2.0); EOSINOPHILS % 4.3 % (0.0-5.0); HEMATOCRIT. 46.8 % (42.0-52.0); HEMOGLOBIN. 15.3 g/dL (14.0-18.0); LYMPHOCYTES % 18.5 % (20.0-50.0); MEAN CORPUSCULAR HEMOGLOBIN 30.6 pg (28.0-32.0); MEAN CORPUSCULAR VOLUME 93.4 fL (80.0-94.0); MEAN PLATELET VOLUME 8.2 fl (7.4-10.4); MONOCYTES % 9.4 % (2.0-8.0); PLATELET 274 x1000/uL (130-400); RED BLOOD CELL COUNT 5.01 mill/uL (4.7-6.1); RED CELL DISTRIBUTION WIDTH 17.2 % (11.6-14.6)
[2022-08-21] MEDS ORDERED: ACETAMINOPHEN 325MG TABLET PO ONE ×2 (10:45→19:15)
[2022-08-21 20:00] VITALS: BP 156/84
[2022-08-21] MEDS ORDERED: ACETAMINOPHEN 325MG TABLET PO NR (21:00)
== END 2022-08-21 23:30 ==
LOC: ER 19:36
DX: R07.89 Other chest pain (principal); E11.65 Type 2 diabetes mellitus with hyperglycemia; I11.0 Hypertensive heart disease with heart failure; I50.9 Heart failure, unspecified; J44.1 Chronic obstructive pulmonary disease with (acute) exacerbation; Z79.899 Other long term (current) drug therapy
CPT/HCPCS: 36415; 71045; 80053; 82962; 83880; 84484; 85025; 93005; 99285

== ENCOUNTER 2022-09-25 03:28 | Inpatient (IN) | payer MEDICARE, MEDICAID ==
[~2022-09-25] VITALS: Ht 172.7 cm; Wt 89.5 kg
[2022-09-25 09:35] LABS: BASOPHILS % 0.6 % (0.0-2.0); EOSINOPHILS % 0.3 % (0.0-5.0); HEMATOCRIT. 43.1 % (42.0-52.0); HEMOGLOBIN. 14.2 g/dL (14.0-18.0); MEAN CORPUSCULAR HEMOGLOBIN 30.7 pg (28.0-32.0); MEAN CORPUSCULAR VOLUME 92.9 fL (80.0-94.0); MEAN PLATELET VOLUME 8.9 fl (7.4-10.4); MONOCYTES % 9.5 % (2.0-8.0); NEUTROPHILS % 77.6 % (40.0-76.0); PLATELET 243 x1000/uL (130-400); RED BLOOD CELL COUNT 4.63 mill/uL (4.7-6.1); RED CELL DISTRIBUTION WIDTH 16.4 % (11.6-14.6)
[2022-09-25] MEDS ORDERED: MORPHINE SULFATE 4 MG/ML CPJ (NOT FOR IM USE) IV ONE (09:45)
[2022-09-25 10:17] LABS: CHLORIDE 107 mEq/L (98-107)
[2022-09-25] MEDS ORDERED: CLONIDINE 0.1MG TABLET PO PRN (13:30)
[2022-09-25] MEDS: LOSARTAN POTASSIUM 25 MG TABLET PO SCH (13:38)
[2022-09-25] MEDS: ASPIRIN 81MG EC TABLET PO SCH (13:38)
[2022-09-25] MEDS: AMLODIPINE 5MG TABLET PO SCH (13:39)
[2022-09-25] MEDS: SPIRONOLACTONE 25MG TABLET PO SCH (13:39)
[2022-09-25] MEDS: FUROSEMIDE 40MG TABLET PO SCH (13:39)
[2022-09-25] MEDS: APIXABAN 5 MG TABLET PO SCH ×2 (13:39→22:46)
[2022-09-25 17:42] VITALS: BP 130/79
[2022-09-25 18:41] VITALS: BP 136/78
[2022-09-25 20:01] VITALS: BP 114/66
[2022-09-25] MEDS ORDERED: ATORVASTATIN CALCIUM 40MG TABLET PO SCH (21:00)
[2022-09-25] MEDS: ACETAMINOPHEN 325MG TABLET PO PRN (21:31)
[2022-09-25] MEDS: NITROGLYCERIN OINT 1GM/INCH UDPKT TD SCH (21:33)
[2022-09-25] MEDS: CARVEDILOL 3.125 MG TABLET PO SCH (21:33)
[2022-09-25 22:01] VITALS: BP 126/66
[2022-09-25] MEDS ORDERED: DEXTROSE 50% WATER 50ML SYRINGE IV PRN (23:45)
[2022-09-26] VITALS (12 sets, daily range): BP systolic 109–134; BP diastolic 59–76
[2022-09-26 00:37] LABS: *AMPHETAMINES SCREEN URINE NEGATIVE (NEGATIVE); *BARBITURATES SCREEN URINE NEGATIVE (NEGATIVE); *BENZODIAZEPINES SCREEN URINE NEGATIVE (NEGATIVE); *COCAINE SCREEN URINE NEGATIVE (NEGATIVE); CANNABINOID URINE SCREEN NEGATIVE (NEGATIVE); METHADONE URINE SCREEN NEGATIVE (NEGATIVE); OPIATES URINE SCREEN PRESUMTIVE POSITIVE (NEGATIVE); PHENCYCLIDINE URINE SCREEN NEGATIVE (NEGATIVE)
[2022-09-26] MEDS: ACETAMINOPHEN 325MG TABLET PO PRN ×2 (05:17→18:38)
[2022-09-26] MEDS: NITROGLYCERIN OINT 1GM/INCH UDPKT TD SCH ×3 (05:18→22:08)
[2022-09-26] MEDS: BLOOD SUGAR DIAGNOSTIC STRIP TEST SCH ×4 (06:50→20:41)
[2022-09-26 07:17] LABS: HEMATOCRIT. 45.5 % (42.0-52.0); HEMOGLOBIN. 14.9 g/dL (14.0-18.0); MEAN CORPUSCULAR HEMOGLOBIN 31.1 pg (28.0-32.0); MEAN CORPUSCULAR VOLUME 94.5 fL (80.0-94.0); RED BLOOD CELL COUNT 4.81 mill/uL (4.7-6.1); RED CELL DISTRIBUTION WIDTH 16.5 % (11.6-14.6)
[2022-09-26] MEDS: APIXABAN 5 MG TABLET PO SCH ×2 (07:52→17:24)
[2022-09-26] MEDS: CARVEDILOL 3.125 MG TABLET PO SCH ×2 (07:53→20:41)
[2022-09-26] MEDS: FUROSEMIDE 40MG TABLET PO SCH (07:53)
[2022-09-26] MEDS: ASPIRIN 81MG EC TABLET PO SCH (07:53)
[2022-09-26] MEDS: LOSARTAN POTASSIUM 25 MG TABLET PO SCH (07:53)
[2022-09-26] MEDS: SPIRONOLACTONE 25MG TABLET PO SCH (07:53)
[2022-09-26] MEDS: AMLODIPINE 5MG TABLET PO SCH (07:54)
[2022-09-26 08:01] LABS: CHLORIDE 99 mEq/L (98-107)
[2022-09-26] MEDS: INSULIN LISPRO 100 UNITS/ML SUBCUT SCH ×4 (08:09→20:40)
[2022-09-26] MEDS: DIPHENHYDRAMINE 25MG CAPSULE PO PRN (11:52)
[2022-09-26] MEDS ORDERED: REGADENOSON 0.4 MG/5 ML IV SCH (12:00)
[2022-09-26 15:59] LABS: HEPATITIS B SURFACE ANTIGEN NEGATIVE
[2022-09-27] VITALS (9 sets, daily range): BP systolic 108–140; BP diastolic 61–74
[2022-09-27] MEDS: NITROGLYCERIN OINT 1GM/INCH UDPKT TD SCH ×3 (06:08→21:53)
[2022-09-27] MEDS: BLOOD SUGAR DIAGNOSTIC STRIP TEST SCH ×4 (06:09→21:53)
[2022-09-27] MEDS: DIPHENHYDRAMINE 25MG CAPSULE PO PRN ×3 (06:09→23:24)
[2022-09-27] MEDS ORDERED: REGADENOSON 0.4 MG/5 ML IV ONE (07:35)
[2022-09-27] MEDS: INSULIN LISPRO 100 UNITS/ML SUBCUT SCH ×4 (08:51→21:53)
[2022-09-27] MEDS: SPIRONOLACTONE 25MG TABLET PO SCH (08:51)
[2022-09-27] MEDS: LOSARTAN POTASSIUM 25 MG TABLET PO SCH (08:51)
[2022-09-27] MEDS: AMLODIPINE 5MG TABLET PO SCH (08:52)
[2022-09-27] MEDS: CARVEDILOL 3.125 MG TABLET PO SCH ×2 (08:52→21:53)
[2022-09-27] MEDS: FUROSEMIDE 40MG TABLET PO SCH (08:52)
[2022-09-27] MEDS: APIXABAN 5 MG TABLET PO SCH (08:52)
[2022-09-27] MEDS: ASPIRIN 81MG EC TABLET PO SCH (08:52)
[2022-09-27] MEDS: ACETAMINOPHEN 325MG TABLET PO PRN (12:22)
[2022-09-27 16:56] LABS: CHLORIDE 99 mEq/L (98-107)
[2022-09-27] MEDS ORDERED: NALOXONE HCL 0.4MG/ML VIAL IV PRN (21:45)
[2022-09-27] MEDS: MORPHINE SULFATE 2 MG/ML CPJ (NOT FOR IM USE) IV PRN (21:54)
[2022-09-28] VITALS (9 sets, daily range): BP systolic 104–128; BP diastolic 63–76
[2022-09-28] MEDS: MORPHINE SULFATE 2 MG/ML CPJ (NOT FOR IM USE) IV PRN ×4 (02:11→21:21)
[2022-09-28] MEDS: NITROGLYCERIN OINT 1GM/INCH UDPKT TD SCH ×3 (07:32→21:20)
[2022-09-28 07:38] LABS: BASOPHILS % 0.8 % (0.0-2.0); EOSINOPHILS % 1.2 % (0.0-5.0); HEMATOCRIT. 42.5 % (42.0-52.0); HEMOGLOBIN. 14.3 g/dL (14.0-18.0); MEAN CORPUSCULAR HEMOGLOBIN 30.9 pg (28.0-32.0); MEAN CORPUSCULAR VOLUME 92.1 fL (80.0-94.0); MEAN PLATELET VOLUME 8.7 fl (7.4-10.4); PLATELET 227 x1000/uL (130-400); RED BLOOD CELL COUNT 4.61 mill/uL (4.7-6.1); RED CELL DISTRIBUTION WIDTH 16.2 % (11.6-14.6)
[2022-09-28] MEDS: BLOOD SUGAR DIAGNOSTIC STRIP TEST SCH ×4 (07:41→21:20)
[2022-09-28] MEDS: INSULIN LISPRO 100 UNITS/ML SUBCUT SCH ×4 (07:41→21:31)
[2022-09-28] MEDS: ASPIRIN 81MG EC TABLET PO SCH (09:18)
[2022-09-28] MEDS: DIPHENHYDRAMINE 25MG CAPSULE PO PRN ×2 (09:18→22:43)
[2022-09-28] MEDS: FUROSEMIDE 40MG TABLET PO SCH (09:18)
[2022-09-28] MEDS: CARVEDILOL 3.125 MG TABLET PO SCH ×2 (09:19→21:20)
[2022-09-28] MEDS: SPIRONOLACTONE 25MG TABLET PO SCH (09:19)
[2022-09-28] MEDS: AMLODIPINE 5MG TABLET PO SCH (09:19)
[2022-09-28] MEDS: LOSARTAN POTASSIUM 25 MG TABLET PO SCH (09:20)
[2022-09-28] MEDS ORDERED: IODIXANOL 320MG/ML 100 ML BOTTLE IV ONE (09:23)
[2022-09-28 09:33] LABS: CHLORIDE 101 mEq/L (98-107)
[2022-09-28] MEDS ORDERED: MIDAZOLAM HCL 2 MG/2 ML VIAL ONE (09:41)
[2022-09-28] MEDS ORDERED: FENTANYL CITRATE/PF 50MCG/ML 2ML VIAL ONE (09:41)
[2022-09-28] MEDS ORDERED: LIDOCAINE HCL/PF 1% 10 MG/ML 5ML VIAL ONE (09:41)
[2022-09-28] MEDS ORDERED: HEPARIN 1000 UNITS/ML 10ML ONE (09:42)
[2022-09-28] MEDS ORDERED: ASPIRIN/SOD BICARB/CITRIC ACID 324MG TAB EFF ONE (09:52)
[2022-09-28] MEDS ORDERED: ACETAMINOPHEN 325MG TABLET PO PRN (11:00)
[2022-09-28] MEDS ORDERED: ONDANSETRON HCL 4MG/2ML INJ IV PRN (11:00)
[2022-09-28] MEDS ORDERED: MORPHINE SULFATE 2 MG/ML CPJ (NOT FOR IM USE) IV PRN (11:00)
[2022-09-28] MEDS ORDERED: SODIUM CHLORIDE 0.45% 1,000 ML IV SCH (11:00)
[2022-09-28] MEDS ORDERED: ATROPINE SULFATE 1MG/10ML SYR IV PRN (11:00)
[2022-09-29] VITALS: BP 117/63
[2022-09-29 04:05] VITALS: BP 116/67
[2022-09-29] MEDS: MORPHINE SULFATE 2 MG/ML CPJ (NOT FOR IM USE) IV PRN ×4 (04:08→20:54)
[2022-09-29] MEDS: DIPHENHYDRAMINE 25MG CAPSULE PO PRN ×3 (06:23→22:52)
[2022-09-29] MEDS: NITROGLYCERIN OINT 1GM/INCH UDPKT TD SCH ×3 (06:24→20:53)
[2022-09-29] MEDS: BLOOD SUGAR DIAGNOSTIC STRIP TEST SCH ×4 (06:24→20:53)
[2022-09-29] MEDS: INSULIN LISPRO 100 UNITS/ML SUBCUT SCH ×4 (06:47→20:53)
[2022-09-29 07:15] LABS: HEMOGLOBIN. 14.3 g/dL (14.0-18.0); MEAN CORPUSCULAR HEMOGLOBIN 30.9 pg (28.0-32.0); MEAN CORPUSCULAR VOLUME 92.8 fL (80.0-94.0); MEAN PLATELET VOLUME 8.6 fl (7.4-10.4); PLATELET 222 x1000/uL (130-400); RED BLOOD CELL COUNT 4.63 mill/uL (4.7-6.1); RED CELL DISTRIBUTION WIDTH 16.4 % (11.6-14.6)
[2022-09-29 08:24] LABS: CHLORIDE 100 mEq/L (98-107)
[2022-09-29] MEDS: FUROSEMIDE 40MG TABLET PO SCH (09:00)
[2022-09-29] MEDS: CARVEDILOL 3.125 MG TABLET PO SCH ×2 (09:00→20:52)
[2022-09-29] MEDS: AMLODIPINE 5MG TABLET PO SCH (09:32)
[2022-09-29] MEDS: LOSARTAN POTASSIUM 25 MG TABLET PO SCH (09:32)
[2022-09-29] MEDS: ASPIRIN 81MG EC TABLET PO SCH (09:34)
[2022-09-29] MEDS: SPIRONOLACTONE 25MG TABLET PO SCH (09:35)
[2022-09-29 10:47] VITALS: BP 109/73
[2022-09-29 12:00] VITALS: BP 115/70
[2022-09-29] MEDS ORDERED: ENOXAPARIN 80MG/0.8ML SYR SUBCUT SCH (14:30)
[2022-09-29] MEDS ORDERED: IOHEXOL-350 100 ML BOTTLE ONE (15:05)
[2022-09-29 16:00] VITALS: BP 113/72
[2022-09-29 16:21] LABS: PLATELET ESTIMATE NORMAL
[2022-09-29] MEDS ORDERED: SODIUM CHLORIDE 0.45% 500 ML IV SCH (18:00)
[2022-09-29 20:00] VITALS: BP 120/70
[2022-09-30] VITALS: BP 110/61
[2022-09-30] MEDS: MORPHINE SULFATE 2 MG/ML CPJ (NOT FOR IM USE) IV PRN ×3 (03:42→22:23)
[2022-09-30 04:00] VITALS: BP 112/67
[2022-09-30 06:02] LABS: BASOPHILS % 0.7 % (0.0-2.0); EOSINOPHILS % 2.9 % (0.0-5.0); HEMATOCRIT. 40.9 % (42.0-52.0); HEMOGLOBIN. 13.7 g/dL (14.0-18.0); LYMPHOCYTES % 23.9 % (20.0-50.0); MEAN CORPUSCULAR HEMOGLOBIN 31.2 pg (28.0-32.0); MEAN CORPUSCULAR VOLUME 93.2 fL (80.0-94.0); MEAN PLATELET VOLUME 8.3 fl (7.4-10.4); MONOCYTES % 11.8 % (2.0-8.0); NEUTROPHILS % 60.7 % (40.0-76.0); PLATELET 223 x1000/uL (130-400); RED BLOOD CELL COUNT 4.39 mill/uL (4.7-6.1); RED CELL DISTRIBUTION WIDTH 15.9 % (11.6-14.6)
[2022-09-30] MEDS: BLOOD SUGAR DIAGNOSTIC STRIP TEST SCH ×4 (06:59→22:17)
[2022-09-30] MEDS: NITROGLYCERIN OINT 1GM/INCH UDPKT TD SCH ×3 (07:00→23:26)
[2022-09-30 08:00] VITALS: BP 109/42
[2022-09-30] MEDS: INSULIN LISPRO 100 UNITS/ML SUBCUT SCH ×3 (08:56→22:27)
[2022-09-30] MEDS: ASPIRIN 81MG EC TABLET PO SCH (08:57)
[2022-09-30] MEDS: AMLODIPINE 5MG TABLET PO SCH (08:57)
[2022-09-30] MEDS: DIPHENHYDRAMINE 25MG CAPSULE PO PRN (08:57)
[2022-09-30] MEDS: CARVEDILOL 3.125 MG TABLET PO SCH ×2 (08:58→22:16)
[2022-09-30] MEDS: SPIRONOLACTONE 25MG TABLET PO SCH (08:58)
[2022-09-30] MEDS: LOSARTAN POTASSIUM 25 MG TABLET PO SCH (09:00)
[2022-09-30] MEDS: FUROSEMIDE 40MG TABLET PO SCH (09:00)
[2022-09-30] MEDS ORDERED: IODIXANOL 320MG/ML 100 ML BOTTLE IV ONE ×2 (09:22→10:48)
[2022-09-30] MEDS ORDERED: HEPARIN 1000 UNITS/ML 10ML ONE ×2 (09:22→11:40)
[2022-09-30] MEDS ORDERED: ASPIRIN/SOD BICARB/CITRIC ACID 324MG TAB EFF ONE (09:24)
[2022-09-30] MEDS ORDERED: LIDOCAINE HCL 1% 20ML VIAL (Pyxis) INJ ONE (09:26)
[2022-09-30] MEDS ORDERED: MIDAZOLAM HCL 2 MG/2 ML VIAL ONE ×3 (09:53→12:04)
[2022-09-30] MEDS ORDERED: FENTANYL CITRATE/PF 50MCG/ML 2ML VIAL ONE ×2 (09:53→12:04)
[2022-09-30 10:49] LABS: CHLORIDE 100 mEq/L (98-107)
[2022-09-30] MEDS ORDERED: CLOPIDOGREL 75MG TABLET ONE (12:43)
[2022-09-30] MEDS ORDERED: SODIUM CHLORIDE 0.45% 1,000 ML IV ONE (13:00)
[2022-09-30] MEDS ORDERED: ATROPINE SULFATE 1MG/10ML SYR IV PRN (13:00)
[2022-09-30] MEDS ORDERED: CLOPIDOGREL 75MG TABLET PO NR (13:00)
[2022-09-30] MEDS ORDERED: MORPHINE SULFATE 2 MG/ML CPJ (NOT FOR IM USE) IV PRN (13:00)
[2022-09-30] MEDS ORDERED: ONDANSETRON HCL 4MG/2ML INJ IV PRN (13:00)
[2022-09-30] MEDS ORDERED: SODIUM CHLORIDE 0.45% 500 ML IV NR (14:00)
[2022-09-30 16:00] VITALS: BP 119/65
[2022-09-30 20:00] VITALS: BP 122/98
[2022-10-01] VITALS (7 sets, daily range): BP systolic 105–127; BP diastolic 52–69
[2022-10-01] MEDS: DIPHENHYDRAMINE 25MG CAPSULE PO PRN ×2 (01:44→23:47)
[2022-10-01] MEDS: MORPHINE SULFATE 2 MG/ML CPJ (NOT FOR IM USE) IV PRN ×2 (06:16→10:44)
[2022-10-01] MEDS: NITROGLYCERIN OINT 1GM/INCH UDPKT TD SCH ×3 (06:53→22:00)
[2022-10-01] MEDS: BLOOD SUGAR DIAGNOSTIC STRIP TEST SCH ×4 (06:53→22:49)
[2022-10-01] MEDS: INSULIN LISPRO 100 UNITS/ML SUBCUT SCH ×4 (07:20→22:54)
[2022-10-01] MEDS: LOSARTAN POTASSIUM 25 MG TABLET PO SCH (09:00)
[2022-10-01 09:25] LABS: HEMATOCRIT 39.9 % (42.0-52.0); HEMOGLOBIN 13.1 g/dL (14.0-18.0)
[2022-10-01 09:34] LABS: CHLORIDE 101 mEq/L (98-107)
[2022-10-01] MEDS: SPIRONOLACTONE 25MG TABLET PO SCH (10:42)
[2022-10-01] MEDS: CLOPIDOGREL 75MG TABLET PO SCH (10:42)
[2022-10-01] MEDS: ASPIRIN 81MG TABLET PO SCH (10:42)
[2022-10-01] MEDS: AMLODIPINE 5MG TABLET PO SCH (10:42)
[2022-10-01] MEDS: CARVEDILOL 3.125 MG TABLET PO SCH ×2 (10:43→22:55)
[2022-10-01] MEDS: FUROSEMIDE 40MG TABLET PO SCH (10:43)
[2022-10-01] MEDS: ACETAMINOPHEN 325MG TABLET PO PRN ×2 (18:51→23:45)
[2022-10-02 04:30] VITALS: BP 127/69
[2022-10-02] MEDS: BLOOD SUGAR DIAGNOSTIC STRIP TEST SCH ×3 (06:40→17:45)
[2022-10-02] MEDS: NITROGLYCERIN OINT 1GM/INCH UDPKT TD SCH ×2 (06:40→14:00)
[2022-10-02 08:00] VITALS: BP 132/75
[2022-10-02] MEDS: CLOPIDOGREL 75MG TABLET PO SCH (09:00)
[2022-10-02] MEDS: INSULIN LISPRO 100 UNITS/ML SUBCUT SCH ×4 (09:01→18:18)
[2022-10-02] MEDS: SPIRONOLACTONE 25MG TABLET PO SCH (09:02)
[2022-10-02] MEDS: ASPIRIN 81MG TABLET PO SCH (09:02)
[2022-10-02] MEDS: AMLODIPINE 5MG TABLET PO SCH (09:03)
[2022-10-02] MEDS: CARVEDILOL 3.125 MG TABLET PO SCH (09:03)
[2022-10-02] MEDS: FUROSEMIDE 40MG TABLET PO SCH (09:04)
[2022-10-02] MEDS: LOSARTAN POTASSIUM 25 MG TABLET PO SCH (09:05)
[2022-10-02] MEDS: ACETAMINOPHEN 325MG TABLET PO PRN ×2 (10:34→12:07)
[2022-10-02 12:00] VITALS: BP 124/78
[2022-10-02] MEDS: DIPHENHYDRAMINE 25MG CAPSULE PO PRN (12:14)
[2022-10-02 16:00] VITALS: BP 134/78
[2022-10-02 16:08] VITALS: BP 130/68
[2022-10-02 20:30] VITALS: BP 120/75
== END 2022-10-02 21:03 | DRG 217 ==
LOC: ER 03:33 → 3WST 10:39 → EDBEDREQ 11:21 → ENRESERV 14:59 → 3WST 09-28 08:37
PROVIDERS: ADMIT Internal Medicine; ATTEND Internal Medicine
PROC: 4A033BC Measurement of Arterial Pressure, Coronary, Percutaneous Approach (ICD-10-PCS; 2022-09-28)
PROC: 4A023N7 Measurement of Cardiac Sampling and Pressure, Left Heart, Percutaneous Approach (ICD-10-PCS; 2022-09-28)
PROC: B2111ZZ Fluoroscopy of Multiple Coronary Arteries using Low Osmolar Contrast (ICD-10-PCS; 2022-09-28)
PROC: 05HY33Z Insertion of Infusion Device into Upper Vein, Percutaneous Approach (ICD-10-PCS; 2022-09-29)
PROC: 02HA3RJ Insertion of Short-term External Heart Assist System into Heart, Intraoperative, Percutaneous Approach (ICD-10-PCS; principal; 2022-09-30)
PROC: 027034Z Dilation of Coronary Artery, One Artery with Drug-eluting Intraluminal Device, Percutaneous Approach (ICD-10-PCS; 2022-09-30)
PROC: 5A0221D Assistance with Cardiac Output using Impeller Pump, Continuous (ICD-10-PCS; 2022-09-30)
DX: I25.110 Atherosclerotic heart disease of native coronary artery with unstable angina pectoris (principal); I50.22 Chronic systolic (congestive) heart failure; R47.01 Aphasia; I82.512 Chronic embolism and thrombosis of left femoral vein; T82.598A Other mechanical complication of other cardiac and vascular devices and implants, initial encounter; Z20.822 Contact with and (suspected) exposure to COVID-19; I42.8 Other cardiomyopathies; E11.51 Type 2 diabetes mellitus with diabetic peripheral angiopathy without gangrene; I11.0 Hypertensive heart disease with heart failure; E78.00 Pure hypercholesterolemia, unspecified; E78.5 Hyperlipidemia, unspecified; R74.01 Elevation of levels of liver transaminase levels; Z79.899 Other long term (current) drug therapy; Z95.810 Presence of automatic (implantable) cardiac defibrillator; Z79.01 Long term (current) use of anticoagulants; Z86.73 Personal history of transient ischemic attack (TIA), and cerebral infarction without residual deficits; Z89.612 Acquired absence of left leg above knee; Y84.0 Cardiac catheterization as the cause of abnormal reaction of the patient, or of later complication, without mention of misadventure at the time of the procedure; Y92.89 Other specified places as the place of occurrence of the external cause; M94.0 Chondrocostal junction syndrome [Tietze]
CPT/HCPCS: 33990; 36415; 36573; 71045; 72191; 73706; 78452; 80048; 80053; 80305; 82962; 83036; 83735; 83880; 84443; 84484; 85014; 85018; 85025; 85347; 85379; 86705; 86709; 86803; 87340; 87426; 92928; 93005; 93017; 93306; 93458; 93571; 93970; 99285; A9500; C1725; C1760; C1769; C1874; C1887; C1892; C1893; C1894; J1644; J1650; J1815; J2250; J2270; J2785; J3010; J3490; Q0163; Q9967

== ENCOUNTER 2022-11-22 20:56 | Inpatient (IN) | payer OTHER, MEDICAID ==
[~2022-11-22] VITALS: Ht 170.2 cm; Wt 77.1 kg
[2022-11-22 22:00] LABS: EOSINOPHILS % 3.4 % (0.0-5.0); HEMATOCRIT. 37.8 % (42.0-52.0); HEMOGLOBIN. 12.3 g/dL (14.0-18.0); LYMPHOCYTES % 22.2 % (20.0-50.0); MEAN CORPUSCULAR HEMOGLOBIN 29.8 pg (28.0-32.0); MEAN CORPUSCULAR VOLUME 91.4 fL (80.0-94.0); MEAN PLATELET VOLUME 8.3 fl (7.4-10.4); MONOCYTES % 6.5 % (2.0-8.0); NEUTROPHILS % 66.9 % (40.0-76.0); PLATELET 272 x1000/uL (130-400); RED BLOOD CELL COUNT 4.14 mill/uL (4.7-6.1); RED CELL DISTRIBUTION WIDTH 15.9 % (11.6-14.6)
[2022-11-22 22:08] LABS: CHLORIDE 110 mEq/L (98-107)
[2022-11-23] MEDS ORDERED: MORPHINE SULFATE 4 MG/ML CPJ (NOT FOR IM USE) IV ONE (02:15)
[2022-11-23] MEDS ORDERED: DIPHENHYDRAMINE 25MG CAPSULE PO ONE (03:30)
[2022-11-23] MEDS ORDERED: MORPHINE SULFATE 2 MG/ML CPJ (NOT FOR IM USE) IV PRN (11:00)
[2022-11-23] MEDS ORDERED: ONDANSETRON HCL 4MG/2ML INJ IV PRN (13:45)
[2022-11-23] MEDS ORDERED: DEXTROSE 50% WATER 50ML SYRINGE IV PRN (13:45)
[2022-11-23] MEDS: NITROGLYCERIN OINT 1GM/INCH UDPKT TD SCH ×2 (14:00→21:36)
[2022-11-23] MEDS ORDERED: REGADENOSON 0.4 MG/5 ML IV NR (14:45)
[2022-11-23 16:00] VITALS: BP 134/80
[2022-11-23 16:05] VITALS: BP 134/80
[2022-11-23] MEDS: BLOOD SUGAR DIAGNOSTIC STRIP TEST SCH ×2 (17:10→20:00)
[2022-11-23] MEDS: ENOXAPARIN 80MG/0.8ML SYR SUBCUT SCH (17:42)
[2022-11-23] MEDS: INSULIN LISPRO 100 UNITS/ML SUBCUT SCH ×2 (17:44→19:59)
[2022-11-23 20:00] VITALS: BP 130/76
[2022-11-23] MEDS: ACETAMINOPHEN 325MG TABLET PO PRN (20:00)
[2022-11-23] MEDS ORDERED: MORPHINE SULFATE 2 MG/ML CPJ (NOT FOR IM USE) IV NR (22:45)
[2022-11-24] VITALS: BP 142/93
[2022-11-24 04:00] VITALS: BP 142/88
[2022-11-24] MEDS: ENOXAPARIN 80MG/0.8ML SYR SUBCUT SCH ×2 (05:08→16:47)
[2022-11-24] MEDS: ACETAMINOPHEN 325MG TABLET PO PRN (05:09)
[2022-11-24] MEDS: NITROGLYCERIN OINT 1GM/INCH UDPKT TD SCH ×3 (05:09→21:40)
[2022-11-24] MEDS: BLOOD SUGAR DIAGNOSTIC STRIP TEST SCH ×4 (05:42→20:13)
[2022-11-24 06:53] LABS: BASOPHILS % 1.1 % (0.0-2.0); EOSINOPHILS % 3.9 % (0.0-5.0); HEMATOCRIT. 38.8 % (42.0-52.0); HEMOGLOBIN. 12.9 g/dL (14.0-18.0); LYMPHOCYTES % 25.4 % (20.0-50.0); MEAN CORPUSCULAR VOLUME 90.4 fL (80.0-94.0); MEAN PLATELET VOLUME 8.6 fl (7.4-10.4); MONOCYTES % 7.3 % (2.0-8.0); NEUTROPHILS % 62.3 % (40.0-76.0); PLATELET 287 x1000/uL (130-400); RED BLOOD CELL COUNT 4.29 mill/uL (4.7-6.1); RED CELL DISTRIBUTION WIDTH 15.5 % (11.6-14.6)
[2022-11-24 06:56] LABS: PROTHROMBIN TIME 10.7 sec (9.6-11.0)
[2022-11-24 07:13] LABS: CHLORIDE 109 mEq/L (98-107)
[2022-11-24] MEDS ORDERED: REGADENOSON 0.4 MG/5 ML IV ONE (08:30)
[2022-11-24] MEDS: INSULIN LISPRO 100 UNITS/ML SUBCUT SCH ×4 (08:40→20:28)
[2022-11-24] MEDS: ASPIRIN 81MG TABLET PO SCH (08:41)
[2022-11-24] MEDS: CLOPIDOGREL 75MG TABLET PO SCH (08:41)
[2022-11-24 12:00] VITALS: BP 154/79
[2022-11-24 16:00] VITALS: BP 147/80
[2022-11-24 20:00] VITALS: BP 152/84
[2022-11-24] MEDS ORDERED: MORPHINE SULFATE 2 MG/ML CPJ (NOT FOR IM USE) IV NR (21:00)
[2022-11-24] MEDS ORDERED: DIPHENHYDRAMINE 25MG CAPSULE PO PRN (23:15)
[2022-11-25] VITALS (7 sets, daily range): BP systolic 129–149; BP diastolic 69–87
[2022-11-25] MEDS ORDERED: SODIUM CHLORIDE 0.45% 1,000 ML IV ONE ×2 (05:00→09:00)
[2022-11-25] MEDS: ENOXAPARIN 80MG/0.8ML SYR SUBCUT SCH ×2 (05:59→16:33)
[2022-11-25] MEDS: NITROGLYCERIN OINT 1GM/INCH UDPKT TD SCH ×2 (06:03→13:36)
[2022-11-25] MEDS: BLOOD SUGAR DIAGNOSTIC STRIP TEST SCH ×3 (06:18→16:32)
[2022-11-25] MEDS: INSULIN LISPRO 100 UNITS/ML SUBCUT SCH ×3 (06:46→16:53)
[2022-11-25] MEDS ORDERED: LIDOCAINE HCL/PF 1% 10 MG/ML 5ML VIAL ONE (07:47)
[2022-11-25] MEDS ORDERED: IODIXANOL 320MG/ML 100 ML BOTTLE IV ONE (07:47)
[2022-11-25] MEDS ORDERED: HEPARIN 1000 UNITS/ML 10ML ONE (07:47)
[2022-11-25] MEDS ORDERED: ASPIRIN/SOD BICARB/CITRIC ACID 324MG TAB EFF ONE (07:48)
[2022-11-25] MEDS: ASPIRIN 81MG TABLET PO SCH (08:11)
[2022-11-25] MEDS: CLOPIDOGREL 75MG TABLET PO SCH (08:12)
[2022-11-25] MEDS ORDERED: FENTANYL CITRATE/PF 50MCG/ML 2ML VIAL ONE (08:16)
[2022-11-25] MEDS ORDERED: MIDAZOLAM HCL 2 MG/2 ML VIAL ONE (08:16)
[2022-11-25] MEDS ORDERED: ATROPINE SULFATE 1MG/10ML SYR IV PRN (09:00)
[2022-11-25] MEDS ORDERED: ONDANSETRON HCL 4MG/2ML INJ IV PRN (09:00)
[2022-11-25] MEDS ORDERED: ACETAMINOPHEN 325MG TABLET PO PRN (09:00)
[2022-11-25] MEDS: MORPHINE SULFATE 2 MG/ML CPJ (NOT FOR IM USE) IV PRN ×2 (12:46→12:57)
[2022-11-25 16:52] LABS: CHLORIDE 112 mEq/L (98-107)
[2022-11-25] MEDS: ACETAMINOPHEN 325MG TABLET PO PRN ×2 (20:16→20:23)
[2022-11-25 20:19] LABS: BASOPHILS % 0.8 % (0.0-2.0); EOSINOPHILS % 2.1 % (0.0-5.0); HEMATOCRIT. 40.2 % (42.0-52.0); HEMOGLOBIN. 12.8 g/dL (14.0-18.0); LYMPHOCYTES % 13.6 % (20.0-50.0); MEAN CORPUSCULAR HEMOGLOBIN 29.2 pg (28.0-32.0); MEAN CORPUSCULAR VOLUME 91.8 fL (80.0-94.0); MEAN PLATELET VOLUME 9.2 fl (7.4-10.4); MONOCYTES % 8.3 % (2.0-8.0); NEUTROPHILS % 75.2 % (40.0-76.0); PLATELET 249 x1000/uL (130-400); RED BLOOD CELL COUNT 4.38 mill/uL (4.7-6.1); RED CELL DISTRIBUTION WIDTH 15.9 % (11.6-14.6)
== END 2022-11-25 20:25 | DRG 287 ==
LOC: ER 20:56 → MICUSO 11-23 02:45 → EDBEDREQTM 11-23 02:55 → EDBEDREQ 11-23 02:55 → 8WST 11-23 13:37
PROVIDERS: ADMIT Internal Medicine; ATTEND Internal Medicine
PROC: 4A023N7 Measurement of Cardiac Sampling and Pressure, Left Heart, Percutaneous Approach (ICD-10-PCS; principal; 2022-11-25)
PROC: B2111ZZ Fluoroscopy of Multiple Coronary Arteries using Low Osmolar Contrast (ICD-10-PCS; 2022-11-25)
DX: I25.10 Atherosclerotic heart disease of native coronary artery without angina pectoris (principal); I50.22 Chronic systolic (congestive) heart failure; J98.11 Atelectasis; E44.1 Mild protein-calorie malnutrition; I82.502 Chronic embolism and thrombosis of unspecified deep veins of left lower extremity; E78.00 Pure hypercholesterolemia, unspecified; I42.9 Cardiomyopathy, unspecified; I11.0 Hypertensive heart disease with heart failure; E11.51 Type 2 diabetes mellitus with diabetic peripheral angiopathy without gangrene; D64.9 Anemia, unspecified; Z95.5 Presence of coronary angioplasty implant and graft; Z95.810 Presence of automatic (implantable) cardiac defibrillator; I25.2 Old myocardial infarction; Z79.02 Long term (current) use of antithrombotics/antiplatelets; Z82.49 Family history of ischemic heart disease and other diseases of the circulatory system; Z83.3 Family history of diabetes mellitus; Z86.73 Personal history of transient ischemic attack (TIA), and cerebral infarction without residual deficits; Z89.612 Acquired absence of left leg above knee; Z79.82 Long term (current) use of aspirin; Z79.01 Long term (current) use of anticoagulants; Z79.899 Other long term (current) drug therapy
CPT/HCPCS: 36415; 71045; 78452; 80048; 80053; 82962; 83880; 84484; 85025; 93005; 93017; 93306; 93458; 99285; A9500; C1769; C1887; C1893; J1644; J1650; J1815; J2250; J2270; J2785; J3010; J3490; Q0163; Q9967

== ENCOUNTER 2022-12-16 22:14 | Inpatient (IN) | payer OTHER, MEDICAID ==
[~2022-12-16] VITALS: Ht 172.7 cm; Wt 69.4 kg
[2022-12-16 22:48] LABS: EOSINOPHILS % 4.9 % (0.0-5.0); HEMATOCRIT. 38.9 % (42.0-52.0); HEMOGLOBIN. 12.4 g/dL (14.0-18.0); LYMPHOCYTES % 23.6 % (20.0-50.0); MEAN CORPUSCULAR HEMOGLOBIN 29.1 pg (28.0-32.0); MEAN CORPUSCULAR VOLUME 91.2 fL (80.0-94.0); MEAN PLATELET VOLUME 7.9 fl (7.4-10.4); MONOCYTES % 8.5 % (2.0-8.0); PLATELET 329 x1000/uL (130-400); RED BLOOD CELL COUNT 4.26 mill/uL (4.7-6.1); RED CELL DISTRIBUTION WIDTH 16.6 % (11.6-14.6)
[2022-12-16 22:57] LABS: PROTHROMBIN TIME 10.9 sec (9.6-11.0)
[2022-12-16 23:08] LABS: CHLORIDE 109 mEq/L (98-107)
[2022-12-17] MEDS: HYDROCODONE/ACETAMINOPHEN 5/325MG TABLET PO PRN ×2 (02:00→03:09)
[2022-12-17] MEDS: MORPHINE SULFATE 2 MG/ML CPJ (NOT FOR IM USE) IV PRN ×4 (04:00→21:18)
[2022-12-17] MEDS ORDERED: NALOXONE HCL 0.4MG/ML VIAL IV PRN (08:45)
[2022-12-17 14:00] VITALS: BP_SYST 130; BP_DIAS 82; BP_DIAS 84
[2022-12-17 16:00] VITALS: BP 138/87
[2022-12-17] MEDS: FUROSEMIDE 40MG TABLET PO SCH (17:09)
[2022-12-17] MEDS: APIXABAN 5 MG TABLET PO SCH (17:10)
[2022-12-17] MEDS: ASPIRIN 81MG EC TABLET PO SCH (17:11)
[2022-12-17] MEDS ORDERED: DEXTROSE 50% WATER 50ML SYRINGE IV PRN (17:45)
[2022-12-17] MEDS: BLOOD SUGAR DIAGNOSTIC STRIP TEST SCH ×2 (17:53→20:30)
[2022-12-17] MEDS: INSULIN LISPRO 100 UNITS/ML SUBCUT SCH ×2 (18:03→20:35)
[2022-12-17 20:00] VITALS: BP 145/93
[2022-12-17] MEDS: CARVEDILOL 3.125 MG TABLET PO SCH (20:30)
[2022-12-17] MEDS ORDERED: ATORVASTATIN CALCIUM 40MG TABLET PO SCH (21:00)
[2022-12-18] VITALS: BP 140/89
[2022-12-18] MEDS: MORPHINE SULFATE 2 MG/ML CPJ (NOT FOR IM USE) IV PRN ×2 (01:36→05:31)
[2022-12-18 04:00] VITALS: BP 149/80
[2022-12-18] MEDS: BLOOD SUGAR DIAGNOSTIC STRIP TEST SCH ×2 (07:40→12:29)
[2022-12-18 08:00] VITALS: BP 143/86
[2022-12-18] MEDS: INSULIN LISPRO 100 UNITS/ML SUBCUT SCH ×2 (08:10→12:38)
[2022-12-18] MEDS ORDERED: AMLODIPINE 5MG TABLET PO SCH (09:00)
[2022-12-18] MEDS ORDERED: SPIRONOLACTONE 25MG TABLET PO SCH (09:00)
[2022-12-18] MEDS ORDERED: LOSARTAN POTASSIUM 25 MG TABLET PO SCH (09:00)
[2022-12-18] MEDS: FUROSEMIDE 40MG TABLET PO SCH (09:05)
[2022-12-18] MEDS: ASPIRIN 81MG EC TABLET PO SCH (09:05)
[2022-12-18] MEDS: CARVEDILOL 3.125 MG TABLET PO SCH (09:05)
[2022-12-18] MEDS: APIXABAN 5 MG TABLET PO SCH (09:06)
[2022-12-18] MEDS: HYDROCODONE/ACETAMINOPHEN 5/325MG TABLET PO PRN (11:34)
[2022-12-18 12:00] VITALS: BP 139/88
[2022-12-18 14:17] VITALS: BP 139/88
== END 2022-12-18 14:50 | DRG 302 ==
LOC: ER 22:14 → MICUSO 23:23 → EDBEDREQ 23:27 → 7WST 12-17 14:38
PROVIDERS: ADMIT Internal Medicine; ATTEND Internal Medicine
DX: I25.10 Atherosclerotic heart disease of native coronary artery without angina pectoris (principal); I50.23 Acute on chronic systolic (congestive) heart failure; I11.0 Hypertensive heart disease with heart failure; E78.00 Pure hypercholesterolemia, unspecified; E11.9 Type 2 diabetes mellitus without complications; Z20.822 Contact with and (suspected) exposure to COVID-19; J44.9 Chronic obstructive pulmonary disease, unspecified; Z79.899 Other long term (current) drug therapy; Z79.01 Long term (current) use of anticoagulants; Z79.84 Long term (current) use of oral hypoglycemic drugs; Z89.612 Acquired absence of left leg above knee; Z86.73 Personal history of transient ischemic attack (TIA), and cerebral infarction without residual deficits; E11.51 Type 2 diabetes mellitus with diabetic peripheral angiopathy without gangrene; Z79.4 Long term (current) use of insulin
CPT/HCPCS: 36415; 71045; 80053; 82962; 83036; 84484; 85025; 87426; 93005; 99285; J1815; J2270

== ENCOUNTER 2022-12-25 00:23 | Emergency (ER) | payer OTHER, MEDICAID ==
[~2022-12-25] VITALS: Ht 165.1 cm; Wt 79.0 kg
[2022-12-25] MEDS ORDERED: MORPHINE SULFATE 4 MG/ML CPJ (NOT FOR IM USE) IV STA (02:58)
[2022-12-25 03:34] LABS: BASOPHILS % 1.1 % (0.0-2.0); EOSINOPHILS % 4.3 % (0.0-5.0); HEMATOCRIT. 40.2 % (42.0-52.0); HEMOGLOBIN. 13.2 g/dL (14.0-18.0); LYMPHOCYTES % 16.9 % (20.0-50.0); MEAN CORPUSCULAR HEMOGLOBIN 29.2 pg (28.0-32.0); MEAN CORPUSCULAR VOLUME 88.7 fL (80.0-94.0); MEAN PLATELET VOLUME 8.1 fl (7.4-10.4); NEUTROPHILS % 66.7 % (40.0-76.0); PLATELET 320 x1000/uL (130-400); RED BLOOD CELL COUNT 4.53 mill/uL (4.7-6.1); RED CELL DISTRIBUTION WIDTH 16.3 % (11.6-14.6)
[2022-12-25 03:38] LABS: CHLORIDE 105 mEq/L (98-107)
[2022-12-25 08:41] VITALS: BP 126/72
== END 2022-12-25 13:22 | disposition home or self-care (01) ==
LOC: ER 00:23
DX: R07.2 Precordial pain (principal); I11.0 Hypertensive heart disease with heart failure; I50.9 Heart failure, unspecified; E11.9 Type 2 diabetes mellitus without complications; I25.2 Old myocardial infarction; Z89.512 Acquired absence of left leg below knee; Z86.73 Personal history of transient ischemic attack (TIA), and cerebral infarction without residual deficits; Z79.899 Other long term (current) drug therapy; Z95.0 Presence of cardiac pacemaker
CPT/HCPCS: 36415; 71045; 80053; 83880; 84484; 85025; 96374; 99284; J2270

== ENCOUNTER 2023-01-12 17:56 | Inpatient (IN) | payer MEDICARE, MEDICAID ==
[~2023-01-12] VITALS: Ht 170.2 cm; Wt 76.4 kg
[2023-01-12 20:54] LABS: BASOPHILS % 0.5 % (0.0-2.0); EOSINOPHILS % 0.4 % (0.0-5.0); HEMATOCRIT. 34.2 % (42.0-52.0); HEMOGLOBIN. 11.1 g/dL (14.0-18.0); LYMPHOCYTES % 11.9 % (20.0-50.0); MEAN CORPUSCULAR HEMOGLOBIN 28.4 pg (28.0-32.0); MEAN CORPUSCULAR VOLUME 87.6 fL (80.0-94.0); MEAN PLATELET VOLUME 7.6 fl (7.4-10.4); MONOCYTES % 3.4 % (2.0-8.0); NEUTROPHILS % 83.8 % (40.0-76.0); PLATELET 350 x1000/uL (130-400); RED CELL DISTRIBUTION WIDTH 16.7 % (11.6-14.6)
[2023-01-12 21:04] LABS: INR 1.1; PARTIAL THROMBOPLASTIN TIME 28.3 sec (23.4-31.0); PROTHROMBIN TIME 11.4 sec (9.6-11.0)
[2023-01-12 21:11] LABS: CHLORIDE 108 mEq/L (98-107)
[2023-01-12] MEDS ORDERED: ACETAMINOPHEN 325MG TABLET PO ONE (22:15)
[2023-01-12 23:45] LABS: CLARITY URINE CLEAR (CLEAR); COLOR URINE YELLOW (YELLOW); KETONES URINE TRACE (NEGATIVE); LEUKOCYTE ESTERASE URINE NEGATIVE (NEGATIVE); NITRITE URINE NEGATIVE (NEGATIVE); OCCULT BLOOD URINE 2+ (NEGATIVE); PROTEIN URINE NEGATIVE (NEGATIVE); SPECIFIC GRAVITY URINE 1.035 (1.005-1.030); UROBILINOGEN URINE 0.2 E.U./dL (0.2-1.0)
[2023-01-13 00:02] LABS: BASOPHILS % 0.4 % (0.0-2.0); EOSINOPHILS % 0.2 % (0.0-5.0); HEMATOCRIT. 34.9 % (42.0-52.0); HEMOGLOBIN. 11.2 g/dL (14.0-18.0); LYMPHOCYTES % 12.5 % (20.0-50.0); MEAN CORPUSCULAR HEMOGLOBIN 28.2 pg (28.0-32.0); MEAN CORPUSCULAR VOLUME 87.8 fL (80.0-94.0); MEAN PLATELET VOLUME 7.4 fl (7.4-10.4); MONOCYTES % 4.2 % (2.0-8.0); NEUTROPHILS % 82.7 % (40.0-76.0); PLATELET 352 x1000/uL (130-400); RED BLOOD CELL COUNT 3.97 mill/uL (4.7-6.1)
[2023-01-13] MEDS ORDERED: MORPHINE SULFATE 2 MG/ML CPJ (NOT FOR IM USE) IV PRN (02:30)
[2023-01-13] MEDS: SODIUM CHLORIDE 0.9% 1,000 ML IV SCH ×3 (03:16→17:54)
[2023-01-13 04:00] VITALS: BP 162/86
[2023-01-13 04:59] LABS: HEMATOCRIT 29.7 % (42.0-52.0); HEMOGLOBIN 9.8 g/dL (14.0-18.0)
[2023-01-13 08:00] VITALS: BP 98/63
[2023-01-13 08:18] LABS: HEMATOCRIT 29.1 % (42.0-52.0); HEMOGLOBIN 9.2 g/dL (14.0-18.0)
[2023-01-13] MEDS: PANTOPRAZOLE SODIUM 40 MG/VIAL IV SCH ×2 (09:00→20:39)
[2023-01-13] MEDS ORDERED: NALOXONE HCL 0.4MG/ML VIAL IV PRN (10:15)
[2023-01-13] MEDS ORDERED: DEXTROSE 50% WATER 50ML SYRINGE IV PRN (10:15)
[2023-01-13] MEDS ORDERED: ONDANSETRON HCL 4MG/2ML INJ IV PRN (10:15)
[2023-01-13] MEDS: HYDROCODONE/ACETAMINOPHEN 5/325MG TABLET PO PRN ×2 (10:54→17:59)
[2023-01-13 12:00] VITALS: BP 98/60
[2023-01-13] MEDS: BLOOD SUGAR DIAGNOSTIC STRIP TEST SCH ×3 (12:57→20:41)
[2023-01-13 13:02] VITALS: BP 103/60
[2023-01-13] MEDS: INSULIN LISPRO 100 UNITS/ML SUBCUT SCH ×3 (13:34→21:00)
[2023-01-13 16:30] VITALS: BP 111/63
[2023-01-13 20:00] VITALS: BP 113/64
[2023-01-13] MEDS ORDERED: DIPHENHYDRAMINE 50MG CAPSULE PO PRN (20:30)
[2023-01-13] MEDS: HYDROCODONE/ACETAMINOPHEN 10/325MG TABLET PO PRN (23:41)
[2023-01-14] VITALS: BP 110/56
[2023-01-14] MEDS: SODIUM CHLORIDE 0.9% 1,000 ML IV SCH ×3 (03:17→17:57)
[2023-01-14] MEDS: DIPHENHYDRAMINE 50MG CAPSULE PO PRN ×3 (03:34→18:09)
[2023-01-14 04:20] VITALS: BP 111/63
[2023-01-14] MEDS: HYDROCODONE/ACETAMINOPHEN 10/325MG TABLET PO PRN ×2 (04:37→17:57)
[2023-01-14] MEDS: BLOOD SUGAR DIAGNOSTIC STRIP TEST SCH ×4 (06:05→21:00)
[2023-01-14] MEDS: INSULIN LISPRO 100 UNITS/ML SUBCUT SCH ×4 (06:05→22:27)
[2023-01-14 06:16] LABS: CHLORIDE 108 mEq/L (98-107)
[2023-01-14 06:32] LABS: BASOPHILS % 0.6 % (0.0-2.0); EOSINOPHILS % 0.4 % (0.0-5.0); HEMATOCRIT. 22.2 % (42.0-52.0); HEMOGLOBIN. 7.4 g/dL (14.0-18.0); LYMPHOCYTES % 16.9 % (20.0-50.0); MEAN CORPUSCULAR HEMOGLOBIN 29.4 pg (28.0-32.0); MEAN CORPUSCULAR VOLUME 88.7 fL (80.0-94.0); MEAN PLATELET VOLUME 8.2 fl (7.4-10.4); MONOCYTES % 6.5 % (2.0-8.0); NEUTROPHILS % 75.6 % (40.0-76.0); PLATELET 277 x1000/uL (130-400); RED BLOOD CELL COUNT 2.51 mill/uL (4.7-6.1); RED CELL DISTRIBUTION WIDTH 17.1 % (11.6-14.6)
[2023-01-14 08:00] VITALS: BP 123/47
[2023-01-14] MEDS: PANTOPRAZOLE SODIUM 40 MG/VIAL IV SCH ×2 (10:33→22:28)
[2023-01-14 12:00] VITALS: BP 131/77
[2023-01-14 13:44] LABS: TOTAL IRON BINDING CAPACITY 338 ug/dL (250-450)
[2023-01-14 13:55] LABS: FERRITIN 20 ng/mL (22-322)
[2023-01-14 14:11] LABS: VITAMIN B12 SERUM 500 pg/mL (211-911)
[2023-01-14 16:00] VITALS: BP 132/71
[2023-01-14 20:00] VITALS: BP 113/55
[2023-01-14] MEDS ORDERED: MORPHINE SULFATE 2 MG/ML CPJ (NOT FOR IM USE) IV NR (22:15)
[2023-01-14] MEDS: ATORVASTATIN CALCIUM 20MG TABLET PO SCH (22:27)
[2023-01-15] VITALS (10 sets, daily range): BP systolic 101–125; BP diastolic 53–66
[2023-01-15] MEDS: DIPHENHYDRAMINE 50MG CAPSULE PO PRN ×3 (00:43→17:50)
[2023-01-15] MEDS: SODIUM CHLORIDE 0.9% 1,000 ML IV SCH ×2 (02:22→09:42)
[2023-01-15] MEDS: HYDROCODONE/ACETAMINOPHEN 10/325MG TABLET PO PRN ×3 (05:57→17:50)
[2023-01-15 06:02] LABS: CHLORIDE 114 mEq/L (98-107)
[2023-01-15 06:06] LABS: BASOPHILS % 0.5 % (0.0-2.0); EOSINOPHILS % 2.6 % (0.0-5.0); MEAN CORPUSCULAR HEMOGLOBIN 28.1 pg (28.0-32.0); MEAN CORPUSCULAR VOLUME 89.2 fL (80.0-94.0); MEAN PLATELET VOLUME 7.7 fl (7.4-10.4); MONOCYTES % 8.7 % (2.0-8.0); NEUTROPHILS % 63.2 % (40.0-76.0); PLATELET 290 x1000/uL (130-400); RED BLOOD CELL COUNT 2.36 mill/uL (4.7-6.1); RED CELL DISTRIBUTION WIDTH 16.9 % (11.6-14.6)
[2023-01-15] MEDS: INSULIN LISPRO 100 UNITS/ML SUBCUT SCH ×4 (06:14→21:03)
[2023-01-15] MEDS: BLOOD SUGAR DIAGNOSTIC STRIP TEST SCH ×4 (06:14→20:10)
[2023-01-15 07:23] LABS: HEMOGLOBIN. 6.6 g/dL (14.0-18.0)
[2023-01-15] MEDS: PANTOPRAZOLE SODIUM 40 MG/VIAL IV SCH ×2 (09:42→20:50)
[2023-01-15] MEDS: LOSARTAN POTASSIUM 25 MG TABLET PO SCH (09:42)
[2023-01-15] MEDS: FUROSEMIDE 40MG TABLET PO SCH (09:42)
[2023-01-15] MEDS ORDERED: SORBITOL 70% SOLN 30ML PO NR (16:00)
[2023-01-15] MEDS: IRON SUCROSE COMPLEX 100 MG/5 ML ML IV SCH (18:21)
[2023-01-15] MEDS ORDERED: MORPHINE SULFATE 2 MG/ML CPJ (NOT FOR IM USE) IV NR (20:00)
[2023-01-15] MEDS ORDERED: HYDROCODONE/ACETAMINOPHEN 10/325MG TABLET PO PRN (20:00)
[2023-01-15] MEDS: ATORVASTATIN CALCIUM 20MG TABLET PO SCH (20:50)
[2023-01-15 21:26] LABS: HEMATOCRIT 23.3 % (42.0-52.0); HEMOGLOBIN 7.6 g/dL (14.0-18.0)
[2023-01-16] VITALS: BP 114/67
[2023-01-16 02:36] LABS: PROTHROMBIN TIME 11.1 sec (9.6-11.0)
[2023-01-16 04:00] VITALS: BP 117/73
[2023-01-16] MEDS: HYDROCODONE/ACETAMINOPHEN 10/325MG TABLET PO PRN ×4 (04:19→22:10)
[2023-01-16 06:09] LABS: CHLORIDE 113 mEq/L (98-107)
[2023-01-16 06:10] LABS: BASOPHILS % 0.8 % (0.0-2.0); HEMATOCRIT. 22.1 % (42.0-52.0); HEMOGLOBIN. 7.4 g/dL (14.0-18.0); LYMPHOCYTES % 19.7 % (20.0-50.0); MEAN CORPUSCULAR HEMOGLOBIN 29.7 pg (28.0-32.0); MEAN CORPUSCULAR VOLUME 88.8 fL (80.0-94.0); MEAN PLATELET VOLUME 8.3 fl (7.4-10.4); MONOCYTES % 11.5 % (2.0-8.0); PLATELET 265 x1000/uL (130-400); RED BLOOD CELL COUNT 2.49 mill/uL (4.7-6.1); RED CELL DISTRIBUTION WIDTH 16.7 % (11.6-14.6)
[2023-01-16] MEDS: INSULIN LISPRO 100 UNITS/ML SUBCUT SCH ×4 (07:03→22:08)
[2023-01-16] MEDS: BLOOD SUGAR DIAGNOSTIC STRIP TEST SCH ×4 (07:03→21:00)
[2023-01-16 08:00] VITALS: BP_SYST 108; BP_SYST 121; BP_DIAS 49; BP_DIAS 78
[2023-01-16] MEDS: LOSARTAN POTASSIUM 25 MG TABLET PO SCH (09:50)
[2023-01-16] MEDS: FUROSEMIDE 40MG TABLET PO SCH (09:50)
[2023-01-16] MEDS: PANTOPRAZOLE SODIUM 40 MG/VIAL IV SCH ×2 (10:01→22:07)
[2023-01-16 11:19] LABS: INR 1.1; PROTHROMBIN TIME 11.3 sec (9.6-11.0)
[2023-01-16 12:00] VITALS: BP 117/57
[2023-01-16] MEDS ORDERED: KCL 20MEQ/100ML PREMIX 100 ML IV NR (13:00)
[2023-01-16 16:00] VITALS: BP 103/58
[2023-01-16 16:00] LABS: HEMATOCRIT 23.5 % (42.0-52.0); HEMOGLOBIN 7.6 g/dL (14.0-18.0)
[2023-01-16] MEDS: METOCLOPRAMIDE HCL 10MG/2ML VIAL IV SCH ×2 (17:46→20:17)
[2023-01-16] MEDS: BISACODYL 5MG TABLET PO SCH ×2 (17:46→20:17)
[2023-01-16] MEDS: IRON SUCROSE COMPLEX 100 MG/5 ML ML IV SCH (17:46)
[2023-01-16] MEDS: SORBITOL 70% SOLN 30ML PO SCH ×2 (17:47→20:18)
[2023-01-16] MEDS ORDERED: POTASSIUM CHLORIDE 20MEQ/PACKET PO NR (19:37)
[2023-01-16 20:00] VITALS: BP 126/60
[2023-01-16 21:02] LABS: HEMATOCRIT 25.6 % (42.0-52.0); HEMOGLOBIN 8.1 g/dL (14.0-18.0)
[2023-01-16] MEDS: ATORVASTATIN CALCIUM 20MG TABLET PO SCH (22:07)
[2023-01-17] VITALS: BP 98/52
[2023-01-17] MEDS ORDERED: DEXT 5%/0.9% NACL 1,000 ML IV SCH (00:01)
[2023-01-17] MEDS: BISACODYL 5MG TABLET PO SCH ×2 (00:11→04:09)
[2023-01-17] MEDS: METOCLOPRAMIDE HCL 10MG/2ML VIAL IV SCH ×2 (00:11→04:09)
[2023-01-17] MEDS: DIPHENHYDRAMINE 50MG CAPSULE PO PRN (00:12)
[2023-01-17] MEDS: SORBITOL 70% SOLN 30ML PO SCH ×2 (00:12→04:09)
[2023-01-17 03:02] LABS: BASOPHILS % 0.9 % (0.0-2.0); EOSINOPHILS % 2.9 % (0.0-5.0); HEMATOCRIT. 24.9 % (42.0-52.0); LYMPHOCYTES % 16.5 % (20.0-50.0); MEAN CORPUSCULAR HEMOGLOBIN 28.7 pg (28.0-32.0); MEAN CORPUSCULAR VOLUME 89.1 fL (80.0-94.0); MEAN PLATELET VOLUME 8.7 fl (7.4-10.4); NEUTROPHILS % 69.7 % (40.0-76.0); PLATELET 272 x1000/uL (130-400); RED CELL DISTRIBUTION WIDTH 16.6 % (11.6-14.6)
[2023-01-17 03:14] LABS: PROTHROMBIN TIME 10.7 sec (9.6-11.0)
[2023-01-17 03:31] LABS: CHLORIDE 115 mEq/L (98-107)
[2023-01-17 04:00] VITALS: BP 92/48
[2023-01-17 06:24] VITALS: BP 108/45
[2023-01-17] MEDS: INSULIN LISPRO 100 UNITS/ML SUBCUT SCH ×4 (06:26→20:10)
[2023-01-17] MEDS: BLOOD SUGAR DIAGNOSTIC STRIP TEST SCH ×4 (06:26→20:10)
[2023-01-17 08:00] VITALS: BP 117/68
[2023-01-17] MEDS: FUROSEMIDE 40MG TABLET PO SCH (08:16)
[2023-01-17] MEDS: LOSARTAN POTASSIUM 25 MG TABLET PO SCH (08:16)
[2023-01-17] MEDS: PANTOPRAZOLE SODIUM 40 MG/VIAL IV SCH (08:23)
[2023-01-17] MEDS ORDERED: SODIUM CHLORIDE 0.9% 250 ML IV ONE (10:00)
[2023-01-17] MEDS ORDERED: MIDAZOLAM HCL 2 MG/2 ML VIAL ONE (12:08)
[2023-01-17] MEDS ORDERED: ONDANSETRON HCL 4MG/2ML INJ ONE (12:08)
[2023-01-17] MEDS ORDERED: DEXAMETHASONE 4MG/ML 1ML VIAL ONE (12:08)
[2023-01-17] MEDS ORDERED: PROPOFOL 200MG/20ML VIAL IV ONE (12:09)
[2023-01-17] MEDS ORDERED: LIDOCAINE HCL 1% 20ML VIAL (Pyxis) INJ ONE (12:10)
[2023-01-17 12:24] LABS: HEMATOCRIT 25.1 % (42.0-52.0); HEMOGLOBIN 8.1 g/dL (14.0-18.0)
[2023-01-17 16:00] VITALS: BP 123/70
[2023-01-17] MEDS: IRON SUCROSE COMPLEX 100 MG/5 ML ML IV SCH (16:58)
[2023-01-17 19:30] VITALS: BP 132/69
[2023-01-17] MEDS: ATORVASTATIN CALCIUM 20MG TABLET PO SCH (20:09)
[2023-01-18] MEDS ORDERED: OMEPRAZOLE 20MG CAPSULE EXTENDED RELEASE PO SCH (06:40)
== END 2023-01-17 21:50 | DRG 377 ==
LOC: ER 17:56 → MICUSO 23:19 → EDBEDREQTM 23:31 → EDBEDREQ 23:31 → 6EST 01-13 03:53 → 7EST 01-13 12:30 → UNDODISIN 01-17 17:10
PROVIDERS: ADMIT Internal Medicine; ATTEND Internal Medicine
PROC: 30233N1 Transfusion of Nonautologous Red Blood Cells into Peripheral Vein, Percutaneous Approach (ICD-10-PCS; 2023-01-15)
PROC: 02HV33Z Insertion of Infusion Device into Superior Vena Cava, Percutaneous Approach (ICD-10-PCS; 2023-01-15)
PROC: B548ZZA Ultrasonography of Superior Vena Cava, Guidance (ICD-10-PCS; 2023-01-15)
PROC: 0DB78ZX Excision of Stomach, Pylorus, Via Natural or Artificial Opening Endoscopic, Diagnostic (ICD-10-PCS; principal; 2023-01-17)
PROC: 0DBL8ZZ Excision of Transverse Colon, Via Natural or Artificial Opening Endoscopic (ICD-10-PCS; 2023-01-17)
DX: K57.31 Diverticulosis of large intestine without perforation or abscess with bleeding (principal); I50.23 Acute on chronic systolic (congestive) heart failure; R47.01 Aphasia; K29.71 Gastritis, unspecified, with bleeding; I25.10 Atherosclerotic heart disease of native coronary artery without angina pectoris; I11.0 Hypertensive heart disease with heart failure; K64.4 Residual hemorrhoidal skin tags; E11.51 Type 2 diabetes mellitus with diabetic peripheral angiopathy without gangrene; K76.0 Fatty (change of) liver, not elsewhere classified; K80.20 Calculus of gallbladder without cholecystitis without obstruction; I48.91 Unspecified atrial fibrillation; E78.5 Hyperlipidemia, unspecified; Z20.822 Contact with and (suspected) exposure to COVID-19; I25.5 Ischemic cardiomyopathy; R47.02 Dysphasia; D64.9 Anemia, unspecified; Z89.612 Acquired absence of left leg above knee; Z95.5 Presence of coronary angioplasty implant and graft; Z95.810 Presence of automatic (implantable) cardiac defibrillator; Z76.5 Malingerer [conscious simulation]; Z85.850 Personal history of malignant neoplasm of thyroid; Z87.891 Personal history of nicotine dependence; I69.30 Unspecified sequelae of cerebral infarction; Z79.01 Long term (current) use of anticoagulants; Z79.4 Long term (current) use of insulin; Z79.82 Long term (current) use of aspirin; Z79.899 Other long term (current) drug therapy
CPT/HCPCS: 36415; 36573; 71045; 74177; 80048; 80053; 81003; 82270; 82607; 82728; 82746; 82962; 83540; 83550; 83605; 83735; 84484; 85014; 85018; 85025; 85044; 85049; 85384; 86850; 86900; 86920; 87426; 88305; 93005; 93970; 99285; C1725; C9113; J1100; J1815; J2250; J2270; J2405; J2704; J2765; J3480; J3490; J7030; J7042; P9016; Q0163

== ENCOUNTER 2023-02-11 12:42 | Inpatient (IN) | payer MEDICARE, MEDICAID ==
[~2023-02-11] VITALS: Ht 177.8 cm; Wt 77.3 kg
[~2023-02-11 12:42] MED LIST changes: -APIX5TAB PO
[2023-02-11] MEDS ORDERED: ASPIRIN 81MG TABLET PO ONE (13:15)
[2023-02-11 14:36] LABS: BASOPHILS % 1.3 % (0.0-2.0); EOSINOPHILS % 4.9 % (0.0-5.0); HEMATOCRIT. 32.4 % (42.0-52.0); MEAN CORPUSCULAR VOLUME 94.3 fL (80.0-94.0); MEAN PLATELET VOLUME 6.9 fl (7.4-10.4); MONOCYTES % 9.1 % (2.0-8.0); NEUTROPHILS % 62.7 % (40.0-76.0); PLATELET 288 x1000/uL (130-400); RED BLOOD CELL COUNT 3.44 mill/uL (4.7-6.1); RED CELL DISTRIBUTION WIDTH 19.5 % (11.6-14.6)
[2023-02-11 14:45] LABS: CHLORIDE 115 mEq/L (98-107)
[2023-02-11 14:47] LABS: PARTIAL THROMBOPLASTIN TIME 29.2 sec (23.4-31.0); PROTHROMBIN TIME 11.2 sec (9.6-11.0)
[2023-02-11] MEDS ORDERED: FUROSEMIDE 40MG/4ML VIAL IVP ONE (15:45)
[2023-02-11] MEDS ORDERED: CEFTRIAXONE 1 G PREMIX 50 ML IV ONE (16:00)
[2023-02-11] MEDS ORDERED: AZITHROMYCIN 500MG/250ML 250 ML IV ONE (16:00)
[2023-02-11] MEDS ORDERED: ASPIRIN 81MG TABLET PO NR ×2 (16:15→23:45)
[2023-02-11] MEDS ORDERED: FUROSEMIDE 40MG/4ML VIAL IVP NR (23:45)
[2023-02-12 00:30] VITALS: BP 133/94
[2023-02-12] MEDS ORDERED: CLONIDINE 0.1MG TABLET PO PRN (01:15)
[2023-02-12] MEDS ORDERED: DEXTROSE 50% WATER 50ML SYRINGE IV PRN (01:15)
[2023-02-12] MEDS: HYDROCODONE/ACETAMINOPHEN 5/325MG TABLET PO PRN ×3 (02:36→21:22)
[2023-02-12] MEDS ORDERED: DIPHENHYDRAMINE 50MG/ML VIAL IV PRN (05:30)
[2023-02-12 05:51] LABS: BASOPHILS % 0.9 % (0.0-2.0); EOSINOPHILS % 4.6 % (0.0-5.0); HEMATOCRIT. 35.3 % (42.0-52.0); HEMOGLOBIN. 11.2 g/dL (14.0-18.0); LYMPHOCYTES % 21.9 % (20.0-50.0); MEAN CORPUSCULAR HEMOGLOBIN 29.4 pg (28.0-32.0); MEAN CORPUSCULAR VOLUME 92.4 fL (80.0-94.0); MEAN PLATELET VOLUME 7.7 fl (7.4-10.4); MONOCYTES % 7.4 % (2.0-8.0); NEUTROPHILS % 65.2 % (40.0-76.0); PLATELET 320 x1000/uL (130-400); RED BLOOD CELL COUNT 3.81 mill/uL (4.7-6.1); RED CELL DISTRIBUTION WIDTH 19.1 % (11.6-14.6)
[2023-02-12 06:44] LABS: CHLORIDE 108 mEq/L (98-107)
[2023-02-12 08:00] VITALS: BP 118/75
[2023-02-12] MEDS: BLOOD SUGAR DIAGNOSTIC STRIP TEST SCH ×4 (08:21→21:21)
[2023-02-12] MEDS: FUROSEMIDE 40MG TABLET PO SCH ×2 (09:49→21:21)
[2023-02-12] MEDS: POTASSIUM CHLORIDE 20MEQ TABLET SR PO SCH (09:49)
[2023-02-12] MEDS: SPIRONOLACTONE 25MG TABLET PO SCH (09:49)
[2023-02-12] MEDS: ATORVASTATIN CALCIUM 40MG TABLET PO SCH (09:50)
[2023-02-12] MEDS: CLOPIDOGREL 75MG TABLET PO SCH (09:50)
[2023-02-12] MEDS: ASPIRIN 81MG TABLET PO SCH (09:50)
[2023-02-12] MEDS: LOSARTAN POTASSIUM 50 MG TABLET PO SCH (09:51)
[2023-02-12] MEDS: CARVEDILOL 3.125 MG TABLET PO SCH ×2 (09:51→17:52)
[2023-02-12] MEDS: ENOXAPARIN 40MG/0.4ML SYR SUBCUT SCH (09:51)
[2023-02-12] MEDS: INSULIN LISPRO 100 UNITS/ML SUBCUT SCH ×4 (09:52→21:23)
[2023-02-12 12:00] VITALS: BP 125/80
[2023-02-12 16:00] VITALS: BP 131/82
[2023-02-12 20:00] VITALS: BP 120/73
[2023-02-13] VITALS: BP 118/73
[2023-02-13 00:47] LABS: *AMPHETAMINES SCREEN URINE NEGATIVE (NEGATIVE); *BARBITURATES SCREEN URINE NEGATIVE (NEGATIVE); *BENZODIAZEPINES SCREEN URINE NEGATIVE (NEGATIVE); *COCAINE SCREEN URINE NEGATIVE (NEGATIVE); CANNABINOID URINE SCREEN NEGATIVE (NEGATIVE); METHADONE URINE SCREEN NEGATIVE (NEGATIVE); OPIATES URINE SCREEN PRESUMTIVE POSITIVE (NEGATIVE); PHENCYCLIDINE URINE SCREEN NEGATIVE (NEGATIVE)
[2023-02-13 04:00] VITALS: BP 116/65
[2023-02-13] MEDS: BLOOD SUGAR DIAGNOSTIC STRIP TEST SCH ×3 (06:44→16:04)
[2023-02-13 08:00] VITALS: BP 110/57
[2023-02-13] MEDS: INSULIN LISPRO 100 UNITS/ML SUBCUT SCH ×3 (08:10→16:52)
[2023-02-13] MEDS: POTASSIUM CHLORIDE 20MEQ TABLET SR PO SCH (08:27)
[2023-02-13] MEDS: ATORVASTATIN CALCIUM 40MG TABLET PO SCH (08:32)
[2023-02-13] MEDS: ASPIRIN 81MG TABLET PO SCH (08:32)
[2023-02-13] MEDS: SPIRONOLACTONE 25MG TABLET PO SCH (08:33)
[2023-02-13] MEDS: FUROSEMIDE 40MG TABLET PO SCH (08:33)
[2023-02-13] MEDS: ENOXAPARIN 40MG/0.4ML SYR SUBCUT SCH (08:35)
[2023-02-13] MEDS: LOSARTAN POTASSIUM 50 MG TABLET PO SCH (08:38)
[2023-02-13] MEDS: CARVEDILOL 3.125 MG TABLET PO SCH ×2 (08:38→16:53)
[2023-02-13] MEDS: CLOPIDOGREL 75MG TABLET PO SCH (08:38)
[2023-02-13] MEDS: HYDROCODONE/ACETAMINOPHEN 5/325MG TABLET PO PRN (10:57)
[2023-02-13 12:00] VITALS: BP 129/67
[2023-02-13] MEDS ORDERED: DIPHENHYDRAMINE 25MG CAPSULE PO PRN (14:15)
[2023-02-13] MEDS ORDERED: NALOXONE HCL 0.4MG/ML VIAL IV PRN (14:45)
[2023-02-13 15:10] VITALS: BP 129/70
[2023-02-13 16:00] VITALS: BP 128/68
== END 2023-02-13 20:30 | DRG 64 ==
LOC: ER 12:42 → 7WST 18:09
PROVIDERS: ADMIT Internal Medicine; ATTEND Internal Medicine
DX: I63.9 Cerebral infarction, unspecified (principal); I50.23 Acute on chronic systolic (congestive) heart failure; I11.0 Hypertensive heart disease with heart failure; E11.9 Type 2 diabetes mellitus without complications; F17.210 Nicotine dependence, cigarettes, uncomplicated; Z20.822 Contact with and (suspected) exposure to COVID-19; I25.10 Atherosclerotic heart disease of native coronary artery without angina pectoris; Z74.01 Bed confinement status; J44.9 Chronic obstructive pulmonary disease, unspecified; Z95.810 Presence of automatic (implantable) cardiac defibrillator; Z76.5 Malingerer [conscious simulation]; Z82.49 Family history of ischemic heart disease and other diseases of the circulatory system; Z86.73 Personal history of transient ischemic attack (TIA), and cerebral infarction without residual deficits; Z83.3 Family history of diabetes mellitus; Z95.5 Presence of coronary angioplasty implant and graft; Z89.612 Acquired absence of left leg above knee
CPT/HCPCS: 36415; 70490; 71045; 71250; 80048; 80053; 80061; 80305; 82962; 83036; 83735; 83880; 84132; 84145; 84484; 85025; 87426; 93005; 99285; J0456; J0696; J1200; J1650; J1815; J1940; Q0163

== ENCOUNTER 2023-03-05 17:05 | Emergency (ER) | payer MEDICARE, MEDICAID ==
[~2023-03-05] VITALS: Ht 170.2 cm; Wt 82.0 kg
[2023-03-05 18:36] LABS: BASOPHILS % 0.9 % (0.0-2.0); EOSINOPHILS % 3.6 % (0.0-5.0); HEMATOCRIT. 39.1 % (42.0-52.0); HEMOGLOBIN. 12.7 g/dL (14.0-18.0); LYMPHOCYTES % 19.9 % (20.0-50.0); MEAN CORPUSCULAR HEMOGLOBIN 28.6 pg (28.0-32.0); MEAN CORPUSCULAR VOLUME 87.9 fL (80.0-94.0); MEAN PLATELET VOLUME 8.4 fl (7.4-10.4); MONOCYTES % 4.7 % (2.0-8.0); NEUTROPHILS % 70.9 % (40.0-76.0); PLATELET 308 x1000/uL (130-400); RED BLOOD CELL COUNT 4.45 mill/uL (4.7-6.1); RED CELL DISTRIBUTION WIDTH 18.9 % (11.6-14.6)
[2023-03-05 18:46] LABS: CHLORIDE 102 mEq/L (98-107)
[2023-03-05] MEDS ORDERED: SODIUM CHLORIDE 0.9% 1,000 ML IV ONE (19:30)
[2023-03-05] MEDS ORDERED: HYDROCODONE/ACETAMINOPHEN 7.5/325MG TABLET PO ONE (21:30)
[2023-03-06 10:40] VITALS: BP 124/70
== END 2023-03-06 10:41 | disposition home or self-care (01) ==
LOC: ER 17:05
DX: R07.2 Precordial pain (principal); S00.93XA Contusion of unspecified part of head, initial encounter; I11.0 Hypertensive heart disease with heart failure; I50.9 Heart failure, unspecified; E11.9 Type 2 diabetes mellitus without complications; J44.9 Chronic obstructive pulmonary disease, unspecified; I25.2 Old myocardial infarction; Z86.73 Personal history of transient ischemic attack (TIA), and cerebral infarction without residual deficits; Z95.0 Presence of cardiac pacemaker; Z79.82 Long term (current) use of aspirin; Z79.84 Long term (current) use of oral hypoglycemic drugs; Z79.4 Long term (current) use of insulin; W05.0XXA Fall from non-moving wheelchair, initial encounter; Y93.89 Activity, other specified; Y92.89 Other specified places as the place of occurrence of the external cause; Y99.8 Other external cause status
CPT/HCPCS: 36415; 70450; 71045; 80053; 84484; 85025; 93005; 99285; J7030

== ENCOUNTER 2023-08-04 19:12 | Emergency (ER) | payer MEDICARE, MEDICAID ==
[~2023-08-04] VITALS: Ht 175.3 cm; Wt 73.0 kg
[2023-08-04 19:14] VITALS: TEMP 98.4; O2SAT 97
[2023-08-04 20:10] LABS: BASOPHILS % 1.1 % (0.0-2.0); EOSINOPHILS % 6.5 % (0.0-5.0); HEMATOCRIT. 44.1 % (42.0-52.0); HEMOGLOBIN. 14.5 g/dL (14.0-18.0); LYMPHOCYTES % 23.8 % (20.0-50.0); MEAN CORPUSCULAR HEMOGLOBIN 31.5 pg (28.0-32.0); MEAN CORPUSCULAR HGB CONC 32.8 g/dL (31.0-37.0); MEAN CORPUSCULAR VOLUME 96.1 fL (80.0-94.0); MEAN PLATELET VOLUME 7.5 fl (7.4-10.4); MONOCYTES % 6.8 % (2.0-8.0); NEUTROPHILS % 61.8 % (40.0-76.0); PLATELET 322 x1000/uL (130-400); RED BLOOD CELL COUNT 4.59 mill/uL (4.7-6.1); RED CELL DISTRIBUTION WIDTH 15.9 % (11.6-14.6); WHITE BLOOD COUNT 5.2 x1000/uL (4.5-11.0)
[2023-08-04 20:14] LABS: CHLORIDE 109 mEq/L (98-107); INDEX HEMOLYSI 1 (1-3); INDEX ICTERIC 1 (1-4); INDEX LIPEMIC 1 (1-3); POTASSIUM 3.8 mEq/L (3.5-5.1); SODIUM 137 mEq/L (136-145)
[2023-08-04 20:21] LABS: D-DIMER 0.53 mg/L FEU (<0.50); INR 0.9; PROTHROMBIN TIME 9.9 sec (9.6-11.0)
[2023-08-04 20:25] LABS: ALANINE AMINOTRANSFERASE 14 IU/L (13-61); ALBUMIN 3.6 g/dL (3.4-5.0); ASPARTATE AMINOTRANSFERASE 12 IU/L (15-37); BILIRUBIN TOTAL 0.3 mg/dL (0.1-1.0); CALCIUM 9.2 mg/dL (8.5-10.1); CARBON DIOXIDE 23 mEq/L (21-32); CREATININE 1.2 mg/dL (0.6-1.3); GLUCOSE 206 mg/dL (70-105); NT PRO B-TYPE NATRIURETIC PEP 965 pg/mL (5-125); PROTEIN TOTAL 6.9 g/dL (6.0-8.3); TROPONIN I HIGH SENSITIVITY 19 ng/L (<78); UREA NITROGEN BLOOD 21 mg/dL (7-21)
[2023-08-04 23:56] VITALS: BP 108/72; PULSE 76; RESP 18
== END 2023-08-05 08:00 ==
LOC: ER 19:12
DX: R07.89 Other chest pain (principal); I11.0 Hypertensive heart disease with heart failure; I50.9 Heart failure, unspecified; E11.9 Type 2 diabetes mellitus without complications; Z79.899 Other long term (current) drug therapy; Z86.73 Personal history of transient ischemic attack (TIA), and cerebral infarction without residual deficits; Z79.82 Long term (current) use of aspirin
CPT/HCPCS: 36415; 71045; 80053; 83880; 84484; 85025; 85379; 93005; 99285

== ENCOUNTER 2023-09-04 21:14 | Emergency (ER) | payer MEDICARE, MEDICAID ==
[~2023-09-04] VITALS: Ht 170.2 cm; Wt 73.0 kg
[~2023-09-04 21:14] MED LIST changes: -CLON-457 PO; +CLON-493 PO; -INSU100V37 SQ; +INSU100V43 SQ; +LOSA-412 PO; -LOSA25TA3 PO
[2023-09-05] MEDS ORDERED: IPRATROPIUM BROMIDE (0.02%) 0.5MG/2.5ML NEB HHN STA (02:02)
[2023-09-05] MEDS ORDERED: MORPHINE SULFATE 2 MG/ML CPJ (NOT FOR IM USE) IV ONE (02:15)
[2023-09-05 02:21] LABS: BASOPHILS % 0.4 % (0.0-2.0); EOSINOPHILS % 4.9 % (0.0-5.0); HEMATOCRIT. 48.4 % (42.0-52.0); LYMPHOCYTES % 9.5 % (20.0-50.0); MEAN CORPUSCULAR HEMOGLOBIN 31.6 pg (28.0-32.0); MEAN CORPUSCULAR VOLUME 95.7 fL (80.0-94.0); MEAN PLATELET VOLUME 7.3 fl (7.4-10.4); MONOCYTES % 9.3 % (2.0-8.0); NEUTROPHILS % 75.9 % (40.0-76.0); PLATELET 301 x1000/uL (130-400); RED BLOOD CELL COUNT 5.06 mill/uL (4.7-6.1); WHITE BLOOD COUNT 8.7 x1000/uL (4.5-11.0)
[2023-09-05 02:33] LABS: CHLORIDE 110 mEq/L (98-107); INDEX HEMOLYSI 1 (1-3); INDEX ICTERIC 1 (1-4); INDEX LIPEMIC 1 (1-3); POTASSIUM 4.1 mEq/L (3.5-5.1); SODIUM 138 mEq/L (136-145)
[2023-09-05 02:53] VITALS: PULSE 89; RESP 20; O2SAT 96
[2023-09-05 02:54] LABS: ALANINE AMINOTRANSFERASE 18 IU/L (13-61); ALBUMIN 3.8 g/dL (3.4-5.0); ASPARTATE AMINOTRANSFERASE 11 IU/L (15-37); BILIRUBIN TOTAL 0.3 mg/dL (0.1-1.0); CALCIUM 8.9 mg/dL (8.5-10.1); CARBON DIOXIDE 19 mEq/L (21-32); CREATININE 1.2 mg/dL (0.6-1.3); GLUCOSE 187 mg/dL (70-105); PROTEIN TOTAL 7.8 g/dL (6.0-8.3); TROPONIN I HIGH SENSITIVITY 22 ng/L (<78); UREA NITROGEN BLOOD 19 mg/dL (7-21)
[2023-09-05] MEDS: ALBUTEROL (0.083%) 2.5MG/3ML NEB HHN SCH ×3 (02:54→04:00)
[2023-09-05 03:21] VITALS: PULSE 85; RESP 20; O2SAT 97
[2023-09-05 04:00] VITALS: PULSE 80; RESP 20; O2SAT 97
[2023-09-05] MEDS ORDERED: MORPHINE SULFATE 2 MG/ML CPJ (NOT FOR IM USE) IV NR (04:15)
[2023-09-05 04:45] LABS: TROPONIN I HIGH SENSITIVITY 22 ng/L (<78)
[2023-09-05 11:16] VITALS: BP 147/67; PULSE 83; RESP 20; TEMP 98
== END 2023-09-05 11:17 | disposition home or self-care (01) ==
LOC: ER 21:14
DX: R07.9 Chest pain, unspecified (principal); J44.9 Chronic obstructive pulmonary disease, unspecified; I11.0 Hypertensive heart disease with heart failure; I50.9 Heart failure, unspecified; E11.9 Type 2 diabetes mellitus without complications; Z86.73 Personal history of transient ischemic attack (TIA), and cerebral infarction without residual deficits; Z98.890 Other specified postprocedural states; I49.9 Cardiac arrhythmia, unspecified
CPT/HCPCS: 99285; 71045; 96374; 80053; 83690; 85025; 85379; 84484; 36415; 82803; 93005; 94640; J2270